=== PATIENT | female | born 1965 | race Caucasian/White ===

== ENCOUNTER 2020-05-21 12:41 | Outpatient (REF) | payer OTHER, SELFPAY ==
[2020-05-21 15:31] LABS: Syphilis Screen Nonreactive (Nonreactive)
[2020-05-22 03:11] LABS: CT PCR NOT DETECTED (Not Detect.); NG PCR NOT DETECTED (Not Detect.)
[2020-05-22 13:40] LABS: BV Int Neg Control Negative (Negative); BV Int Pos Control Positive (Positive)
[2020-05-24 03:58] LABS: ~Hepatitis C Antibody Nonreactive (Nonreactive)
[2020-05-24 04:00] LABS: HBc Num1 0.06 S/CO (0.00-0.79); HIV AB/AG Nonreactive (Nonreactive); HIV Num 1 0.05 S/CO (0.00-0.99); Hepatitis B Core Antibody Nonreactive (Nonreactive)
== END 2020-05-21 12:42 | disposition home or self-care (01) ==
LOC: HO.LAB 12:41
PROVIDERS: PCP Internal Medicine; Referring Provider Internal Medicine; Visit Provider Advanced Practice Midwife
DX: Z01.419 Encounter for gynecological examination (general) (routine) without abnormal findings (principal); Z11.3 Encounter for screening for infections with a predominantly sexual mode of transmission; Z11.4 Encounter for screening for human immunodeficiency virus [HIV]; Z20.2 Contact with and (suspected) exposure to infections with a predominantly sexual mode of transmission; R63.4 Abnormal weight loss; N95.1 Menopausal and female climacteric states
CPT/HCPCS: 86704; 86780; 86803; 87389; 87480; 87491; 87510; 87591; 87660

== ENCOUNTER → 2020-07-13 08:43 | Outpatient (BNVA) | payer OTHER, SELFPAY | PROVIDERS: PCP Internal Medicine; Visit Provider Nurse Practitioner | DX: Z76.89 Persons encountering health services in other specified circumstances (principal) ==

== ENCOUNTER → 2020-08-24 14:50 | Outpatient (BNVA) | payer OTHER, SELFPAY | PROVIDERS: PCP Internal Medicine; Visit Provider Nurse Practitioner ==

== ENCOUNTER 2020-10-05 16:06 | Outpatient (REF) | payer OTHER, SELFPAY ==
--- NOTE | ~2020-10-05 | XR_ITS ---
EXAMINATION: XR KNEE, LEFT XR SHOULDER, RIGHT CLINICAL INFORMATION: Pain left knee and right shoulder. COMPARISON: None TECHNIQUE: 3 views left knee. 4 views right shoulder. FINDINGS: LEFT KNEE: The tricompartment joint space is maintained normal. No visible fracture, dislocation or bony erosive changes seen. There is lateral patellar spurring. Small enthesophyte seen along the anterior superior patella. No abnormal joint effusion. RIGHT SHOULDER: There is mild reduction in the right AC joint space with inferior periarticular spurring. The glenohumeral joint space is normal. No fracture, dislocation or bony erosive changes. The soft tissues are normal. XR/XR knee LT 3V IMPRESSION: 1. Mild degenerative changes in the patellofemoral compartment with anterior superior patellar enthesophyte. 2. Mild degenerative changes right AC joint.
--- NOTE | ~2020-10-05 | XR_ITS ---
EXAMINATION: XR KNEE, LEFT XR SHOULDER, RIGHT CLINICAL INFORMATION: Pain left knee and right shoulder. COMPARISON: None TECHNIQUE: 3 views left knee. 4 views right shoulder. FINDINGS: LEFT KNEE: The tricompartment joint space is maintained normal. No visible fracture, dislocation or bony erosive changes seen. There is lateral patellar spurring. Small enthesophyte seen along the anterior superior patella. No abnormal joint effusion. RIGHT SHOULDER: There is mild reduction in the right AC joint space with inferior periarticular spurring. The glenohumeral joint space is normal. No fracture, dislocation or bony erosive changes. The soft tissues are normal. XR/XR shoulder RT min 2V IMPRESSION: 1. Mild degenerative changes in the patellofemoral compartment with anterior superior patellar enthesophyte. 2. Mild degenerative changes right AC joint.
[2020-10-05 16:57] LABS: Alanine Aminotransferase 10 U/L (0-31); Albumin Level 4.2 g/dL (3.5-5.0); Alkaline Phosphatase 73 U/L (39-117); Anion Gap 10 (12-20); Aspartate Amino Transferase 14 U/L (5-31); Bilirubin Total 0.8 mg/dL (0.0-1.0); Blood Urea Nitrogen 11 mg/dL (9-16); Calcium 9.3 mg/dL (8.4-10.2); Carbon Dioxide 32 mmol/L (22-29); Chloride 105 mmol/L (96-108); Cholesterol 142 mg/dL; Estimated Glomerular Filt Rate > 60; Glucose Fasting 81 mg/dL (60-99); HDL Cholesterol 49 mg/dL; LDL Cholesterol Calculated 65 mg/dl; Potassium 3.5 mmol/L (3.3-5.1); Sodium 143 mmol/L (135-145); Total Protein 6.9 g/dL (6.5-8.0); Triglycerides 144 mg/dL
[2020-10-09 10:36] LABS: Vitamin D 25-OH, D2 <4 ng/mL; Vitamin D 25-OH, D3 14 ng/mL; Vitamin D 25-OH, Total 14 ng/mL (30-100)
== END 2020-10-05 16:07 | disposition home or self-care (01) ==
LOC: HO.LAB 16:06
PROVIDERS: PCP Internal Medicine; Visit Provider Internal Medicine
DX: E78.5 Hyperlipidemia, unspecified (principal); E55.9 Vitamin D deficiency, unspecified; M25.562 Pain in left knee; M25.511 Pain in right shoulder
CPT/HCPCS: 36415; 73030; 73562; 80053; 80061; 82306

== ENCOUNTER → 2020-10-29 10:05 | Outpatient (BNVA) | payer OTHER, SELFPAY | PROVIDERS: Visit Provider Student in an Organized Health Care Education/Training Program | DX: M47.816 Spondylosis without myelopathy or radiculopathy, lumbar region (principal); M79.641 Pain in right hand; M79.642 Pain in left hand; M25.561 Pain in right knee; M25.562 Pain in left knee | CPT/HCPCS: 99212 ==

== ENCOUNTER 2020-11-02 16:00 | Outpatient (RCR) | payer OTHER, SELFPAY ==
--- NOTE | 2020-10-27 14:57 | MHC.PT.EP ---
[facility] [place] Office [place] Office [place] Office [address] Roberto Short [address] [phone] F: [phone] F: [phone] F: [phone] F: [phone] Physical Therapy Plan of Care Date of Evaluation: 10/27/20 Date of Surgery: Diagnosis: R shoulder pain Assessment: 55 y/o RHD female referred to PT with R shoulder pain. She fell 10/04/20 downstairs while carrying a hamper landing on R side. Imaging (-) for fx. She now reports pain and difficulty with reaching overhead, lifting, grooming, dressing, and sleeping. Examination shows decreased R shoulder A/PROM, decreased R scapular/RTC strength, increased pain, and impaired postural awareness. Recommend PT 2x/week for 5 weeks to address impairments, implement HEP, and optimize functional mobility. POC to include shoulder ROM, scapular and RTC strengthening, KT/STM, and postural training. Frequency and Duration: The patient will be seen 2x/week for 5 weeks Short Term Goals: 3 weeks: 1. I with HEP 2. Improve R shoulder flexion to 130 actively 3. Improve apley ER to C4 to assist in grooming Halfway Goals: 5 weeks: 1. I with HEP and self management of sx 2. Improve R shoulder strength by one MMT grade to assist in overhead reaching 3. Pt will be able to dress with B UE and pain < 3/10 Treatment Plan: Modalities to reduce pain, spasms and effusion. Manual therapy to restore motion and function. Therapeutic exercise to improve strength and flexibility. Neuromuscular re-education for posture and balance. Therapeutic activities to return to functional activities of daily living. Electronically signed by: Roxie Gutierrez PT Please sign and return to therapist. Thank you for your referral.
--- NOTE | 2020-11-18 15:39 | MHC.PT.DC ---
[facility] [place] Office [place] Office [place] Office [address] Roberto Short 140 [facility] [phone] F: [phone] F: [phone] F: [phone] F: [phone] Physical Therapy Discharge Report Diagnosis: R shoulder pain Date of Surgery: Date of Evaluation: 10/27/20 Date of Discharge: 11/18/20 Treatments to Date: 2 Cancellations to Date: 1 No Shows to Date: 3 Discharge Status: Visit Non-compliance Discharge Summary: Pt d/c secondary to noncompliance with scheduling policy Electronically signed by: Roxie Gutierrez PT Please sign and return to therapist. Thank you for your referral.
== END 2020-11-18 15:40 | disposition home or self-care (01) ==
LOC: HO.PT 16:00
PROVIDERS: PCP Internal Medicine; Visit Provider Internal Medicine
DX: M25.511 Pain in right shoulder (principal)
CPT/HCPCS: 97110; 97161; 97530

== ENCOUNTER → 2020-11-23 13:48 | Outpatient (BNVA) | payer OTHER, SELFPAY | PROVIDERS: PCP Internal Medicine; Visit Provider Nurse Practitioner ==

== ENCOUNTER → 2020-12-10 14:01 | Outpatient (BNVA) | payer OTHER, SELFPAY | PROVIDERS: PCP Internal Medicine; Visit Provider Urology ==

== ENCOUNTER → 2020-12-30 10:57 | Outpatient (BNVA) | payer OTHER, SELFPAY | PROVIDERS: PCP Internal Medicine; Visit Provider Obstetrics & Gynecology | DX: N95.1 Menopausal and female climacteric states (principal) | CPT/HCPCS: 99212 ==

== ENCOUNTER → 2021-01-11 11:02 | Outpatient (BNVA) | payer OTHER, SELFPAY | PROVIDERS: PCP Internal Medicine; Visit Provider Obstetrics & Gynecology | DX: N95.1 Menopausal and female climacteric states (principal) | CPT/HCPCS: 99212 ==

== ENCOUNTER → 2021-01-14 15:03 | Outpatient (REF) | payer OTHER, SELFPAY ==
--- NOTE | 2021-01-14 15:14 | ECG_ITS ---
Test Reason : CHEST PAIN Blood Pressure : / mmHG Vent. Rate : 059 BPM Atrial Rate : 059 BPM P-R Int : 134 ms QRS Dur : 088 ms QT Int : 398 ms P-R-T Axes : 067 052 049 degrees QTc Int : 394 ms Sinus bradycardia Otherwise normal ECG When compared to the previous EKG of No significant changes seen Referred By: Kareen Burrell Electronically Signed By:DIXON GALICIA MD
[2021-01-14 16:45] LABS: Folate 10.5 ng/mL (> or = 4.0); Vitamin B12 276 pg/mL (200-900)
[2021-01-17 19:57] LABS: Intrinsic Factor Antibodies Negative (Negative)
[2021-01-18 12:01] LABS: Parietal Cell Antibody <=20.0 Unit (<=20.0)
[2021-01-18 13:17] LABS: Vitamin D 25-OH, D2 49 ng/mL; Vitamin D 25-OH, D3 13 ng/mL; Vitamin D 25-OH, Total 62 ng/mL (30-100)
== END ==
LOC: HO.CARD 15:03
PROVIDERS: PCP Internal Medicine; Visit Provider Internal Medicine
DX: R07.9 Chest pain, unspecified (principal); E53.8 Deficiency of other specified B group vitamins; E55.9 Vitamin D deficiency, unspecified
CPT/HCPCS: 36415; 82306; 82607; 82746; 83516; 86340; 93005

== ENCOUNTER → 2021-02-04 13:00 | Outpatient (BNVA) | payer OTHER, SELFPAY | PROVIDERS: PCP Internal Medicine; Referring Provider Internal Medicine; Visit Provider Nurse Practitioner | DX: K21.00 Gastro-esophageal reflux disease with esophagitis, without bleeding (principal); K29.30 Chronic superficial gastritis without bleeding; K58.2 Mixed irritable bowel syndrome; R63.4 Abnormal weight loss; R11.2 Nausea with vomiting, unspecified; E53.8 Deficiency of other specified B group vitamins; E78.5 Hyperlipidemia, unspecified; E83.42 Hypomagnesemia; I10 Essential (primary) hypertension; Z80.0 Family history of malignant neoplasm of digestive organs; J30.1 Allergic rhinitis due to pollen; Z88.5 Allergy status to narcotic agent; Z91.018 Allergy to other foods | CPT/HCPCS: 99212 ==

== ENCOUNTER 2021-02-04 15:00 | Outpatient (RCR) | payer OTHER, SELFPAY ==
--- NOTE | 2021-03-17 08:29 | MHC.OT.DC ---
[address] [phone] F: [phone] Occupational Therapy Discharge Note Provider: Dr Malik Diagnosis: Right Hand Pain Date of Evaluation: 01/14/21 Date of Discharge: 03/17/21 Treatments to Date: 3 Cancellations to Date: 4 No Shows to Date: 3 Discharge Status: Visit Non-compliance Discharge Summary: Yola was seen for OT for right hand pain, possible recurrent CTS. She has been very inconsistent with attendance and has not been seen for therapy in over a month. She may benefit from trial of night orthosis and continues participation in HEP. Electronically Signed By: GELACIO Rivas/Sherry Reviewed/agree with student documentation: N/A Therapist: Please Sign and return to therapist, thank you for your referral.
== END 2021-03-17 08:29 | disposition home or self-care (01) ==
LOC: HO.OT 15:00
PROVIDERS: PCP Internal Medicine; Visit Provider Student in an Organized Health Care Education/Training Program
DX: M79.641 Pain in right hand (principal)
CPT/HCPCS: 29125; 97035; 97110; 97166; 97760

== ENCOUNTER → 2021-02-09 14:09 | Outpatient (BNVA) | payer OTHER, SELFPAY | PROVIDERS: PCP Internal Medicine; Visit Provider Obstetrics & Gynecology | DX: N95.1 Menopausal and female climacteric states (principal); E53.8 Deficiency of other specified B group vitamins; E78.5 Hyperlipidemia, unspecified; I10 Essential (primary) hypertension; E83.42 Hypomagnesemia; Z98.51 Tubal ligation status | CPT/HCPCS: 99212 ==

== ENCOUNTER 2021-02-21 17:00 | Outpatient (RCR) | payer OTHER, SELFPAY ==
--- NOTE | 2021-01-10 16:08 | MHC.PT.EP ---
[facility] [place] Office [place] Office [place] Office [address] Roberto Short [address] [phone] F: [phone] F: [phone] F: [phone] F: [phone] Physical Therapy Plan of Care Date of Evaluation: Date of Surgery: N/A Diagnosis: pain in left knee Assessment: pt presents w/ signs and symptoms consistent w/ patellofemoral pain syndrome. pt presents to physical therapy with pain, decreased range of motion, decreased strength, impaired functional mobility, impaired postural awareness, and gait deviations. pt is a good candidate for skilled PT due to age, potential remediation of impairments, typical disease/condition progression and prognosis, comorbidities, and motivation. pt would benefit from tailored strengthening and stretching exercise program, functional training, gait training, postural re-training, neuromuscular re-education, modalities as needed for pain, equipment safety demonstration. Frequency and Duration: The patient will be seen 2x/wk for 4 wks Short Term Goals: pt will be I w/ HEP to promote self-management of condition. pt will improve L quad strength by 1 MMT grade to promote ease in ascending/descending stairs. Skilled Nursing Goals: pt will report a statistically significant improvement in self-reported outcome measure, LEFI, to promote return to PLOF. pt will report <1/10 L knee pain w/ ambulation >2500' w/ LRAD to promote return to community ambulation. Treatment Plan: Modalities to reduce pain, spasms and effusion. Manual therapy to restore motion and function. Therapeutic exercise to improve strength and flexibility. Neuromuscular re-education for posture and balance. Therapeutic activities to return to functional activities of daily living. Electronically signed by: Rose Malone PT, DPT Please sign and return to therapist. Thank you for your referral.
--- NOTE | 2021-03-07 10:16 | MHC.PT.DC ---
[facility] [place] Office [place] Office [place] Office [address] Roberto Short 140 [facility] [phone] F: [phone] F: [phone] F: [phone] F: [phone] Physical Therapy Discharge Report Diagnosis: pain in left knee Date of Surgery: N/A Date of Evaluation: 01/10/21 Date of Discharge: 03/07/21 Treatments to Date: 7 Cancellations to Date: 2 No Shows to Date: 1 Discharge Status: Visit Non-compliance Discharge Summary: The patient cancelled her last appointment and has not called back to reschedule any future appointments in approximately two weeks. She was reporting overall no change in her pain with physical therapy intervention at this time. Her primary aggravating factor is navigating stairs which she has to do multiple times a day as she lives on the fourth floor of an apartment complex. She is discharged from this physical therapy plan of care at this time. Electronically signed by: Rose Malone PT, DPT Please sign and return to therapist. Thank you for your referral.
== END 2021-03-07 10:17 | disposition home or self-care (01) ==
LOC: HO.PT 17:00
PROVIDERS: PCP Internal Medicine; Visit Provider Student in an Organized Health Care Education/Training Program
DX: M25.561 Pain in right knee (principal)
CPT/HCPCS: 97110; 97161; 97530

== ENCOUNTER 2021-02-24 15:43 | Outpatient (REF) | payer OTHER, SELFPAY ==
--- NOTE | ~2021-02-24 | MM_ITS ---
EXAMINATION: MM SCREENING DIGITAL BREAST TOMOSYNTHESIS, BILATERAL CLINICAL INFORMATION: Screening. Asymptomatic. The lifetime risk of breast cancer based on the Tyrer-Cuzick Model is 6%. COMPARISON: Mammography: 12/13/2018, 02/05/2018, 01/05/2017 TECHNIQUE: Digital breast tomosynthesis is performed in both the craniocaudal and mediolateral oblique views along with computer-aided detection (CAD). Synthesized 2D images are generated from the tomosynthesis. FINDINGS: There are scattered areas of fibroglandular density (ACR BI-RADS breast composition Category b). There are no significant masses, abnormal calcifications, or other abnormalities. There is small stable circumscribed nodule 12:00 left breast. The axilla and skin contours are unremarkable. No significant changes. MM/MM tomosynthesis screening BI IMPRESSION: No mammographic evidence of malignancy. ASSESSMENT: BI-RADS 2: Benign RECOMMENDATION: Routine annual mammography screening. This patient's information was entered into a reminder system with a target due date for their next mammogram.
== END 2021-02-24 15:44 | disposition home or self-care (01) ==
LOC: HO.MAMMO 15:43
PROVIDERS: Visit Provider Internal Medicine
DX: Z12.31 Encounter for screening mammogram for malignant neoplasm of breast (principal)
CPT/HCPCS: 77063; 77067

== ENCOUNTER → 2021-03-18 13:24 | Outpatient (BNVA) | payer OTHER, SELFPAY | PROVIDERS: Visit Provider Nurse Practitioner | DX: K29.30 Chronic superficial gastritis without bleeding (principal); R11.2 Nausea with vomiting, unspecified; K21.00 Gastro-esophageal reflux disease with esophagitis, without bleeding; K58.2 Mixed irritable bowel syndrome; E53.8 Deficiency of other specified B group vitamins; Z80.0 Family history of malignant neoplasm of digestive organs | CPT/HCPCS: 99212 ==

== ENCOUNTER → 2021-05-05 13:38 | Outpatient (BNVA) | payer OTHER, SELFPAY | PROVIDERS: Referring Provider Internal Medicine; Visit Provider Nurse Practitioner | DX: K21.00 Gastro-esophageal reflux disease with esophagitis, without bleeding (principal); K58.2 Mixed irritable bowel syndrome; K30 Functional dyspepsia; R10.11 Right upper quadrant pain; R35.0 Frequency of micturition | CPT/HCPCS: 99212 ==

== ENCOUNTER 2021-06-12 17:31 | Emergency (ER) | payer OTHER, SELFPAY ==
[2021-06-12 17:39] VITALS: BP 134/79; PULSE 98; RESP 17; TEMP 36.4; O2SAT 98; BMI 24.7
[2021-06-12 17:58] LABS: COVID-19 Test Positive (Negative)
--- NOTE | 2021-06-12 18:00 | ED_ITS ---
HPI - URI/Sore Throat General Chief Complaint: Upper Respiratory Symptoms Stated Complaint: Covid symptoms Time Seen by Provider: 06/12/21 17:50 Source: patient and bilingual interpreter Mode of arrival: ambulatory Limitations: no limitations History of Present Illness MD elicited complaint: fever, cough, sore throat and rhinorrhea Pertinent past history: immunosuppression Onset (ago): day(s) (3) Consistency: constant Severity: moderate Description of mucous: clear Able to tolerate fluids by mouth: Yes Exacerbating factors: nothing Context: sick contacts (son has COVID, patient is not vaccinated) Associated symptoms: fever, chills, myalgias, headache, rhinorrhea, cough and nausea Treatments prior to arrival: none Related Data Home Medications Medication Instructions Recorded Confirmed albuterol sulfate 90 mcg/actuation 2 puff INHALATION Q4H PRN 05/03/20 05/18/21 aerosol inhaler citalopram 40 mg tablet 40 mg PO DAILY 05/03/20 05/18/21 diphenhydramine HCl 25 mg capsule 25 mg PO BEDTIME 05/03/20 05/18/21 fluticasone 113 mcg-salmeterol 14 1 inh INHALATION BID 05/03/20 05/18/21 mcg/actuation breath activated powdr mirtazapine 15 mg tablet 15 mg PO BEDTIME 05/03/20 05/18/21 trazodone 50 mg tablet 50 mg PO BEDTIME 05/03/20 05/18/21 metoprolol tartrate 25 mg tablet 25 mg PO BID 05/21/20 05/18/21 promethazine 12.5 mg tablet 12.5 mg PO Q6-8H 05/21/20 05/18/21 glatiramer 40 mg/mL subcutaneous 40 mg SUBCUT 3XW 10/29/20 05/18/21 syringe (Copaxone) triamcinolone acetonide 55 mcg spray INTRANASAL 12/10/20 05/18/21 nasal spray aerosol Previous Rx's Medication Instructions Recorded losartan 50 mg tablet 50 mg PO DAILY 90 Days #90 tab 07/02/20 ropinirole 5 mg tablet 5 mg PO BEDTIME 90 Days #90 tab 07/19/20 alcohol swabs (Alcohol Prep Pads) 1 pad TOPICAL BID 90 Days #200 ea 09/08/20 chlorthalidone 50 mg tablet 50 mg PO QAM #90 tab 11/05/20 dexlansoprazole 60 mg 60 mg PO DAILY 90 Days #90 cap 02/04/21 capsule,biphase delayed release methylcellulose (laxative) 500 mg 1,000 mg PO DAILY 30 Days #60 tab 02/04/21 tablet (Citrucel) clonidine 0.1 mg/24 hr weekly 1 patch TRANSDERMAL QWEEK #4 ea 02/09/21 transdermal patch tramadol 50 mg tablet 50 mg PO TID #90 tab 02/22/21 dicyclomine 10 mg capsule 10 mg PO QID PRN 30 Days #120 cap 03/18/21 metoclopramide HCl 5 mg tablet 5 mg PO QIDACHS 30 Days #120 tab 03/18/21 polyethylene glycol 3350 17 17 g PO DAILY PRN 30 Days #510 g 03/18/21 gram/dose oral powder (Miralax) cetirizine 10 mg tablet 10 mg PO DAILY 90 Days #90 tab 05/06/21 glycopyrrolate 1 mg tablet 1 mg PO ONCE 90 Days #90 tab 05/06/21 magnesium oxide 400 mg (241.3 mg 400 mg PO BID 90 Days #180 tab 05/06/21 magnesium) tablet topiramate 100 mg tablet 100 mg PO BEDTIME 90 Days #90 tab 05/06/21 venlafaxine 37.5 mg 37.5 mg PO DAILY #30 cap 05/13/21 capsule,extended release 24 hr ergocalciferol (vitamin D2) 1,250 1,250 mcg PO QWEEK 30 Days #5 cap 06/06/21 mcg (50,000 unit) capsule Allergies Allergy/AdvReac Type Severity Reaction Status Date / Time almond Allergy Severe ANAPHYLAXIS Verified 06/12/21 17:39 kiwi Allergy Severe Itching Verified 06/12/21 17:39 peach [PEACH] Allergy Severe ANAPHYLAXIS Verified 06/12/21 17:39 walnut Allergy Severe ANAPHYLAXIS Verified 06/12/21 17:39 morphine Allergy Intermediate ITCHING, Verified 06/12/21 17:39 hives, swelling,itchiness ENVIRONMENTAL Allergy Intermediate HAY FEVER Uncoded 05/18/21 10:25 Review of Systems Review of Systems: Constitutional : positive Fever, positive Chills, positive fatigue, positive Malaise ENT/Mouth : no sore throat, positive runny nose Eyes: No Discharge Cardiovascular : No Chest Pain, No SOB Respiratory : pos Cough, No Sputum Gastrointestinal : pos Nausea, No Vomiting, No Diarrhea Genitourinary : No Dysuria, No Urinary Frequency Musculoskeletal : positive Myalgia Skin : No rash Neuro : pos Headache PMFSH Past Medical History Attestation statement: The following information was validated with the patient. Medical History Allergic rhinitis Allergic rhinitis B12 deficiency Dyslipidemia Essential hypertension Foot callus Foot pain Hypomagnesemia Left knee pain Migraine Moderate recurrent major depression Multiple sclerosis Multiple sclerosis Right shoulder pain Salivary disorder Urge urinary incontinence Surgical History History of endometrial ablation History of esophagogastroduodenoscopy (EGD) History of suburethral sling procedure Hx of colonoscopy Hx of foot surgery Hx of submucous nasal surgery Hx of tubal ligation Family History Family History Father History of throat cancer Mother Family history of lupus erythematosus Stroke Multiple sclerosis Maternal Grandmother Multiple sclerosis Pancreatic cancer Paternal Grandfather Pancreatic cancer Lung cancer Social History Social History Household Members: Spouse and Children Housing: Apartment Alcohol intake: never Patient Tobacco Use Status: Never used Tobacco e-Cigarette/Vaping Use: Never Used Second Hand Smoke Exposure: No Substance Use Type: Marijuana Advance Directives: No Advance Directives Information Provided: No Patient : No service: No Current occupational status: student and disabled Physical Exam Vital Signs: Vital Signs: Last Vital Signs Temp 97.6 F 06/12/21 17:39 Pulse 98 06/12/21 17:39 Resp 17 06/12/21 17:39 BP 134/79 06/12/21 17:39 Pulse Ox 98 06/12/21 17:39 Body Mass Index 24.7 Appearance: Alert. Oriented X3. No acute distress. Eyes: Pupils equal, round and reactive to light. ENT: Pharynx normal. Neck: Normal inspection. Neck supple. CVS: Normal heart rate and rhythm. Pulses normal. Respiratory: No respiratory distress. Breath sounds normal. Abdomen: Soft and non-tender. Skin: Skin warm and dry. Normal skin color. Normal skin turgor. Extremities: No lower extremity edema. No calf ttp Neuro: Oriented X 3. No motor deficit. No sensory deficit. MDM - URI/Sore Throat MDM Narrative Medical decision making narrative: 56 yo female multiple medical problems here with URI symptoms x 3 days and body aches, she has no CP, normal O2 sats, she was walking back and from bathroom no distress, clear lungs - + COVID exposure unvaccinated - given information for monoclonal ab and expectant course and management Lab Data Labs: Lab Results 06/12/21 Range/Units 17:47 COVID-19 ([facility]) Positive A (Negative) COVID-19 Clin Com See Note Discharge Plan Discharge Clinical Impression: COVID-19 Patient Disposition: Home, Self-Care Instructions: COVID-19 (Coronavirus Disease 2019) (ED) Additional Instructions: return to ED for any worsening symptoms or concerns if you are so short of breath you cannot walk to your bathroom please come back to the ED PLEASE CALL [facility] TO SEE IF YOU MEET CRITERIA FOR MONOCLONAL ANTIBODY TREATMENT CALL TOMORROW [phone] Prescriptions: No Action losartan 50 mg tablet 50 mg PO DAILY 90 Days Qty: 90 RF: 3 ropinirole 5 mg tablet 5 mg PO BEDTIME 90 Days Qty: 90 RF: 3 alcohol swabs [Alcohol Prep Pads] Pads, Medicated 1 pad topical BID 90 Days Qty: 200 RF: 3 chlorthalidone 50 mg tablet 50 mg PO QAM Qty: 90 RF: 3 tramadol 50 mg tablet 50 mg PO TID Qty: 90 RF: 5 magnesium oxide 400 mg (241.3 mg magnesium) tablet 400 mg PO BID 90 Days Qty: 180 RF: 3 glycopyrrolate 1 mg tablet 1 mg PO ONCE 90 Days Qty: 90 RF: 3 topiramate 100 mg tablet 100 mg PO BEDTIME 90 Days Qty: 90 RF: 3 cetirizine 10 mg tablet 10 mg PO DAILY 90 Days Qty: 90 RF: 3 venlafaxine 37.5 mg capsule,extended release 24hr 37.5 mg PO DAILY Qty: 30 RF: 3 ergocalciferol (vitamin D2) 1,250 mcg (50,000 unit) capsule 1,250 mcg PO QWEEK 30 Days Qty: 5 RF: 3 promethazine 12.5 mg tablet 12.5 mg PO Q6-8H RF: 0 metoprolol tartrate 25 mg tablet 25 mg PO BID RF: 0 triamcinolone acetonide 55 mcg aerosol,spray intranasal RF: 0 glatiramer [Copaxone] 40 mg/mL syringe 40 mg subcut 3XW RF: 0 fluticasone propion-salmeterol 113-14 mcg/actuation aerosol powdr breath activated 1 inh inhalation BID RF: 0 albuterol sulfate 90 mcg/actuation HFA aerosol inhaler 2 puff inhalation Q4H PRN (Reason: Wheezing) RF: 0 mirtazapine 15 mg tablet 15 mg PO BEDTIME RF: 0 diphenhydramine HCl 25 mg capsule 25 mg PO BEDTIME RF: 0 trazodone 50 mg tablet 50 mg PO BEDTIME RF: 0 citalopram 40 mg tablet 40 mg PO DAILY RF: 0 Citrucel 500 mg tablet 1,000 mg PO DAILY 30 Days Qty: 60 RF: 6 dexlansoprazole 60 mg capsule,biphase delayed releas 60 mg PO DAILY 90 Days Qty: 90 RF: 3 clonidine 0.1 mg/24 hr patch weekly 1 patch transdermal QWEEK Qty: 4 RF: 11 metoclopramide HCl 5 mg tablet 5 mg PO QIDACHS 30 Days Qty: 120 RF: 6 polyethylene glycol 3350 [Miralax] 17 gram/dose powder 17 g PO DAILY PRN (Reason: constipation) 30 Days Qty: 510 RF: 3 dicyclomine 10 mg capsule 10 mg PO QID PRN (Reason: cramping) 30 Days Qty: 120 RF: 3 Print Language: Belarusian
== END 2021-06-12 18:24 | disposition home or self-care (01) ==
PROVIDERS: Emergency Provider Emergency Medicine; PCP Internal Medicine
DX: U07.1 COVID-19 (principal); I10 Essential (primary) hypertension; G35 Multiple sclerosis; E78.5 Hyperlipidemia, unspecified
CPT/HCPCS: 36415; 87635; 99283

== ENCOUNTER 2021-08-01 14:32 | Outpatient (REF) | payer OTHER, SELFPAY | END 2021-08-01 14:33 | disposition home or self-care (01) | LOC: HO.LAB 14:32 | PROVIDERS: PCP Internal Medicine; Visit Provider Internal Medicine | DX: Z13.89 Encounter for screening for other disorder (principal) ==

== ENCOUNTER 2021-08-01 14:37 | Outpatient (REF) | payer OTHER, SELFPAY ==
--- NOTE | ~2021-08-01 | XR_ITS ---
EXAMINATION: XR BILATERAL FOOT SERIES CLINICAL INFORMATION: Pain in the left foot, pain in the right foot. COMPARISON: X-ray the right foot August 2019 TECHNIQUE: 3 views of the right foot and 3 views of the left foot FINDINGS: RIGHT FOOT: There postsurgical changes with resection of the distal end of the 5th metatarsal. Slight irregularity of the distal end of the proximal phalanx at the PIP joint which is unchanged and may also reflect postsurgical change. The bones joints and soft tissues are otherwise normal. LEFT FOOT: First metatarsophalangeal joint small marginal osteophytes without joint space narrowing indicative of mild osteoarthritis without significant change. Postsurgical changes in the ankle with partially visualized plate and screws noted similar to prior. Hardware remains intact XR/XR foot RT 2V IMPRESSION: Right foot: Postsurgical changes of the 5th digit. No acute abnormality. 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 Postsurgical changes partially visualized in the ankle unchanged.
--- NOTE | ~2021-08-01 | XR_ITS ---
EXAMINATION: XR BILATERAL FOOT SERIES CLINICAL INFORMATION: Pain in the left foot, pain in the right foot. COMPARISON: X-ray the right foot August 2019 TECHNIQUE: 3 views of the right foot and 3 views of the left foot FINDINGS: RIGHT FOOT: There postsurgical changes with resection of the distal end of the 5th metatarsal. Slight irregularity of the distal end of the proximal phalanx at the PIP joint which is unchanged and may also reflect postsurgical change. The bones joints and soft tissues are otherwise normal. LEFT FOOT: First metatarsophalangeal joint small marginal osteophytes without joint space narrowing indicative of mild osteoarthritis without significant change. Postsurgical changes in the ankle with partially visualized plate and screws noted similar to prior. Hardware remains intact XR/XR foot LT 2V IMPRESSION: Right foot: Postsurgical changes of the 5th digit. No acute abnormality. 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 Postsurgical changes partially visualized in the ankle unchanged.
[2021-08-01 15:01] LABS: MANUAL DIFF FLAG NO
[2021-08-01 15:24] LABS: Basophils Percent Auto 0.8 % (0-2); Eosinophils Absolute Auto 0.1 X10*3/uL (0.0-0.4); Eosinophils Percent Auto 1.6 % (0-4); Hematocrit 40.7 % (37.0-47.0); Hemoglobin 13.9 g/dl (12.0-16.0); Imm Gran Abs Auto 0.01 X10*3/uL (0.00-0.03); Imm Gran Pct Auto 0.2 % (0.0-0.4); Lymphocytes Absolute Auto 1.9 X10*3/uL (1.2-4.9); Lymphocytes Percent Auto 38.2 % (20-40); Mean Corpuscular HGB Conc 34.2 g/dl (31.0-35.0); Mean Corpuscular Hemoglobin 33.8 pg (27.0-33.0); Mean Platelet Volume 10.6 fL (9.4-12.3); Monocytes Absolute Auto 0.5 X10*3/uL (0.1-1.2); Monocytes Percent Auto 9.4 % (2-11); Neutrophils Absolute Auto 2.4 x10*3/uL (2.0-8.3); Neutrophils Percent Auto 49.8 % (45-73); Platelet Count 169 X10*3/uL (160-400); Red Blood Count 4.11 X10*6/uL (4.20-5.50); Red Cell Distribution Width 12.3 % (11.0-16.0); White Blood Count 4.9 X10*3/uL (4.8-10.8)
[2021-08-01 15:47] LABS: Alanine Aminotransferase 17 U/L (0-31); Albumin Level 4.2 g/dL (3.5-5.0); Alkaline Phosphatase 62 U/L (39-117); Anion Gap 10 (12-20); Aspartate Amino Transferase 16 U/L (5-31); Bilirubin Total 0.6 mg/dL (0.0-1.0); Blood Urea Nitrogen 10 mg/dL (9-16); Calcium 9.6 mg/dL (8.4-10.2); Carbon Dioxide 31 mmol/L (22-29); Chloride 106 mmol/L (96-108); Cholesterol 141 mg/dL; Estimated Glomerular Filt Rate > 60; Glucose Fasting 90 mg/dL (60-99); HDL Cholesterol 52 mg/dL; LDL Cholesterol Calculated 66 mg/dl; Potassium 3.9 mmol/L (3.3-5.1); Sodium 143 mmol/L (135-145); Total Protein 6.7 g/dL (6.5-8.0); Triglycerides 116 mg/dL
[2021-08-05 13:01] LABS: Vitamin D 25-OH, D2 34 ng/mL; Vitamin D 25-OH, D3 17 ng/mL; Vitamin D 25-OH, Total 51 ng/mL (30-100)
== END 2021-08-01 14:38 | disposition home or self-care (01) ==
LOC: HO.XRAY 14:37
PROVIDERS: PCP Internal Medicine; Visit Provider Internal Medicine
DX: M79.672 Pain in left foot (principal); M79.671 Pain in right foot; D64.9 Anemia, unspecified; E55.9 Vitamin D deficiency, unspecified; E78.5 Hyperlipidemia, unspecified; I10 Essential (primary) hypertension
CPT/HCPCS: 36415; 73620; 80053; 80061; 82306; 85025

== ENCOUNTER 2021-08-10 09:02 | Outpatient (REF) | payer OTHER, SELFPAY ==
--- NOTE | ~2021-08-10 | US_ITS ---
EXAMINATION: US ABDOMEN COMPLETE CLINICAL INFORMATION: Right upper quadrant pain. COMPARISON: CT abdomen and pelvis 12/11/2019. X-ray KUB 08/11/2019. X-ray abdomen 04/02/2019. Ultrasound abdomen complete 03/20/2018. Ultrasound abdomen limited 02/27/2014. TECHNIQUE: Real-time imaging of the abdominal viscera. FINDINGS: PANCREAS: Visualized portions of the pancreas are unremarkable, the tail is obscured by overlying bowel gas. ABDOMINAL AORTA: The proximal, mid, and distal segments are normal in caliber. INFERIOR VENA CAVA: Visualized portions are normal. LIVER: The liver is normal in size. The liver contour is normal. Parenchymal echogenicity is normal. No focal hepatic lesion. There is no intrahepatic biliary duct dilatation seen. GALLBLADDER: The gallbladder is physiologically distended without evidence of stones, sludge, polyps, wall thickening or pericholecystic fluid. COMMON BILE DUCT: Normal in caliber measuring 0.5 cm in diameter. RIGHT KIDNEY: No hydronephrosis. No renal calculi or focal parenchymal lesions. The kidney measures 10.0 cm in maximum dimension. LEFT KIDNEY: No hydronephrosis. No renal calculi or focal parenchymal lesions. The kidney measures 10.0 cm in maximum dimension. SPLEEN: The spleen measures 9.5 cm in maximum dimension. FREE FLUID: None. US/US abdomen complete IMPRESSION: Unremarkable abdominal ultrasound.
== END 2021-08-10 09:03 | disposition home or self-care (01) ==
LOC: HO.US 09:02
PROVIDERS: Visit Provider Nurse Practitioner
DX: R10.11 Right upper quadrant pain (principal)
CPT/HCPCS: 76700

== ENCOUNTER → 2021-08-23 09:41 | Outpatient (BNVA) | payer OTHER, SELFPAY | PROVIDERS: PCP Internal Medicine; Referring Provider Internal Medicine; Visit Provider Nurse Practitioner | DX: K30 Functional dyspepsia (principal); K21.00 Gastro-esophageal reflux disease with esophagitis, without bleeding; K58.2 Mixed irritable bowel syndrome; R10.11 Right upper quadrant pain; R11.2 Nausea with vomiting, unspecified | CPT/HCPCS: 99212 ==

== ENCOUNTER 2021-09-19 13:54 | Outpatient (REF) | payer OTHER, SELFPAY ==
[2021-09-20 09:18] LABS: CT PCR NOT DETECTED (Not Detect.); NG PCR NOT DETECTED (Not Detect.)
[2021-09-20 11:05] LABS: BV Int Neg Control Negative (Negative); BV Int Pos Control Positive (Positive)
== END 2021-09-19 13:55 | disposition home or self-care (01) ==
LOC: HO.LAB 13:54
PROVIDERS: PCP Internal Medicine; Visit Provider Advanced Practice Midwife
DX: Z01.411 Encounter for gynecological examination (general) (routine) with abnormal findings (principal); R35.0 Frequency of micturition; R23.2 Flushing; R30.0 Dysuria; R10.2 Pelvic and perineal pain; Z20.2 Contact with and (suspected) exposure to infections with a predominantly sexual mode of transmission
CPT/HCPCS: 81003; 87480; 87491; 87510; 87591; 87660

== ENCOUNTER → 2021-09-22 09:55 | Outpatient (BNVA) | payer OTHER, SELFPAY | PROVIDERS: PCP Internal Medicine; Referring Provider Internal Medicine; Visit Provider Nurse Practitioner | DX: K58.2 Mixed irritable bowel syndrome (principal); K21.00 Gastro-esophageal reflux disease with esophagitis, without bleeding; K30 Functional dyspepsia; K59.00 Constipation, unspecified; R11.2 Nausea with vomiting, unspecified | CPT/HCPCS: 99212 ==

== ENCOUNTER 2021-10-11 15:29 | Outpatient (REF) | payer OTHER, SELFPAY ==
--- NOTE | ~2021-10-11 | US_ITS ---
EXAMINATION: US PELVIS CLINICAL INFORMATION: Dysuria. COMPARISON: Previous CT of the abdomen and pelvis December 2019. TECHNIQUE: Ultrasound of the pelvis is performed using both transabdominal and transvaginal transducers along with Doppler. Transvaginal imaging is performed due to inadequate visualization transabdominally. FINDINGS: The uterus is anteverted and measures 7 x 2.6 x 4.5 cm in dimension. No focal uterine lesion is seen. The endometrium does not appear thickened measuring 0.3 cm. There is a small amount of fluid in the endometrial cavity. The ovaries are normal. The right ovary measures 2.5 x 1.8 x 1.3 cm. The left ovary is normal and measures 2.2 x 1 x 1.4 cm. There is no fluid in the pelvis. US/US pelvic and transvaginal IMPRESSION: Unremarkable exam.
== END 2021-10-11 15:30 | disposition home or self-care (01) ==
LOC: HO.HMGCX 15:29
PROVIDERS: PCP Internal Medicine; Visit Provider Advanced Practice Midwife
DX: R30.0 Dysuria (principal)
CPT/HCPCS: 76830; 76856

== ENCOUNTER → 2021-10-19 15:41 | Outpatient (BNVA) | payer OTHER, SELFPAY | PROVIDERS: Visit Provider Advanced Practice Midwife | DX: R10.2 Pelvic and perineal pain (principal); Z71.2 Person consulting for explanation of examination or test findings | CPT/HCPCS: Q3014 ==

== ENCOUNTER → 2021-10-27 12:31 | Outpatient (BNVA) | payer OTHER, SELFPAY | PROVIDERS: PCP Internal Medicine; Visit Provider Nurse Practitioner Family | DX: M47.816 Spondylosis without myelopathy or radiculopathy, lumbar region (principal); M79.641 Pain in right hand; M79.642 Pain in left hand; M25.522 Pain in left elbow; R20.0 Anesthesia of skin; R20.2 Paresthesia of skin | CPT/HCPCS: 99212 ==

== ENCOUNTER → 2021-10-28 10:30 | Outpatient (BNVA) | payer OTHER, SELFPAY | PROVIDERS: PCP Internal Medicine; Referring Provider Internal Medicine; Visit Provider Nurse Practitioner | DX: K21.00 Gastro-esophageal reflux disease with esophagitis, without bleeding (principal); K58.2 Mixed irritable bowel syndrome | CPT/HCPCS: 99212 ==

== ENCOUNTER → 2021-11-22 14:41 | Outpatient (BNVA) | payer OTHER, MEDICAID, SELFPAY | PROVIDERS: PCP Internal Medicine; Visit Provider Orthopaedic Surgery | DX: M79.641 Pain in right hand (principal); R20.0 Anesthesia of skin; R20.2 Paresthesia of skin | CPT/HCPCS: 99202 ==

== ENCOUNTER → 2021-12-09 10:26 | Outpatient (BNVA) | payer OTHER, MEDICAID, SELFPAY | PROVIDERS: PCP Internal Medicine; Referring Provider Internal Medicine; Visit Provider Nurse Practitioner | DX: K58.2 Mixed irritable bowel syndrome (principal); K21.00 Gastro-esophageal reflux disease with esophagitis, without bleeding; K30 Functional dyspepsia | CPT/HCPCS: 99212 ==

== ENCOUNTER → 2022-01-05 15:41 | Outpatient (BNVA) | payer OTHER, SELFPAY | PROVIDERS: PCP Internal Medicine; Referring Provider Internal Medicine; Visit Provider Nurse Practitioner | DX: K58.2 Mixed irritable bowel syndrome (principal); K21.00 Gastro-esophageal reflux disease with esophagitis, without bleeding; K30 Functional dyspepsia; D75.89 Other specified diseases of blood and blood-forming organs | CPT/HCPCS: 99212 ==

== ENCOUNTER 2022-02-17 16:44 | Emergency (ER) | payer OTHER, SELFPAY ==
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
[2022-02-17 16:53] VITALS: BP 175/106; PULSE 99; RESP 16; TEMP 36.7; O2SAT 98; BMI 23.6
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
== END 2022-02-17 18:20 | disposition home or self-care (01) ==
PROVIDERS: Emergency Provider Emergency Medicine; PCP Internal Medicine
DX: T59.811A Toxic effect of smoke, accidental (unintentional), initial encounter (principal); Y92.030 Kitchen in apartment as the place of occurrence of the external cause; E78.5 Hyperlipidemia, unspecified; G35 Multiple sclerosis; F12.90 Cannabis use, unspecified, uncomplicated; Z87.891 Personal history of nicotine dependence; Z79.899 Other long term (current) drug therapy
CPT/HCPCS: 71046; 99282; 99283

== ENCOUNTER 2022-03-14 16:53 | Outpatient (REF) | payer OTHER, SELFPAY ==
--- NOTE | ~2022-03-14 | XR_ITS ---
EXAMINATION: XR FOOT, RIGHT CLINICAL INFORMATION: Right foot pain COMPARISON: 08/01/2021 TECHNIQUE: AP, lateral, and oblique views of the right foot. FINDINGS: Again seen are postsurgical changes with resection of the distal end of the fifth metatarsal. No other abnormality is seen. No fractures or dislocations. No significant arthritic changes. XR/XR foot RT min 3V IMPRESSION: Postsurgical changes fifth metatarsal in appearance. No acute finding.
== END 2022-03-14 16:54 | disposition home or self-care (01) ==
LOC: HO.XRAY 16:53
PROVIDERS: PCP Internal Medicine; Visit Provider Internal Medicine
DX: M79.671 Pain in right foot (principal)
CPT/HCPCS: 73610; 73630; 99283; 99284

== ENCOUNTER 2022-03-14 17:15 | Emergency (ER) | payer OTHER, SELFPAY ==
--- NOTE | ~2022-03-14 | XR_ITS ---
EXAMINATION: RIGHT ANKLE, RIGHT FOOT CLINICAL INFORMATION: Fall COMPARISON: Right foot films earlier today and right ankle and foot films 08/01/2021 TECHNIQUE: 3 views ankle, 3 views right foot FINDINGS: The ankle mortise appears stable. No soft tissue swelling fractures or dislocations are seen. Again noted are postsurgical changes with resection of the distal aspect of the fifth metatarsal. No acute fracture is seen. XR/XR ankle RT min 3V IMPRESSION: No evidence of a traumatic injury. Redemonstration of postsurgical changes in the fifth metatarsal
--- NOTE | ~2022-03-14 | XR_ITS ---
EXAMINATION: RIGHT ANKLE, RIGHT FOOT CLINICAL INFORMATION: Fall COMPARISON: Right foot films earlier today and right ankle and foot films 08/01/2021 TECHNIQUE: 3 views ankle, 3 views right foot FINDINGS: The ankle mortise appears stable. No soft tissue swelling fractures or dislocations are seen. Again noted are postsurgical changes with resection of the distal aspect of the fifth metatarsal. No acute fracture is seen. XR/XR foot RT min 3V IMPRESSION: No evidence of a traumatic injury. Redemonstration of postsurgical changes in the fifth metatarsal
[2022-03-14 18:27] VITALS: BP 143/81; PULSE 86; RESP 16; TEMP 36.8; O2SAT 98; BMI 24.5
[2022-03-14 19:04] VITALS: BP 159/98; PULSE 84; RESP 16; TEMP 36.7; O2SAT 98
--- NOTE | 2022-03-14 19:35 | PC.NURSE ---
patient sleeping. skin pwd. resp even and non labored. appears comfortable at this time.
--- NOTE | 2022-03-14 20:09 | ED_ITS ---
HPI - Extremity Injury (Lower) General Chief Complaint: Extremity Injury, Lower Stated Complaint: R Ankle Injury 03/13/22 Time Seen by Provider: 03/14/22 19:08 Source: patient Mode of arrival: wheelchair Limitations: language barrier (Polish-speaking outside medical sales representative utilized) Related Data Home Medications Medication Instructions Recorded Confirmed diphenhydramine HCl 25 mg capsule 25 mg PO BEDTIME 05/03/20 02/15/22 fluticasone 113 mcg-salmeterol 14 1 inh inhalation BID 05/03/20 02/15/22 mcg/actuation breath activated powdr mirtazapine 15 mg tablet 15 mg PO BEDTIME 05/03/20 02/15/22 trazodone 50 mg tablet 50 mg PO BEDTIME 05/03/20 02/15/22 glatiramer 40 mg/mL subcutaneous 40 mg subcut 3XW 10/29/20 02/15/22 syringe (Copaxone) triamcinolone acetonide 55 mcg 1 spray intranasal DAILY PRN 12/10/20 02/15/22 nasal spray aerosol Congestion omalizumab 150 mg subcutaneous 0 mg subcut 01/05/22 02/15/22 solution (Xolair) Previous Rx's Medication Instructions Recorded alcohol swabs (Alcohol Prep Pads) 1 pad topical BID 90 days #200 ea 09/08/20 polyethylene glycol 3350 17 17 g PO DAILY PRN constipation 30 03/18/21 gram/dose oral powder (Miralax) days #510 grams cetirizine 10 mg tablet 10 mg PO DAILY 90 days #90 tabs 05/06/21 magnesium oxide 400 mg (241.3 mg 400 mg PO BID 90 days #180 tabs 05/06/21 magnesium) tablet topiramate 100 mg tablet 100 mg PO BEDTIME 90 days #90 tabs 05/06/21 ropinirole 5 mg tablet 5 mg PO BEDTIME 90 days #90 tabs 07/06/21 Shower Chair #1 ea 09/12/21 bisacodyl 5 mg tablet,delayed 10 mg PO BEDTIME 30 days #60 tabs 12/09/21 release (Dulcolax (bisacodyl)) cyanocobalamin (vitamin B-12) 3,000 mcg PO DAILY #30 caps 01/05/22 3,000 mcg capsule dexlansoprazole 60 mg 60 mg PO DAILY #30 caps 01/05/22 capsule,biphase delayed release (Dexilant) metoclopramide HCl 10 mg tablet 10 mg PO QIDACHS #120 tabs 01/05/22 (Reglan) sennosides 8.6 mg tablet (Sherly-carolina) 17.2 mg PO BEDTIME constipation 01/05/22 #60 tabs clonidine 0.1 mg/24 hr weekly 1 patch transdermal QWEEK #4 ea 02/06/22 transdermal patch albuterol sulfate 90 mcg/actuation 2 puff inhalation Q4H PRN Wheezing 02/15/22 aerosol inhaler 30 days #6.7 grams cholecalciferol (vitamin D3) 25 25 mcg PO DAILY 90 days #90 caps 02/15/22 mcg (1,000 unit) capsule sertraline 25 mg tablet 25 mg PO DAILY 90 days #90 tabs 02/15/22 dicyclomine 10 mg capsule 10 mg PO QID PRN for cramps #120 03/09/22 caps tramadol 50 mg tablet 50 mg PO TID #90 tabs 03/09/22 Allergies Allergy/AdvReac Type Severity Reaction Status Date / Time almond Allergy Severe ANAPHYLAXIS Verified 03/14/22 18:27 kiwi Allergy Severe Itching Verified 02/15/22 14:30 peach [PEACH] Allergy Severe ANAPHYLAXIS Verified 02/15/22 14:30 walnut Allergy Severe ANAPHYLAXIS Verified 02/15/22 14:30 morphine Allergy Intermediate ITCHING, Verified 02/15/22 14:30 hives, swelling,itchiness ENVIRONMENTAL Allergy Intermediate HAY FEVER Uncoded 02/15/22 14:30 PMFSH Past Medical History Medical History Allergic rhinitis Allergic rhinitis B12 deficiency Chest pain Constipation Dyslipidemia Essential hypertension Foot callus Foot pain Hypomagnesemia Left foot pain Left knee pain Migraine Moderate recurrent major depression Multiple sclerosis Multiple sclerosis Physical exam Right foot pain Right shoulder pain Salivary disorder Urge urinary incontinence Surgical History History of carpal tunnel surgery of left wrist History of endometrial ablation History of esophagogastroduodenoscopy (EGD) History of suburethral sling procedure Hx of colonoscopy Hx of foot surgery Hx of submucous nasal surgery Hx of tubal ligation Family History Family History Father History of throat cancer Mother Family history of lupus erythematosus Stroke Multiple sclerosis Maternal Grandmother Multiple sclerosis Pancreatic cancer Paternal Grandfather Pancreatic cancer Lung cancer Social History Social History Household Members: Spouse and Children Housing: Apartment Are you a primary home health care respiratory therapist to a significant other at home: No Do you presently have visiting nurse or other home services: Yes Alcohol intake: never Patient Tobacco Use Status: Former Tobacco user Years Smoked: Quit 30 years ago e-Cigarette/Vaping Use: Never Used Second Hand Smoke Exposure: No Substance Use Type: Marijuana Advance Directives: No Advance Directives Information Provided: No service: No Current occupational status: student and disabled Cognitive needs: No Hearing needs: No Vision needs: No Physical Exam Vital Signs: Vital Signs: Last Vital Signs Temp 98.0 F 03/14/22 19:04 Pulse 84 03/14/22 19:04 Resp 16 03/14/22 19:04 BP 159/98 H 03/14/22 19:04 Pulse Ox 98 03/14/22 19:04 O2 Del Method 03/14/22 19:04 BMI result Body Mass Index 24.5 Course Course Course Narrative: X-ray of the right foot and ankle reveals no acute fracture or dislocation. There are postsurgical changes in the 5th metatarsal unremarkable from prior exams. MDM - Extremity Injury (Lower) Medical Records Attestation: I reviewed the patient's medical records. Imaging Data ankle/foot XR: Radiologist's impression: FINDINGS: The ankle mortise appears stable. No soft tissue swelling fractures or dislocations are seen. Again noted are postsurgical changes with resection of the distal aspect of the fifth metatarsal. No acute fracture is seen.? XR/XR ankle RT min 3V IMPRESSION: No evidence of a traumatic injury. Redemonstration of postsurgical changes in the fifth metatarsal? Discharge Plan Discharge Clinical Impression: Ankle sprain Patient Disposition: Home, Self-Care Instructions: Ankle Sprain (ED), Crutch Instructions (ED) Additional Instructions: Be sure to rest, apply ice for 10-15 minutes multiple times a day, elevate the leg when possible. He had been given an Aircast to provide support to the ankle, as well as crutches. You may walk input is much weight on the ankle as tolerated. You can take ibuprofen 200 mg, 3 tablets (600mg) every 6-8 hours as needed for pain, in addition to Tylenol 500 mg, 2 tablets (1,000mg) every 4-6 hours as needed for pain, but not to exceed 3 doses daily (3,000mg).? Contact your primary care provider to schedule a follow-up visit as needed. Return to the emergency department with any new or significantly worsening symptoms or concerns Aseg?rese de descansar, aplique hielo suzette 10 a 15 minutos varias veces al d?a, eleve la pierna cuando sea posible. Le hab?an dado un Aircast para apoyar el tobillo, as? telma muletas. Puede caminar de entrada es mucho peso sobre el tobillo seg?n lo tolere. Puede juancho ibuprofeno de 200 mg, 3 tabletas (600 mg) cada 6 a 8 horas seg?n sea necesario para el dolor, adem?s de Tylenol 500 mg, 2 tabletas (1000 mg) cada 4 a 6 horas seg?n sea necesario para el dolor, sylvia sin exceder las 3 dosis diarias (3.000 mg). Comun?quese con hernandez proveedor de atenci?n primaria para programar jose visita de seguimiento seg?n sea necesario. Regrese al departamento de emergencias con cualquier s?ntoma o inquietud nueva o que empeore significativamente Prescriptions: No Action alcohol swabs [Alcohol Prep Pads] Pads, Medicated 1 pad topical BID 90 Days Qty: 200 3RF magnesium oxide 400 mg (241.3 mg magnesium) tablet 400 mg PO BID 90 Days Qty: 180 3RF topiramate 100 mg tablet 100 mg PO BEDTIME 90 Days Qty: 90 3RF cetirizine 10 mg tablet 10 mg PO DAILY 90 Days Qty: 90 3RF ropinirole 5 mg tablet 5 mg PO BEDTIME 90 Days Qty: 90 3RF (DME) Shower Chair Misc See Rx Instructions .Route Qty: 1 0RF Rx Instructions: As directed clonidine 0.1 mg/24 hr patch weekly 1 patch transdermal QWEEK Qty: 4 11RF tramadol 50 mg tablet 50 mg PO TID Qty: 90 2RF dicyclomine 10 mg capsule 10 mg PO QID PRN (Reason: for cramps) Qty: 120 3RF cholecalciferol (vitamin D3) 25 mcg (1,000 unit) capsule 25 mcg PO DAILY 90 Days Qty: 90 1RF albuterol sulfate 90 mcg/actuation HFA aerosol inhaler 2 puff inhalation Q4H PRN (Reason: Wheezing) 30 Days Qty: 6.7 0RF sertraline 25 mg tablet 25 mg PO DAILY 90 Days Qty: 90 0RF triamcinolone acetonide 55 mcg aerosol,spray 1 spray intranasal DAILY PRN (Reason: Congestion) glatiramer [Copaxone] 40 mg/mL syringe 40 mg subcut 3XW Rx Instructions: administer doses at least 48 hours apart fluticasone propion-salmeterol 113-14 mcg/actuation aerosol powdr breath activated 1 inh inhalation BID mirtazapine 15 mg tablet 15 mg PO BEDTIME diphenhydramine HCl 25 mg capsule 25 mg PO BEDTIME trazodone 50 mg tablet 50 mg PO BEDTIME polyethylene glycol 3350 [Miralax] 17 gram/dose powder 17 g PO DAILY PRN (Reason: constipation) 30 Days Qty: 510 3RF bisacodyl [Dulcolax (bisacodyl)] 5 mg tablet,delayed release (DR/EC) 10 mg PO BEDTIME 30 Days Qty: 60 6RF Xolair 150 mg recon soln 0 mg subcut dexlansoprazole [Dexilant] 60 mg capsule,biphase delayed releas 60 mg PO DAILY Qty: 30 6RF metoclopramide HCl [Reglan] 10 mg tablet 10 mg PO QIDACHS Qty: 120 6RF Rx Instructions: PLEASE DO NOT PUT IN PILL PACK PATIENT MEAL TIMES VARY - DISPENSE IN BOTTLE. Provider aware of possible interactions and is monitoring pt sennosides [Sherly-carolina] 8.6 mg tablet 17.2 mg PO BEDTIME Qty: 60 6RF cyanocobalamin (vitamin B-12) 3,000 mcg capsule 3,000 mcg PO DAILY Qty: 30 6RF Referrals: Kareen Mark MD [Primary Care Provider] - Print Language: Polish
== END 2022-03-14 20:57 | disposition home or self-care (01) ==
PROVIDERS: Emergency Provider Emergency Medicine; PCP Internal Medicine
DX: S93.401A Sprain of unspecified ligament of right ankle, initial encounter (principal); X50.1XXA Overexertion from prolonged static or awkward postures, initial encounter; Y93.89 Activity, other specified; Y92.9 Unspecified place or not applicable; Y99.9 Unspecified external cause status
CPT/HCPCS: 73610; 73630; 99283; 99284

== ENCOUNTER → 2022-03-28 13:39 | Outpatient (BNVA) | payer OTHER, SELFPAY | PROVIDERS: PCP Internal Medicine; Visit Provider Nurse Practitioner | DX: K58.2 Mixed irritable bowel syndrome (principal); K30 Functional dyspepsia; K21.00 Gastro-esophageal reflux disease with esophagitis, without bleeding; K64.9 Unspecified hemorrhoids; Z80.0 Family history of malignant neoplasm of digestive organs | CPT/HCPCS: 99212 ==

== ENCOUNTER 2022-03-30 10:20 | Outpatient (REF) | payer OTHER, SELFPAY ==
--- NOTE | 2022-03-30 10:23 | EMG_ITS ---
Bilateral median and ulnar motor and sensory studies were performed. Bilateral radial and sensory studies were performed and paraspinal muscles were tested with a needle. IMPRESSION: Mild bilateral median neuropathy across carpal tunnel. MD SHERICE Rushing/YAA / [id number]
== END 2022-03-30 10:21 | disposition home or self-care (01) ==
LOC: HO.NEURO 10:20
PROVIDERS: PCP Internal Medicine; Visit Provider Orthopaedic Surgery
DX: R20.0 Anesthesia of skin (principal); R20.2 Paresthesia of skin
CPT/HCPCS: 95886; 95911

== ENCOUNTER → 2022-04-13 15:44 | Outpatient (BNVA) | payer OTHER, SELFPAY | PROVIDERS: PCP Internal Medicine; Visit Provider Nurse Practitioner | DX: K58.2 Mixed irritable bowel syndrome (principal); K21.00 Gastro-esophageal reflux disease with esophagitis, without bleeding; K30 Functional dyspepsia; R11.2 Nausea with vomiting, unspecified | CPT/HCPCS: 99212 ==

== ENCOUNTER → 2022-04-24 10:43 | Outpatient (BNVA) | payer OTHER, SELFPAY | PROVIDERS: PCP Internal Medicine; Visit Provider Physician Assistant | DX: S93.401A Sprain of unspecified ligament of right ankle, initial encounter (principal) | CPT/HCPCS: 99202 ==

== ENCOUNTER → 2022-05-04 10:59 | Outpatient (BNVA) | payer OTHER, SELFPAY | PROVIDERS: PCP Internal Medicine; Visit Provider Orthopaedic Surgery | DX: M17.11 Unilateral primary osteoarthritis, right knee (principal) | CPT/HCPCS: 99212 ==

== ENCOUNTER 2022-05-26 11:55 | Outpatient (REF) | payer OTHER, SELFPAY ==
--- NOTE | ~2022-05-26 | MM_ITS ---
EXAMINATION: MM SCREENING DIGITAL BREAST TOMOSYNTHESIS, BILATERAL CLINICAL INFORMATION: Screening. Asymptomatic. The lifetime risk of breast cancer based on the Tyrer-Cuzick Model is 7.2%. COMPARISON: Mammography: February 24, 2021 and studies dating back to November 02, 2015 TECHNIQUE: Digital breast tomosynthesis is performed in both the craniocaudal and mediolateral oblique views along with computer-aided detection (CAD). Synthesized 2D images are generated from the tomosynthesis. FINDINGS: There are scattered areas of fibroglandular density (ACR BI-RADS breast composition Category b). There are no significant masses, abnormal calcifications, or other abnormalities. MM/MM tomosynthesis screening BI IMPRESSION: No significant changes from prior exam. ASSESSMENT: BI-RADS 1: Negative RECOMMENDATION: Routine annual mammography screening. This patient's information was entered into a reminder system with a target due date for their next mammogram.
== END 2022-05-26 11:56 | disposition home or self-care (01) ==
LOC: HO.MAMMO 11:55
PROVIDERS: PCP Internal Medicine; Visit Provider Internal Medicine
DX: Z12.31 Encounter for screening mammogram for malignant neoplasm of breast (principal)
CPT/HCPCS: 77063; 77067

== ENCOUNTER → 2022-07-07 15:26 | Outpatient (BNVA) | payer OTHER, SELFPAY | PROVIDERS: PCP Internal Medicine; Referring Provider Internal Medicine; Visit Provider Nurse Practitioner | DX: K58.2 Mixed irritable bowel syndrome (principal); K21.00 Gastro-esophageal reflux disease with esophagitis, without bleeding; K30 Functional dyspepsia; R63.4 Abnormal weight loss; Z68.25 Body mass index [BMI] 25.0-25.9, adult; Z79.899 Other long term (current) drug therapy | CPT/HCPCS: 99212 ==

== ENCOUNTER 2022-07-10 10:02 | Emergency (ER) | payer OTHER, SELFPAY ==
[2022-07-10 10:09] VITALS: BP 148/93; PULSE 84; RESP 16; TEMP 36.1; O2SAT 98; BMI 24.0
--- NOTE | 2022-07-10 14:45 | ED_ITS ---
HPI - General Adult General Chief complaint: Ear Problems Stated complaint: ear pain Time Seen by Provider: 07/10/22 13:54 Source: patient Mode of arrival: ambulatory Limitations: no limitations History of Present Illness HPI narrative: Patient presents to ED for ear pain, sore throat. Patient states no cough. Patient eloped from her room with partner. Related Data Home Medications Medication Instructions Recorded Confirmed fluticasone 113 mcg-salmeterol 14 1 inh inhalation BID 05/03/20 05/12/22 mcg/actuation breath activated powdr trazodone 50 mg tablet 50 mg PO BEDTIME 05/03/20 05/12/22 glatiramer 40 mg/mL subcutaneous 40 mg subcut 3XW 10/29/20 05/12/22 syringe (Copaxone) triamcinolone acetonide 55 mcg 1 spray intranasal DAILY PRN 12/10/20 05/12/22 nasal spray aerosol Congestion cyanocobalamin (vitamin B-12) 1,000 mcg PO DAILY 04/13/22 05/12/22 1,000 mcg tablet (Vitamin B-12) omalizumab 150 mg subcutaneous 150 mg subcut .monthly 07/07/22 solution (Xolair) Previous Rx's Medication Instructions Recorded alcohol swabs (Alcohol Prep Pads) 1 pad topical BID 90 days #200 ea 09/08/20 polyethylene glycol 3350 17 17 g PO DAILY PRN constipation 30 03/18/21 gram/dose oral powder (Miralax) days #510 grams magnesium oxide 400 mg (241.3 mg 400 mg PO BID 90 days #180 tabs 05/06/21 magnesium) tablet Shower Chair #1 ea 09/12/21 dexlansoprazole 60 mg 60 mg PO DAILY #30 caps 01/05/22 capsule,biphase delayed release (Dexilant) metoclopramide HCl 10 mg tablet 10 mg PO QIDACHS #120 tabs 01/05/22 (Reglan) clonidine 0.1 mg/24 hr weekly 1 patch transdermal QWEEK #4 ea 02/06/22 transdermal patch albuterol sulfate 90 mcg/actuation 2 puff inhalation Q4H PRN Wheezing 02/15/22 aerosol inhaler 30 days #6.7 grams cholecalciferol (vitamin D3) 25 25 mcg PO DAILY 90 days #90 caps 02/15/22 mcg (1,000 unit) capsule ibuprofen 600 mg tablet 600 mg PO Q8H PRN pain #20 tabs 03/14/22 Proctosol HC 2.5 % topical cream 1 appl TX BID PRN hemorrhoids 30 03/29/22 perineal applicator days #28.35 grams (hydrocortisone) cetirizine 10 mg tablet 10 mg PO DAILY 90 days #90 tabs 04/13/22 topiramate 100 mg tablet 100 mg PO BEDTIME 90 days #90 tabs 04/13/22 tramadol 50 mg tablet 50 mg PO TID #90 tabs 05/17/22 ropinirole 5 mg tablet 5 mg PO BEDTIME 90 days #90 tabs 06/15/22 sertraline 25 mg tablet 25 mg PO DAILY 90 days #90 tabs 06/15/22 bisacodyl 5 mg tablet,delayed 10 mg PO BEDTIME #60 tabs 06/16/22 release dicyclomine 10 mg capsule 10 mg PO QID PRN for cramps #120 06/16/22 caps Allergies Allergy/AdvReac Type Severity Reaction Status Date / Time almond Allergy Severe ANAPHYLAXIS Verified 07/10/22 10:13 kiwi Allergy Severe Itching Verified 07/10/22 10:13 peach [PEACH] Allergy Severe ANAPHYLAXIS Verified 07/10/22 10:13 walnut Allergy Severe ANAPHYLAXIS Verified 07/10/22 10:13 morphine Allergy Intermediate ITCHING, Verified 07/10/22 10:13 hives, swelling,itchiness ENVIRONMENTAL Allergy Intermediate HAY FEVER Uncoded 07/10/22 10:13 Review of Systems Review of Systems: Ear pain sore throat. elopment PMFSH Past Medical History Medical History Allergic rhinitis Allergic rhinitis B12 deficiency Chest pain Chronic constipation Constipation Dyslipidemia Essential hypertension Foot callus Foot pain Hypomagnesemia Irritable bowel syndrome with both constipation and diarrhea Left foot pain Left knee pain Migraine Moderate recurrent major depression Multiple sclerosis Multiple sclerosis Physical exam Right foot pain Right shoulder pain Salivary disorder Urge urinary incontinence Surgical History History of carpal tunnel surgery of left wrist History of endometrial ablation History of esophagogastroduodenoscopy (EGD) History of suburethral sling procedure Hx of colonoscopy Hx of foot surgery Hx of submucous nasal surgery Hx of tubal ligation Family History Family History Father History of throat cancer Mother Family history of lupus erythematosus Stroke Multiple sclerosis Maternal Grandmother Multiple sclerosis Pancreatic cancer Paternal Grandfather Pancreatic cancer Lung cancer Social History Social History Household Members: Spouse and Children Housing: Apartment Are you a primary animal care supervisor to a significant other at home: No Do you presently have visiting nurse or other home services: Yes Alcohol intake: never Patient Tobacco Use Status: Former Tobacco user Years Smoked: Quit 30 years ago e-Cigarette/Vaping Use: Never Used Second Hand Smoke Exposure: No Substance Use Type: Marijuana Advance Directives: No Advance Directives Information Provided: Yes service: No Current occupational status: student and disabled Cognitive needs: No Hearing needs: No Vision needs: No Physical Exam ED Vital Signs: Vital Signs - 24 hr 07/10/22 10:09 Temperature 96.9 F Pulse Rate 84 Respiratory Rate 16 Blood Pressure 148/93 H Pulse Oximetry 98 Oxygen Delivery Method Room Air BMI result Body Mass Index 24.0 Course Course Course Narrative: Patient left before physical exam could be done. Elopement Discharge Plan Discharge Clinical Impression: Ear pain Patient Disposition: Elopement Prescriptions: No Action alcohol swabs [Alcohol Prep Pads] Pads, Medicated 1 pad topical BID 90 Days Qty: 200 3RF magnesium oxide 400 mg (241.3 mg magnesium) tablet 400 mg PO BID 90 Days Qty: 180 3RF (DME) Shower Chair Misc See Rx Instructions .Route Qty: 1 0RF Rx Instructions: As directed clonidine 0.1 mg/24 hr patch weekly 1 patch transdermal QWEEK Qty: 4 11RF hydrocortisone [Proctosol HC] 2.5 % cream with perineal applicator 1 appl TX BID PRN (Reason: hemorrhoids) 30 Days Qty: 28.35 3RF cetirizine 10 mg tablet 10 mg PO DAILY 90 Days Qty: 90 3RF topiramate 100 mg tablet 100 mg PO BEDTIME 90 Days Qty: 90 3RF tramadol 50 mg tablet 50 mg PO TID Qty: 90 2RF ropinirole 5 mg tablet 5 mg PO BEDTIME 90 Days Qty: 90 3RF sertraline 25 mg tablet 25 mg PO DAILY 90 Days Qty: 90 0RF bisacodyl 5 mg tablet,delayed release (DR/EC) 10 mg PO BEDTIME Qty: 60 6RF dicyclomine 10 mg capsule 10 mg PO QID PRN (Reason: for cramps) Qty: 120 3RF ibuprofen 600 mg tablet 600 mg PO Q8H PRN (Reason: pain) Qty: 20 0RF cholecalciferol (vitamin D3) 25 mcg (1,000 unit) capsule 25 mcg PO DAILY 90 Days Qty: 90 1RF albuterol sulfate 90 mcg/actuation HFA aerosol inhaler 2 puff inhalation Q4H PRN (Reason: Wheezing) 30 Days Qty: 6.7 0RF triamcinolone acetonide 55 mcg aerosol,spray 1 spray intranasal DAILY PRN (Reason: Congestion) glatiramer [Copaxone] 40 mg/mL syringe 40 mg subcut 3XW Rx Instructions: administer doses at least 48 hours apart fluticasone propion-salmeterol 113-14 mcg/actuation aerosol powdr breath activated 1 inh inhalation BID trazodone 50 mg tablet 50 mg PO BEDTIME polyethylene glycol 3350 [Miralax] 17 gram/dose powder 17 g PO DAILY PRN (Reason: constipation) 30 Days Qty: 510 3RF dexlansoprazole [Dexilant] 60 mg capsule,biphase delayed releas 60 mg PO DAILY Qty: 30 6RF metoclopramide HCl [Reglan] 10 mg tablet 10 mg PO QIDACHS Qty: 120 6RF Rx Instructions: PLEASE DO NOT PUT IN PILL PACK PATIENT MEAL TIMES VARY - DISPENSE IN BOTTLE. Provider aware of possible interactions and is monitoring pt Xolair 150 mg recon soln 150 mg subcut .monthly cyanocobalamin (vitamin B-12) [Vitamin B-12] 1,000 mcg tablet 1,000 mcg PO DAILY Discharge Date/Time: 07/10/22 15:58 Print Language: [place] Irish
--- NOTE | 2022-07-10 15:10 | PC.NURSE ---
Pt has left the room for more than 40 mins. We searched in the bathrooms, and waiting room.
== END 2022-07-10 15:58 | disposition left against medical advice (07) ==
PROVIDERS: Emergency Provider Emergency Medicine; PCP Internal Medicine
DX: H92.09 Otalgia, unspecified ear (principal); J02.9 Acute pharyngitis, unspecified
CPT/HCPCS: 99282

== ENCOUNTER 2022-08-09 09:31 | Outpatient (REF) | payer OTHER, SELFPAY ==
[2022-08-09 10:40] LABS: Influenza A PCR POSITIVE (Negative); Influenza B PCR NEGATIVE (Negative); Resp Syncy Virus RNA Qual PCR NEGATIVE (Negative); SARS COV2 PCR INHOUSE NEGATIVE (Negative)
== END 2022-08-09 09:32 | disposition home or self-care (01) ==
LOC: HO.LAB 09:31
PROVIDERS: PCP Internal Medicine; Visit Provider Internal Medicine
DX: Z20.822 Contact with and (suspected) exposure to COVID-19 (principal); R09.89 Other specified symptoms and signs involving the circulatory and respiratory systems
CPT/HCPCS: 0241U

== ENCOUNTER 2022-09-28 13:43 | Outpatient (REF) | payer OTHER, SELFPAY ==
[2022-09-28 15:31] LABS: Folate 5.8 ng/mL (> or = 4.0); TSH reflex Free T4 0.46 uIU/mL (0.32-4.0); Vitamin B12 374 pg/mL (200-900)
== END 2022-09-28 13:44 | disposition home or self-care (01) ==
LOC: HO.LAB 13:43
PROVIDERS: PCP Internal Medicine; Visit Provider Nurse Practitioner
DX: D75.89 Other specified diseases of blood and blood-forming organs (principal); R63.4 Abnormal weight loss
CPT/HCPCS: 36415; 82607; 82746; 84443

== ENCOUNTER → 2022-09-29 13:26 | Outpatient (BNVA) | payer OTHER, SELFPAY | PROVIDERS: PCP Internal Medicine; Visit Provider Nurse Practitioner | DX: Z01.818 Encounter for other preprocedural examination (principal); K58.0 Irritable bowel syndrome with diarrhea; K21.00 Gastro-esophageal reflux disease with esophagitis, without bleeding; G43.909 Migraine, unspecified, not intractable, without status migrainosus; Z80.0 Family history of malignant neoplasm of digestive organs | CPT/HCPCS: 99212 ==

== ENCOUNTER → 2022-10-31 12:38 | Outpatient (BNVA) | payer OTHER, SELFPAY | PROVIDERS: PCP Internal Medicine; Visit Provider Nurse Practitioner Family | DX: M47.816 Spondylosis without myelopathy or radiculopathy, lumbar region (principal); M25.552 Pain in left hip; M54.50 Low back pain, unspecified; G35 Multiple sclerosis; G56.03 Carpal tunnel syndrome, bilateral upper limbs; Z51.81 Encounter for therapeutic drug level monitoring; Z79.899 Other long term (current) drug therapy | CPT/HCPCS: 99212 ==

== ENCOUNTER 2022-11-13 16:09 | Outpatient (REF) | payer OTHER, SELFPAY ==
--- NOTE | ~2022-11-13 | XR_ITS ---
EXAMINATION: Lumbar spine x-ray and pelvis and left hip x-ray CLINICAL INFORMATION: Left hip and low back pain COMPARISON: Previous hip x-ray from 2011. Lumbar spine x-ray most recent May 2019 TECHNIQUE: One view of the pelvis and 2 views of the left hip. 3 views of the lumbar sacral spine. FINDINGS: LS spine: There is mild curvature of the lower upper sacral spine to the left. Bone alignment is otherwise normal. Disc spaces are normal. There is lower lumbar spine facet arthritis. Pelvis and left hip: Bone alignment is normal. No actual or dislocation. Mild osteoarthritis at both hip joints with joint space narrowing and small osteophytes. Normal sacroiliac joints. Calcified phleboliths in the pelvis. XR/XR lumbar spine 2-3V IMPRESSION: Lumbar spine: Lower lumbar spine facet arthritis. Pelvis and left hip: Mild bilateral hip osteoarthritis.
--- NOTE | ~2022-11-13 | XR_ITS ---
EXAMINATION: Lumbar spine x-ray and pelvis and left hip x-ray CLINICAL INFORMATION: Left hip and low back pain COMPARISON: Previous hip x-ray from 2011. Lumbar spine x-ray most recent May 2019 TECHNIQUE: One view of the pelvis and 2 views of the left hip. 3 views of the lumbar sacral spine. FINDINGS: LS spine: There is mild curvature of the lower upper sacral spine to the left. Bone alignment is otherwise normal. Disc spaces are normal. There is lower lumbar spine facet arthritis. Pelvis and left hip: Bone alignment is normal. No actual or dislocation. Mild osteoarthritis at both hip joints with joint space narrowing and small osteophytes. Normal sacroiliac joints. Calcified phleboliths in the pelvis. XR/XR hip LT min 2V IMPRESSION: Lumbar spine: Lower lumbar spine facet arthritis. Pelvis and left hip: Mild bilateral hip osteoarthritis.
== END 2022-11-13 16:10 | disposition home or self-care (01) ==
LOC: HO.XRAY 16:09
PROVIDERS: PCP Internal Medicine; Visit Provider Nurse Practitioner Family
DX: M25.552 Pain in left hip (principal); M54.50 Low back pain, unspecified
CPT/HCPCS: 72100; 73502

== ENCOUNTER 2022-12-21 13:59 | Outpatient (REF) | payer OTHER, SELFPAY ==
[2022-12-22 03:08] LABS: Syphilis Screen Nonreactive (Nonreactive)
[2022-12-22 04:23] LABS: HBc Num1 0.07 S/CO (0.00-0.79); HIV AB/AG Nonreactive (Nonreactive); HIV Num 1 0.06 S/CO (0.00-0.99); Hepatitis B Core Antibody Nonreactive (Nonreactive); ~HepC Num1 0.16 S/CO (0.00-0.79); ~Hepatitis C Antibody Nonreactive (Nonreactive)
[2022-12-22 14:12] LABS: CT PCR NOT DETECTED (Not Detect.); NG PCR NOT DETECTED (Not Detect.)
[2022-12-23 12:04] LABS: BV Int Neg Control Negative (Negative); BV Int Pos Control Positive (Positive)
== END 2022-12-21 14:00 | disposition home or self-care (01) ==
LOC: HO.LAB 13:59
PROVIDERS: PCP Internal Medicine; Visit Provider Advanced Practice Midwife
DX: Z11.4 Encounter for screening for human immunodeficiency virus [HIV] (principal); Z20.2 Contact with and (suspected) exposure to infections with a predominantly sexual mode of transmission; N89.8 Other specified noninflammatory disorders of vagina
CPT/HCPCS: 0353U; 36415; 81003; 86704; 86780; 86803; 87389; 87480; 87510; 87660

== ENCOUNTER 2022-12-21 15:16 | Outpatient (REF) | payer OTHER, SELFPAY ==
[2022-12-28 09:23] LABS: HPV mRNA E6/E7 rflx Not Detected (Not Detected)
== END 2022-12-21 15:17 | disposition home or self-care (01) ==
LOC: HO.LNP 15:16
PROVIDERS: Visit Provider Advanced Practice Midwife
DX: Z01.419 Encounter for gynecological examination (general) (routine) without abnormal findings (principal); Z11.51 Encounter for screening for human papillomavirus (HPV)
CPT/HCPCS: 87624; 88142

== ENCOUNTER 2023-02-05 08:55 | Outpatient (REF) | payer OTHER, SELFPAY | END 2023-02-05 08:56 | disposition home or self-care (01) | LOC: HO.XRAY 08:55 | PROVIDERS: PCP Internal Medicine; Visit Provider Internal Medicine | DX: R13.10 Dysphagia, unspecified (principal) | CPT/HCPCS: 74220 ==

== ENCOUNTER 2023-02-16 08:12 | Outpatient (AMB) | payer OTHER, SELFPAY ==
--- NOTE | 2023-02-16 08:18 | MHC.OFFVIS ---
Intake Vital Signs 02/16/23 08:37 Height 5 ft 2 in Weight 132 lb BMI 24.1 BP 155/83 H Blood Pressure Location Lt brachial Position Sitting Pulse 86 Intake Visit Reasons: 6 month follow up Intake Note: Patient follow up for GERD. Patient cc: Nauseas, center abdominal pain, GERD, between diarrhea and constipation, bruises on her body, and swallowing problem and she feeling like shocking every night. Hand Assembler For Puller Over Required: No Accompanied by: Self / Same As Patient Allergies almond Allergy (Severe, Verified 02/16/23 08:20) ANAPHYLAXIS kiwi Allergy (Severe, Verified 02/16/23 08:20) Itching peach [PEACH] Allergy (Severe, Verified 02/16/23 08:20) ANAPHYLAXIS walnut Allergy (Severe, Verified 02/16/23 08:20) ANAPHYLAXIS morphine Allergy (Intermediate, Verified 02/16/23 08:20) ITCHING, hives, swelling,itchiness ENVIRONMENTAL Allergy (Intermediate, Uncoded 12/21/22 14:36) HAY FEVER HPI 6 month follow up HPI Details Assessment & Plan (1) Irritable bowel syndrome with diarrhea: ?Code(s): K58.0 - Irritable bowel syndrome with diarrhea ?Plan: Vietnamese #Yerles, Live She continues to do well on the Viberzi 100mg bid. We review the TSH which was obtained because of her sudden switch from CIC to diarrhea, but it appears to be WNL. She continues on her Dexilant, dicyclomine and reglan with good control of her associated GI sx and w/o and adverse effects. She suffers MS which may contribute her her bowel irritability. Last Scope [address] Smith and only a hyperplastic polyp was obtained. She has a FHX of CRC so is due this year There are no prior problems with anesthesia or sedation. She denies any cardiac or respiratory problems. No ID problems. She is very sad because her father of pnuemonia, and she has not been eating well. He was 90! She is taking the topamax every day and it is helping with her migraines. She is bothered by light. ROV 6 mos. and after colonoscopy (2) Family history of colon cancer: ?Comment: Scope 2012 and 2018 hyperplastic polyps only repeat 2022 ?Code(s): Z80.0 - Family history of malignant neoplasm of digestive organs (3) GERD with esophagitis: ?Comment: HISTORY of esophageal erosions healed on 02/2020 EGD ?Code(s): K21.00 - Gastro-esophageal reflux disease with esophagitis, without bleeding ?Qualifiers: ?Esophagitis bleeding:?without hemorrhage? Qualified Code(s):?K21.00 - Gastro-esophageal reflux disease with esophagitis, without bleeding (4) Migraine: ?Code(s): G43.909 - Migraine, unspecified, not intractable, without status migrainosus ?Qualifiers: ?Migraine type:?unspecified??Status migrainosus presence:?without status migrainosus??Intractability:?not intractable? Qualified Code(s):?G43.909 - Migraine, unspecified, not intractable, without status migrainosus (5) Pre-op examination: ?Code(s): Z01.818 - Encounter for other preprocedural examination ? ? ? Medications: New peg 3350-electroly duong 236-22.74-6.74 -5.86 gram (Golyt gloria) ?? until feca l effluent is annabella r; do not exceed a total volume of 2 ,000 mL 240 mL PO Q10M 4,0 00 mL 0RF 1 day Z12.11 - Encounter for screening for malignant neoplas m of colon ? eluxadoline (Viber zi) ?? must admini ster with a meal/f ood 100 mg PO BID 60 t abs 3RF K58.0 - Irritable bowel syndrome wit h diarrhea ? Refilled metoclopramide HCl 10 mg PO QID 120 t abs 3RF K30 - Functional d yspepsia ? magnesium oxide 400 mg PO BID 180 tabs 3RF 90 days E83.42 - Hypomagne semia ? dicyclomine 10 mg PO QID PRN 1 20 caps 3RF for cr amps K58.2 - Mixed irri table bowel syndro me ? dexlansoprazole 60 mg PO DAILY 30 caps 3RF K21.00 - Gastro-es ophageal reflux di sease with esophag itis, without blee ding ? bisacodyl 10 mg (2 x 5 mg) P O BEDTIME 60 tabs 6RF K59.00 - Constipat ion, unspecified COLONOSCOPY BIOPSY BARIUM SWALLOW 02/05/23? FINDINGS: The swallowing mechanism is normal. No aspiration or penetration is seen. There is mucosal irregularity and tertiary contractions seen in the proximal and mid thoracic esophagus suggestive of esophagitis. Esophageal motility is otherwise normal. Barium tablet passed freely into the stomach. No mass or stricture. No hernia. No gastroesophageal reflux. FL/FL barium swallow IMPRESSION: Mucosal irregularity in the proximal and mid thoracic esophagus suggestive of esophagitis. ? 2019 EGD LARYNX: Small diverticulum in the posterior pharynx. Edema of arytenoid cartilages suggestive of LPRD. ESOPHAGUS: Erosions noted on past EGD have healed completely. Irregular Z line and no Ramon's was detected on past biopsies. Tortuous esophagus without stricture or ring. STOMACH : Diffuse gastric erythema, no ulcers, erosions or bile reflux noted. Biopsies were obtained from the antrum and body of the stomach. Grade 2 flap valve on retroflexed examination of the cardia. Plan: Await pathology results Patient has an appointment on 03/02/20 in the GI Clinic with Swapna Fofana NP Above findings were reviewed with the patient with the help of a Supersonic Engineer and GERD and Gastritis handouts were provided in the discharge area. BIOPSIES SHOWED: A. Small bowel, biopsies: Small bowel mucosa with no significant histopathology; no villous abnormality identified; no increase in intraepithelial lymphocytes. B. Stomach, antrum, biopsies: Gastric mucosa with mild chronic, inactive gastritis; negative for Helicobacter pylori; negative for intestinal metaplasia/ dysplasia. C. Stomach, body, biopsies: Gastric mucosa with mild chronic, inactive gastritis; negative for Helicobacter pylori; negative for intestinal metaplasia/ dysplasia. Condition TODAY'S VISIT Vietnamese #Ro Live She has not been feeling well. She is having a globus sensation in the upper throat. She is told it might be her thyroid. She also is having dysphagia of solid foods like rice and chicken. She had a barium swallow ordered by her PCP as above. 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 she will wake up coughing at night. She has pain that starts in the epigastric and radiates to her bilateral back but sometimes feels like it is in the bones like arthritis. It it helped with an OTC cream that she rubs on the stomach. She can not clearly relates it to eating or moving her bowels. BUt at times the pain is twisting. Marigua-Dol - a hemp product. I will try to add an EGD to her colonoscopy. She has fears because her father of throat cancer. She has MS which always complicates her She has a follow up with me 03/27 after her EGD 03/14. We will keep this no med changes for now. [facility] Medical History Allergic rhinitis Allergic rhinitis B12 deficiency Chest pain Chronic constipation Constipation Dyslipidemia Essential hypertension Fibromyalgia Foot callus Foot pain Hypomagnesemia Irritable bowel syndrome with both constipation and diarrhea Left foot pain Left knee pain Migraine Moderate recurrent major depression Multiple sclerosis Multiple sclerosis Physical exam Right foot pain Right shoulder pain RUQ abdominal pain Salivary disorder Urge urinary incontinence Vaginal itching Surgical History History of carpal tunnel surgery of left wrist History of endometrial ablation History of esophagogastroduodenoscopy (EGD) History of suburethral sling procedure Hx of colonoscopy Hx of foot surgery Hx of submucous nasal surgery Hx of tubal ligation Family History Father History of throat cancer Mother Family history of lupus erythematosus Stroke Multiple sclerosis Maternal Grandmother Multiple sclerosis Pancreatic cancer Paternal Grandfather Pancreatic cancer Lung cancer Social History Household Members: Spouse and Children Housing: Apartment Are you a primary home care companion to a significant other at home: No Do you presently have visiting nurse or other home services: Yes Alcohol intake: never Patient Tobacco Use Status: Former Tobacco user Years Smoked: Quit 30 years ago e-Cigarette/Vaping Use: Never Used Second Hand Smoke Exposure: No Substance Use Type: Marijuana service: No Current occupational status: student and disabled Cognitive needs: No Hearing needs: No Vision needs: Yes Female Reproductive History Menstrual Age of Menarche: 11 Review of Systems Const Denies fatigue, Denies fever(s), Denies night sweats, Denies poor appetite and Denies weight loss ENT Reports Normal hearing present, Denies dental pain, Reports dysphagia, Denies hearing loss, Denies mouth pain, Denies odynophagia, Denies throat swelling, Denies tongue swelling and Reports other (Dentition adequate) Card Reports no additional complaints Resp Reports no additional complaints GI Denies abdominal pain, Denies melena, Denies bloating, Denies hematochezia, Reports constipation, Denies GI cramping, Reports dysphagia, Denies excessive flatus, Reports early satiety, Reports heartburn, Denies diarrhea, Reports nausea, Denies odynophagia, Denies vomiting and Denies hematemesis Musc Reports myalgias Skin/Breast Denies pruritus, Denies lesions, Denies rash and Denies jaundice Neuro Reports Normal hearing present and Denies Abnormal speech present Endo Denies fatigue Aller/Immun Denies throat swelling and Denies tongue swelling Physical Exam Vital Signs: Last Vital Signs Pulse 86 02/16/23 08:37 BP 155/83 H 02/16/23 08:37 BMI result Body Mass Index 24.1 Const General: cooperative, no acute distress, well developed and well groomed Nutritional Appearance: average body habitus and well nourished Orientation/consciousness: oriented to person, oriented to place and oriented to time Limitations: language barrier HEENT Head: Yes normocephalic and Yes atraumatic Eyes General: appearance normal, both eyes and all related structures Pupils: Equal, round and reactive pupils present Neck Neck: Yes normal visual inspection and Yes no lymphadenopathy Thyroid: Thyroid normal Resp Effort & Inspection: normal respiratory effort and able to speak in complete sentences Auscultation: clear to auscultation bilaterally Cardio Rate: regular rate Rhythm: regular rhythm Heart sounds: Normal, physiologic split S2 sound present Peripheral pulses: radial pulses present and posterior tibial pulses present GI Inspection: No distended and No Abdominal panniculus present Palpation (GI): Soft to palpation, nontender, no guarding, not rigid and No hepatosplenomegaly present Percussion: Yes normal to percussion Auscultation: normal bowel sounds Rectal Exam - Female: deferred Skin General skin exam: no rashes or lesions noted, turgor normal, skin not dry, no jaundice, No spider nevi and no striae Rashes: no rashes Nails: normal Neuro General: oriented to person, oriented to place and oriented to time Cranial nerves: Yes Equal, round and reactive pupils present and Yes Normal hearing present Speech: No Abnormal speech present Extrem General: Yes normal to inspection, No clubbing, No cyanosis and No edema Psych Appearance: grossly normal and well kempt Mental Status: mental status grossly normal Speech and movement: Normal speech and movement present Affect: normal affect Attitude: cooperative Thought process: Normal thought process present and not confabulating Thought content: Normal thought content present Insight: Limited insight present (Psych) Judgement: Limited judgement present (Psych) Assessment & Plan Assessment & Plan (1) GERD with esophagitis: Comment: HISTORY of esophageal erosions healed on 02/2020 EGD Code(s): K21.00 - Gastro-esophageal reflux disease with esophagitis, without bleeding Qualifiers: Esophagitis bleeding: without hemorrhage Qualified Code(s): K21.00 - Gastro-esophageal reflux disease with esophagitis, without bleeding Plan: Vietnamese #Ro Live She has not been feeling well. She is having a globus sensation in the upper throat. She is told it might be her thyroid. She also is having dysphagia of solid foods like rice and chicken. She had a barium swallow ordered by her PCP as above. 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 she will wake up coughing at night. Her current medication regimen consists of Dexilant, dicyclomine and reglan She has pain that starts in the epigastric and radiates to her bilateral back but sometimes feels like it is in the bones like arthritis. It it helped with an OTC cream that she rubs on the stomach. She can not clearly relates it to eating or moving her bowels. BUt at times the pain is twisting. Marigua-Dol - a hemp product. I will try to add an EGD to her colonoscopy. She has fears because her father of throat cancer. She has MS which always complicates her She has a follow up with me 03/27 after her EGD 03/14. We will keep this no med changes for now. (2) Irritable bowel syndrome with diarrhea: Code(s): K58.0 - Irritable bowel syndrome with diarrhea (3) Family history of colon cancer: Comment: Scope 2012 and 2018 hyperplastic polyps only repeat 2022 Code(s): Z80.0 - Family history of malignant neoplasm of digestive organs (4) Delayed gastric emptying: Code(s): K30 - Functional dyspepsia (5) Dysphagia: Code(s): R13.10 - Dysphagia, unspecified Coding Level of Care Code Est Pt Level 4 (42543) Diagnoses GERD with esophagitis K21.00 Esophagitis bleeding: without hemorrhage Irritable bowel syndrome with diarrhea K58.0 Family history of colon cancer Z80.0 Delayed gastric emptying K30 Dysphagia R13.10
[2023-02-16 08:37] VITALS: BP 155/83; PULSE 86; BMI 24.1
== END 2023-02-16 09:04 | disposition home or self-care (01) ==
PROVIDERS: PCP Internal Medicine; Visit Provider Nurse Practitioner
DX: K21.00 Gastro-esophageal reflux disease with esophagitis, without bleeding (principal); K58.0 Irritable bowel syndrome with diarrhea; Z80.0 Family history of malignant neoplasm of digestive organs; K30 Functional dyspepsia; R13.10 Dysphagia, unspecified
CPT/HCPCS: 99214

== ENCOUNTER → 2023-02-16 08:12 | Outpatient (BNVA) | payer OTHER, SELFPAY | PROVIDERS: PCP Internal Medicine; Visit Provider Nurse Practitioner | DX: K21.00 Gastro-esophageal reflux disease with esophagitis, without bleeding (principal); K58.0 Irritable bowel syndrome with diarrhea; K30 Functional dyspepsia; R13.10 Dysphagia, unspecified; Z80.0 Family history of malignant neoplasm of digestive organs | CPT/HCPCS: 99212 ==

== ENCOUNTER 2023-04-10 13:49 | Outpatient (AMB) | payer OTHER, SELFPAY ==
--- NOTE | 2023-04-10 13:52 | A.OFFPC_ITS ---
Vital Signs 04/10/23 13:53 Height 5 ft 2 in Weight 132 lb 8 oz BMI 24.2 BP 112/72 Blood Pressure Location Lt brachial Position Sitting Pulse 82 Pulse Source Pulse Oximeter Pulse Oximetry (%) 98 Oxygen Delivery Method Room Air Intake Visit Reasons: bp Intake Note: Patient is here to follow up on BP. Warehouse Engineer Required: No Accompanied by: Self / Same As Patient Allergies almond Allergy (Severe, Verified 04/10/23 15:06) ANAPHYLAXIS kiwi Allergy (Severe, Verified 04/10/23 15:06) Itching peach [PEACH] Allergy (Severe, Verified 04/10/23 15:06) ANAPHYLAXIS walnut Allergy (Severe, Verified 04/10/23 15:06) ANAPHYLAXIS morphine Allergy (Intermediate, Verified 04/10/23 15:06) ITCHING, hives, swelling,itchiness ENVIRONMENTAL Allergy (Intermediate, Uncoded 04/10/23 15:06) HAY FEVER Medication List - Last Reconciled 04/10/23 by Kareen Burrell MD albuterol sulfate 90 mcg/actuation 2 puffs inhalation Q4H PRN 30 days alcohol swabs (Alcohol Prep Pads) 1 pad topical BID 90 days bisacodyl 10 mg (2 x 5 mg) PO BEDTIME cetirizine 10 mg PO DAILY 90 days cholecalciferol (vitamin D3) 25 mcg PO DAILY 90 days clonidine 1 patch transdermal QWEEK cyanocobalamin (vitamin B-12) (Vitamin B-12) 1,000 mcg PO DAILY dexlansoprazole (Dexilant) 60 mg PO DAILY dicyclomine 10 mg PO QID PRN eluxadoline (Viberzi) 100 mg PO BID fluticasone propion-salmeterol 113-14 mcg/actuation 1 inh inhalation BID glatiramer (Copaxone) 40 mg subcut 3XW ibuprofen 600 mg PO Q8H PRN magnesium oxide 400 mg PO BID 90 days metoclopramide HCl 10 mg PO QID omalizumab (Xolair) 150 mg subcut .monthly peg 3350-electrolytes 236-22.74-6.74 -5.86 gram (Golytely) 240 mL PO Q10M 1 day peg 3350-electrolytes 236-22.74-6.74 -5.86 gram 240 mL PO Q10M polyethylene glycol 3350 (Miralax) 17 grams PO DAILY PRN 30 days Proctosol HC 2.5% (hydrocortisone) 1 appl [place] BID PRN 30 days NS ropinirole 5 mg PO BEDTIME 90 days sertraline 25 mg PO DAILY 90 days Shower Chair As directed topiramate 100 mg PO BEDTIME 90 days tramadol 50 mg PO TID trazodone 50 mg PO BEDTIME triamcinolone acetonide 1 spray intranasal DAILY PRN Tobacco use date assessed: 08/08/22 Dental Screening Dental Screen Date: 04/10/23 Did you have a dental visit in the last 12 months?: No Did you have a dental problem in the last 6 months where you did not have access to dental care?: No Was dental information given to patient?: Yes HPI HPI Comments History of Present Illness Details This is a 57-year-old female with hypertension, GERD with esophagitis, multiple sclerosis and mild major depression that comes today for follow-up on her conditions. Blood pressure stable. Barium swallow showed esophagitis and I will refer her again to Gastroenterology. She has some mild difficulty swallowing. Has multiple sclerosis on Copaxone follow by Neurology. This has been in remission. Depression stable with sertraline. [facility] Medical History (Updated 04/10/23 @ 14:10 by Kareen Burrell MD) Allergic rhinitis B12 deficiency Chest pain Chronic constipation Dyslipidemia Essential hypertension Fibromyalgia Foot callus Foot pain Hypomagnesemia Irritable bowel syndrome with both constipation and diarrhea Left foot pain Left knee pain Migraine Moderate recurrent major depression Multiple sclerosis Physical exam Right foot pain Right shoulder pain RUQ abdominal pain Salivary disorder Urge urinary incontinence Vaginal itching Surgical History History of carpal tunnel surgery of left wrist History of endometrial ablation History of esophagogastroduodenoscopy (EGD) History of suburethral sling procedure Hx of colonoscopy Hx of foot surgery Hx of submucous nasal surgery Hx of tubal ligation Family History Father History of throat cancer Mother Family history of lupus erythematosus Stroke Multiple sclerosis Maternal Grandmother Multiple sclerosis Pancreatic cancer Paternal Grandfather Pancreatic cancer Lung cancer Social History Household Members: Spouse and Children Housing: Apartment Are you a primary child care center assistant director to a significant other at home: No Do you presently have visiting nurse or other home services: Yes Alcohol intake: never Patient Tobacco Use Status: Former Tobacco user Years Smoked: Quit 30 years ago e-Cigarette/Vaping Use: Never Used Second Hand Smoke Exposure: No Substance Use Type: Marijuana service: No Current occupational status: student and disabled Cognitive needs: No Hearing needs: No Vision needs: Yes Female Reproductive History Menstrual Age of Menarche: 11 Questionnaire Thrive Questionnaire Date Thrive assessed: 08/08/22 ROLY-7 AMB Questionnaire ROLY-7 Date ROLY - 7 assessed: 08/08/22 Source: Developed by Drs. Martin Rivera, Brigida Milligan, Matty Nielsen and colleagues, with an educational kathrine from [employer]. Review of Systems Const All systems reviewed & are unremarkable except as noted in HPI and below Eyes Reports no additional complaints, Denies change in vision and Denies other visual disturbances Card Denies chest pain at rest, Denies chest pain with activity, Denies edema, Denies irregular heart rhythm, Denies claudication, Denies dyspnea, Denies dyspnea on exertion, Denies orthopnea, Denies paroxysmal nocturnal dyspnea and Denies slow heart rate Resp Denies cough, Denies dyspnea and Denies dyspnea on exertion GI Denies abdominal pain, Denies change in bowel habits, Denies excessive flatus, Denies nausea and Denies vomiting Denies urinary incontinence, Denies urinary hesitancy and Denies urinary urgency Musc Denies abnormal gait, Denies atrophy, Denies deformity and Denies limited range of motion Skin/Breast Denies bleeding lesions, Denies changing lesions and Denies rash Neuro Denies abnormal gait and Denies lack of coordination Physical exam (Primary Care) Vital Signs: Last Vital Signs Pulse 82 04/10/23 13:53 BP 112/72 04/10/23 13:53 Pulse Ox 98 04/10/23 13:53 Oxygen Delivery Method Room Air 04/10/23 13:53 BMI result Body Mass Index 24.2 Tobacco/Smoking Status: Tobacco use Status Tobacco use date assessed 08/08/22 04/10/23 13:57 Patient Tobacco Use Status Former Tobacco user 04/10/23 13:57 e-Cigarette/Vaping Use Never Used 04/10/23 13:57 Thrive Assessment: Date of Thrive Assessment Date Thrive assessed 08/08/22 04/10/23 13:57 Eyes General: appearance normal, both eyes and all related structures Eyelids: Yes eyelids normal Conjunctivae: conjunctivae normal Neck Neck: Yes normal visual inspection and Yes supple Resp Effort & Inspection: normal respiratory effort Auscultation: clear to auscultation bilaterally Cardio Jugular venous distension: no JVD Rate: regular rate Rhythm: regular rhythm Heart sounds: S1 normal heart sound present and S2 normal heart sound present Extrem General: Yes full ROM Assessment and Plan Assessment & Plan (1) GERD with esophagitis: Comment: HISTORY of esophageal erosions healed on 02/2020 EGD Code(s): K21.00 - Gastro-esophageal reflux disease with esophagitis, without bleeding Qualifiers: Esophagitis bleeding: without hemorrhage Qualified Code(s): K21.00 - Gastro-esophageal reflux disease with esophagitis, without bleeding Plan: Continue Dexilant. Follow up with Gastroenterology. (2) Multiple sclerosis: Code(s): G35 - Multiple sclerosis Plan: Continue Copaxone. Follow-up with Neurology. (3) Moderate recurrent major depression: Code(s): F33.1 - Major depressive disorder, recurrent, moderate Plan: Continue sertraline. (4) Essential hypertension: Code(s): I10 - Essential (primary) hypertension Plan: Continue clonidine. Blood pressure goal is equal or less than 130/80. Orders: Referrals Gastroenterology Referral K20.90 - Esophagitis, unspecified without bleeding Coding Level of Care Code Est Pt Level 4 (91171) Diagnoses GERD with esophagitis K21.00 Esophagitis bleeding: without hemorrhage Multiple sclerosis G35 Moderate recurrent major depression F33.1 Essential hypertension I10 Time Spent (min) 23
[2023-04-10 13:53] VITALS: BP 112/72; PULSE 82; O2SAT 98; BMI 24.2
== END 2023-04-10 14:14 | disposition home or self-care (01) ==
PROVIDERS: PCP Internal Medicine; Visit Provider Internal Medicine
DX: K21.00 Gastro-esophageal reflux disease with esophagitis, without bleeding (principal); G35 Multiple sclerosis; F33.1 Major depressive disorder, recurrent, moderate; I10 Essential (primary) hypertension
CPT/HCPCS: 99214

== ENCOUNTER 2023-04-25 14:09 | Outpatient (AMB) | payer OTHER, SELFPAY ==
--- NOTE | 2023-04-25 14:10 | A.OFFVIS_ITS ---
Intake Vital Signs 04/25/23 14:11 Height 5 ft 2 in Weight 132 lb 11.492 oz BMI 24.3 BP 116/68 Blood Pressure Location Rt brachial Position Sitting Pulse 84 Pulse Source Pulse Oximeter Temp 97.2 F Temp Source Skin Pulse Oximetry (%) 96 Intake Visit Reasons: Osteoarthritis Intake Note: Pt seen today for OA follow up, last seen by Maria Antonia. Reports she has scheduled colonoscopy 05/01 Production Operations Engineer Required: Yes Production Operations Engineer Name: Ayden [id number] Accompanied by: Self / Same As Patient Allergies almond Allergy (Severe, Verified 04/25/23 14:12) ANAPHYLAXIS kiwi Allergy (Severe, Verified 04/25/23 14:12) Itching peach [PEACH] Allergy (Severe, Verified 04/25/23 14:12) ANAPHYLAXIS walnut Allergy (Severe, Verified 04/25/23 14:12) ANAPHYLAXIS morphine Allergy (Intermediate, Verified 04/25/23 14:12) ITCHING, hives, swelling,itchiness ENVIRONMENTAL Allergy (Intermediate, Uncoded 04/25/23 14:12) HAY FEVER Medication List - Last Reconciled 04/25/23 by Amadeo Bennett MD albuterol sulfate 90 mcg/actuation 2 puffs inhalation Q4H PRN 30 days alcohol swabs (Alcohol Prep Pads) 1 pad topical BID 90 days bisacodyl 10 mg (2 x 5 mg) PO BEDTIME cetirizine 10 mg PO DAILY 90 days cholecalciferol (vitamin D3) 25 mcg PO DAILY 90 days clonidine 1 patch transdermal QWEEK cyanocobalamin (vitamin B-12) (Vitamin B-12) 1,000 mcg PO DAILY dexlansoprazole (Dexilant) 60 mg PO DAILY dicyclomine 10 mg PO QID PRN eluxadoline (Viberzi) 100 mg PO BID fluticasone propion-salmeterol 113-14 mcg/actuation 1 inh inhalation BID glatiramer (Copaxone) 40 mg subcut 3XW ibuprofen 600 mg PO Q8H PRN magnesium oxide 400 mg PO BID 90 days metoclopramide HCl 10 mg PO QID omalizumab (Xolair) 150 mg subcut .monthly peg 3350-electrolytes 236-22.74-6.74 -5.86 gram 240 mL PO Q10M polyethylene glycol 3350 (Miralax) 17 grams PO DAILY PRN 30 days Proctosol HC 2.5% (hydrocortisone) 1 appl [place] BID PRN 30 days NS ropinirole 5 mg PO BEDTIME 90 days sertraline 25 mg PO DAILY 90 days Shower Chair As directed topiramate 100 mg PO BEDTIME 90 days tramadol 50 mg PO TID trazodone 50 mg PO BEDTIME triamcinolone acetonide 1 spray intranasal DAILY PRN HPI HPI Comments History of Present Illness Details This is a 58-year-old female with fibromyalgia who presents for follow- up. States that over the last few weeks she has been having left shoulder pain, left elbow pain and right knee pain. Denies any injury or trauma to it. She takes Tylenol about twice a day but not every day. Takes tramadol nightly. [facility] Medical History (Updated 04/25/23 @ 15:53 by Amadeo Bennett MD) Vaginal itching Fibromyalgia Chronic constipation Physical exam Chest pain Right foot pain Left foot pain Moderate recurrent major depression Foot callus RUQ abdominal pain Foot pain B12 deficiency Allergic rhinitis Urge urinary incontinence Left knee pain Right shoulder pain Dyslipidemia Essential hypertension Irritable bowel syndrome with both constipation and diarrhea Multiple sclerosis Hypomagnesemia Salivary disorder Migraine Surgical History History of carpal tunnel surgery of left wrist History of esophagogastroduodenoscopy (EGD) Hx of colonoscopy Hx of foot surgery History of suburethral sling procedure Hx of tubal ligation History of endometrial ablation Hx of submucous nasal surgery Family History Father History of throat cancer Mother Family history of lupus erythematosus Stroke Multiple sclerosis Maternal Grandmother Multiple sclerosis Pancreatic cancer Paternal Grandfather Pancreatic cancer Lung cancer Social History Household Members: Spouse and Children Housing: Apartment Are you a primary child care director to a significant other at home: No Do you presently have visiting nurse or other home services: Yes Alcohol intake: never Patient Tobacco Use Status: Former Tobacco user Years Smoked: Quit 30 years ago e-Cigarette/Vaping Use: Never Used Second Hand Smoke Exposure: No Substance Use Type: Marijuana service: No Current occupational status: student and disabled Cognitive needs: No Hearing needs: No Vision needs: Yes Female Reproductive History Menstrual Age of Menarche: 11 Review of Systems Const Reports body aches Musc Reports arthralgias Physical Exam Vital Signs: Last Vital Signs Temp 97.2 F 04/25/23 14:11 Pulse 84 04/25/23 14:11 BP 116/68 04/25/23 14:11 Pulse Ox 96 04/25/23 14:11 BMI result Body Mass Index 24.3 Const General: cooperative, healthy appearing and comfortable Nutritional Appearance: average body habitus Orientation/consciousness: patient oriented x3 Limitations: no limitations HEENT Head: Yes normocephalic and Yes atraumatic Resp Effort & Inspection: normal respiratory effort and able to speak in complete sentences Auscultation: clear to auscultation bilaterally Cardio Rate: regular rate Rhythm: regular rhythm Skin General skin exam: no rashes or lesions noted Neuro General: patient oriented x3 Extrem Other: Mild osteoarthritic changes of both hands with no active synovitis Negative resisted wrist extension test Negative empty can test bilaterally No knee pain with full flexion bilaterally Results Reviewed Results Reviewed: [facility] labs 04/21/2014 Rheumatoid factor < 15, CCP <16, sed rate 13, CRP 0.47. Laboratory Tests 12/25/19 08/01/21 05/12/22 13:57 14:59 10:52 EMG nerve conduction study 03/30/2022 Impression: Mild bilateral median neuropathy across carpal tunnel Assessment & Plan Assessment & Plan (1) Fibromyalgia: Code(s): M79.7 - Fibromyalgia Plan: This is a 58-year-old female with chronic pain who presents for follow-up. Patient's symptoms are fairly stable. Advised patient to start taking half a tablet of tramadol nightly. Patient stated that she will try. Follow-up in 6 months Plan I spent 15 minutes reviewing patient's chart, evaluating patient, ordering d iagnostic workup, counseling patient and documenting in the chart Coding Level of Care Code Est Pt Level 3 (67666) Diagnoses Fibromyalgia M79.7
[2023-04-25 14:11] VITALS: BP 116/68; PULSE 84; TEMP 36.2; O2SAT 96; BMI 24.3
== END 2023-04-25 14:34 | disposition home or self-care (01) ==
LOC: HO.RHE 14:09
PROVIDERS: PCP Internal Medicine; Visit Provider Student in an Organized Health Care Education/Training Program
DX: M79.7 Fibromyalgia (principal)
CPT/HCPCS: 99213

== ENCOUNTER → 2023-04-25 14:09 | Outpatient (BNVA) | payer OTHER, SELFPAY | PROVIDERS: PCP Internal Medicine; Visit Provider Student in an Organized Health Care Education/Training Program | DX: M79.7 Fibromyalgia (principal) | CPT/HCPCS: 99212 ==

== ENCOUNTER 2023-05-24 07:52 | Day surgery (SDC) | payer OTHER, SELFPAY ==
--- NOTE | 2023-03-13 10:46 | HO.ANESPROP2 ---
HPI - Anesthesia Eval Consult details Narrative: 57yo F for Upper Endoscopy and Colonoscopy MS on Copaxone Stable at 09/2022 cardiac office visit (htn, noncardiac CP, nml ECHO) [facility] Active Problems Active Problems: All Active Problems (Updated 12/21/22 @ 14:58 by Claudette Kelley) Vaginal itching (Acute) Dysphagia (Acute) Hypernatremia (Acute) Bilateral carpal tunnel syndrome (Acute) Encounter for medication monitoring (Acute) Pre-op examination (Acute) Irritable bowel syndrome with diarrhea (Acute) URI (upper respiratory infection) (Acute) Physical exam (Acute) Weight loss, abnormal (Acute) Patellofemoral arthritis of right knee (Acute) Right ankle sprain (Acute) Hemorrhoids (Acute) Macrocytosis (Acute) Right hand pain (Acute) Numbness and tingling in both hands (Acute) Physical exam (Acute) Chest pain (Acute) Right foot pain (Acute) Left foot pain (Acute) COVID-19 (Acute) Moderate recurrent major depression (Acute) Multiple sclerosis (Acute) Foot callus (Acute) Delayed gastric emptying (Acute) Urinary frequency (Acute) Foot pain (Acute) B12 deficiency (Acute) Allergic rhinitis (Acute) Bilateral knee pain (Acute) Bilateral hand pain (Acute) Lumbar spondylosis (Acute) Urge urinary incontinence (Acute) Left knee pain (Acute) Right shoulder pain (Acute) Dyslipidemia (Acute) Essential hypertension (Acute) Family history of colon cancer (Acute) Chronic superficial gastritis (Acute) GERD with esophagitis (Acute) Menopause syndrome (Acute) Nausea and vomiting (Acute) BV (bacterial vaginosis) (Acute) Weight loss (Acute) Hypomagnesemia (Acute) Salivary disorder (Acute) Migraine (Acute) Allergic rhinitis (Acute) Past Medical History Medical History Allergic rhinitis Allergic rhinitis B12 deficiency Chest pain Chronic constipation Constipation Dyslipidemia Essential hypertension Fibromyalgia Foot callus Foot pain Hypomagnesemia Irritable bowel syndrome with both constipation and diarrhea Left foot pain Left knee pain Migraine Moderate recurrent major depression Multiple sclerosis Multiple sclerosis Physical exam Right foot pain Right shoulder pain RUQ abdominal pain Salivary disorder Urge urinary incontinence Vaginal itching Family History Family History Father History of throat cancer Mother Family history of lupus erythematosus Stroke Multiple sclerosis Maternal Grandmother Multiple sclerosis Pancreatic cancer Paternal Grandfather Pancreatic cancer Lung cancer Surgical History Surgical History History of carpal tunnel surgery of left wrist History of endometrial ablation History of esophagogastroduodenoscopy (EGD) History of suburethral sling procedure Hx of colonoscopy Hx of foot surgery Hx of submucous nasal surgery Hx of tubal ligation Social History Social History Household Members: Spouse and Children Housing: Apartment Are you a primary in home caregiver to a significant other at home: No Do you presently have visiting nurse or other home services: Yes Alcohol intake: never Patient Tobacco Use Status: Former Tobacco user Years Smoked: Quit 30 years ago e-Cigarette/Vaping Use: Never Used Second Hand Smoke Exposure: No Substance Use Type: Marijuana service: No Current occupational status: student and disabled Cognitive needs: No Hearing needs: No Vision needs: Yes Meds Allergies Allergy/AdvReac Type Severity Reaction Status Date / Time almond Allergy Severe ANAPHYLAXIS Verified 02/16/23 08:20 kiwi Allergy Severe Itching Verified 02/16/23 08:20 peach [PEACH] Allergy Severe ANAPHYLAXIS Verified 02/16/23 08:20 walnut Allergy Severe ANAPHYLAXIS Verified 02/16/23 08:20 morphine Allergy Intermediate ITCHING, Verified 02/16/23 08:20 hives, swelling,itchiness ENVIRONMENTAL Allergy Intermediate HAY FEVER Uncoded 12/21/22 14:36 Home Medications Medication Instructions Recorded Confirmed Last Taken Type fluticasone 113 mcg-salmeterol 14 1 inh inhalation BID 05/03/20 12/04/22 Unknown History mcg/actuation breath activated powdr trazodone 50 mg tablet 50 mg PO BEDTIME 05/03/20 12/04/22 Unknown History glatiramer 40 mg/mL subcutaneous 40 mg subcut 3XW 10/29/20 12/04/22 Unknown History syringe (Copaxone) triamcinolone acetonide 55 mcg 1 spray intranasal DAILY PRN 12/10/20 12/04/22 Unknown History nasal spray aerosol Congestion cyanocobalamin (vitamin B-12) 1,000 mcg PO DAILY 04/13/22 12/04/22 Unknown History 1,000 mcg tablet (Vitamin B-12) omalizumab 150 mg subcutaneous 150 mg subcut .monthly 07/07/22 12/04/22 Unknown History solution (Xolair) Exam Exam Date and Time: March 13, 2023 1046 Pertinent Lab Results Pertinent Lab Results: Laboratory Tests 11/13/22 11/13/22 15:42 15:42 WBC 5.5 Hgb 14.1 Hct 40.7 Plt Count 181 Sodium 146 H Potassium 3.9 Chloride 106 Carbon Dioxide 30 H BUN 11 Creatinine 0.74 Assessment and Plan Assessment Anesthesia Assessment: Chart Reviewed
[2023-05-22 09:44] VITALS: BMI 24.1
--- NOTE | 2023-05-23 11:39 | HO.ANESPROP2 ---
Documented by User: Neena Dean NP 05/23/23 11:51 HPI - Anesthesia Eval Consult details Narrative: 58yo F for Upper Endoscopy and Colonoscopy MS tx with glatiramer injections PMFSH Active Problems Active Problems: All Active Problems (Updated 05/23/23 @ 10:58 by Tonya Boss) Esophagitis (Acute) Dysphagia (Acute) Hypernatremia (Acute) Bilateral carpal tunnel syndrome (Acute) Encounter for medication monitoring (Acute) Pre-op examination (Acute) Irritable bowel syndrome with diarrhea (Acute) URI (upper respiratory infection) (Acute) Physical exam (Acute) Weight loss, abnormal (Acute) Patellofemoral arthritis of right knee (Acute) Right ankle sprain (Acute) Hemorrhoids (Acute) Macrocytosis (Acute) Right hand pain (Acute) Numbness and tingling in both hands (Acute) COVID-19 (Acute) Multiple sclerosis (Acute) Delayed gastric emptying (Acute) Urinary frequency (Acute) Bilateral knee pain (Acute) Bilateral hand pain (Acute) Lumbar spondylosis (Acute) Family history of colon cancer (Acute) Chronic superficial gastritis (Acute) GERD with esophagitis (Acute) Menopause syndrome (Acute) Nausea and vomiting (Acute) Weight loss (Acute) BV (bacterial vaginosis) (Acute) Allergic rhinitis (Acute) Fibromyalgia (Acute) Vaginal itching (Acute) Physical exam (Acute) Chest pain (Acute) Right foot pain (Acute) Left foot pain (Acute) Moderate recurrent major depression (Acute) Foot callus (Acute) Foot pain (Acute) B12 deficiency (Acute) Allergic rhinitis (Acute) Urge urinary incontinence (Acute) Left knee pain (Acute) Right shoulder pain (Acute) Dyslipidemia (Acute) Essential hypertension (Acute) Hypomagnesemia (Acute) Salivary disorder (Acute) Migraine (Acute) Past Medical History Medical History Environmental allergies Vaginal itching Fibromyalgia Chronic constipation Physical exam Chest pain Right foot pain Left foot pain Moderate recurrent major depression Foot callus RUQ abdominal pain Foot pain B12 deficiency Allergic rhinitis Urge urinary incontinence Left knee pain Right shoulder pain Dyslipidemia Essential hypertension Irritable bowel syndrome with both constipation and diarrhea Multiple sclerosis Hypomagnesemia Salivary disorder Migraine Family History Family History Father History of throat cancer Mother Family history of lupus erythematosus Stroke Multiple sclerosis Maternal Grandmother Multiple sclerosis Pancreatic cancer Paternal Grandfather Pancreatic cancer Lung cancer Surgical History Surgical History History of carpal tunnel surgery of left wrist History of esophagogastroduodenoscopy (EGD) Hx of colonoscopy Hx of foot surgery History of suburethral sling procedure Hx of tubal ligation History of endometrial ablation Hx of submucous nasal surgery Social History Social History Household Members: Spouse and Children Housing: Apartment Are you a primary home health aide caregiver to a significant other at home: No Do you presently have visiting nurse or other home services: Yes Alcohol intake: never Patient Tobacco Use Status: Former Tobacco user Years Smoked: Quit 30 years ago e-Cigarette/Vaping Use: Never Used Second Hand Smoke Exposure: No Substance Use Type: Marijuana Advance Directives: No Advance Directives Information Provided: Yes service: No Current occupational status: student and disabled Cognitive needs: No Hearing needs: No Vision needs: Yes Meds Allergies Allergy/AdvReac Type Severity Reaction Status Date / Time almond Allergy Severe ANAPHYLAXIS Verified 04/25/23 14:12 kiwi Allergy Severe Itching Verified 04/25/23 14:12 peach [PEACH] Allergy Severe ANAPHYLAXIS Verified 04/25/23 14:12 walnut Allergy Severe ANAPHYLAXIS Verified 04/25/23 14:12 morphine Allergy Intermediate ITCHING, Verified 04/25/23 14:12 hives, swelling,itchiness Home Medications Medication Instructions Recorded Confirmed Last Taken Type fluticasone 113 mcg-salmeterol 14 1 inh inhalation BID 05/03/20 05/22/23 Unknown History mcg/actuation breath activated powdr trazodone 50 mg tablet 50 mg PO BEDTIME 05/03/20 05/22/23 Unknown History glatiramer 40 mg/mL subcutaneous 40 mg subcut 3XW 10/29/20 05/22/23 Unknown History syringe (Copaxone) triamcinolone acetonide 55 mcg 1 spray intranasal DAILY PRN 12/10/20 05/22/23 Unknown History nasal spray aerosol Congestion cyanocobalamin (vitamin B-12) 1,000 mcg PO DAILY 04/13/22 05/22/23 Unknown History 1,000 mcg tablet (Vitamin B-12) omalizumab 150 mg subcutaneous 150 mg subcut .monthly 07/07/22 05/22/23 Unknown History solution (Xolair) Exam Exam Date and Time: May 23, 2023 1139 Height,Weight and Vital Signs: Height 5 ft 2 in Weight 59.874 kg Pertinent Lab Results Pertinent Lab Results: Laboratory Tests 11/13/22 15:42 WBC 5.5 Hgb 14.1 Hct 40.7 Plt Count 181 Sodium 146 H Potassium 3.9 Chloride 106 Carbon Dioxide 30 H BUN 11 Creatinine 0.74 Assessment and Plan Assessment Anesthesia Assessment: Chart Reviewed Documented by User: Betina Banegas MD 05/24/23 09:03 [facility] Past Medical History Medical History Environmental allergies Vaginal itching Fibromyalgia Chronic constipation Physical exam Chest pain Right foot pain Left foot pain Moderate recurrent major depression Foot callus RUQ abdominal pain Foot pain B12 deficiency Allergic rhinitis Urge urinary incontinence Left knee pain Right shoulder pain Dyslipidemia Essential hypertension Irritable bowel syndrome with both constipation and diarrhea Multiple sclerosis Hypomagnesemia Salivary disorder Migraine Family History Family History Father History of throat cancer Mother Family history of lupus erythematosus Stroke Multiple sclerosis Maternal Grandmother Multiple sclerosis Pancreatic cancer Paternal Grandfather Pancreatic cancer Lung cancer Family history of problems with anesthesia: No Surgical History Surgical History History of carpal tunnel surgery of left wrist History of esophagogastroduodenoscopy (EGD) Hx of colonoscopy Hx of foot surgery History of suburethral sling procedure Hx of tubal ligation History of endometrial ablation Hx of submucous nasal surgery History of Problems with Anesthesia: No Social History Social History Household Members: Spouse and Children Housing: Apartment Are you a primary home health aide caregiver to a significant other at home: No Do you presently have visiting nurse or other home services: Yes Alcohol intake: never Patient Tobacco Use Status: Former Tobacco user Years Smoked: Quit 30 years ago e-Cigarette/Vaping Use: Never Used Second Hand Smoke Exposure: No Substance Use Type: Marijuana Advance Directives: No Advance Directives Information Provided: Yes service: No Current occupational status: student and disabled Cognitive needs: No Hearing needs: No Vision needs: Yes Meds Allergies Allergy/AdvReac Type Severity Reaction Status Date / Time almond Allergy Severe ANAPHYLAXIS Verified 04/25/23 14:12 kiwi Allergy Severe Itching Verified 04/25/23 14:12 peach [PEACH] Allergy Severe ANAPHYLAXIS Verified 04/25/23 14:12 walnut Allergy Severe ANAPHYLAXIS Verified 04/25/23 14:12 morphine Allergy Intermediate ITCHING, Verified 04/25/23 14:12 hives, swelling,itchiness Home Medications Medication Instructions Recorded Confirmed Last Taken Type fluticasone 113 mcg-salmeterol 14 1 inh inhalation BID 05/03/20 05/22/23 Unknown History mcg/actuation breath activated powdr trazodone 50 mg tablet 50 mg PO BEDTIME 05/03/20 05/22/23 Unknown History glatiramer 40 mg/mL subcutaneous 40 mg subcut 3XW 10/29/20 05/22/23 Unknown History syringe (Copaxone) triamcinolone acetonide 55 mcg 1 spray intranasal DAILY PRN 12/10/20 05/22/23 Unknown History nasal spray aerosol Congestion cyanocobalamin (vitamin B-12) 1,000 mcg PO DAILY 04/13/22 05/22/23 Unknown History 1,000 mcg tablet (Vitamin B-12) omalizumab 150 mg subcutaneous 150 mg subcut .monthly 07/07/22 05/22/23 Unknown History solution (Xolair) Exam Airway Mallampati Class: II TM Dist: >3cm Neck ROM: Full Heart: rrr Lungs: cta Assessment and Plan Assessment Anesthesia Assessment: Anesthesia Plan Discussed and Smoking Cess. Discussed Final Anesthetic Review Family History of Problems with Anesthesia: No History of Problems with Anesthesia: No NPO: Yes ASA Class: III Final Preanesthetic Review: No Changes in Pt Med Stat, Meds/Allgs Chart Reviewed, Consent Obtained/Reviewed and Anes Risks/Benef Reviewed Patient Risk: Intermediate Procedure Risk: Low Anesthetic Plan Anesthetic Plan: MAC: Disposition: Standard PACU
[2023-05-24 08:20] VITALS: BP 146/91; PULSE 82; RESP 18; TEMP 36.7; O2SAT 100; BMI 24.6
[2023-05-24] MEDS: Lactated Ringers 1,000 ML 100 ML IVCONT (08:47)
--- NOTE | 2023-05-24 08:59 | MHC.SHP ---
Pre-Procedural Eval Section A Date of Service: 05/24/23 Section B Chief Complaint: Esophagitis, dysphagia, fam hx of CRC Details of Present Illness: Allergic rhinitis Allergic rhinitis B12 deficiency Chest pain Chronic constipation Constipation Dyslipidemia Essential hypertension Fibromyalgia Foot callus Foot pain Hypomagnesemia Irritable bowel syndrome with both constipation and diarrhea Left foot pain Left knee pain Migraine Moderate recurrent major depression Multiple sclerosis Multiple sclerosis Physical exam Right foot pain Right shoulder pain RUQ abdominal pain Salivary disorder Urge urinary incontinence Vaginal itching Surgical History History of carpal tunnel surgery of left wrist History of endometrial ablation History of esophagogastroduodenoscopy (EGD) History of suburethral sling procedure Hx of colonoscopy Hx of foot surgery Hx of submucous nasal surgery Hx of tubal ligation Allergies: Allergies Allergy/AdvReac Type Severity Reaction Status Date / Time almond Allergy Severe ANAPHYLAXIS Verified 04/25/23 14:12 kiwi Allergy Severe Itching Verified 04/25/23 14:12 peach [PEACH] Allergy Severe ANAPHYLAXIS Verified 04/25/23 14:12 walnut Allergy Severe ANAPHYLAXIS Verified 04/25/23 14:12 morphine Allergy Intermediate ITCHING, Verified 04/25/23 14:12 hives, swelling,itchiness Review of Systems Review of Systems Comment: Ten point ROS as above Exam Exam Comment: Gen appear: No acute distress HEENT: no icterus Chest: No overt resp distress Abd: soft, nontender, nondistended Psych: Stable affect, answering questions appropriately Neuro: A/Ox3 noted to move all extremities spontaneously Ext: no peripheral edema Plan Diagnosis/Plan: Unchanged I have reviewed the history and physical and performed a pertinent physical examination on my patient. No changes have occurred unless specified. Time Spent With Patient Time: Total time managing care of this patient today ____ minutes.
--- NOTE | 2023-05-24 09:10 | P.OP_ITS ---
Operative Note Operative Note Date of Service: 05/24/23 Narrative: Procedure:?Esophagogastroduodenoscopy and colonoscopy Endoscopist:?Rakel Camp MD Indication:?Dysphagia, esophagitis, personal hx of polyps Anesthesia Provider:?Dr Betina Banegas Anesthesia Type:?MAC Instrument:?Olympus GIF-H190, PCF-H190L EGD Procedure:?? The procedure, indications, preparation and potential complications were reviewed with the patient who indicated understanding and gave written informed consent to proceed. A physical exam was performed. A campus coordinator was utilised to help with the encounter. The endoscope was introduced through the mouth, and advanced to the second part of duodenum. The mucosa was carefully examined on slow withdrawal of the endoscope. There were no immediate complications. Patient tolerated the procedure well. EGD Findings:? * Oropharynx: No pharyngeal diverticulum was appreciated on exam however pt has very erythematous and edematous aretonoids. * Esophagus:? Normal mucosa noted in the entire esophagus. The Z-line is at 38 cm. There was a small patch of heterotopic gastric mucosa noted in upper esophagus. * Stomach:? Normal gastric mucosa. Retroflexion performed in the fundus. No biopsies were taken as pt has already had gastric biopsies in the past. * Duodenum:? Normal duodenal mucosa noted to the extent examined. No biopsies were taken as pt has already had duodenal biopsies in the past. Additional intervention: A soft tipped Savary wire was advanced through the biopsy channel and advanced to the antrum. The gastroscope was then backed out. Savary Cecile bougie was advanced over the guidewire and the esophagus was incrementally dilated from 19-20 mm. on relook, there was a small tear at 22 cm confirming successful dilation. Colonoscopy Procedure:? The patient was then turned for the colonoscopy. A digital rectal exam was performed which was abnormal for external hemorrhoids.? A distal attachment cap was affixed to the tip of the scope and the colonoscope was then inserted through the anus and advanced through the colon to the cecum at 70 cm and terminal ileum. Appendiceal orifice and ileocecal valve were identified. Mucosa was carefully examined under high definition white light as the instrument was slowly withdrawn in a retrograde panoramic fashion. Retroflexion was performed in rectum. The procedure was not difficult. There were no immediate obvious complications. The quality of the prep was BBPS: 2+2+2 = adequate Withdrawal time: 14 minutes Limitations: No limitation. Findings: Mucosa: Normal mucosa to cecum and terminal ileum. Protruding lesions: * One sessile polyp of size 6 mm was noted in the sigmoid colon. Cold snare polypectomy was performed. The was completely removed and retrieved. * Medium internal hemorrhoids without stigmata of recent bleeding. Impression: 1. Cricopharyngeal stricture (dilation) 2. Inlet patch 3. Arytenoid edema 4. Normal stomach 5. Normal duodenum 6. Normal colon and terminal ileum mucosa 7. 1 polyp removed 8. Medium internal hemorrhoids Recommendations:?? * Await pathology results. * If pt continues to have a lump like sensation in throat despite dilation, consider ENT referral * Next colonoscopy recommended in 5 years due to prep
[2023-05-24 10:10] VITALS: BP 122/76; PULSE 95; RESP 12; TEMP 36.7; O2SAT 98
[2023-05-24 10:27] VITALS: BP 148/79; PULSE 94; RESP 18; TEMP 36.1; O2SAT 100
[2023-05-24] MEDS: Mag&Al/Sim/Diphenhyd/Lidocaine 10 ML ORAL.SUSP PO (10:30)
== END 2023-05-24 11:00 | disposition home or self-care (01) ==
PROVIDERS: PCP Internal Medicine; Visit Provider Internal Medicine
PROC: (CPT 43248; principal; 2023-05-24 09:10)
DX: K21.00 Gastro-esophageal reflux disease with esophagitis, without bleeding (principal); R13.10 Dysphagia, unspecified; K22.2 Esophageal obstruction; J38.4 Edema of larynx; D12.5 Benign neoplasm of sigmoid colon; K55.20 Angiodysplasia of colon without hemorrhage; K64.8 Other hemorrhoids; K64.4 Residual hemorrhoidal skin tags; Z86.010 Personal history of colon polyps; Z80.0 Family history of malignant neoplasm of digestive organs; K58.2 Mixed irritable bowel syndrome; R63.4 Abnormal weight loss; Z68.24 Body mass index [BMI] 24.0-24.9, adult; G35 Multiple sclerosis; I10 Essential (primary) hypertension; E78.5 Hyperlipidemia, unspecified; Z87.891 Personal history of nicotine dependence; Z79.899 Other long term (current) drug therapy
CPT/HCPCS: 43248; 45385; 88305; C1769; J1100; J2250

== ENCOUNTER → 2023-05-24 07:52 | Outpatient (BNV) | payer OTHER, SELFPAY | PROVIDERS: PCP Internal Medicine; Visit Provider Internal Medicine | DX: Z12.11 Encounter for screening for malignant neoplasm of colon (principal); Z86.010 Personal history of colon polyps; D12.5 Benign neoplasm of sigmoid colon; K64.8 Other hemorrhoids; R10.13 Epigastric pain; K20.90 Esophagitis, unspecified without bleeding | CPT/HCPCS: 43248; 45385 ==

== ENCOUNTER 2023-06-01 11:54 | Outpatient (REF) | payer OTHER, SELFPAY ==
--- NOTE | ~2023-06-01 | MM_ITS ---
EXAMINATION: MM SCREENING DIGITAL BREAST TOMOSYNTHESIS, BILATERAL CLINICAL INFORMATION: Screening. Asymptomatic. COMPARISON: Mammography: This study is compared with prior exams dating back to 2017. TECHNIQUE: Digital breast tomosynthesis is performed in both the craniocaudal and mediolateral oblique views along with computer-aided detection (CAD). Synthesized 2D images are generated from the tomosynthesis. FINDINGS: The breasts are almost entirely fatty (ACR BI-RADS breast composition Category a). There are no significant masses, abnormal calcifications, or other abnormalities. MM/MM tomosynthesis screening BI IMPRESSION: No mammographic evidence of malignancy. ASSESSMENT: BI-RADS BI-RADS 1 - Negative RECOMMENDATION: Routine annual mammography screening. 1 year F/U This examination should not preclude the clinical evaluation of a suspicious palpable abnormality. This patient's information was entered into a reminder system with a target due date for their next mammogram.
== END 2023-06-01 11:55 | disposition home or self-care (01) ==
LOC: HO.MAMMO 11:54
PROVIDERS: PCP Internal Medicine; Visit Provider Internal Medicine
DX: Z12.31 Encounter for screening mammogram for malignant neoplasm of breast (principal)
CPT/HCPCS: 77063; 77067

== ENCOUNTER → 2023-06-01 12:15 | Outpatient (BNV) | payer OTHER, SELFPAY | PROVIDERS: PCP Internal Medicine; Visit Provider Radiology Diagnostic Radiology | DX: Z12.31 Encounter for screening mammogram for malignant neoplasm of breast (principal) | CPT/HCPCS: 77063; 77067 ==

== ENCOUNTER 2023-07-14 16:21 | Emergency (ER) | payer OTHER, SELFPAY ==
[2023-07-14 16:50] VITALS: BP 135/87; PULSE 89; RESP 16; TEMP 36.8; O2SAT 99; BMI 26.9
--- NOTE | 2023-07-14 16:51 | ED.GENADULT ---
HPI - General Adult General Chief complaint: General Medical Stated complaint: facial allergic reaction ,swelling,burning Time Seen by Provider: 07/14/23 16:53 Source: patient, family and locum tenens psychiatrist Mode of arrival: ambulatory Limitations: language barrier History of Present Illness HPI narrative: 58 yo female with history of HTN, MS here with complaints of facial burning/itching/burning after applying an antiaging cream (first time using this). Took benadryl x 1 with continued symptoms. No difficulty breathing or swallowing. Related Data Home Medications Medication Instructions Recorded Confirmed fluticasone 113 mcg-salmeterol 14 1 inh inhalation BID 05/03/20 05/22/23 mcg/actuation breath activated powdr trazodone 50 mg tablet 50 mg PO BEDTIME 05/03/20 05/22/23 glatiramer 40 mg/mL subcutaneous 40 mg subcut 3XW 10/29/20 05/22/23 syringe (Copaxone) triamcinolone acetonide 55 mcg 1 spray intranasal DAILY PRN 12/10/20 05/22/23 nasal spray aerosol Congestion cyanocobalamin (vitamin B-12) 1,000 mcg PO DAILY 04/13/22 05/22/23 1,000 mcg tablet (Vitamin B-12) omalizumab 150 mg subcutaneous 150 mg subcut .monthly 07/07/22 05/22/23 solution (Xolair) Previous Rx's Medication Instructions Recorded alcohol swabs (Alcohol Prep Pads) 1 pad topical BID 90 days #200 ea 09/08/20 polyethylene glycol 3350 17 17 g PO DAILY PRN constipation 30 03/18/21 gram/dose oral powder (Miralax) days #510 grams Shower Chair #1 ea 09/12/21 clonidine 0.1 mg/24 hr weekly 1 patch transdermal QWEEK #4 ea 02/06/22 transdermal patch albuterol sulfate 90 mcg/actuation 2 puff inhalation Q4H PRN Wheezing 02/15/22 aerosol inhaler 30 days #6.7 grams ibuprofen 600 mg tablet 600 mg PO Q8H PRN pain #20 tabs 03/14/22 Proctosol HC 2.5 % topical cream 1 appl [place] BID PRN hemorrhoids 30 03/29/22 perineal applicator days #28.35 grams (hydrocortisone) tramadol 50 mg tablet 50 mg PO TID #90 tabs 08/23/22 eluxadoline 100 mg tablet (Viberzi) 100 mg PO BID #60 tabs 09/29/22 magnesium oxide 400 mg (241.3 mg 400 mg PO BID 90 days #180 tabs 09/29/22 magnesium) tablet cholecalciferol (vitamin D3) 25 25 mcg PO DAILY 90 days #90 caps 12/28/22 mcg (1,000 unit) capsule dicyclomine 10 mg capsule 10 mg PO QID PRN for cramps #120 02/26/23 caps peg 3350-electrolytes 236 240 ml PO Q10M #4,000 mL 03/13/23 gram-22.74 gram-6.74 gram-5.86 gram solution sertraline 25 mg tablet 25 mg PO DAILY 90 days #90 tabs 03/25/23 cetirizine 10 mg tablet 10 mg PO DAILY 90 days #90 tabs 03/26/23 topiramate 100 mg tablet 100 mg PO BEDTIME 90 days #90 tabs 04/23/23 dexlansoprazole 60 mg 60 mg PO DAILY #30 caps 05/24/23 capsule,biphase delayed release (Dexilant) ropinirole 5 mg tablet 5 mg PO BEDTIME 90 days #90 tabs 06/23/23 bisacodyl 5 mg tablet,delayed 10 mg (2 x 5 mg) PO BEDTIME #60 07/04/23 release tabs metoclopramide HCl 10 mg tablet 10 mg PO QID #120 tabs 07/04/23 diphenhydramine HCl 25 mg capsule 25 mg PO TID PRN allergy symptoms 07/14/23 (Benadryl) #15 caps prednisone 20 mg tablet 20 mg PO DAILY #5 tabs 07/14/23 Allergies Allergy/AdvReac Type Severity Reaction Status Date / Time almond Allergy Severe ANAPHYLAXIS Verified 04/25/23 14:12 kiwi Allergy Severe Itching Verified 04/25/23 14:12 peach [PEACH] Allergy Severe ANAPHYLAXIS Verified 04/25/23 14:12 walnut Allergy Severe ANAPHYLAXIS Verified 04/25/23 14:12 morphine Allergy Intermediate ITCHING, Verified 04/25/23 14:12 hives, swelling,itchiness Review of Systems Review of Systems: Yes all other systems are reviewed and are negative Constitutional: Constitutional: Reports no additional constitutional complaints, Denies body ache(s), Denies chills, Denies fever(s), Denies headache(s) and Denies weakness Eyes: Eyes: Reports no additional eye complaints and Denies change in vision ENT: Reports system reviewed and no additional complaints, except as documented, Denies dizziness, Denies headache(s), Denies nasal congestion, Denies nasal discharge and Denies neck pain Cardiovascular: Cardiovascular: Reports no additional cardiovascular complaints, Denies chest pain, Denies leg edema and Denies dyspnea Respiratory: Respiratory: Reports no additional respiratory complaints, Denies cough and Denies dyspnea Gastrointestinal: Gastrointestinal: Reports no additional gastrointestinal complaints, Denies abdominal pain, Denies diarrhea, Denies nausea and Denies vomiting Genitourinary: Genitourinary: Reports no additional female genitourinary complaints and Denies urinary incontinence Musculoskeletal: Musculoskeletal: Reports no additional musculoskeletal complaints, Denies back pain, Denies arthralgias, Denies joint swelling, Denies neck pain, Denies numbness and Denies tingling Integumentary/Breasts: Skin/Breast: Reports system reviewed and no additional complaints, except as docu and Reports rash Neurologic: Reports system reviewed and no additional complaints, except as documented, Denies Abnormal speech present, Denies dizziness, Denies headache(s), Denies numbness, Denies tingling and Denies weakness PMFSH Past Medical History Attestation statement: The following information was validated with the patient. Source: old records reviewed and nursing notes reviewed Medical History Environmental allergies Vaginal itching Fibromyalgia Chronic constipation Physical exam Chest pain Right foot pain Left foot pain Moderate recurrent major depression Foot callus RUQ abdominal pain Foot pain B12 deficiency Allergic rhinitis Urge urinary incontinence Left knee pain Right shoulder pain Dyslipidemia Essential hypertension Irritable bowel syndrome with both constipation and diarrhea Multiple sclerosis Hypomagnesemia Salivary disorder Migraine Surgical History History of carpal tunnel surgery of left wrist History of esophagogastroduodenoscopy (EGD) Hx of colonoscopy Hx of foot surgery History of suburethral sling procedure Hx of tubal ligation History of endometrial ablation Hx of submucous nasal surgery Family History Family History Father History of throat cancer Mother Family history of lupus erythematosus Stroke Multiple sclerosis Maternal Grandmother Multiple sclerosis Pancreatic cancer Paternal Grandfather Pancreatic cancer Lung cancer Social History Social History Household Members: Spouse and Children Housing: Apartment Are you a primary acute care physical therapist to a significant other at home: No Do you presently have visiting nurse or other home services: Yes Alcohol intake: never Patient Tobacco Use Status: Former Tobacco user Years Smoked: Quit 30 years ago e-Cigarette/Vaping Use: Never Used Second Hand Smoke Exposure: No Substance Use Type: Marijuana Advance Directives: No Advance Directives Information Provided: No service: No Current occupational status: student and disabled Cognitive needs: No Hearing needs: No Vision needs: Yes Physical Exam ED Vital Signs: Vital Signs - 24 hr 07/14/23 16:50 Temperature 98.2 F Pulse Rate 89 Respiratory Rate 16 Blood Pressure 135/87 Pulse Oximetry 99 Oxygen Delivery Method Room Air BMI result Body Mass Index 26.9 Const General: cooperative, healthy appearing, comfortable and no acute distress Orientation/consciousness: patient oriented x3 Limitations: no limitations HENMT Head: Yes normal to inspection Head images: 1. +mild erythema and swallowing with urticaria 2. +mild erythema and swallowing with urticaria Ears: hearing grossly normal bilaterally General nose exam: Normal external nose present Face and sinus: Yes normal facial exam Mouth: Normal oral and palatal mucosa present Throat: Yes posterior oropharynx normal Eyes General: appearance normal, both eyes and all related structures Pupils: Equal, round and reactive pupils present Neck Neck: Yes normal visual inspection Chest Chest palpation & inspection: normal inspection of the chest Resp Effort & Inspection: normal respiratory effort Auscultation: clear to auscultation bilaterally Cardio Rate: regular rate Rhythm: regular rhythm Peripheral pulses: Peripheral pulses 2+ throughout GI Inspection: Yes normal to inspection Palpation (GI): Soft to palpation and nontender Auscultation: normal bowel sounds Back/Spine/Pelvis Thoracic/Lumbar Spine: thoracic and lumbar spine normal to inspection Skin General skin exam: no rashes or lesions noted Neuro General: patient oriented x3, no focal motor deficits and normal sensation to monofilament Cranial nerves: Yes Equal, round and reactive pupils present Cognition (Neuro): normal cognition Speech: No Abnormal speech present Gait exam (Neuro): Normal gait present Motor exam (neuro): 5/5 motor strength present throughout Extrem General: Yes normal to inspection Medical Decision Making Medical Decision Making MDM Narrative: 58 yo female with history of HTN, MS here with complaints of facial burning/itching/burning after applying an antiaging cream (first time using this). Took benadryl x 1 with continued symptoms. No difficulty breathing or swallowing. +mild erythema and swallowing with urticaria c/w with mild allergic reaction. No airway involvement or angioedema. Will give prednisone course, recommend benadryl prn Differential Diagnosis Differential Diagnoses: The differential diagnosis associated with the presentation includes allergic reaction Admission/Observation Consideration of admission/observation: Escalation of care including admission/observation considered No airway involvement or angioedema requiring admission for observation of airway Independent Historian Clinical information obtained from an independent historian. History obtained from or confirmed by: Spouse Discharge Plan Discharge Clinical Impression: Allergic reaction Patient Disposition: Home, Self-Care Instructions: General Allergic Reaction (ED) Prescriptions: New prednisone 20 mg tablet 20 mg PO DAILY Qty: 5 0RF diphenhydramine HCl [Benadryl] 25 mg capsule 25 mg PO TID PRN (Reason: allergy symptoms) Qty: 15 0RF No Action alcohol swabs [Alcohol Prep Pads] Pads, Medicated 1 pad topical BID 90 Days Qty: 200 3RF (DME) Shower Chair Misc See Rx Instructions .Route Qty: 1 0RF Rx Instructions: As directed clonidine 0.1 mg/24 hr patch weekly 1 patch transdermal QWEEK Qty: 4 11RF hydrocortisone [Proctosol HC] 2.5 % cream with perineal applicator 1 appl TX BID PRN (Reason: hemorrhoids) 30 Days Qty: 28.35 3RF tramadol 50 mg tablet 50 mg PO TID Qty: 90 1RF cholecalciferol (vitamin D3) 25 mcg (1,000 unit) capsule 25 mcg PO DAILY 90 Days Qty: 90 1RF dicyclomine 10 mg capsule 10 mg PO QID PRN (Reason: for cramps) Qty: 120 3RF peg 3350-electrolytes 236-22.74-6.74 -5.86 gram recon soln 240 ml PO Q10M Qty: 4000 0RF Rx Instructions: until fecal effluent is clear sertraline 25 mg tablet 25 mg PO DAILY 90 Days Qty: 90 0RF cetirizine 10 mg tablet 10 mg PO DAILY 90 Days Qty: 90 3RF topiramate 100 mg tablet 100 mg PO BEDTIME 90 Days Qty: 90 3RF dexlansoprazole [Dexilant] 60 mg capsule,biphase delayed releas 60 mg PO DAILY Qty: 30 3RF ropinirole 5 mg tablet 5 mg PO BEDTIME 90 Days Qty: 90 3RF bisacodyl 5 mg tablet,delayed release (DR/EC) 10 mg PO BEDTIME Qty: 60 6RF metoclopramide HCl 10 mg tablet 10 mg PO QID Qty: 120 6RF ibuprofen 600 mg tablet 600 mg PO Q8H PRN (Reason: pain) Qty: 20 0RF albuterol sulfate 90 mcg/actuation HFA aerosol inhaler 2 puff inhalation Q4H PRN (Reason: Wheezing) 30 Days Qty: 6.7 0RF triamcinolone acetonide 55 mcg aerosol,spray 1 spray intranasal DAILY PRN (Reason: Congestion) glatiramer [Copaxone] 40 mg/mL syringe 40 mg subcut 3XW Rx Instructions: administer doses at least 48 hours apart fluticasone propion-salmeterol 113-14 mcg/actuation aerosol powdr breath activated 1 inh inhalation BID trazodone 50 mg tablet 50 mg PO BEDTIME polyethylene glycol 3350 [Miralax] 17 gram/dose powder 17 g PO DAILY PRN (Reason: constipation) 30 Days Qty: 510 3RF Xolair 150 mg recon soln 150 mg subcut .monthly cyanocobalamin (vitamin B-12) [Vitamin B-12] 1,000 mcg tablet 1,000 mcg PO DAILY magnesium oxide 400 mg (241.3 mg magnesium) tablet 400 mg PO BID 90 Days Qty: 180 3RF Viberzi 100 mg tablet 100 mg PO BID Qty: 60 3RF Rx Instructions: must administer with a meal/food Referrals: Kareen Mark MD [Primary Care Provider] - 1 week Print Language: Latvian
== END 2023-07-14 17:12 | disposition home or self-care (01) ==
PROVIDERS: Emergency Provider Internal Medicine; PCP Internal Medicine
DX: L23.2 Allergic contact dermatitis due to cosmetics (principal); G35 Multiple sclerosis; L29.8 Other pruritus; I10 Essential (primary) hypertension
CPT/HCPCS: 99282

== ENCOUNTER 2023-08-16 17:30 | Outpatient (AMB) | payer OTHER, SELFPAY ==
--- NOTE | 2023-08-16 17:32 | A.OFFPC_ITS ---
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: No Accompanied by: Self / Same As Patient Allergies almond Allergy (Severe, Verified 08/16/23 17:47) ANAPHYLAXIS kiwi Allergy (Severe, Verified 08/16/23 17:47) Itching peach [PEACH] Allergy (Severe, Verified 08/16/23 17:47) ANAPHYLAXIS walnut Allergy (Severe, Verified 08/16/23 17:47) ANAPHYLAXIS morphine Allergy (Intermediate, Verified 08/16/23 17:47) ITCHING, hives, swelling,itchiness Medication List - Last Reconciled 08/16/23 by Kareen Burrell MD albuterol sulfate 90 mcg/actuation 2 puffs inhalation Q4H PRN 30 days alcohol swabs (Alcohol Prep Pads) 1 pad topical BID 90 days bisacodyl 10 mg (2 x 5 mg) PO BEDTIME cetirizine 10 mg PO DAILY 90 days cholecalciferol (vitamin D3) 25 mcg PO DAILY 90 days clonidine 1 patch transdermal QWEEK cyanocobalamin (vitamin B-12) (Vitamin B-12) 1,000 mcg PO DAILY dexlansoprazole (Dexilant) 60 mg PO DAILY dicyclomine 10 mg PO QID PRN diphenhydramine HCl (Benadryl) 25 mg PO TID PRN eluxadoline (Viberzi) 100 mg PO BID fluticasone propion-salmeterol 113-14 mcg/actuation 1 inh inhalation BID glatiramer (Copaxone) 40 mg subcut 3XW ibuprofen 600 mg PO Q8H PRN magnesium oxide 400 mg PO BID metoclopramide HCl 10 mg PO QID omalizumab (Xolair) 150 mg subcut .monthly peg 3350-electrolytes 236-22.74-6.74 -5.86 gram 240 mL PO Q10M polyethylene glycol 3350 (Miralax) 17 grams PO DAILY PRN 30 days prednisone 20 mg PO DAILY Proctosol HC 2.5% (hydrocortisone) 1 appl MO BID PRN 30 days NS ropinirole 5 mg PO BEDTIME 90 days sertraline 25 mg PO DAILY 90 days Shower Chair As directed topiramate 100 mg PO BEDTIME 90 days tramadol 50 mg PO TID trazodone 50 mg PO BEDTIME triamcinolone acetonide 1 spray intranasal DAILY PRN Tobacco use date assessed: 08/16/23 Dental Screening Dental Screen Date: 08/16/23 Did you have a dental visit in the last 12 months?: No Did you have a dental problem in the last 6 months where you did not have access to dental care?: No Was dental information given to patient?: Patient has dentist HPI HPI Comments History of Present Illness Details This is a 58-year-old female with multiple sclerosis and moderate recurrent major depression that comes for her physical exam. Multiple sclerosis has been stable and will have MRI of the brain this month. This is follow by Neurology. Depression has been stable with medications and is follow by Psychiatry. Last mammogram was 2022 and was normal. Last Pap smear was 2022 and was normal. Last colonoscopy was 2022 showing tubular adenoma. No chest pain or shortness of breath. REPLACED BY [facility] Medical History Environmental allergies Vaginal itching Fibromyalgia Chronic constipation Physical exam Chest pain Right foot pain Left foot pain Moderate recurrent major depression Foot callus RUQ abdominal pain Foot pain B12 deficiency Allergic rhinitis Urge urinary incontinence Left knee pain Right shoulder pain Dyslipidemia Essential hypertension Irritable bowel syndrome with both constipation and diarrhea Multiple sclerosis Hypomagnesemia Salivary disorder Migraine Surgical History History of carpal tunnel surgery of left wrist History of esophagogastroduodenoscopy (EGD) Hx of colonoscopy Hx of foot surgery History of suburethral sling procedure Hx of tubal ligation History of endometrial ablation Hx of submucous nasal surgery Family History (Updated 08/16/23 @ 17:53 by Kareen Burrell MD) Father History of throat cancer Mother Stroke Multiple sclerosis Maternal Grandmother Multiple sclerosis Pancreatic cancer Paternal Grandfather Pancreatic cancer Lung cancer Social History Household Members: Spouse and Children Housing: Apartment Are you a primary critical care rn to a significant other at home: No Do you presently have visiting nurse or other home services: Yes Alcohol intake: never Patient Tobacco Use Status: Former Tobacco user Years Smoked: Quit 30 years ago e-Cigarette/Vaping Use: Never Used Second Hand Smoke Exposure: No Substance Use Type: Marijuana service: No Current occupational status: student and disabled Cognitive needs: No Hearing needs: No Vision needs: Yes Female Reproductive History Menstrual Age of Menarche: 11 Questionnaire PHQ-9 Over the last 2 weeks, how often have you been bothered by any of the following problems? 1. Little interest or pleasure in doing things: more than half the days 2. Feeling down, depressed, or hopeless: nearly every day 3. Trouble falling or staying asleep, or sleeping too much: nearly every day 4. Feeling tired or having little energy: nearly every day 5. Poor appetite or overeating: nearly every day 6. Feeling bad about yourself - or that you are a failure or have let yourself or your family down: not at all 7. Trouble concentrating on things, such as reading the newspaper or watching television: nearly every day 8. Moving or speaking so slowly that other people could have noticed. Or the opposite - being so fidgety or restless that you have been moving around a lot more than usual: nearly every day 9. Thoughts that you would be better off or of hurting yourself in some way: not at all Total score: 20 Depression Screening Interpretation: Positive Depression Screening Follow-up: Existing condition, In treatment and Community Mental Health Worker F/U Depression Screening Done: Yes 31527 - PHQ-9 Billing: Yes Source: Developed by Drs. Martin Rivera, Brigida Milligan, Matty Nielsen and colleagues, with an educational kathrine from [employer]. Thrive Questionnaire Date Thrive assessed: 08/16/23 I am a: Patient What is your living situation today?: I have a steady place to live Within the past 12 months, did the food you bought not last and you didn't have the money to get more?: Never true Within the past 12 months, did you worry whether your food would run out before you got money to buy more?: Never true Do you have trouble paying for medicines?: No Do you have trouble getting transportation to medical appointments?: No Do you have trouble paying your heating and electricity bill?: No Do you have trouble taking care of your child, family member or friend?: No Do you have trouble with day-to-day activities such as bathing, preparing meals, shopping, managing finances, etc.?: No Are you currently unemployed and looking for a job?: No Are you interested in more education?: No Please select the resources that you would like help with: None Currently or been in a relationship where the following occur: no concerns reported AUDIT C Alcohol Use Questionnaire (AUDIT-C) 1. How often do you have a drink containing alcohol?: Never Total Score: 0 ROLY-7 AMB Questionnaire ROLY-7 Date ROLY - 7 assessed: 08/16/23 Feeling nervous, anxious, or on edge: 3 = Nearly every day Not being able to stop or control worryin = Several days Worrying too much about different things: 2 = More than half the days Trouble relaxin = More than half the days Being so restless that it is hard to sit still: 2 = More than half the days Becoming easily annoyed or irritable: 2 = More than half the days Feeling afraid as if something awful might happen: 2 = More than half the days Total ROLY-7 score (0-4 normal; 5-9 mild; 10-14 moderate; 15-21 severe): 14 Source: Developed by Drs. Martin Rivera, Brigida Milligan, Matty Nielsen and colleagues, with an educational kathrine from [employer]. ROLY-7 Assessment Billing ROLY-7 Assessment Tool: ROLY-7 Assessment 32296 Review of Systems Const All systems reviewed & are unremarkable except as noted in HPI and below Eyes Reports no additional complaints, Denies change in vision and Denies other visual disturbances Card Denies chest pain at rest, Denies chest pain with activity, Denies edema, Denies irregular heart rhythm, Denies claudication, Denies dyspnea, Denies dyspnea on exertion, Denies orthopnea, Denies paroxysmal nocturnal dyspnea and Denies slow heart rate Resp Denies cough, Denies dyspnea and Denies dyspnea on exertion GI Denies abdominal pain, Denies change in bowel habits, Denies excessive flatus, Denies nausea and Denies vomiting Denies urinary incontinence, Denies urinary hesitancy and Denies urinary urgency Musc Denies abnormal gait, Denies atrophy, Denies deformity and Denies limited range of motion Skin/Breast Denies bleeding lesions, Denies changing lesions and Denies rash Neuro Denies abnormal gait, Denies behavioral changes, Denies confusion and Denies lack of coordination Psych Denies behavioral changes and Denies confusion Physical exam (Primary Care) Vital Signs: Last Vital Signs BP 132/80 08/16/23 17:33 BMI result Body Mass Index 28.0 Tobacco/Smoking Status: Tobacco use Status Tobacco use date assessed 08/16/23 08/16/23 17:40 Patient Tobacco Use Status Former Tobacco user 08/16/23 17:40 e-Cigarette/Vaping Use Never Used 08/16/23 17:40 PHQ-9: PHQ-9 Score PHQ-9: Total score 20 08/16/23 17:54 Depression Screening Interpretation: Positive Depression Screening Follow-up: Existing condition, In treatment and Community Mental Health Worker F/U Thrive Assessment: Date of Thrive Assessment Date Thrive assessed 08/16/23 08/16/23 17:40 Currently or been in a relationship where the following occur: no concerns reported Const General: No confusion Orientation/consciousness: patient oriented x3 and No confusion HENMT Head: Yes normal to inspection, Yes normocephalic and Yes atraumatic Ears: external ears normal Eyes General: appearance normal, both eyes and all related structures Eyelids: Yes eyelids normal Conjunctivae: conjunctivae normal Neck Neck: Yes normal visual inspection and Yes supple Resp Effort & Inspection: normal respiratory effort Auscultation: clear to auscultation bilaterally Cardio Jugular venous distension: no JVD Rate: regular rate Rhythm: regular rhythm Heart sounds: S1 normal heart sound present and S2 normal heart sound present GI Inspection: Yes normal to inspection Palpation (GI): Soft to palpation and nontender Auscultation: normal bowel sounds Skin General skin exam: no rashes or lesions noted Neuro General: patient oriented x3, no focal motor deficits and No confusion Extrem General: Yes full ROM Psych Appearance: grossly normal Assessment and Plan Assessment & Plan (1) Physical exam: Code(s): Z00.00 - Encounter for general adult medical examination without abnormal findings Plan: Repeat in a year. (2) Multiple sclerosis: Code(s): G35 - Multiple sclerosis Plan: Continue Copaxone. Follow-up with Neurology. (3) Moderate recurrent major depression: Code(s): F33.1 - Major depressive disorder, recurrent, moderate Plan: Continue Viberzi. Follow-up with psychiatry. Orders: Orders Vitamin B12 and Folate Today E53.8 - Deficiency of other specified B group vitamins Lipid Panel Today Z00.00 - Encounter for general adult medical examination without abnormal findings Comprehensive [place]. Panel Fast Today Z00.00 - Encounter for general adult medical examination without abnormal findings Vitamin D 25-OH Total Today E55.9 - Vitamin D deficiency, unspecified Coding Level of Care Code Est Pt Prev Care 40-64y(81071) Diagnoses Physical exam Z00.00 Multiple sclerosis G35 Moderate recurrent major depression F33.1 Additional Codes ROLY-7 Assessment Billing - ROLY-7 Assessment Tool: ROLY-7 Assessment 05204 ([id number]) Time Spent (min) 34
[2023-08-16 17:33] VITALS: BP 132/80; BMI 28.0
== END 2023-08-16 17:58 | disposition home or self-care (01) ==
LOC: HO.HMGH 17:30
PROVIDERS: PCP Internal Medicine; Visit Provider Internal Medicine
DX: Z00.00 Encounter for general adult medical examination without abnormal findings (principal); G35 Multiple sclerosis; F33.1 Major depressive disorder, recurrent, moderate; I10 Essential (primary) hypertension
CPT/HCPCS: 99396

== ENCOUNTER 2023-10-24 12:54 | Outpatient (REF) | payer OTHER, SELFPAY ==
--- NOTE | ~2023-10-24 | XR_ITS ---
EXAMINATION: XR KNEE, LEFT CLINICAL INFORMATION: Left knee pain COMPARISON: None available. TECHNIQUE: Four views of the left knee. FINDINGS: No fracture or joint effusion. Alignment is anatomic. Minimal medial compartment and patellofemoral compartment osteoarthritis. No abnormal soft tissue calcification. XR/XR knee LT 4V IMPRESSION: Minimal medial and patellofemoral compartment osteoarthritis. No acute fractures or dislocations.
--- NOTE | ~2023-10-24 | XR_ITS ---
EXAMINATION: XR SHOULDER, LEFT CLINICAL INFORMATION: Left shoulder pain; limited range of motion COMPARISON: None available. TECHNIQUE: Three views of the left shoulder. FINDINGS: The bones and soft tissues are normal. No fracture. Glenohumeral and acromioclavicular alignment is anatomic with normal joint space. No abnormal soft tissue calcifications. XR/XR shoulder LT min 2V IMPRESSION: Normal left shoulder.
--- NOTE | ~2023-10-24 | XR_ITS ---
EXAMINATION: XR KNEE, RIGHT CLINICAL INFORMATION: Right knee pain COMPARISON: None available. TECHNIQUE: Four views of the right knee. FINDINGS: No fracture or joint effusion. Alignment is anatomic. Minimal patellofemoral joint osteoarthritis. No abnormal soft tissue calcification. XR/XR knee RT 4V IMPRESSION: Minimal patellofemoral joint osteoarthritis. No acute fracture or dislocation.
== END 2023-10-24 12:55 | disposition home or self-care (01) ==
LOC: HO.XRAY 12:54
PROVIDERS: Absent Provider Student in an Organized Health Care Education/Training Program; PCP Internal Medicine; Visit Provider Student in an Organized Health Care Education/Training Program
DX: M25.512 Pain in left shoulder (principal); M79.7 Fibromyalgia; M77.11 Lateral epicondylitis, right elbow; M77.12 Lateral epicondylitis, left elbow; M25.561 Pain in right knee; M25.562 Pain in left knee; G89.29 Other chronic pain
CPT/HCPCS: 73030; 73564; 99212

== ENCOUNTER 2023-10-24 12:54 | Outpatient (AMB) | payer OTHER, SELFPAY ==
--- NOTE | 2023-10-24 12:56 | MHC.OFFVIS ---
Intake Vital Signs 10/24/23 12:58 Height 5 ft 1 in Weight 163 lb 2.273 oz BMI 30.8 BP 110/76 Blood Pressure Location Rt brachial Position Sitting Pulse 83 Pulse Source Pulse Oximeter Temp 98.2 F Temp Source Skin Pulse Oximetry (%) 98 Oxygen Delivery Method Room Air Intake Visit Reasons: FMS Intake Note: Patient presents today for fibromyalgia. c/o wong knee pain and wong forearm pain Academic Interventionist Required: Yes Academic Interventionist Language: Trailer Technician Name: Jerardo [id number] Information Interpreted: clinical only Accompanied by: Self / Same As Patient Allergies almond Allergy (Severe, Verified 10/24/23 13:01) ANAPHYLAXIS kiwi Allergy (Severe, Verified 10/24/23 13:01) Itching peach [PEACH] Allergy (Severe, Verified 10/24/23 13:01) ANAPHYLAXIS walnut Allergy (Severe, Verified 10/24/23 13:01) ANAPHYLAXIS morphine Allergy (Intermediate, Verified 10/24/23 13:01) ITCHING, hives, swelling,itchiness Medication List - Last Reconciled 10/24/23 by Amadeo Bennett MD albuterol sulfate 90 mcg/actuation 2 puffs inhalation Q4H PRN 30 days alcohol swabs (Alcohol Prep Pads) 1 pad topical BID 90 days bisacodyl 10 mg (2 x 5 mg) PO BEDTIME cetirizine 10 mg PO DAILY 90 days cholecalciferol (vitamin D3) 25 mcg PO DAILY 90 days clonidine 1 patch transdermal QWEEK cyanocobalamin (vitamin B-12) (Vitamin B-12) 1,000 mcg PO DAILY dexlansoprazole (Dexilant) 60 mg PO DAILY dicyclomine 10 mg PO QID PRN diphenhydramine HCl (Benadryl) 25 mg PO TID PRN eluxadoline (Viberzi) 100 mg PO BID fluticasone propion-salmeterol 113-14 mcg/actuation 1 inh inhalation BID glatiramer (Copaxone) 40 mg subcut 3XW ibuprofen 600 mg PO Q8H PRN magnesium oxide 400 mg PO BID metoclopramide HCl 10 mg PO QID omalizumab (Xolair) 150 mg subcut .monthly peg 3350-electrolytes 236-22.74-6.74 -5.86 gram 240 mL PO Q10M polyethylene glycol 3350 (Miralax) 17 grams PO DAILY PRN 30 days Proctosol HC 2.5% (hydrocortisone) 1 appl ME BID PRN 30 days NS ropinirole 5 mg PO BEDTIME 90 days sertraline 25 mg PO DAILY 90 days Shower Chair As directed topiramate 100 mg PO BEDTIME 90 days tramadol 50 mg PO TID trazodone 50 mg PO BEDTIME triamcinolone acetonide 1 spray intranasal DAILY PRN HPI HPI Comments History of Present Illness Details This is a 58-year-old female with fibromyalgia who presents for follow-up. She states that over the last year she has been having bilateral elbow pain and bilateral knee pain. She uses warm water for her knees. She continues to take tramadol nightly [facility] Medical History Environmental allergies Vaginal itching Fibromyalgia Chronic constipation Physical exam Chest pain Right foot pain Left foot pain Moderate recurrent major depression Foot callus RUQ abdominal pain Foot pain B12 deficiency Allergic rhinitis Urge urinary incontinence Left knee pain Right shoulder pain Dyslipidemia Essential hypertension Irritable bowel syndrome with both constipation and diarrhea Multiple sclerosis Hypomagnesemia Salivary disorder Migraine Surgical History History of carpal tunnel surgery of left wrist History of esophagogastroduodenoscopy (EGD) Hx of colonoscopy Hx of foot surgery History of suburethral sling procedure Hx of tubal ligation History of endometrial ablation Hx of submucous nasal surgery Family History Father History of throat cancer Mother Stroke Multiple sclerosis Maternal Grandmother Multiple sclerosis Pancreatic cancer Paternal Grandfather Pancreatic cancer Lung cancer Social History Household Members: Spouse and Children Housing: Apartment Are you a primary wild animal caretaker to a significant other at home: No Do you presently have visiting nurse or other home services: Yes Alcohol intake: never Patient Tobacco Use Status: Former Tobacco user Years Smoked: Quit 30 years ago e-Cigarette/Vaping Use: Never Used Second Hand Smoke Exposure: No Substance Use Type: Marijuana service: No Current occupational status: student and disabled Cognitive needs: No Hearing needs: No Vision needs: Yes Female Reproductive History Menstrual Age of Menarche: 11 Review of Systems Const Reports body aches Musc Reports arthralgias Physical Exam Vital Signs: Last Vital Signs Temp 98.2 F 10/24/23 12:58 Pulse 83 10/24/23 12:58 BP 110/76 10/24/23 12:58 Pulse Ox 98 10/24/23 12:58 Oxygen Delivery Method Room Air 10/24/23 12:58 BMI result Body Mass Index 30.8 Const General: cooperative, healthy appearing and comfortable Nutritional Appearance: average body habitus Orientation/consciousness: patient oriented x3 Limitations: no limitations HEENT Head: Yes normocephalic and Yes atraumatic Resp Effort & Inspection: normal respiratory effort and able to speak in complete sentences Cardio Rate: regular rate Rhythm: regular rhythm Skin General skin exam: no rashes or lesions noted Neuro General: patient oriented x3 Extrem Other: Mild osteoarthritic changes of both hands with no active synovitis Mild tenderness to palpation at the common extensor origin at the lateral epicondyle bilaterally Positive resisted wrist extension test bilaterally Left knee pain with range of motion Results Reviewed Results Reviewed: [facility] labs 04/21/2014 Rheumatoid factor < 15, CCP <16, sed rate 13, CRP 0.47. Laboratory Tests 12/25/19 08/01/21 05/12/22 13:57 14:59 10:52 EMG nerve conduction study 03/30/2022 Impression: Mild bilateral median neuropathy across carpal tunnel Assessment & Plan Assessment & Plan (1) Fibromyalgia: Code(s): M79.7 - Fibromyalgia Plan: This is a 58-year-old female with chronic pain who presents for follow-up. She has been having bilateral knee pain. Worse on the left. Will check bilateral knee x-rays. Advised patient to try using Voltaren gel. Bilateral elbow pain, likely due to tennis elbow. Referred patient to occupational therapy. She continues to take tramadol 50 mg nightly. Follow-up in 6 months (2) Bilateral tennis elbow: Code(s): M77.11 - Lateral epicondylitis, right elbow; M77.12 - Lateral epicondylitis, left elbow Plan: Sent to occupational therapy (3) Bilateral knee pain: Code(s): M25.561 - Pain in right knee; M25.562 - Pain in left knee Qualifiers: Chronicity: chronic Qualified Code(s): M25.561 - Pain in right knee; M25.562 - Pain in left knee; G89.29 - Other chronic pain Plan: Check bilateral knee x-rays. Voltaren gel trial Plan I spent 25 minutes reviewing patient's chart, evaluating patient, ordering diagnostic workup, counseling patient and documenting in the chart Orders: Orders XR knee LT 3V Today M25.561 - Pain in right knee, M25.562 - Pain in left knee XR knee RT 3V Today M25.561 - Pain in right knee, M25.562 - Pain in left knee OT Evaluation and Treatment Today M77.11 - Lateral epicondylitis, right elbow, M77.12 - Lateral epicondylitis, left elbow XR knee standing BI Today M25.561 - Pain in right knee, M25.562 - Pain in left knee Coding Level of Care Code Est Pt Level 4 (07868) Diagnoses Fibromyalgia M79.7 Bilateral tennis elbow M77.11; M77.12 Chronic pain of both knees M25.561; M25.562; G89.29 Chronicity: chronic
[2023-10-24 12:58] VITALS: BP 110/76; PULSE 83; TEMP 36.8; O2SAT 98; BMI 30.8
== END 2023-10-24 13:16 | disposition home or self-care (01) ==
PROVIDERS: PCP Internal Medicine; Visit Provider Student in an Organized Health Care Education/Training Program
DX: M79.7 Fibromyalgia (principal); M77.11 Lateral epicondylitis, right elbow; M77.12 Lateral epicondylitis, left elbow; M25.561 Pain in right knee; M25.562 Pain in left knee; G89.29 Other chronic pain
CPT/HCPCS: 99214

== ENCOUNTER 2023-11-08 13:00 | Outpatient (RCR) | payer OTHER, SELFPAY ==
--- NOTE | 2023-10-29 15:21 | MHC.OT.OEV ---
[address] [phone] F: [phone] Occupational Therapy Evaluation Patient Name: Yola Mayes Diagnosis: (B)Lateral Epicondylitis Date of Onset: 06/06/23 Date of Surgery: Attending Provider: Amadeo Bennett Prescribed Treatment: Follow Up Appointment: History of Current Condition: Patient is a 58 year old right handed female with PMHx of Fibromyalgia who was referred by Amadeo Bennett MD for (B)Lateral Epicondylitis. Patient reported symptoms started approximately 6 months ago. She has pain of her epicondyles and reports tingling in her hands. Significant Medical History: Fibromyalgia Chronic constipation Physical exam Chest pain Right foot pain Left foot pain Moderate recurrent major depression Foot callus RUQ abdominal pain Foot pain B12 deficiency Allergic rhinitis Urge urinary incontinence Left knee pain Right shoulder pain Dyslipidemia Essential hypertension Irritable bowel syndrome with both constipation and diarrhea Multiple sclerosis Hypomagnesemia Salivary disorder Migraine Precautions/Contraindications: Patient Goals: Hand Dominance: Right Observations: QuickDASH Score: Prior Level of Function and Occupation Self Care, Employment, Leisure: (I)ADLs/IADLs Living Situation, Family and/or Social Support: Live with Unemployed Current Level of Function and Occupation Self Care, Employment, 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: 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 ex: laundry, dishes and sweeps Sleep: Wakes up due to pain when in it's cold or raining Driving: max (A), drives Vision: Balance: Pain Assessment Pain Score: 8 Pain Scale Used: Numeric (0 - 10) Pain Location and Description: (L) condyle 8/10 pain at rest 8/10 during activity (R) 6/10 pain at rest and during activity Aggravating Factors: lifting a laundry basket, lifting heavy items Alleviating Factors: Tylenal, hot packs or hot water Skin and Soft Tissue Assessment Skin and Soft Tissue: Comments: intact Nerve assessment Ulnar Nerve: Median Nerve: Radial Nerve: Comments: Sensory Assessment Temperature: Light Touch: Proprioception: Vibration: Comments: Monofilament Test= WFL Edema Assessment Upper Extremity: WNL Lower Extremity: Comments: No edema present Dexterity Assessment Dexterity: Comments: Functional Dexterity Test= (R)38.24seconds, (L)35.31 seconds; indicating impairment Finger opposition= WFL Special Tests Comments: Mill's Test (-) (B'ly) Tinel's Test (+) (B'ly) Wired Music Operator strength Test (-) (B'ly) Viktoriya Test (+) (L) AROM(PROM) Strength Cervical Cervical Flexion: Cervical Extension: Cervical Lateral Flexion: Cervical Rotation: Comments: Shoulder Flexion: Extension: Abduction: Internal Rotation: External Rotation: Comments: WFL Flexion: Extension: Abduction: Internal Rotation: External Rotation: Comments: 4-/5 grossly Elbow Flexion: Extension: Pronation: Supination: Comments: WFL Flexion: Extension: Pronation: Supination: Comments: 3+/5 grossly Wrist Flexion: Extension: Ulnar Deviation: Radial Deviation: Comments: WFL Flexion: Extension: Ulnar Deviation: Radial Deviation: Comments: 4-/5 grossly Thumb Thumb CMC Flexion: Thumb MCP Flexion: Thumb IP Flexion: Radial Abduction: Palmar Abduction: Hughson (Kapandji 0-10): Comments: WFL Digits Index MCP: PIP: DIP: Long MCP: PIP: DIP: Ring MCP: PIP: DIP: Small MCP: PIP: DIP: Comments: Gross Grasp: (R)23lbs., (L)10.6lbs. Lateral Pinch: (R)7 (L)4 Two-Point Pinch: (R)3 (L)1 Three-Jaw Joel: (R)3 (L)2 Comments: Patient performed ship ceiler strength and pinch strength with submaximal effort Patient Education Primary Language: Office Mover Required: Yes Current Knowledge: Understands information with skills for self-management Teaching Method: Education Needs Identified on Evaluation: How did patient/family demonstrate learning? Barriers to Learning: Readiness for Learning: Who was educated? Comments: Plan of Care Assessment: Patient is a 58 year old female who was referred to skilled OT for (B) lateral epicondylitis. Patient reported she lives with her and in an apartment and is unemployed and she stated her PLOF was (I)ADLs/IADLs. In the (R)UE she reported 6/10 pain at rest and during activity, (L)UE she reported 8/10 pain at rest and during activity, she indicated her pain was at both condyles of the UEs. She also reported tingling in her hands (B'ly). Mill's Test (-) (B'ly), Tinel's Test (+) (B'ly), ship ceiler strength test (-) (B'ly) indicating possible tennis elbow (B'ly) and possible De Quervain's in (L)thumb. Her skin appeared intact and no edema was present (B'ly). Patient's ROM was WFLs and ship ceiler strength was under for patient's age and gender as she achieved 23lbs. (R) and 10.6lbs (L). Functional Dexterity Test indicated coordination impairment as patient achieved 38.24seconds (R) and 35.31seconds in (L). Based on initial evaluation patient's CLOF is min (A) for ADLs as patient presents with pain, impaired coordination, impaired strength and impaired ADL performance. Due to the documented impairments it is recommended that patient receive skilled OT intervention or for her to achieve her PLOF of (I) during self care tasks. Thank you for your referral. STG Duration: 2 weeks Short Term Goals: Patient will report 4/10 pain in (R)UE Patient will report 6/10 pain in (L)UE Patient will increase (B) ship ceiler strength by at least 5lbs. for improved performance during self care tasks Patient will be (I) in wear schedule of Counter Force brace LTG Duration: 4 weeks Assisted Goals: Patient will report 0/10 pain (B'ly) Patient will increase ship ceiler strength by 10lbs. (B'ly) Patient will be (I) with HEP Frequency and Duration: The patient will be seen 2x a week for 4 weeks Treatment Plan: Therapeutic Exercise Therapeutic Activity Home Exercise Program Splinting Patient Education Edema Control ADL Training Ultrasound Iontophoresis Paraffin Fluidotherapy MHP Cold Packs Kinesiotaping Skilled OT eval and treat Electronically Signed By: Neena Lucia, OTR/L, CLT Reviewed/agree with student documentation: Therapist: Please sign and return to therapist, Thank you for your referral.
== END 2024-01-02 13:20 | disposition home or self-care (01) ==
LOC: HO.OT 13:00
PROVIDERS: PCP Internal Medicine; Visit Provider Student in an Organized Health Care Education/Training Program
DX: M77.11 Lateral epicondylitis, right elbow (principal); M77.12 Lateral epicondylitis, left elbow
CPT/HCPCS: 97035; 97110; 97166; 97535

== ENCOUNTER 2023-12-24 21:07 | Emergency (ER) | payer OTHER, SELFPAY ==
[2023-12-24 21:21] VITALS: BP 176/109; PULSE 70; RESP 18; TEMP 36.7; O2SAT 99; BMI 31.4
[2023-12-24 22:05] LABS: MANUAL DIFF FLAG NO
[2023-12-24 22:06] LABS: Basophils Percent Auto 0.6 % (0-2); Eosinophils Absolute Auto 0.1 X10*3/uL (0.0-0.4); Eosinophils Percent Auto 1.2 % (0-4); Hematocrit 38.9 % (37.0-47.0); Hemoglobin 13.6 g/dl (12.0-16.0); Imm Gran Abs Auto 0.01 X10*3/uL (0.00-0.03); Imm Gran Pct Auto 0.2 % (0.0-0.4); Lymphocytes Absolute Auto 1.7 X10*3/uL (1.2-4.9); Lymphocytes Percent Auto 32.1 % (20-40); Mean Corpuscular Hemoglobin 32.9 pg (27.0-33.0); Mean Corpuscular Volume 94.2 fL (80.0-98.0); Mean Platelet Volume 9.9 fL (9.4-12.3); Monocytes Absolute Auto 0.5 X10*3/uL (0.1-1.2); Monocytes Percent Auto 10.3 % (2-11); Neutrophils Absolute Auto 2.9 x10*3/uL (2.0-8.3); Neutrophils Percent Auto 55.6 % (45-73); Platelet Count 233 X10*3/uL (160-400); Red Blood Count 4.13 X10*6/uL (4.20-5.50); Red Cell Distribution Width 12.2 % (11.0-16.0); White Blood Count 5.2 X10*3/uL (4.8-10.8)
[2023-12-24 22:23] LABS: Alanine Aminotransferase 23 U/L (0-31); Albumin Level 3.9 g/dL (3.5-5.0); Alkaline Phosphatase 87 U/L (39-117); Anion Gap 12 (12-20); Aspartate Amino Transferase 19 U/L (5-31); Bilirubin Total 0.5 mg/dL (0.0-1.0); Blood Urea Nitrogen 15 mg/dL (9-16); Calcium 9.6 mg/dL (8.4-10.2); Carbon Dioxide 27 mmol/L (22-29); Chloride 107 mmol/L (96-108); Creatinine Clr Calc Pharmacy 89.2; Estimated Glomerular Filt Rate > 60; Glucose Random 100 mg/dL (60-115); Potassium 4.1 mmol/L (3.3-5.1); Sodium 142 mmol/L (135-145); Total Protein 6.9 g/dL (6.5-8.0)
[2023-12-25 02:16] VITALS: BP 157/98; PULSE 73; RESP 16; TEMP 36.6; O2SAT 97
--- NOTE | 2023-12-25 03:53 | PC.NURSE ---
at bedside very upset, yelling and confrontational about seeing doctor, T/W attempted to explain. Told T/W that they were leaving d/t wait time.
== END 2023-12-25 03:56 | disposition left against medical advice (07) ==
PROVIDERS: Student in an Organized Health Care Education/Training Program; Emergency Provider Emergency Medicine; PCP Internal Medicine
DX: H92.02 Otalgia, left ear (principal)
CPT/HCPCS: 36415; 80053; 85025; 99283

== ENCOUNTER 2023-12-26 10:12 | Outpatient (AMB) | payer OTHER, SELFPAY ==
--- NOTE | 2023-12-26 10:22 | MHC.OFFVIS ---
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 Marketing Production Coordinator Required: Yes Marketing Production Coordinator Language: Preliminary School Psychologist Name: ashley [phone] Information Interpreted: non-clinical & clinical Piece Cutter: Piece Cutter Present (Aidyn) Allergies almond Allergy (Severe, Verified 12/26/23 10:26) ANAPHYLAXIS kiwi Allergy (Severe, Verified 12/26/23 10:26) Itching peach [PEACH] Allergy (Severe, Verified 12/26/23 10:26) ANAPHYLAXIS walnut Allergy (Severe, Verified 12/26/23 10:26) ANAPHYLAXIS morphine Allergy (Intermediate, Verified 12/26/23 10:26) ITCHING, hives, swelling,itchiness Is last menstrual period known: No Post menopausal: Yes Patient : No HPI Comments Details: She is a postmenopausal woman 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 She is doing well with no concerns: She reports feeling hot in the vaginal area when urinating. Attempting to eat a healthy diet with calcium and vitamin D and stays active with exercise. Currently not sexually active over 5 yrs. due to [facility] health. Last pap smear; 2022. Last mammogram; 2022. Colonoscopy is UTD. Denies any family history of breast, ovarian or colon cancer. [facility] Medical History Environmental allergies Vaginal itching Fibromyalgia Chronic constipation Physical exam Chest pain Right foot pain Left foot pain Moderate recurrent major depression Foot callus RUQ abdominal pain Foot pain B12 deficiency Allergic rhinitis Urge urinary incontinence Left knee pain Right shoulder pain Dyslipidemia Essential hypertension Irritable bowel syndrome with both constipation and diarrhea Multiple sclerosis Hypomagnesemia Salivary disorder Migraine Surgical History History of carpal tunnel surgery of left wrist History of esophagogastroduodenoscopy (EGD) Hx of colonoscopy Hx of foot surgery History of suburethral sling procedure Hx of tubal ligation History of endometrial ablation Hx of submucous nasal surgery Family History Father History of throat cancer Mother Stroke Multiple sclerosis Maternal Grandmother Multiple sclerosis Pancreatic cancer Paternal Grandfather Pancreatic cancer Lung cancer Social History Household Members: Spouse and Children Housing: Apartment Are you a primary rn complex care to a significant other at home: No Do you presently have visiting nurse or other home services: Yes Alcohol intake: never Patient Tobacco Use Status: Former Tobacco user Years Smoked: Quit 30 years ago e-Cigarette/Vaping Use: Never Used Second Hand Smoke Exposure: No Substance Use Type: Marijuana service: No Current occupational status: student and disabled Cognitive needs: No Hearing needs: No Vision needs: Yes Female Reproductive History Menstrual Age of Menarche: 11 control method: permanent sterilization Total pregnancies: 6 Full term: 6 Multiple births: 1 Date of last pap smear: 12/26/22 (negative) History of abnormal pap smear: No Date of Mammogram: 06/01/23 Review of Systems Const All systems reviewed & are unremarkable except as noted in HPI and below Reports as per HPI Eyes Reports no additional complaints ENT Reports no additional complaints Card Reports no additional complaints Resp Reports no additional complaints GI Reports as per HPI and Reports no additional complaints Reports as per HPI Musc Reports no additional complaints Skin/Breast Reports as per HPI Neuro Reports no additional complaints Psych Reports no additional complaints Endo Reports no additional complaints Ton/Lymph Reports no additional complaints Aller/Immun Reports no additional complaints Physical Exam Const General: cooperative, healthy appearing, no acute distress, well developed and alert Orientation/consciousness: patient oriented x3 HEENT Head: Yes normal to inspection Eyes General: appearance normal, both eyes and all related structures Neck Neck: Yes normal visual inspection Thyroid: Thyroid normal Chest Chest palpation & inspection: normal inspection of the chest and other (no puckering, dimpling, peau de orange, retraction, discharge, masses) Breast/axilla inspection: normal inspection of the breasts Breast/axilla palpation: normal palpation of the breasts Resp Effort & Inspection: normal respiratory effort GI Inspection: Yes normal to inspection Palpation (GI): Soft to palpation Rectal Exam - Female: deferred General: Yes bladder normal to palpation External Female Exam: normal external appearance and normal appearance of the urethra Speculum Exam - Vagina: normal appearance of the vagina, normal palpation, normal vaginal discharge and vagina atrophic Speculum Exam - Cervix: normal appearance of the cervix and normal palpation Bimanual exam- vagina & uterus: normal bimanual exam, normal palpation, uterine size normal, bladder normal to palpation, normal palpation and non-tender Bimanual Exam- Adnexa, other: no masses Skin General skin exam: no rashes or lesions noted Rashes: no rashes Neuro General: patient oriented x3 Cognition (Neuro): normal cognition Extrem General: Yes normal to inspection Psych Attitude: cooperative Thought process: Normal thought process present Assessment & Plan Assessment & Plan (1) Encounter for well woman exam with routine gynecological exam: Code(s): Z01.419 - Encounter for gynecological examination (general) (routine) without abnormal findings Category: Medical Plan: Discussed: Current recommendations for pap smears per ASCCP guidelines. Breast awareness, periodic self breast exams and yearly mammogram. Maintain a healthy lifestyle, well balanced diet including Calcium 1,200 mg and Vitamin D 600 IU daily, and routine exercise. Hydrate well. Skin care: Avoid soap to area, cleaned with water only, use of cotton underwear, and loose clothing. If symptoms are not improving to return to the office for further evaluation. Await BV panel for results. Contact the office with any postmenopausal bleeding. Patient verbalizes understanding and agrees to the plan of care. She was given opportunity to ask questions and all questions were answered to the best of my ability. RTO in 1 year for annual structural technician exam. This note is constructed using voice recognition software. While every effort has been made to ensure accuracy, buncher hand errors may have been included. Coding Level of Care Code Est Pt Prev Care 40-64y(83139) Diagnoses Encounter for well woman exam with routine gynecological exam Z01.419
[2023-12-26 10:23] VITALS: BP 104/64; BMI 30.5
== END 2023-12-26 11:04 | disposition home or self-care (01) ==
PROVIDERS: Visit Provider Advanced Practice Midwife
DX: Z01.419 Encounter for gynecological examination (general) (routine) without abnormal findings (principal)
CPT/HCPCS: 99396

== ENCOUNTER 2023-12-26 10:12 | Outpatient (REF) | payer OTHER, SELFPAY ==
[2023-12-26 14:56] LABS: Bacterial Vaginosis PCR NEGATIVE (Negative); Candida Group PCR NOT DETECTED (Not Detect); Candida glab krusei PCR NOT DETECTED (Not Detect); Trichomonas vaginalis PCR NOT DETECTED (Not Detect)
== END 2023-12-26 10:13 | disposition home or self-care (01) ==
LOC: HO.LNP 10:12
PROVIDERS: Visit Provider Advanced Practice Midwife
DX: Z01.419 Encounter for gynecological examination (general) (routine) without abnormal findings (principal); N94.9 Unspecified condition associated with female genital organs and menstrual cycle
CPT/HCPCS: 0352U; 99396

== ENCOUNTER 2024-01-22 12:57 | Outpatient (AMB) | payer OTHER, SELFPAY ==
--- NOTE | 2024-01-22 13:10 | A.OFFVIS_ITS ---
Vital Signs 01/22/24 13:12 Height 5 ft 2 in Weight 170 lb BMI 31.1 BP 167/93 H Blood Pressure Location Lt brachial Position Sitting Pulse 88 Intake Visit Reasons: Follow up medications Intake Note: Patient here for medication refill Patient cc: Nauseas, headaches, abdominal pain, patient can not eat well due GERD with burning sensation, and also soft stool. Patient BP is elevated and I gave her some water. Special Service Officer Required: Yes Special Service Officer Name: [facility] interpeter Accompanied by: Self / Same As Patient Allergies almond Allergy (Severe, Verified 01/22/24 13:09) ANAPHYLAXIS kiwi Allergy (Severe, Verified 01/22/24 13:09) Itching peach [PEACH] Allergy (Severe, Verified 01/22/24 13:09) ANAPHYLAXIS walnut Allergy (Severe, Verified 01/22/24 13:09) ANAPHYLAXIS morphine Allergy (Intermediate, Verified 01/22/24 13:09) ITCHING, hives, swelling,itchiness HPI HPI Follow up medications: Details: Assessment & Plan (1) GERD with esophagitis: Comment: HISTORY of esophageal erosions healed on 02/2020 EGD Code(s): K21.00 - Gastro-esophageal reflux disease with esophagitis, without bleeding Qualifiers: Esophagitis bleeding: without hemorrhage Qualified Code(s): K21.00 - Gastro-esophageal reflux disease with esophagitis, without bleeding Plan: [place] #Ro Live She has not been feeling well. She is having a globus sensation in the upper throat. She is told it might be her thyroid. She also is having dysphagia of solid foods like rice and chicken. She had a barium swallow ordered by her PCP as above. 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 she will wake up coughing at night. Her current medication regimen consists of Dexilant, dicyclomine and reglan She has pain that starts in the epigastric and radiates to her bilateral back but sometimes feels like it is in the bones like arthritis. It it helped with an OTC cream that she rubs on the stomach. She can not clearly relates it to eating or moving her bowels. BUt at times the pain is twisting. Marigua-Dol - a hemp product. I will try to add an EGD to her colonoscopy. She has fears because her father of throat cancer. She has MS which always complicates her She has a follow up with me 03/27 after her EGD 03/14. We will keep this no med changes for now. (2) Irritable bowel syndrome with diarrhea: Code(s): K58.0 - Irritable bowel syndrome with diarrhea (3) Family history of colon cancer: Comment: Scope 2012 and 2018 hyperplastic polyps only repeat 2022 Code(s): Z80.0 - Family history of malignant neoplasm of digestive organs (4) Delayed gastric emptying: Code(s): K30 - Functional dyspepsia (5) Dysphagia: Code(s): R13.10 - Dysphagia, unspecified EGD/COLONOSCOPY EGD Findings:? * Oropharynx: No pharyngeal diverticulum was appreciated on exam however pt has very erythematous and edematous aretonoids. * Esophagus:? Normal mucosa noted in the entire esophagus. The Z-line is at 38 cm. There was a small patch of heterotopic gastric mucosa noted in upper esophagus. * Stomach:? Normal gastric mucosa. Retroflexion performed in the fundus. No biopsies were taken as pt has already had gastric biopsies in the past. * Duodenum:? Normal duodenal mucosa noted to the extent examined. No biopsies were taken as pt has already had duodenal biopsies in the pas Findings: Mucosa: Normal mucosa to cecum and terminal ileum. Protruding lesions: * One sessile polyp of size 6 mm was noted in the sigmoid colon. Cold snare polypectomy was performed. The was completely removed and retrieved. * Medium internal hemorrhoids without stigmata of recent bleeding. Impression: 1. Cricopharyngeal stricture (dilation) 2. Inlet patch 3. Arytenoid edema 4. Normal stomach 5. Normal duodenum 6. Normal colon and terminal ileum mucosa 7. 1 polyp removed 8. Medium internal hemorrhoids Recommendations:?? * Await pathology results. * If pt continues to have a lump like sensation in throat despite dilation, consider ENT referral * Next colonoscopy recommended in 5 years due to prep BIOPSY Received: 05/24/23 Diagnosis Colon, sigmoid, polypectomy: Tubular adenoma; negative for high-grade dysplasia or carcinoma. TODAY'S VISIT [place] #Nathan Ceron The procedure needs to be repeated in 5 years. The procedure was well tolerated. The results were explained and the patient is agreeable to the follow-up interval as stated. The bowel pattern has returned to normal. Education was provided to tell any 1st degree relatives about their findings to be sure that they are screened by age 45. Educated that they will be put on a recall list when it is time for their repeat scope but should they move out of state or away from the hospital they will need to remember along with their primary to repeat the procedure in a timely fashion to avoid any adverse complications. Refill Viberzi. She has sudden onset nausea just today. Wait and watch. Swallowing and globus improved. She also continues on her bisacodyl, Dexilant, dicyclomine, Viberzi, metoclopramide 10 mg 4 times a day, MiraLax p.r.n., Proctosol cream. ROV 6 mos [facility] Medical History (Updated 01/22/24 @ 16:21 by ALCON Liu) Encounter for well woman exam with routine gynecological exam Environmental allergies Vaginal itching Fibromyalgia Chronic constipation Physical exam Chest pain Right foot pain Left foot pain Moderate recurrent major depression Foot callus RUQ abdominal pain Foot pain B12 deficiency Allergic rhinitis Urge urinary incontinence Left knee pain Right shoulder pain Dyslipidemia Essential hypertension Irritable bowel syndrome with both constipation and diarrhea Multiple sclerosis Hypomagnesemia Salivary disorder Migraine Surgical History History of carpal tunnel surgery of left wrist History of esophagogastroduodenoscopy (EGD) Hx of colonoscopy Hx of foot surgery History of suburethral sling procedure Hx of tubal ligation History of endometrial ablation Hx of submucous nasal surgery Family History Father History of throat cancer Mother Stroke Multiple sclerosis Maternal Grandmother Multiple sclerosis Pancreatic cancer Paternal Grandfather Pancreatic cancer Lung cancer Social History Household Members: Spouse and Children Housing: Apartment Are you a primary gericare aide teacher to a significant other at home: No Do you presently have visiting nurse or other home services: Yes Alcohol intake: never Patient Tobacco Use Status: Former Tobacco user Years Smoked: Quit 30 years ago e-Cigarette/Vaping Use: Never Used Second Hand Smoke Exposure: No Substance Use Type: Marijuana service: No Current occupational status: student and disabled Cognitive needs: No Hearing needs: No Vision needs: Yes Female Reproductive History Menstrual Age of Menarche: 11 Review of Systems Const Denies fatigue, Denies fever(s), Denies night sweats, Denies poor appetite and Denies weight loss ENT Reports Normal hearing present, Denies dental pain, Denies dysphagia, Denies hearing loss, Denies mouth pain, Denies odynophagia, Denies throat swelling, Denies tongue swelling and Reports other (Dentition adequate) Card Reports no additional complaints Resp Reports no additional complaints GI Details: Denies abdominal pain, Denies melena, Denies bloating, Denies hematochezia, Reports constipation, Denies GI cramping, Denies dysphagia, Denies excessive flatus, Reports early satiety, Reports heartburn, Denies diarrhea, Reports nausea, Denies odynophagia, Denies vomiting and Denies hematemesis Skin/Breast Denies pruritus, Denies lesions, Denies rash and Denies jaundice Neuro Reports Normal hearing present and Denies Abnormal speech present Endo Denies fatigue Aller/Immun Denies throat swelling and Denies tongue swelling Physical Exam Vital Signs: Last Vital Signs Pulse 88 01/22/24 13:12 BP 167/93 H 01/22/24 13:12 BMI result Body Mass Index 31.1 Const General: cooperative, no acute distress, well developed and well groomed Nutritional Appearance: well nourished and obese Orientation/consciousness: oriented to person, oriented to place and oriented to time Limitations: language barrier HEENT Head: Yes normocephalic and Yes atraumatic Eyes General: appearance normal, both eyes and all related structures Pupils: Equal, round and reactive pupils present Neck Neck: Yes normal visual inspection and Yes no lymphadenopathy Thyroid: Thyroid normal Resp Effort & Inspection: normal respiratory effort and able to speak in complete sentences Auscultation: clear to auscultation bilaterally Cardio Rate: regular rate Rhythm: regular rhythm Heart sounds: Normal, physiologic split S2 sound present Peripheral pulses: radial pulses present and posterior tibial pulses present GI Inspection: No distended, No Abdominal panniculus present and Yes obesity Palpation (GI): Soft to palpation, nontender, no guarding, not rigid and No hepatosplenomegaly present Percussion: Yes normal to percussion Auscultation: normal bowel sounds Rectal Exam - Female: deferred Skin General skin exam: no rashes or lesions noted, turgor normal, skin not dry, no jaundice, No spider nevi and no striae Rashes: no rashes Nails: normal Neuro General: oriented to person, oriented to place and oriented to time Cranial nerves: Yes Equal, round and reactive pupils present and Yes Normal hearing present Speech: No Abnormal speech present Extrem General: Yes normal to inspection, No clubbing, No cyanosis and No edema Psych Appearance: grossly normal and well kempt Mental Status: mental status grossly normal Speech and movement: Normal speech and movement present Affect: normal affect Attitude: cooperative Thought process: Normal thought process present and not confabulating Thought content: Normal thought content present Insight: Limited insight present (Psych) Judgement: Limited judgement present (Psych) Results Reviewed Results Reviewed: EGD/COLONOSCOPY EGD Findings:? * Oropharynx: No pharyngeal diverticulum was appreciated on exam however pt has very erythematous and edematous aretonoids. * Esophagus:? Normal mucosa noted in the entire esophagus. The Z-line is at 38 cm. There was a small patch of heterotopic gastric mucosa noted in upper esophagus. * Stomach:? Normal gastric mucosa. Retroflexion performed in the fundus. No biopsies were taken as pt has already had gastric biopsies in the past. * Duodenum:? Normal duodenal mucosa noted to the extent examined. No biopsies were taken as pt has already had duodenal biopsies in the pas Findings: Mucosa: Normal mucosa to cecum and terminal ileum. Protruding lesions: * One sessile polyp of size 6 mm was noted in the sigmoid colon. Cold snare polypectomy was performed. The was completely removed and retrieved. * Medium internal hemorrhoids without stigmata of recent bleeding. Impression: 1. Cricopharyngeal stricture (dilation) 2. Inlet patch 3. Arytenoid edema 4. Normal stomach 5. Normal duodenum 6. Normal colon and terminal ileum mucosa 7. 1 polyp removed 8. Medium internal hemorrhoids Recommendations:?? * Await pathology results. * If pt continues to have a lump like sensation in throat despite dilation, consider ENT referral * Next colonoscopy recommended in 5 years due to prep BIOPSY Received: 05/24/23 Diagnosis Colon, sigmoid, polypectomy: Tubular adenoma; negative for high-grade dysplasia or carcinoma Assessment & Plan Assessment & Plan (1) Tubular adenoma of colon: Comment: 01/2024 scope= TA repeat in 5 years Code(s): D12.6 - Benign neoplasm of colon, unspecified Category: Medical (2) Dysphagia: Code(s): R13.10 - Dysphagia, unspecified Category: Medical (3) GERD with esophagitis: Comment: HISTORY of esophageal erosions healed on 02/2020 EGD Code(s): K21.00 - Gastro-esophageal reflux disease with esophagitis, without bleeding Category: Medical Qualifiers: Esophagitis bleeding: without hemorrhage Qualified Code(s): K21.00 - Gastro-esophageal reflux disease with esophagitis, without bleeding Plan [place] #Nathan Ceron The procedure needs to be repeated in 5 years. The procedure was well tolerated. The results were explained and the patient is agreeable to the follow-up interval as stated. The bowel pattern has returned to normal. Education was provided to tell any 1st degree relatives about their findings to be sure that they are screened by age 45. Educated that they will be put on a recall list when it is time for their repeat scope but should they move out of state or away from the hospital they will need to remember along with their primary to repeat the procedure in a timely fashion to avoid any adverse complications. Refill Viberzi. She has sudden onset nausea just today. Wait and watch. Swallowing and globus improved. She also continues on her bisacodyl, Dexilant, dicyclomine, Viberzi, metoclopramide 10 mg 4 times a day, MiraLax p.r.n., Proctosol cream. ROV 6 mos Medications: Refilled bisacodyl 10 mg (2 x 5 mg) PO BEDTIME 60 tabs 6RF K59.00 - Constipation, unspecified dexlansoprazole (Dexilant) 60 mg PO DAILY 30 caps 3RF K21.00 - Gastro- esophageal reflux disease with esophagitis, without bleeding metoclopramide HCl 10 mg PO QID 120 tabs 6RF K30 - Functional dyspepsia eluxadoline (Viberzi) must administer with a meal/food 100 mg PO BID 60 tabs 5RF K58.0 - Irritable bowel syndrome with diarrhea dicyclomine 10 mg PO QID PRN 120 caps 3RF for cramps K58.2 - Mixed irritable bowel syndrome Discontinued peg 3350-electrolytes 236-22.74-6.74 -5.86 gram until fecal effluent is clear Discontinued Reason: Patient Completed Course 240 mL PO Q10M 4,000 mL 0RF Coding Level of Care Code Est Pt Level 3 (83195) Diagnoses Tubular adenoma of colon D12.6 Dysphagia R13.10 Gastroesophageal reflux disease with esophagitis without hemorrhage K21.00 Esophagitis bleeding: without hemorrhage
[2024-01-22 13:12] VITALS: BP 167/93; PULSE 88; BMI 31.1
== END 2024-01-22 14:16 | disposition home or self-care (01) ==
PROVIDERS: PCP Internal Medicine; Visit Provider Nurse Practitioner
DX: D12.6 Benign neoplasm of colon, unspecified (principal); R13.10 Dysphagia, unspecified; K21.00 Gastro-esophageal reflux disease with esophagitis, without bleeding
CPT/HCPCS: 99213

== ENCOUNTER → 2024-01-22 12:57 | Outpatient (BNVA) | payer OTHER, SELFPAY | PROVIDERS: PCP Internal Medicine; Visit Provider Nurse Practitioner | DX: R13.10 Dysphagia, unspecified (principal); K21.00 Gastro-esophageal reflux disease with esophagitis, without bleeding; Z86.010 Personal history of colon polyps; Z98.890 Other specified postprocedural states | CPT/HCPCS: 99212 ==

== ENCOUNTER 2024-06-04 11:01 | Outpatient (AMB) | payer OTHER, SELFPAY ==
--- NOTE | 2024-06-04 11:21 | A.OFFVIS_ITS ---
Vital Signs 06/04/24 11:25 Height 5 ft 2 in Weight 157 lb 10.088 oz BMI 28.8 BP 112/68 Blood Pressure Location Rt brachial Position Sitting Pulse 82 Pulse Source Pulse Oximeter Pulse Oximetry (%) 98 Oxygen Delivery Method Room Air Intake Visit Reasons: FMS/lm Intake Note: Patient presents for FMS. Ophthalmologist Retina Specialist Required: Yes Ophthalmologist Retina Specialist Language: [employer] Salesperson Services: Ophthalmologist Retina Specialist Present Ophthalmologist Retina Specialist Name: Radha [id number] Information Interpreted: non-clinical & clinical Allergies almond Allergy (Severe, Verified 06/04/24 11:23) ANAPHYLAXIS kiwi Allergy (Severe, Verified 06/04/24 11:23) Itching peach [PEACH] Allergy (Severe, Verified 06/04/24 11:23) ANAPHYLAXIS walnut Allergy (Severe, Verified 06/04/24 11:23) ANAPHYLAXIS morphine Allergy (Intermediate, Verified 06/04/24 11:23) ITCHING, hives, swelling,itchiness Medication List - Last Reconciled 06/04/24 by Amadeo Bennett MD acetaminophen ER (Arthritis Pain Relief (acetaminophen) ER) mg PO albuterol sulfate 90 mcg/actuation 2 puffs inhalation Q4H PRN 30 days alcohol swabs (Alcohol Prep Pads) 1 pad topical BID 90 days bisacodyl 10 mg (2 x 5 mg) PO BEDTIME budesonide-formoterol 160-4.5 mcg/actuation (Symbicort) inhalation buspirone 5 mg PO BID cetirizine 10 mg PO DAILY 90 days cholecalciferol (vitamin D3) 25 mcg PO DAILY 90 days citalopram 20 mg PO DAILY clonidine 1 patch transdermal QWEEK cyanocobalamin (vitamin B-12) (Vitamin B-12) 1,000 mcg PO DAILY dexlansoprazole (Dexilant) 60 mg PO DAILY dicyclomine 10 mg PO QID PRN diphenhydramine HCl (Benadryl) 25 mg PO TID PRN eluxadoline (Viberzi) 100 mg PO BID fluticasone propion-salmeterol 113-14 mcg/actuation 1 inh inhalation BID hydroxyzine pamoate 25 mg PO BID ibuprofen 600 mg PO Q8H PRN magnesium oxide 400 mg PO BID metoclopramide HCl 10 mg PO QID omalizumab (Xolair) 150 mg subcut .monthly polyethylene glycol 3350 (Miralax) 17 grams PO DAILY PRN 30 days Proctosol HC 2.5% (hydrocortisone) 1 appl [place] BID PRN 30 days NS ropinirole 5 mg PO BEDTIME 90 days sertraline 25 mg PO DAILY 90 days Shower Chair As directed topiramate 100 mg PO BEDTIME 90 days tramadol 50 mg PO TID trazodone 50 mg PO BEDTIME triamcinolone acetonide 1 spray intranasal DAILY PRN HPI Comments Details: This is a 59-year-old female with fibromyalgia who presents for follow-up. She states that she is doing about the same overall. She has been doing physical therapy for her knees. She states that she takes tramadol about once a week at night as needed for joint pains. [facility] Medical History Encounter for well woman exam with routine gynecological exam Environmental allergies Vaginal itching Fibromyalgia Chronic constipation Physical exam Chest pain Right foot pain Left foot pain Moderate recurrent major depression Foot callus RUQ abdominal pain Foot pain B12 deficiency Allergic rhinitis Urge urinary incontinence Left knee pain Right shoulder pain Dyslipidemia Essential hypertension Irritable bowel syndrome with both constipation and diarrhea Multiple sclerosis Hypomagnesemia Salivary disorder Migraine Surgical History History of carpal tunnel surgery of left wrist History of esophagogastroduodenoscopy (EGD) Hx of colonoscopy Hx of foot surgery History of suburethral sling procedure Hx of tubal ligation History of endometrial ablation Hx of submucous nasal surgery Family History Father History of throat cancer Mother Stroke Multiple sclerosis Maternal Grandmother Multiple sclerosis Pancreatic cancer Paternal Grandfather Pancreatic cancer Lung cancer Social History Household Members: Spouse and Children Housing: Apartment Are you a primary associate director career services to a significant other at home: No Do you presently have visiting nurse or other home services: Yes Alcohol intake: never Patient Tobacco Use Status: Former Tobacco user Years Smoked: Quit 30 years ago e-Cigarette/Vaping Use: Never Used Second Hand Smoke Exposure: No Substance Use Type: Marijuana service: No Current occupational status: student and disabled Cognitive needs: No Hearing needs: No Vision needs: Yes Female Reproductive History Menstrual Age of Menarche: 11 Review of Systems [facility] [place] arthralgias Physical Exam Vital Signs: Last Vital Signs Pulse 82 06/04/24 11:25 BP 112/68 06/04/24 11:25 Pulse Ox 98 06/04/24 11:25 Oxygen Delivery Method Room Air 06/04/24 11:25 BMI result Body Mass Index 28.8 Const General: cooperative, healthy appearing and comfortable Nutritional Appearance: average body habitus Orientation/consciousness: patient oriented x3 Limitations: no limitations HEENT Head: Yes normocephalic and Yes atraumatic Resp Effort & Inspection: normal respiratory effort and able to speak in complete sentences Cardio Rate: regular rate Rhythm: regular rhythm Skin General skin exam: no rashes or lesions noted Neuro General: patient oriented x3 Extrem Other: Bilateral knee pain with full flexion and extension, no swelling , erythema or warmth Assessment & Plan Assessment & Plan (1) Fibromyalgia: Code(s): M79.7 - Fibromyalgia Category: Medical Plan: This is a 59-year-old female with chronic pain who presents for follow-up. Her symptoms are fairly well controlled. She uses tramadol 50 mg as needed for generalized pains. She states that she takes it only once a week. Follow-up in 1 year (2) Bilateral knee pain: Code(s): M25.561 - Pain in right knee; M25.562 - Pain in left knee Category: Medical Qualifiers: Chronicity: chronic Qualified Code(s): M25.561 - Pain in right knee; M25.562 - Pain in left knee; G89.29 - Other chronic pain Plan: Minimal bilateral knee osteoarthritis on x-rays. Continue with physical therapy Plan I spent 215 minutes reviewing patient's chart, evaluating patient, counseling patient and documenting in the chart Coding Level of Care Code Est Pt Level 3 (47031) Diagnoses Fibromyalgia M79.7 Chronic pain of both knees M25.561; M25.562; G89.29 Chronicity: chronic
[2024-06-04 11:25] VITALS: BP 112/68; PULSE 82; O2SAT 98; BMI 28.8
== END 2024-06-04 11:50 | disposition home or self-care (01) ==
LOC: HO.RHE 11:02
PROVIDERS: PCP Internal Medicine; Visit Provider Student in an Organized Health Care Education/Training Program
DX: M79.7 Fibromyalgia (principal); M25.561 Pain in right knee; M25.562 Pain in left knee; G89.29 Other chronic pain
CPT/HCPCS: 99213

== ENCOUNTER → 2024-06-04 11:01 | Outpatient (BNVA) | payer OTHER, SELFPAY | PROVIDERS: PCP Internal Medicine; Visit Provider Student in an Organized Health Care Education/Training Program | DX: M79.7 Fibromyalgia (principal); M25.561 Pain in right knee; M25.562 Pain in left knee; G89.29 Other chronic pain; Z79.891 Long term (current) use of opiate analgesic | CPT/HCPCS: 99212 ==

== ENCOUNTER 2024-06-06 11:49 | Outpatient (REF) | payer OTHER, SELFPAY ==
--- NOTE | ~2024-06-06 | MM_ITS ---
EXAMINATION: MM DIAGNOSTIC DIGITAL BREAST TOMOSYNTHESIS, BILATERAL CLINICAL INFORMATION: Bilateral breast pain for 3 months. COMPARISON: Mammography: Comparison is made with relevant prior exams. TECHNIQUE: Digital breast mammography with tomosynthesis is performed in both the craniocaudal and mediolateral oblique views along with computer-aided detection (CAD). FINDINGS: There are scattered areas of fibroglandular density (ACR BI-RADS breast composition Category b). There are no significant masses, abnormal calcifications, or other abnormalities. Bilateral Limited breast ultrasound. Targeted color Doppler ultrasound scanning in the right breast from 10-1 o'clock demonstrate normal fibroglandular breast tissue. Targeted color Doppler ultrasound scanning in the left breast from 10-2 o'clock demonstrates normal fibroglandular breast tissue. No sonographic abnormality is seen bilateral breasts. Results are provided to the patient at time of visit by the technologist. MM/MM tomosynthesis diagnostic BI IMPRESSION: No mammographic or sonographic abnormality to account for the symptoms of bilateral breast pain. Recommend clinical evaluation and follow-up. ASSESSMENT: BI-RADS BI-RADS 1 - Negative RECOMMENDATION: 1 year F/U This patient's information was entered into a reminder system with a target due date for their next mammogram. Electronically signed by: Lola Mcdaniel DO 06/06/2024 03:05 PM EDT
== END 2024-06-06 11:50 | disposition home or self-care (01) ==
LOC: HO.MAMMO 11:49
PROVIDERS: PCP Internal Medicine; Visit Provider Internal Medicine
DX: N64.4 Mastodynia (principal)
CPT/HCPCS: 76642; 77062; 77066

== ENCOUNTER → 2024-06-06 12:15 | Outpatient (BNV) | payer OTHER, SELFPAY | PROVIDERS: PCP Internal Medicine; Visit Provider Internal Medicine | DX: N64.4 Mastodynia (principal) | CPT/HCPCS: 76642; 77062; 77066 ==

== ENCOUNTER 2024-06-18 14:47 | Outpatient (AMB) | payer OTHER, SELFPAY ==
[2024-06-18 15:00] VITALS: BP 124/80; BMI 28.3
--- NOTE | 2024-06-18 15:00 | MHC.PC.OV ---
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 Required: No Accompanied by: Self / Same As Patient Allergies almond Allergy (Severe, Verified 06/18/24 15:15) ANAPHYLAXIS kiwi Allergy (Severe, Verified 06/18/24 15:15) Itching peach [PEACH] Allergy (Severe, Verified 06/18/24 15:15) ANAPHYLAXIS walnut Allergy (Severe, Verified 06/18/24 15:15) ANAPHYLAXIS morphine Allergy (Intermediate, Verified 06/18/24 15:15) ITCHING, hives, swelling,itchiness Medication List - Last Reconciled 06/18/24 by Kareen Burrell MD acetaminophen ER (Arthritis Pain Relief (acetaminophen) ER) mg PO albuterol sulfate 90 mcg/actuation 2 puffs inhalation Q4H PRN 30 days alcohol swabs (Alcohol Prep Pads) 1 pad topical BID 90 days bisacodyl 10 mg (2 x 5 mg) PO BEDTIME budesonide-formoterol 160-4.5 mcg/actuation (Symbicort) inhalation buspirone 5 mg PO BID cetirizine 10 mg PO DAILY 90 days cholecalciferol (vitamin D3) 25 mcg PO DAILY 90 days citalopram 20 mg PO DAILY clonidine 1 patch transdermal QWEEK cyanocobalamin (vitamin B-12) (Vitamin B-12) 1,000 mcg PO DAILY dexlansoprazole (Dexilant) 60 mg PO DAILY dicyclomine 10 mg PO QID PRN diphenhydramine HCl (Benadryl) 25 mg PO TID PRN eluxadoline (Viberzi) 100 mg PO BID fluticasone propion-salmeterol 113-14 mcg/actuation 1 inh inhalation BID hydroxyzine pamoate 25 mg PO BID ibuprofen 600 mg PO Q8H PRN magnesium oxide 400 mg PO BID metoclopramide HCl 10 mg PO QID omalizumab (Xolair) 150 mg subcut .monthly polyethylene glycol 3350 (Miralax) 17 grams PO DAILY PRN 30 days Proctosol HC 2.5% (hydrocortisone) 1 appl [place] BID PRN 30 days NS ropinirole 5 mg PO BEDTIME 90 days sertraline 25 mg PO DAILY 90 days Shower Chair As directed topiramate 100 mg PO BEDTIME 90 days tramadol 50 mg PO TID trazodone 50 mg PO BEDTIME triamcinolone acetonide 1 spray intranasal DAILY PRN Tobacco use date assessed: 08/16/23 Dental Screening Dental Screen Date: 08/16/23 HPI HPI Comments History of Present Illness Details This is a 59-year-old female with hypertension, moderate recurrent major depression and multiple sclerosis that comes today complaining of venous insufficiency and also she has a neck mass in anterior mid neck which is nontender and mobile that bothers her. Ultrasound will be order. Blood pressure stable. Depression well controlled with citalopram. Has a new medication for multiple sclerosis but does not remember the name and follows with [facility]. [facility] Medical History (Updated 06/18/24 @ 15:24 by Kareen Burrell MD) Encounter for well woman exam with routine gynecological exam Environmental allergies Vaginal itching Fibromyalgia Chronic constipation Physical exam Chest pain Right foot pain Left foot pain Moderate recurrent major depression Foot callus RUQ abdominal pain Foot pain B12 deficiency Allergic rhinitis Urge urinary incontinence Left knee pain Right shoulder pain Dyslipidemia Essential hypertension Irritable bowel syndrome with both constipation and diarrhea Multiple sclerosis Hypomagnesemia Salivary disorder Migraine Surgical History History of carpal tunnel surgery of left wrist History of esophagogastroduodenoscopy (EGD) Hx of colonoscopy Hx of foot surgery History of suburethral sling procedure Hx of tubal ligation History of endometrial ablation Hx of submucous nasal surgery Family History Father History of throat cancer Mother Stroke Multiple sclerosis Maternal Grandmother Multiple sclerosis Pancreatic cancer Paternal Grandfather Pancreatic cancer Lung cancer Social History Household Members: Spouse and Children Housing: Apartment Are you a primary home health care coordinator to a significant other at home: No Do you presently have visiting nurse or other home services: Yes Alcohol intake: never Patient Tobacco Use Status: Former Tobacco user Years Smoked: Quit 30 years ago e-Cigarette/Vaping Use: Never Used Second Hand Smoke Exposure: No Substance Use Type: Marijuana service: No Current occupational status: student and disabled Cognitive needs: No Hearing needs: No Vision needs: Yes Female Reproductive History Menstrual Age of Menarche: 11 Questionnaire Thrive Questionnaire Date Thrive assessed: 08/16/23 ROLY-7 AMB Questionnaire ROLY-7 Date ROLY - 7 assessed: 08/16/23 Source: Developed by Drs. Martin Rivera, Brigida Milligan, Matty Nielsen and colleagues, with an educational kathrine from [employer]. Review of Systems Const All systems reviewed & are unremarkable except as noted in HPI and below Card Denies chest pain at rest, Denies chest pain with activity, Denies edema, Denies irregular heart rhythm, Denies claudication, Denies dyspnea, Denies dyspnea on exertion, Denies orthopnea, Denies paroxysmal nocturnal dyspnea and Denies slow heart rate Resp Denies cough, Denies dyspnea and Denies dyspnea on exertion Physical exam (Primary Care) Vital Signs: Last Vital Signs BP 124/80 06/18/24 15:00 BMI result Body Mass Index 28.3 BMI Assessment/Plan discussion: High BMI High, discussed plan: lifestyle, weight reduction, dietary and physical activity Tobacco/Smoking Status: Tobacco use Status Tobacco use date assessed 08/16/23 06/18/24 15:05 Patient Tobacco Use Status Former Tobacco user 06/18/24 15:05 e-Cigarette/Vaping Use Never Used 06/18/24 15:05 Thrive Assessment: Date of Thrive Assessment Date Thrive assessed 08/16/23 06/18/24 15:05 Resp Effort & Inspection: normal respiratory effort Auscultation: clear to auscultation bilaterally Cardio Jugular venous distension: no JVD Rate: regular rate Rhythm: regular rhythm Heart sounds: S1 normal heart sound present and S2 normal heart sound present Extrem General: Yes full ROM Office Procedures Flu Questionnaire Does the patient have a severe egg allergy?: No Immunizations Fluarix Triv [id number] (PF) 45 mcg (15 mcg x 3)/0.5 mL IM syringe Performing Provider: Kareen Burrell MD [facility] Documented (not given) by: SALLIE Ferreira on 06/18/24 15:06 Reason Not Given: Patient Refused Coding Level of Care Code Est Pt Level 4 (55752) Complex EM visit Add On G2211 Diagnoses Neck mass R22.1 Venous (peripheral) insufficiency I87.2 Multiple sclerosis G35 Moderate recurrent major depression F33.1 Essential hypertension I10 Time Spent (min) 23 Assessment & Plan Assessment & Plan (1) Neck mass: Code(s): R22.1 - Localized swelling, mass and lump, neck Category: Medical Plan: Ultrasound ordered. (2) Venous (peripheral) insufficiency: Code(s): I87.2 - Venous insufficiency (chronic) (peripheral) Category: Medical Plan: Referred to vascular surgery. (3) Multiple sclerosis: Code(s): G35 - Multiple sclerosis Category: Medical Plan: Follow-up with neurology. (4) Moderate recurrent major depression: Code(s): F33.1 - Major depressive disorder, recurrent, moderate Category: Medical Plan: Continue citalopram. (5) Essential hypertension: Code(s): I10 - Essential (primary) hypertension Category: Medical Plan: Continue clonidine. Blood pressure goal is equal or less than 130/80. Orders: Orders Influenza [id number] Immunization Today Z23 - Encounter for immunization Vitamin D 25-OH Total Today E55.9 - Vitamin D deficiency, unspecified US soft tiss head and/or neck Today R22.1 - Localized swelling, mass and lump, neck Lipid Panel Today E78.5 - Hyperlipidemia, unspecified Vitamin B12 and Folate Today E53.8 - Deficiency of other specified B group vitamins Comprehensive [place]. Panel Fast Today G35 - Multiple sclerosis Referrals Vascular Surgery Referral I87.2 - Venous insufficiency (chronic) (peripheral)
== END 2024-06-18 15:25 | disposition home or self-care (01) ==
LOC: HO.HMCH 14:47
PROVIDERS: PCP Internal Medicine; Visit Provider Internal Medicine
DX: R22.1 Localized swelling, mass and lump, neck (principal); I87.2 Venous insufficiency (chronic) (peripheral); G35 Multiple sclerosis; F33.1 Major depressive disorder, recurrent, moderate; I10 Essential (primary) hypertension; Z23 Encounter for immunization

== ENCOUNTER → 2024-06-18 14:47 | Outpatient (BNVA) | payer OTHER, SELFPAY | PROVIDERS: PCP Internal Medicine; Visit Provider Internal Medicine | DX: R22.1 Localized swelling, mass and lump, neck (principal); I87.2 Venous insufficiency (chronic) (peripheral); G35 Multiple sclerosis; F33.1 Major depressive disorder, recurrent, moderate; I10 Essential (primary) hypertension | CPT/HCPCS: 90471; 99212 ==

== ENCOUNTER 2024-06-25 14:35 | Outpatient (REF) | payer OTHER, SELFPAY | END 2024-06-25 14:36 | disposition home or self-care (01) | LOC: HO.US 14:35 | PROVIDERS: PCP Internal Medicine; Visit Provider Internal Medicine | DX: R22.1 Localized swelling, mass and lump, neck (principal) | CPT/HCPCS: 76536 ==

== ENCOUNTER 2024-06-30 15:03 | Outpatient (AMB) | payer OTHER, SELFPAY ==
--- NOTE | 2024-06-30 15:10 | MHC.OFFVIS ---
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 Patient states she has bilateral varicose veins. Right leg worse than left. Veins feel as if they are pulsating. 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 Deborah is interpreting. She states approximately 3-4 years ago she did have some vein procedures, she is not sure what they were called at [facility], for the same complaints. She states they did not help with the pain or swelling of the extremities and is just getting worse since. Complaints include pain over varicosities, swelling of lower extremities, cramping, fatigue, and heaviness of the lower extremities. It has been affecting their daily activities including walking, standing, and physical activity. It is noted more so in right leg. Patient has a history of vein procedures at [facility] appx 3-4 years ago, she does not recall what they were Patient denies any history of DVT/ PE. Patient denies any history of phlebitis. Trial of compression includes - elevation with little relief They now present for vascular evaluation regarding their varicose veins. [facility] Medical History Encounter for well woman exam with routine gynecological exam Environmental allergies Vaginal itching Fibromyalgia Chronic constipation Physical exam Chest pain Right foot pain Left foot pain Moderate recurrent major depression Foot callus RUQ abdominal pain Foot pain B12 deficiency Allergic rhinitis Urge urinary incontinence Left knee pain Right shoulder pain Dyslipidemia Essential hypertension Irritable bowel syndrome with both constipation and diarrhea Multiple sclerosis Hypomagnesemia Salivary disorder Migraine Surgical History History of carpal tunnel surgery of left wrist History of esophagogastroduodenoscopy (EGD) Hx of colonoscopy Hx of foot surgery History of suburethral sling procedure Hx of tubal ligation History of endometrial ablation Hx of submucous nasal surgery Family History Father History of throat cancer Mother Stroke Multiple sclerosis Maternal Grandmother Multiple sclerosis Pancreatic cancer Paternal Grandfather Pancreatic cancer Lung cancer Social History Household Members: Spouse and Children Housing: Apartment Are you a primary floor care specialist to a significant other at home: No Do you presently have visiting nurse or other home services: Yes Alcohol intake: never Patient Tobacco Use Status: Former Tobacco user Years Smoked: Quit 30 years ago e-Cigarette/Vaping Use: Never Used Second Hand Smoke Exposure: No Substance Use Type: Marijuana service: No Current occupational status: student and disabled Cognitive needs: No Hearing needs: No Vision needs: Yes Female Reproductive History Menstrual Age of Menarche: 11 Review of Systems Const Reports as per HPI and Denies weakness ENT Reports Normal hearing present and Denies dizziness Card Reports as per HPI, Denies chest pain, Denies chest pain at rest, Denies chest pain with activity, Denies dyspnea and Denies dyspnea on exertion Resp Reports as per HPI, Denies cough, Denies dyspnea and Denies dyspnea on exertion GI Reports as per HPI, Denies abdominal pain, Denies nausea and Denies vomiting Musc Denies numbness Skin/Breast Reports as per HPI, Denies erythema and Denies wounds Neuro Reports Normal hearing present, Denies dizziness, Denies numbness, Denies Sensory deficit (Neuro) and Denies weakness Psych Reports no additional complaints Endo Reports no additional complaints Physical Exam Const General: healthy appearing and no acute distress Orientation/consciousness: patient oriented x3 HEENT Head: Yes normal to inspection Ears: hearing grossly normal bilaterally Mouth: Normal oral and palatal mucosa present Resp Effort & Inspection: normal respiratory effort and able to speak in complete sentences Auscultation: clear to auscultation bilaterally Cardio Jugular venous distension: no JVD Rate: regular rate Rhythm: regular rhythm Heart sounds: S1 normal heart sound present and S2 normal heart sound present Bruits: no abdominal aortic bruits, no carotid bruits, no femoral bruits and no renal bruits Peripheral pulses: Peripheral pulses 2+ throughout GI Inspection: Yes normal to inspection Palpation (GI): No Abdominal aortic bruit present Skin General skin exam: no rashes or lesions noted Wounds: no wounds Hair: normal Neuro General: patient oriented x3 Cranial nerves: Yes Normal hearing present Cognition (Neuro): normal cognition Gait exam (Neuro): Normal gait present Motor exam (neuro): 5/5 motor strength present throughout Sensory Exam: No Sensory deficit (Neuro) Extrem Other: Right lower extremity: Behind the knee to the lateral aspect of the leg - varicose veins noted, painful upon palpation. Spider veins noted around her ankles. Palpable DP pulses. No swelling noted, slight discoloration of the lower extremities. Left lower extremity: Small tortuosity is noted on the medial aspect [id number]. Palpable DP pulses. No swelling noted, slight discoloration of lower extremity. CEAP: C - 4 E - primary A - superficial P - reflux General: Yes normal to inspection, Yes full ROM, Yes capillary refill normal and Yes normal gait Assessment & Plan Assessment & Plan (1) Varicose veins of both lower extremities with inflammation: Code(s): I83.11 - Varicose veins of right lower extremity with inflammation; I83.12 - Varicose veins of left lower extremity with inflammation Category: Medical Plan: Yola presenting today with concerns for venous insufficiency/varicose veins. In short, the patient has evidence of venous insufficiency. I have discussed the pathophysiology with the patient. In addition I have provided informational material regarding venous disease to the patient. We have discussed conservative measures including compression, elevation, and exercise. I have also provided a handout regarding appropriate use of compression stockings and where to purchase good compression stockings as well. I have taken the liberty of ordering venous insufficiency testing with the patient. They will follow up with me after testing. Deborah explained this all in [place]. The patient had an opportunity to ask questions regarding the treatment plan. All questions were answered. No major barriers to understanding were identified. The patient expressed understanding and agreement with the above treatment plan. The patient is aware they should contact our office by phone for worsening of the current condition or the appearance of new symptoms. Thank you for allowing me to participate in the vascular care of this patient. If you have any questions or concerns regarding the treatment for the above condition please do not hesitate to contact me. The office telephone contact is [phone]. This note is constructed using voice recognition software. While every effort has been made to ensure accuracy, occupational health technician errors may have been included. Thank you for allowing me to participate in the care of your patient. Yours sincerely, LEAH Bailey Orders: Orders US venous duplex LE BI 1 Week I83.11 - Varicose veins of right lower extremity with inflammation, I83.12 - Varicose veins of left lower extremity with inflammation Coding Level of Care Code New Pt Level 4 (30704) Diagnoses Varicose veins of both lower extremities with inflammation I83.11; I83.12
== END 2024-06-30 15:25 | disposition home or self-care (01) ==
PROVIDERS: PCP Internal Medicine; Visit Provider Physician Assistant Surgical
DX: I83.11 Varicose veins of right lower extremity with inflammation (principal); I83.12 Varicose veins of left lower extremity with inflammation
CPT/HCPCS: 99204

== ENCOUNTER → 2024-06-30 15:03 | Outpatient (BNVA) | payer OTHER, SELFPAY | PROVIDERS: PCP Internal Medicine; Visit Provider Physician Assistant Surgical | DX: I83.11 Varicose veins of right lower extremity with inflammation (principal); I83.12 Varicose veins of left lower extremity with inflammation | CPT/HCPCS: 99202 ==

== ENCOUNTER 2024-07-23 12:47 | Outpatient (REF) | payer OTHER, SELFPAY ==
--- NOTE | ~2024-07-23 | US_ITS ---
EXAMINATION: US LOWER EXTREMITY VENOUS (REFLUX EXAM), BILATERAL CLINICAL INDICATION: Chronic venous insufficiency with lower extremity varicose veins with inflammation. History of prior bilateral saphenous vein ablations COMPARISON: None. TECHNIQUE: Color flow triplex imaging and compression Doppler was performed to evaluate both the deep and the superficial systems bilaterally. To evaluate the superficial system, the examination was performed in the upright position. Color-flow Doppler ultrasound and compression ultrasound were utilized. In addition, maneuvers were utilized to demonstrate reflux. FINDINGS: 1. DEEP VENOUS ULTRASOUND OF THE RIGHT LOWER EXTREMITY: Common Femoral Vein: Compressible, normal respiratory variation and augmented flow. Femoral Vein: Compressible, normal color flow and augmentation. Popliteal Vein: Compressible, normal augmentation. Deep Reflux: There is no evidence of reflux in the deep system in either the common femoral vein, superficial femoral or the popliteal vein. There is no evidence of a Schwartz's cyst. 2. SUPERFICIAL ULTRASOUND WITH DOPPLER OF RIGHT LOWER EXTREMITY: GREAT SAPHENOUS VEIN: Saphenofemoral Junction: 0.7 cm; Reflux: 0 ms Proximal Thigh: 0.2 cm; Reflux: 0 ms Mid Thigh: Not visualized Above Knee: Not visualized At Knee: Not visualized Below Knee: Not visualized Mid Calf: Not visualized Ankle: Not visualized DUPLICATED MEDIAL GREAT SAPHENOUS VEIN: Diameter: None imaged Reflux: NA DUPLICATED LATERAL GREAT SAPHENOUS VEIN: Diameter: 0.2 cm Reflux: None SMALL SAPHENOUS VEIN: Saphenopopliteal Junction: 0.4 cm; Reflux: 0 ms Proximal: 0.2 cm; Reflux: 0 ms Distal: 0.1 cm; Reflux: 0 ms VEIN OF GIACOMINI: Size: NA Reflux: NA PERFORATORS: Location: None significant Size: NA Reflux: NA VARICOSITIES: Location: None significant Size: NA Reflux: NA 3. DEEP VENOUS ULTRASOUND OF THE LEFT LOWER EXTREMITY: Common Femoral Vein: Compressible, normal respiratory variation and augmented flow. Femoral Vein: Compressible, normal color flow and augmentation. Popliteal Vein: Compressible, normal augmentation. Deep Reflux: There is no evidence of reflux in the deep system in either the common femoral vein, superficial femoral or the popliteal vein. There is no evidence of a Schwartz's cyst. 4. SUPERFICIAL ULTRASOUND WITH DOPPLER OF LEFT LOWER EXTREMITY: GREAT SAPHENOUS VEIN: Saphenofemoral Junction: 0.7 cm; Reflux: 0 ms Proximal Thigh: 0.3 cm; Reflux: 0 ms Mid Thigh: 0.3 cm; Reflux: 0 ms Above Knee: Not visualized At Knee: Not visualized Below Knee: Not visualized Mid Calf: 0.2 cm; Reflux: 0 ms Ankle: 0.2 cm; Reflux: 0 ms DUPLICATED MEDIAL GREAT SAPHENOUS VEIN: Diameter: None imaged Reflux: NA DUPLICATED LATERAL GREAT SAPHENOUS VEIN: Diameter: 0.2 cm Reflux: None SMALL SAPHENOUS VEIN: Saphenopopliteal Junction: 0.2 cm; Reflux: 0 ms Proximal: 0.1 cm; Reflux: 0 ms Distal: 0.2 cm; Reflux: 0 ms VEIN OF GIACOMINI: Size: NA Reflux: NA PERFORATORS: Location: None significant Size: NA Reflux: NA VARICOSITIES: Location: Mid thigh into the distal thigh off the residual great saphenous vein Size: 0.3 cm Reflux: None US/US venous duplex LE BI IMPRESSION: 1. Right: No significant venous insufficiency or reflux. The right great saphenous vein is not visualized consistent with prior ablation. 2. Left: No significant venous insufficiency or reflux. The left great saphenous vein is not visualized consistent with prior ablation. There is a small varicose vein in the mid to distal thigh off the residual great saphenous vein. Electronically signed by: Alexandr Banuelos MD 09/02/2024 03:38 PM DEEPIKA OWEN
== END 2024-07-23 12:48 | disposition home or self-care (01) ==
LOC: HO.US 12:47
PROVIDERS: PCP Internal Medicine; Visit Provider Physician Assistant Surgical
DX: I83.11 Varicose veins of right lower extremity with inflammation (principal); I83.12 Varicose veins of left lower extremity with inflammation
CPT/HCPCS: 93970; 99212

== ENCOUNTER 2024-07-23 14:52 | Outpatient (AMB) | payer OTHER, SELFPAY ==
[2024-07-23 14:54] VITALS: BP 130/73; PULSE 78; BMI 28.1
--- NOTE | 2024-07-23 14:54 | A.OFFVIS_ITS ---
Vital Signs 07/23/24 14:54 Height 5 ft 2 in Weight 153 lb 7.068 oz BMI 28.1 BP 130/73 Blood Pressure Location Rt brachial Position Sitting Pulse 78 Intake Visit Reasons: 6 months follow up Intake Note: Yola presents in office today in follow up of 6 months for GERD. CC: Patient c/o epigastric pain and states that when she wakes up she can't drink anything in the morning because she like chills all over her body. She also reports having hemorrhoids. Senior Brand Manager Required: Yes Allergies almond Allergy (Severe, Verified 07/23/24 15:06) ANAPHYLAXIS kiwi Allergy (Severe, Verified 07/23/24 15:06) Itching peach [PEACH] Allergy (Severe, Verified 07/23/24 15:06) ANAPHYLAXIS walnut Allergy (Severe, Verified 07/23/24 15:06) ANAPHYLAXIS morphine Allergy (Intermediate, Verified 07/23/24 15:06) ITCHING, hives, swelling,itchiness HPI HPI 6 months follow up: Details: Assessment & Plan (1) Tubular adenoma of colon: Comment: 01/2024 scope= TA repeat in 5 years Code(s): D12.6 - Benign neoplasm of colon, unspecified Category: Medical (2) Dysphagia: Code(s): R13.10 - Dysphagia, unspecified Category: Medical (3) GERD with esophagitis: Comment: HISTORY of esophageal erosions healed on 02/2020 EGD Code(s): K21.00 - Gastro-esophageal reflux disease with esophagitis, without bleeding Category: Medical Qualifiers: Esophagitis bleeding: without hemorrhage Qualified Code(s): K21.00 - Gastro-esophageal reflux disease with esophagitis, without bleeding Plan Serbian #Nathan Ceron The procedure needs to be repeated in 5 years. The procedure was well tolerated. The results were explained and the patient is agreeable to the follow-up interval as stated. The bowel pattern has returned to normal. Education was provided to tell any 1st degree relatives about their findings to be sure that they are screened by age 45. Educated that they will be put on a recall list when it is time for their repeat scope but should they move out of state or away from the hospital they will need to remember along with their primary to repeat the procedure in a timely fashion to avoid any adverse complications. Refill Viberzi. She has sudden onset nausea just today. Wait and watch. Swallowing and globus improved. She also continues on her bisacodyl, Dexilant, dicyclomine, Viberzi, metoclopramide 10 mg 4 times a day, MiraLax p.r.n., Proct osol cream. ROV 6 mos Medications: Refilled bisacodyl 10 mg (2 x 5 mg) PO BEDTIME 60 tabs 6RF K59.00 - Constipation, uns pecified dexlansoprazole (Dexilant) 60 mg PO DAILY 30 caps 3RF K21.00 - Gastro- esophageal reflux disease with esophagitis, without bleeding metoclopramide HCl 10 mg PO QID 120 tabs 6RF K30 - Functional dyspepsia eluxadoline (Viberzi) must administer with a meal/food 100 mg PO BID 60 tabs 5RF K58.0 - Irritable bowel syndrome with diarrhea dicyclomine 10 mg PO QID PRN 120 caps 3RF for cramps K58.2 - Mixed irritable bowel syndrome Discontinued peg 3350-electrolytes 236-22.74-6.74 -5.86 gram until fecal effluent is clear Discontinued Reason: Patient Completed Course 240 mL PO Q10M 4,000 mL 0RF TODAY'S VISIT Serbian #Kareen Live As of the last visit she had been continuing on her bisacodyl, Dexilant, dicyclomine, Viberzi, metoclopramide 10 mg 4 times a day, MiraLax p.r.n., Proctosol cream. She has been having a new problem of pain in the epigastrum, then her hair will stand on edge and she will sneeze twice. Then the pain resolves. She also has a pimple on the entrance of her vagina, but it has resolved after treating it with warm water. She is now having itchy roids but did not get the cream I had sent. Will resend it. She continues to c/o a mass that she feels at the level of the voicebox. We were aware of this and did not see any reason for this endoscopically, and at that time Dr. Camp recommended that she be referred by her PCP to an ENT for this. She also has trouble with sneezing overnight that could be r/t allergies. She si also c/o a constant hungry feeling, this could be r/t the reglan, so will decrease the dose from 10mg to 5mg. She is no longer having diarrhea so will stop viberzi, having more CIC. She is losing wt r/t intentional dieting. She is quite happy about this. ROV 3 mos. [facility] Medical History (Updated 07/23/24 @ 16:56 by ALCON Liu) Irritable bowel syndrome with both constipation and diarrhea Irritable bowel syndrome with diarrhea Bilateral tennis elbow Weight loss Numbness and tingling in both hands Hypomagnesemia Right shoulder pain Left knee pain Foot callus Foot pain Chest pain Right foot pain Left foot pain Physical exam Vaginal itching Nausea and vomiting Chronic superficial gastritis Bilateral knee pain Bilateral hand pain Hypernatremia Encounter for medication monitoring Pre-op examination URI (upper respiratory infection) Physical exam Right ankle sprain Right hand pain COVID-19 Urinary frequency BV (bacterial vaginosis) Encounter for well woman exam with routine gynecological exam Environmental allergies Fibromyalgia Chronic constipation Moderate recurrent major depression RUQ abdominal pain B12 deficiency Allergic rhinitis Urge urinary incontinence Dyslipidemia Essential hypertension Multiple sclerosis Salivary disorder Migraine Surgical History History of carpal tunnel surgery of left wrist History of esophagogastroduodenoscopy (EGD) Hx of colonoscopy Hx of foot surgery History of suburethral sling procedure Hx of tubal ligation History of endometrial ablation Hx of submucous nasal surgery Family History Father History of throat cancer Mother Stroke Multiple sclerosis Maternal Grandmother Multiple sclerosis Pancreatic cancer Paternal Grandfather Pancreatic cancer Lung cancer Social History Household Members: Spouse and Children Housing: Apartment Are you a primary wound care physician to a significant other at home: No Do you presently have visiting nurse or other home services: Yes Alcohol intake: never Patient Tobacco Use Status: Former Tobacco user Years Smoked: Quit 30 years ago e-Cigarette/Vaping Use: Never Used Second Hand Smoke Exposure: No Substance Use Type: Marijuana service: No Current occupational status: student and disabled Cognitive needs: No Hearing needs: No Vision needs: Yes Female Reproductive History Menstrual Age of Menarche: 11 Review of Systems Const Denies fatigue, Denies fever(s), Denies night sweats, Denies poor appetite and Reports weight loss ENT Reports Normal hearing present, Denies dental pain, Denies dysphagia, Denies hearing loss, Denies mouth pain, Denies odynophagia, Denies throat swelling, Denies tongue swelling and Reports other (Dentition adequate) Card Reports no additional complaints Resp Reports no additional complaints GI Details: Reports abdominal pain, Denies melena, Denies bloating, Denies hematochezia, Reports constipation, Denies GI cramping, Denies dysphagia, Denies excessive flatus, Denies early satiety, Reports heartburn, Denies diarrhea, Denies nausea, Denies odynophagia, Denies vomiting and Denies hematemesis Musc Reports abnormal gait and Reports myalgias Skin/Breast Denies pruritus, Denies lesions, Denies rash and Denies jaundice Neuro Reports Normal hearing present, Denies Abnormal speech present and Reports abnormal gait Endo Denies fatigue Aller/Immun Details: Sneezing Denies throat swelling and Denies tongue swelling Physical Exam Vital Signs: Last Vital Signs Pulse 78 07/23/24 14:54 BP 130/73 07/23/24 14:54 BMI result Body Mass Index 28.1 Const General: cooperative, no acute distress, well developed and well groomed Nutritional Appearance: average body habitus and well nourished Orientation/consciousness: oriented to person, oriented to place and oriented to time Limitations: language barrier HEENT Head: Yes normocephalic and Yes atraumatic Eyes General: appearance normal, both eyes and all related structures Pupils: Equal, round and reactive pupils present Neck Neck: Yes normal visual inspection and Yes no lymphadenopathy Thyroid: Thyroid normal Resp Effort & Inspection: normal respiratory effort and able to speak in complete sentences Auscultation: clear to auscultation bilaterally Cardio Rate: regular rate Rhythm: regular rhythm Heart sounds: Normal, physiologic split S2 sound present Peripheral pulses: radial pulses present and posterior tibial pulses present GI Inspection: No distended and No Abdominal panniculus present Palpation (GI): Soft to palpation, nontender, no guarding, not rigid and No hepatosplenomegaly present Percussion: Yes normal to percussion Auscultation: normal bowel sounds Rectal Exam - Female: deferred Skin General skin exam: no rashes or lesions noted, turgor normal, skin not dry, no jaundice, No spider nevi and no striae Rashes: no rashes Nails: normal Neuro General: oriented to person, oriented to place and oriented to time Cranial nerves: Yes Equal, round and reactive pupils present and Yes Normal hearing present Speech: No Abnormal speech present Extrem General: Yes normal to inspection, No clubbing, No cyanosis and No edema Psych Appearance: grossly normal and well kempt Mental Status: mental status grossly normal Speech and movement: Normal speech and movement present Affect: normal affect Attitude: cooperative Thought process: not confabulating and Loose association thought process present Thought content: Normal thought content present Insight: Limited insight present (Psych) Judgement: Limited judgement present (Psych) Assessment & Plan Assessment & Plan (1) Dysphagia: Code(s): R13.10 - Dysphagia, unspecified Category: Medical (2) GERD with esophagitis: Comment: HISTORY of esophageal erosions healed on 02/2020 EGD Code(s): K21.00 - Gastro-esophageal reflux disease with esophagitis, without bleeding Category: Medical Qualifiers: Esophagitis bleeding: without hemorrhage Qualified Code(s): K21.00 - Gastro-esophageal reflux disease with esophagitis, without bleeding (3) Multiple sclerosis: Code(s): G35 - Multiple sclerosis Category: Medical (4) Irritable bowel syndrome with both constipation and diarrhea: Code(s): K58.2 - Mixed irritable bowel syndrome Category: Medical Plan Serbian #Kareen Live As of the last visit she had been continuing on her bisacodyl, Dexilant, dicyclomine, Viberzi, metoclopramide 10 mg 4 times a day, MiraLax p.r.n., Procto ge cream. She has been having a new problem of pain in the epigastrum, then her hair will stand on edge and she will sneeze twice. Then the pain resolves. She also has a pimple on the entrance of her vagina, but it has resolved after treating it with warm water. She is now having itchy roids but did not get the cream I had sent. Will resend it. She continues to c/o a mass that she feels at the level of the voicebox. We were aware of this and did not see any reason for this endoscopically, and at that time Dr. Camp recommended that she be referred by her PCP to an ENT for this. She also has trouble with sneezing overnight that could be r/t allergies. She si also c/o a constant hungry feeling, this could be r/t the reglan, so will decrease the dose from 10mg to 5mg. She is no longer having diarrhea so will stop viberzi, having more CIC. She is losing wt r/t intentional dieting. She is quite happy about this. ROV 3 mos. Medications: New metoclopramide HCl (Reglan) 5 mg PO QIDACHS 120 tabs 6RF hydrocortisone 2.5% (Proctosol HC) BE SURE TO INCLUDE RECTAL APPICATOR!! 1 appl UT BID 30 grams 6RF hemorrhoids K64.9 - Unspecified hemorrhoids Refilled polyethylene glycol 3350 (Miralax) 17 grams PO DAILY PRN 510 grams 6RF constipation 30 days K58.2 - Mixed irritable bowel syndrome dexlansoprazole (Dexilant) 60 mg PO DAILY 30 caps 6RF K21.00 - Gastro-es ophageal reflux disease with esophagitis, without bleeding bisacodyl 10 mg (2 x 5 mg) PO BEDTIME 60 tabs 6RF K59.00 - Constipation, unspecified magnesium oxide 400 mg PO BID 60 tabs 6RF E83.42 - Hypomagnesemia Coding Level of Care Code Est Pt Level 3 (53262) Diagnoses Dysphagia R13.10 Gastroesophageal reflux disease with esophagitis without hemorrhage K21.00 Esophagitis bleeding: without hemorrhage Multiple sclerosis G35 Irritable bowel syndrome with both constipation and diarrhea K58.2
== END 2024-07-23 16:08 | disposition home or self-care (01) ==
PROVIDERS: PCP Internal Medicine; Visit Provider Nurse Practitioner
DX: R13.10 Dysphagia, unspecified (principal); K21.00 Gastro-esophageal reflux disease with esophagitis, without bleeding; G35 Multiple sclerosis; K58.2 Mixed irritable bowel syndrome
CPT/HCPCS: 99213

== ENCOUNTER 2024-11-03 14:13 | Outpatient (REF) | payer OTHER, SELFPAY ==
--- OUTSIDE RECORDS SUMMARY | 2024-11-03 16:04 | XMS_ITS | Clinical Summary ---
Author Organization 175 [facility] Address [address] [place] [address] Phone Care Team Providers Care Manager Speech Name Role Phone Kareen Burrell MD Primary Care Provider [phone] Allergies Active Allergy Reactions Criticality Noted Date Comments Animal Dander 09/03/2020 Apple 09/03/2020 Bee Pollen Itching 09/03/2020 Almanzar 09/03/2020 House Dust 09/03/2020 Kiwi 09/03/2020 Morphine 10/11/2011 Nut - Unspecified 09/03/2020 Other 09/14/2022 Plant Derived Enzymes Medications ALBUTEROL INHL Inhale into the lungs. Active glatiramer acetate (COPAXONE SUBQ) Inject 1 mL (40 mg total) under the skin 3 (three) times a week Active diphenhydramine HCl (BENADRYL ORAL) Take by mouth. Active ergocalciferol (VITAMIN D-2) 1,250 mcg (50,000 unit) capsule Take 1 capsule (50,000 Units total) by mouth every 7 (seven) days. Active escitalopram (LEXAPRO) 10 mg tablet Take 1 tablet (10 mg total) by mouth 1 (one) time each day. 09/06/2021 Active LORazepam (ATIVAN) 0.5 mg tablet 1-2 po 1 hour prior to MRI. May repeat 1 at time of MRI if needed 08/01/2022 Active MAGNESIUM HYDROXIDE ORAL Take by mouth. Active rOPINIRole (REQUIP) 5 mg tablet Take 1 tablet (5 mg total) by mouth at bedtime. 07/15/2022 Active topiramate (TOPAMAX) 25 mg tablet 1 po q hs x 1 week, then increase to 2 po hs 05/29/2020 Active traZODone (DESYREL) 100 mg tablet by Does not apply route. Active diphenhydrAMINE (BENADRYL) 12.5 mg/5 mL elixir Take by mouth. Active busPIRone (BUSPAR) 5 mg tablet Take 1 tablet (5 mg total) by mouth 2 (two) times a day. Active cetirizine (ZyrTEC) 10 mg chewable tablet Chew 1 (one) time each day. Active citalopram (CeleXA) 20 mg tablet Take 1 tablet (20 mg total) by mouth 1 (one) time each day. Active cholecalciferol (VITAMIN D-3) 25 mcg (1,000 unit) tablet Take 1 tablet (1,000 Units total) by mouth 1 (one) time each day. Active hydrOXYzine pamoate (VISTARIL) 25 mg capsule Take 1 capsule (25 mg total) by mouth 3 (three) times a day if needed for itching. Active Active Problems Problem Noted Date Diagnosed Date Asthma 10/11/2011 Multiple sclerosis 10/11/2011 Osteoarthritis 10/11/2011 Overview (04/17/2024): IMO update Obesity, unspecified 10/11/2011 Hypertension 10/11/2011 Esophageal reflux 10/11/2011 Encounters Date Type Department Care Team Description 10/24/2024 4:00 PM EDT Office Visit [facility] 175 [facility] [address] [place] [id number] Alyssa Kauffman MD Urinary symptom or sign (Primary Dx); Multiple sclerosis (CMS/HCC); Gait abnormality; Falls frequently 08/20/2024 1:05 PM EST - 08/20/2024 11:59 PM EST Hospital Encounter [facility] MRI [address] [place] [phone] Multiple sclerosis (CMS/HCC) Discharge Disposition: Home or Self Care 08/20/2024 12:39 PM EST - 08/20/2024 11:59 PM EST Hospital Encounter [facility] MRI [address] [place] [phone] Multiple sclerosis (CMS/HCC) Discharge Disposition: Home or Self Care from Last 3 Months Surgical History Surgery Date Site/Laterality Comments LEG SURGERY Left PROCEDURE:LEG SURGERY BLADDER SURGERY PROCEDURE:BLADDER SURGERY Medical History Medical History Date Comments MS (multiple sclerosis) (CMS/HCC) DX:MS (multiple sclerosis) (HCC) Hypertension DX:Hypertension Arthritis DX:Arthritis Gastritis DX:Gastritis Family History Medical History Relation Name Comments Cancer Maternal Grandmother Multiple sclerosis Maternal Grandmother Tuberculosis Maternal Grandmother Multiple sclerosis Mother Relation Name Status Comments Maternal Grandmother Mother Social History Tobacco Use Types Packs/Day Years Used Date Smoking Tobacco: Never Smokeless Tobacco: Never Tobacco Cessation:Counseling Given: Not Answered Comments Unknown Sex and Gender Information Value Date Recorded Sex Assigned at Not on file Legal Sex Female 12:43 PM EST Gender Identity Not on file Sexual Orientation Not on file Obstetrics History Last Filed Vital Signs Vital Sign Reading Time Taken Comments Blood Pressure 131/87 10/24/2024 4:04 PM EDT Pulse 89 10/24/2024 4:04 PM EDT Temperature 36 ??C (96.8 ??F) 07/07/2024 3:24 PM EST Respiratory Rate 18 06/10/2024 1:00 PM EST Oxygen Saturation 98% 10/24/2024 4:04 PM EDT Inhaled Oxygen Concentration - - Weight 69.9 kg (154 lb) 08/20/2024 1:21 PM EST Height 154.9 cm (5' 1 ) 07/07/2024 3:24 PM EST Body Mass Index 29.1 07/07/2024 3:24 PM EST Plan of Treatment Upcoming Encounters Date Type Department Care Team (Late st Contact Info) Description 12/09/2024 8:00 AM EDT Appointment [facility] [place] [address] [phone] 02/23/2025 4:00 PM EDT Office Visit [facility] [place] 175 [facility] [address] [place] [phone] Aubree Renee PA 175 [facility] [address] [place] [address] Health Maintenance Due Date Last Done Comments Breast Cancer Screening 1967 Cervical Cancer Screening: Pap Smear 1988 Pneumococcal Vaccine: 50+ Years (2 of 2 - PCV) 07/05/2019 07/05/2018, 01/19/2014, 11/11/2010 Pneumococcal Vaccine: Pediatrics (0 to 5 Years) and At-Risk Patients (6 to 64 Years) (2 of 2 - PCV) 07/05/2019 07/05/2018, 01/19/2014, 11/11/2010 Cholesterol Screening (Lipid Panel) 07/15/2022 Colorectal Cancer Screening: Colonoscopy 07/15/2022 Depression Screening 07/15/2022 HIV Screening 07/15/2022 Hepatitis C Screening 07/15/2022 Social Influencers of Health Screening 07/15/2022 COVID-19 Vaccine ( season) 2024 Influenza Vaccine (#1) 2024 05/06/2014, 2011 Hypertension/CHF/CAD Annual BMP Blood Test 06/10/2025 06/10/2024 DTaP,Tdap,and Td Vaccines (5 - Td or Tdap) 11/17/2026 11/17/2016, 11/06/2010, 07/22/2003, Additional history exists Hepatitis B Vaccines Completed 01/30/2023, 12/27/19 Zoster Vaccines Completed 02/27/2023, 12/26/2022 HIB Vaccines Aged Out No longer eligi ble based on patient's age to complete this topic HPV Vaccines Aged Out No longer eligi ble based on patient's age to complete this topic Hepatitis A Vaccines Aged Out No long er eligible based on patient's age to complete this topic IPV Vaccines Aged Out No longer eligi ble based on patient's age to complete this topic MMR Vaccines Aged Out No longer eligi ble based on patient's age to complete this topic Meningococcal ACWY Vaccine Aged Out N o longer eligible based on patient's age to complete this topic Meningococcal B Vacine Aged Out No lo nger eligible based on patient's age to complete this topic RSV Immunization Patients Under 20 months Aged Out No longer eligible based on patient's age to complete this topic Varicella Vaccines Aged Out No longer eligible based on patient's age to complete this topic Goals Goal Patient Goal Type Associated Problems Recent Progress Patient-Stated? 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 Pt will ambulate with single-point cane and right knee and hip extension to 0 degrees in mid-stance for improved limb stability with ambulation - Met 3. Pt will be independent with HEP - Met <enter goal here> General Yes Martin Hurtado, PT Procedures Procedure Name Priority Date/Time Associated Diagnosis Comments MR CERVICAL SPINE WO AND W CONTRAST Routine 08/20/2024 1:56 PM EST Multiple sclerosis (CMS/HCC) MR BRAIN WO AND W CONTRAST Routine 08/20/2024 1:55 PM EST Multiple sclerosis (CMS/HCC) CREATININE, SERUM Routine 06/10/2024 8:3 5 AM EST from Last 3 Months or Most Recently Relevant to Health Maintenance Results * MR Cervical Spine wo and w Contrast (08/20/2024 1:56 PM EST) Anatomical Region Laterality Modality C-spine, Spine Magnetic Resonan ce 08/25/2024 9:39 AM EST Impressions 08/25/2024 9:44 AM EST No evidence of demyelination in the cervical spine. ??Stable exam compared to 2023. -------- FINAL REPORT -------- Dictated By: DANIEL HUANG Dictated Date: 08/25/2024 09:39 ET Assigned Physician: DANIEL HUANG Reviewed and Electronically Signed By: DANIEL HUANG Signed Date: 08/25/2024 09:44 ET Workstation ID: [id number] Transcribed By: Self Edit Transcribed Date: 08/25/2024 09:39 ET Narrative 08/25/2024 9:44 AM EST PROCEDURE: Cervical spine MRI INDICATION: Multiple sclerosis TECHNIQUE: Multiplanar, multisequence MRI of the Cervical spine without and with contrast. ??15 mL Dotarem injected intravenously from a 15 mL vial with the remainder discarded. COMPARISON: ??08/15/2022 and 08/20/2023 FINDINGS: Cervical alignment is normal. No fracture or suspicious marrow replacing lesion. Mild multilevel degenerative loss of normal disc height and signal with associated degenerative discogenic endplate change, most pronounced at C5-6 and C6-7. Cervical facet joints are within normal limits. Cervical cord is normal in signal and morphology. ??No epidural collection or mass is seen within the spinal canal. ??No abnormal enhancement within the spinal canal. Paraspinal muscles are normal. ??Foramen magnum is normal. Findings by level: C2-C3: No foraminal or canal stenosis. C3-C4: No foraminal or canal stenosis C4-C5: No foraminal or canal stenosis C5-C6: No foraminal or canal stenosis C6-C7: Small posterior disc osteophyte complex and bilateral uncovertebral spurring results in mild foraminal stenosis bilaterally. ??No spinal canal stenosis. C7-T1: No foraminal or canal stenosis Procedure Note Daniel Huang MD - 08/25/2024 PROCEDURE: Cervical spine MRI INDICATION: Multiple sclerosis TECHNIQUE: Multiplanar, multisequence MRI of the Cervical spine withoutand with contrast. 15 mL Dotarem injected intravenously from a 15 mL vialwith the remainder discarded. COMPARISON: 08/15/2022 and 08/20/2023 FINDINGS: Cervical alignment is normal. No fracture or suspicious marrow replacing lesion. Mild multilevel degenerative loss of normal disc height and signal withassociated degenerative discogenic endplate change, most pronounced atC5-6 and C6-7. Cervical facet joints are within normal limits. Cervical cord is normal in signal and morphology. No epidural collectionor mass is seen within the spinal canal. No abnormal enhancement withinthe spinal canal. Paraspinal muscles are normal. Foramen magnum is normal. Findings by level: C2-C3: No foraminal or canal stenosis. C3-C4: No foraminal or canal stenosis C4-C5: No foraminal or canal stenosis C5-C6: No foraminal or canal stenosis C6-C7: Small posterior disc osteophyte complex and bilateral uncovertebralspurring results in mild foraminal stenosis bilaterally. No spinal canalstenosis. C7-T1: No foraminal or canal stenosis IMPRESSION: No evidence of demyelination in the cervical spine. Stable exam comparedto 2023. -------- FINAL REPORT -------- Dictated By: DANIEL HUANG Dictated Date: 08/25/2024 09:39 ET Assigned Physician: DANIEL HUANG Reviewed and Electronically Signed By: DANIEL HUANG Signed Date: 08/25/2024 09:44 ET Workstation ID: [id number] Transcribed By: Self Edit Transcribed Date: 08/25/2024 09:39 ET Aubree LYNN IM MRI PROCEDURES Final Res ult * MR Brain wo and w Contrast (08/20/2024 1:55 PM EST) Anatomical Region Laterality Modality Head and Neck Magnetic Resonan ce 08/25/2024 9:27 AM EST Impressions 08/25/2024 9:39 AM EST Stable supratentorial demyelinating lesions. ??No new lesions or evidence of active demyelination. -------- FINAL REPORT -------- Dictated By: DANIEL HUANG Dictated Date: 08/25/2024 09:27 ET Assigned Physician: DANIEL HUANG Reviewed and Electronically Signed By: DANIEL HUANG Signed Date: 08/25/2024 09:39 ET Workstation ID: [id number] Transcribed By: Self Edit Transcribed Date: 08/25/2024 09:27 ET Narrative 08/25/2024 9:39 AM EST PROCEDURE: Brain MRI INDICATION: Multiple sclerosis TECHNIQUE: Multiplanar, multisequence MRI of the brain without and with contrast. ??15 mL Dotarem injected intravenously from a 15 mL vial with the remainder discarded. COMPARISON: ??08/21/2022 and 08/20/2023 FINDINGS: No acute infarct, mass effect, or intracranial hemorrhage. Scattered T2 hyperintense foci throughout the supratentorial white matter are similar compared to prior. ??No infratentorial lesions. ??No new lesions. ??For example punctate T2 hyperintense lesion within the right anterior temporal white matter is stable compared to prior. Ventricles, sulci, and cisterns are normal in size and configuration. ??No hydrocephalus or volume loss. Sella and foramen magnum are normal. No abnormal intracranial susceptibility artifact or abnormal intracranial enhancement. Major intracranial arterial flow voids are normal. ??Major dural venous sinuses enhance normally with contrast. Sinuses and mastoids are clear. ??Orbits and extracranial soft tissues are normal. ?? Calvarium is normal. Procedure Note Daniel Huang MD - 08/25/2024 PROCEDURE: Brain MRI INDICATION: Multiple sclerosis TECHNIQUE: Multiplanar, multisequence MRI of the brain without and withcontrast. 15 mL Dotarem injected intravenously from a 15 mL vial with theremainder discarded. COMPARISON: 08/21/2022 and 08/20/2023 FINDINGS: No acute infarct, mass effect, or intracranial hemorrhage. Scattered T2 hyperintense foci throughout the supratentorial white matterare similar compared to prior. No infratentorial lesions. No newlesions. For example punctate T2 hyperintense lesion within the rightanterior temporal white matter is stable compared to prior. Ventricles, sulci, and cisterns are normal in size and configuration. Nohydrocephalus or volume loss. Sella and foramen magnum are normal. No abnormal intracranial susceptibility artifact or abnormal intracranialenhancement. Major intracranial arterial flow voids are normal. Major dural venoussinuses enhance normally with contrast. Sinuses and mastoids are clear. Orbits and extracranial soft tissues arenormal. Calvarium is normal. IMPRESSION: Stable supratentorial demyelinating lesions. No new lesions or evidenceof active demyelination. -------- FINAL REPORT -------- Dictated By: DANIEL HUANG Dictated Date: 08/25/2024 09:27 ET Assigned Physician: DANIEL HUANG Reviewed and Electronically Signed By: DANIEL HUANG Signed Date: 08/25/2024 09:39 ET Workstation ID: [id number] Transcribed By: Self Edit Transcribed Date: 08/25/2024 09:27 ET us Aubree LYNN [facility] MRI PROCEDURES Final Res ult * Creatinine (06/10/2024 8:35 AM EST) Creatinine 0.68 0.50 - 1.10 mg/dL LAB CHEMISTRY METHOD 06/10/2024 5:25 PM EST [facility] eGFR 102 >=60 mL/min/1. 73m2 LAB CHEMISTRY METHOD 06/10/2024 5:25 PM EST [facility] Comment:Calculation based on the??Chronic Kidney Disease Epidemiology Collaboration (CKD-EPI) equation refit??without adjustment for race. Blood Venous blood specimen / Unknown Venipuncture / Unknown 06/10/2024 8:35 AM EST 06/10/2024 8:36 AM EST us Aubree LYNN LAB BLOOD ORDERABLES Final R esult [facility] [address] [place] [address], from Last 3 Months or Most Recently Relevant to Health Maintenance Insurance [place] [address] [employer] Care Teams Manager Speech Relationship Specialty Start Date End Date Kareen Burrell MD [address] [place] [address] , [address] [facility] D/B/A: [facility] [place], [place] PCP - General 12/13/19
--- OUTSIDE RECORDS SUMMARY | 2024-11-03 16:05 | XMS_ITS | Clinical Summary ---
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 Phone Unavailable Primary Care Provider Unavailabl e Allergies Active Allergy Reactions Criticality Noted Date Comments Becket Oil 08/02/2010 Other Reaction(s): almond, burundian walnut, cashe Apple Juice 09/03/2020 Bee Pollen Itching 09/03/2020 Cat Dander 09/03/2020 Almanzar 09/03/2020 Other Reaction(s): throat itches Dust Mite Extract 09/03/2020 Kiwi Extract 09/03/2020 Morphine Itching 12/27/2010 Other Reaction(s): itching inside and rash, rash: itching, Unknown Other 09/14/2022 Other Reaction(s): almonds,cherries,peaches-throa t itching Plant Derived Enzymes Plant Derived Enzymes 09/03/2020 Pollen Extract Itching 09/03/2020 Prunus Persica 12/17/2013 Other Reaction(s): throats itching Medications Ventolin HFA 108 (90 Base) MCG/ACT inhaler Inhale 1 to 2 puffs by mouth into the lungs every 4 to 6 hours as needed 3 Active Bisacodyl EC 5 MG EC tablet 3 Active busPIRone (Buspar) 5 MG tablet 3 Active citalopram (CeleXA) 20 MG tablet 3 Active Dexilant [address] capsule 3 Active dicyclomine (Bentyl) 10 MG capsule 3 Active ergocalciferol (Vitamin D2) 1.25 MG (96213 UT) capsule Take 50,000 Units by mouth 1 (one) time per week. Active escitalopram (Lexapro) 10 MG tablet Take 1 tablet by mouth in the morning. 2 Active famotidine (Pepcid) 20 MG tablet TAKE 1 TABLET BY MOUTH two (2) times a day 3 Active fluticasone (Flonase) 50 MCG/ACT nasal spray 3 Active Copaxone 40 MG/ML solution prefilled syringe 3 Active lisinopril 20 MG tablet Take 20 mg by mouth. 8 Active LORazepam (Ativan) 0.5 MG tablet 1-2 po 1 hour prior to MRI. December repeat 1 at time of MRI if needed 2 Active metoclopramide (Reglan) 10 MG tablet 3 Active Xolair 150 MG injection 3 Active rOPINIRole (Requip) 5 MG tablet 3 Active topiramate (Topamax) 100 MG tablet 3 Active traZODone (Desyrel) 50 MG tablet 3 Active traMADol (Ultram) 50 MG tablet Take 50 mg by mouth 3 times daily. 3 Active acetaminophen (Tylenol) 500 MG tablet Take 1 tablet (500 mg) by mouth every 6 (six) hours if needed for mild pain for up to 20 doses. 20 tablet 4 Active ibuprofen 600 MG tablet Take 1 tablet (600 mg) by mouth every 6 (six) hours if needed for mild pain for up to 20 doses. 20 tablet 4 Active chlorhexidine (Peridex) 0.12 % solution Swish 15 mL morning and night for 1 minute. Spit, do not swallow. Do not eat or drink for 30 minutes following use. 473 mL 4 Active Active Problems Problem Noted Date Diagnosed Date Bone spicules of jaw 07/07/2024 Dental root caries 05/20/2024 Non-restorable tooth 10/05/2023 Severe dental caries 10/01/2023 Missing teeth, acquired 10/01/2023 Localized gingival recession 10/01/2023 Dental calculus 10/01/2023 Constipation 05/06/2014 Restless legs 05/06/2014 Allergic rhinitis 04/17/2012 Asthma 10/11/2011 Esophageal reflux 10/11/2011 Hypertension 10/11/2011 Multiple sclerosis 10/11/2011 Obesity, unspecified 10/11/2011 Osteoarthritis 10/11/2011 Overview (07/07/2024): IMO update Immunizations Name Administration Dates Next Due HepB-CpG 01/30/2023,12/26/2022 Influenza, IIV3, injectable 05/06/2014 Influenza, Split (incl. violet fied surface antigen) 04/17/2012 Pneumococcal Polysaccharide PPSV23 07/05/2018,,11/11/2010 TD (adult), 2 Lf tetanus tox oid, preservative free, adsorbed 07/22/2003,07/21/1993 Tdap 11/17/2016,11/06/2010 Zoster, Recombinant 02/27/2023,12/26/2022 Social History Tobacco Use Types Packs/Day Years Used Date Smoking Tobacco: Former Cigarettes Passive Smoke Exposure: Past Smokeless Tobacco: Never Tobacco Cessation:Counseling Given: Not Answered Alcohol Use Standard Drinks/Week Comments Defer 0 (1 standard drink = 0.6 oz pur e alcohol) Comments Unknown Sex and Gender Information Value Date Recorded Sex Assigned at Female 06/05/2022 10:14 AM EDT Legal Sex Female 10:14 AM EDT Gender Identity Female 06/05/2022 10:14 AM EDT Sexual Orientation Straight 06/05/2022 10 :14 AM EDT Last Filed Vital Signs Vital Sign Reading Time Taken Comments Blood Pressure 122/80 07/07/2024 10:16 AM EST Pulse 74 10/01/2023 10:02 AM EST Temperature - - Respiratory Rate - - Oxygen Saturation - - Inhaled Oxygen Concentration - - Weight - - Height - - Body Mass Index - - Plan of Treatment Health Maintenance Due Date Last Done Comments CT Colonography 1967 Colonoscopy 1967 Colorectal Cancer Screening 1967 Depression Screening 1967 FIT DNA/Cologuard 1967 FIT 1967 FOBT 1967 HIV Screening 1967 Lipid Panel 1967 SDOH Screening 1967 Sigmoidoscopy 1967 Alcohol/Substance Use Screening 1979 Hepatitis C Screening 1985 Pap Smear 1988 Cervical Cancer Screening 1997 HPV/Cotest 1997 Mammogram 2007 Pneumococcal Vaccine: 50+ Years (2 of 2 - PCV) 07/05/2019 07/05/2018, 01/19/2014, 11/11/2010 Pneumococcal Vaccine: Pediatrics (0 to 5 Years) and At-Risk Patients (6 to 49) Years) (2 of 2 - PCV) 07/05/2019 07/05/2018, 01/19/2014, 11/11/2010 Dental Oral Exam 03/04/2024 09/03/2023, 12/2018, 08/15/2017, Additional history exists Dental Prophylaxis 04/01/2024 10/01/2023, 0 03/20/2018, 03/03/2016, Additional history exists COVID-19 Vaccine ( season) 2024 Influenza Vaccine (#1) 2024 05/06/2014, 2011 Dental X-Ray: Bitewings 09/15/2024 09/14/19 24, 11/12/2020, 02/07/2019, Additional history exists Tobacco Screening 07/07/2025 07/07/2024 DTaP/Tdap/Td Vaccines (3 - Td or Tdap) 11/17/2026 11/17/2016, 11/06/2010, 07/22/2003, Additional history exists Dental X-Ray: Full Mouth 05/21/2027 05/20/2024, 07/06 RSV Patients and Patients Aged 60 years or older (1 - 1-dose 75+ series) 2042 Hepatitis B Vaccines Completed 01/30/2023, 12/27/19 Zoster [...] patient's age to complete this topic Meningococcal Vaccine Aged Out No leena kwasi eligible based on patient's age to complete this topic RSV under 20 months Aged Out No longe r eligible based on patient's age to complete this topic Rotavirus Vaccines Aged Out No longer eligible based on patient's age to complete this topic Procedures Procedure Name Priority Date/Time Associated Diagnosis Comments PANORAMIC RADIOGRAPHIC IMAGE Routine 05/20/2024 1:00 PM EDT PROPHYLAXIS - ADULT Routine 10/01/2023 1 0:00 AM EST Dental calculus BITEWING - SINGLE RADIOGRAPHIC IMAGE Routine 09/14/2023 2:30 PM EST PERIODIC ORAL EVALUATION - ESTABLISHED PATIENT Routine 09/03/2023 3:30 PM EST from Last 3 Months or Most Recently Relevant to Health Maintenance Insurance [facility] MEDICAID STAND ADULT
--- OUTSIDE RECORDS SUMMARY | 2024-11-03 16:05 | XMS_ITS | Clinical Summary ---
Author Organization [email or web address] Address [address] [place] [address] Care Team Providers Care Wood Veneer Taper Name Role Phone Kareen Mark MD Primary Care Provid er Allergies Active Allergy Reactions Criticality Noted Date Comments Animal Dander 09/03/2020 Apple Juice 09/03/2020 Almanzar 09/03/2020 Dust 09/03/2020 Kiwi 09/03/2020 Morphine 09/03/2020 Nuts 09/03/2020 Plant Derived Enzymes 09/03/2020 Pollen Extract Itching 09/03/2020 Medications Medication Sig Dispensed Refills Start Date End Date Status ALBUTEROL SULFATE HFA IN Inhale into the lungs. 0 Active diphenhydrAMINE (BENADRYL) 12.5 MG/5ML elixir Take by mouth. 0 Active traZODone (DESYREL) 100 MG tablet by Does not apply route. 0 Active topiramate (TOPAMAX) 25 MG tablet 1 po q hs x 1 week, then increase to 2 po hs 60 tablet 5 05/29/2020 Active Magnesium Hydroxide (MAGNESIA PO) Take by mouth. 0 Active ergocalciferol (VITAMIN D2) capsule 32518 units Take 1 capsule (50,000 Units total) by mouth once a week. 0 Active escitalopram (LEXAPRO) tablet 10 mg TAKE ONE TABLET BY MOUTH DAILY 30 tablet 5 09/06/2021 Active rOPINIRole (REQUIP) 5 MG tablet Take 1 tablet (5 mg total) by mouth every night at bedtime. 0 07/15/2022 Active LORazepam (ATIVAN) 0.5 MG tablet 1-2 po 1 hour prior to MRI. May repeat 1 at time of MRI if needed 4 tablet 0 08/01/2022 Active busPIRone (BUSPAR) 5 MG tablet TAKE 1 TABLET BY MOUTH two (2) times a day 0 02/19/2024 Active cetirizine (ZyrTEC) 10 MG tablet Take 1 tablet (10 mg total) by mouth daily. 0 02/19/2024 Active D3-1000 25 MCG (1000 UT) capsule Take by mouth daily. 0 02/19/2024 Active citalopram (CeleXA) 20 MG tablet Take 1 tablet (20 mg total) by mouth daily. 0 02/19/2024 Active Dexilant 60 MG capsule Take 1 capsule (60 mg total) by mouth daily. 0 02/19/2024 Active dicyclomine (BENTYL) 10 MG capsule TAKE 1 CAPSULE BY MOUTH 4 (FOUR) TIMES DAILY NEEDED FOR CRAMPS 0 02/19/2024 Active hydrOXYzine (VISTARIL) 25 MG capsule TAKE 1 TABLET BY MOUTH two (2) times a day NEEDED 0 02/19/2024 Active metoclopramide (REGLAN) tablet 10 mg TAKE 1 TABLET BY MOUTH 4 (FOUR) TIMES DAILY 0 02/19/2024 Active topiramate (TOPAMAX) 100 MG tablet Take 1 tablet (100 mg total) by mouth every night at bedtime. 0 02/19/2024 Active Active Problems Problem Noted Date Diagnosed Date Multiple sclerosis 11/26/2023 Asthma 2021 Family History Medical History Relation Name Comments Cancer Maternal Grandmother Multiple sclerosis Maternal Grandmother Tuberculosis Maternal Grandmother Multiple sclerosis Mother Relation Name Status Comments Maternal Grandmother Mother Social History Tobacco Use Types Packs/Day Years Used Date Smoking Tobacco: Never Smokeless Tobacco: Never Tobacco Cessation:Counseling Given: Not Answered Sex and Gender Information Value Date Recorded Sex Assigned at Female 06/21/2023 2:19 PM EST Gender Identity Not on file Sexual Orientation Not on file Job Start Date Occupation Industry Not on file Not on file Not on file Last Filed Vital Signs Vital Sign Reading Time Taken Comments Blood Pressure 109/73 02/19/2024 2:17 PM EDT Pulse 77 02/19/2024 2:17 PM EDT Temperature 36.1 ??C (96.9 ??F) 02/19/2024 2:17 PM ED T Respiratory Rate 18 12/20/2023 9:40 AM EDT Oxygen Saturation 97% 02/19/2024 2:17 PM EDT Inhaled Oxygen Concentration - - Weight 80 kg (176 lb 6.4 oz) 02/19/2024 2:17 PM EDT Height 157.5 cm (5' 2 ) 02/19/2024 2:17 PM EDT Body Mass Index 32.26 02/19/2024 2:17 PM EDT Plan of Treatment Health Maintenance Due Date Last Done Comments Hepatitis C Screening 1967 COVID-19 Vaccine (#1) 1967 Depression Screening 1979 BMI Counseling 1985 Preventative Health Evaluation 1985 Cervical Cancer Screening (Pap Smear) 1988 Colon Cancer Screening (Colonoscopy) 2012 Breast Cancer Screening (Mammogram) 2017 Influenza Vaccine (#1) 2024 05/06/2014 DTap / Tdap / Td (3 - Td or Tdap) 11/17/2026 11/17/2016, 11/06/2010 Pneumococcal Vaccine Aged Out 07/05/2018, 01/19/2014, 11/11/2010 No longer eligible based on patient's age to complete this topic Hepatitis B Vaccines Completed 01/30/2023, 12/26/2022 Shingrix-Zoster Vaccine Completed 02/28/20, 12/26/2022 RSV Ped < 20 months Aged Out No longe r eligible based on patient's age to complete this topic Care Teams Wood Veneer Taper Relationship Specialty Start Date End Date Kareen Mark MD [address] [place] [address] , [address] [facility] Physician Associ D/B/A: [facility] [place] [id number] PCP - General Internal Medicine 12/13/19
--- OUTSIDE RECORDS SUMMARY | 2024-11-03 16:05 | XMS_ITS | Encounter Summary ---
Author Organization [facility] Address [address] [place] [address] Care Team Providers Care Desktop Administrator Name Role Phone Kareen Burrell MD Primary Care Provider [phone] Encounter Details Date Type Department Care Team (Late st Contact Info) Description 05/08/2024 4:26 PM EDT Hospital Encounter TH HISTORIC ENCOUNTERS EASTERN CONVERSION ONLY Aubree Renee PA [address] [place] [phone] Social History Tobacco Use Types Packs/Day Years [...] Info) Description 12/09/2024 8:00 AM EDT Appointment [facility] [place] [facility] - [place] [address] [place] [phone] 02/23/2025 4:00 PM EDT Office Visit [facility] [address] [place] [address] Aubree Renee PA [address] [place] [address] documented as of this encounter Goals Goal Patient Goal Type Associated Problems Recent Progress Patient-Stated? Author LTGs General No Dagoberto Buck PTA Note: Pt will report no falls x2 weeks - Not Met 2. Pt will ambulate with single-point cane and right knee and hip extension to 0 degrees in mid-stance for improved limb stability with ambulation - Met 3. Pt will be independent with HEP - Met <enter goal here> General Yes Martin Hurtado, PT documented as of this encounter Visit Diagnoses Not on filedocumented in this encounter Care Teams Desktop Administrator Relationship Specialty Start Date End Date Kareen Burrell MD [address] [facility] , [address] [facility] Physician Associ D/B/A: [facility] [place], [place] PCP - General 12/13/19 documented as of this encounter
--- OUTSIDE RECORDS SUMMARY | 2024-11-03 16:05 | XMS_ITS ---
Author Name [facility] Organization Unknown History of Medication Use Medication Directions Dispensed Refills Start Date End Date Status Copaxone 40 MG/ML SOSY injection Inject 1 mL (40 mg total) under the skin 3 (three) times a week. 3 02/19/20 24 active ALBUTEROL SULFATE HFA IN Inhale into the lungs. active traZODone (DESYREL) 100 MG tablet by Does not apply route. active diphenhydrAMINE (BENADRYL) injection 50 mg 50 mg, Intravenous, Once, On Judi 12/20/23 at 0845, For 1 doseGive 30 minutes prior to ocrelizumab. IV push over 2-3 minutes.??See PO diphenhydramine order. Please give PO or IV.??Common Side Effects: Drowsiness, stomach upset, confusion, dry mouth.??Administer undiluted. Maximum rate 25 mg/min. 4 12/20/19 24 completed Problems Problem Status Onset Date Problem Type Date of Resoluti on Source Multiple sclerosis active 2023-11-26 ProblemAct [facility]THNEMG Asthma active 2021 ProblemAct [facility]
[2024-11-03 17:30] LABS: Alanine Aminotransferase 21 U/L (0-31); Albumin Level 4.2 g/dL (3.5-5.0); Alkaline Phosphatase 70 U/L (39-117); Anion Gap 11 (12-20); Aspartate Amino Transferase 19 U/L (5-31); Bilirubin Total 0.3 mg/dL (0.0-1.0); Blood Urea Nitrogen 19 mg/dL (9-16); Calcium 9.7 mg/dL (8.4-10.2); Carbon Dioxide 30 mmol/L (22-29); Chloride 106 mmol/L (96-108); Cholesterol 163 mg/dL (<200); Estimated Glomerular Filt Rate > 60; Glucose Fasting 75 mg/dL (60-99); HDL Cholesterol 46 mg/dL (>40); LDL Cholesterol Calculated 96 mg/dL (<100); Sodium 143 mmol/L (135-145); Triglycerides 108 mg/dL (<150)
[2024-11-03 17:31] LABS: Vitamin D 25-OH Total 34.8 ng/mL (>30)
[2024-11-03 18:16] LABS: Folate 13.9 ng/mL (> or = 4.0); Vitamin B12 636 pg/mL (200-900)
[2024-11-06 03:23] LABS: TS Negative Control Passed; TS Panel A 0; TS Panel B 0; TS Positive Control Passed; TSpotTB Negative (Negative)
== END 2024-11-03 14:14 | disposition home or self-care (01) ==
LOC: HO.HHCL 14:13
PROVIDERS: Visit Provider Internal Medicine
DX: G35 Multiple sclerosis (principal); E78.5 Hyperlipidemia, unspecified; E55.9 Vitamin D deficiency, unspecified; E53.8 Deficiency of other specified B group vitamins; Z11.1 Encounter for screening for respiratory tuberculosis
CPT/HCPCS: 36415; 80053; 80061; 82306; 82607; 82746; 86481

== ENCOUNTER 2024-11-05 13:20 | Outpatient (REF) | payer OTHER, SELFPAY ==
--- OUTSIDE RECORDS SUMMARY | 2024-11-05 16:07 | XMS_ITS | Encounter Summary ---
Author Organization [facility] Address [address] [place] [address] Care Team Providers Care Outdoor Illuminating Engineer Name Role Phone Kareen Burrell MD Primary Care Provider [phone] Encounter Details Date Type Department Care Team (Late st Contact Info) Description 05/08/2024 4:26 PM EDT Hospital Encounter TH HISTORIC ENCOUNTERS EASTERN CONVERSION ONLY Aubree Renee PA [address] [place] [phone] Social History Tobacco Use Types Packs/Day Years [...] Info) Description 12/09/2024 8:00 AM EDT Appointment [facility] [place] [facility] - [place] [address] [place] [phone] 02/23/2025 4:00 PM EDT Office Visit [facility] [address] [place] [address] Aubree Renee PA [address] [place] [address] documented as of this encounter Goals Goal [...] on filedocumented in this encounter Care Teams Outdoor Illuminating Engineer Relationship Specialty Start Date End Date Kareen Burrell MD 2 [facility] , [address] [facility] Physician Associ D/B/A: [facility] [place], [place] PCP - General 12/13/19 documented as of this encounter
--- OUTSIDE RECORDS SUMMARY | 2024-11-05 16:07 | XMS_ITS | Clinical Summary ---
Author Organization [employer] Address [address] [place] [address] [address] [place] [address] Care Team Providers Care Beehive Kiln Supervisor Name Role Phone Unavailable Primary Care Provider Unavailabl e Allergies Active Allergy Reactions Criticality Noted Date Comments [place]ville Oil 08/02/2010 Other Reaction(s): almond, bulgarian walnut, cashe Apple Juice 09/03/2020 Bee Pollen [...] 3 Active ergocalciferol (Vitamin D2) 1.25 MG (27531 UT) capsule Take 50,000 Units by mouth [...] Most Recently Relevant to Health Maintenance Insurance [facility] STANDARD DENTAL-[facility] MEDICAID STAND ADULT
--- OUTSIDE RECORDS SUMMARY | 2024-11-05 16:07 | XMS_ITS | Clinical Summary ---
Author Organization [facility] Address [address] [place] [address] Care Team Providers Care College Associate Name Role Phone Kareen Mark MD Primary [...] mouth. 0 Active ergocalciferol (VITAMIN D2) capsule 39405 units Take 1 capsule (50,000 Units total) [...] age to complete this topic Care Teams College Associate Relationship Specialty Start Date End Date Kareen Mark MD [address] [place] [address] , [address] [facility] Physician Associ D/B/A: [facility] [place] [id number] PCP - General Internal Medicine 12/13/19
--- OUTSIDE RECORDS SUMMARY | 2024-11-05 16:07 | XMS_ITS | Clinical Summary ---
Author Organization 175 [facility] Address [address] [place] [address] Phone Care Team Providers Care Senior Solutions Engineer Name Role Phone Kareen Burrell MD Primary Care Provider [phone] Allergies Active Allergy Reactions Criticality Noted Date [...] Description 10/24/2024 4:00 PM EDT Office Visit [facility] 175 [facility] [address] [place] [phone] Alyssa Kauffman MD Urinary symptom or sign (Primary Dx); Multiple sclerosis (CMS/HCC); Gait abnormality; Falls frequently 08/20/2024 1:05 PM EST - 08/20/2024 11:59 PM EST Hospital Encounter [facility] MRI [address] [place] [id number] Multiple sclerosis (CMS/HCC) Discharge Disposition: Home or Self Care 08/20/2024 12:39 PM EST - 08/20/2024 11:59 PM EST Hospital Encounter [facility] MRI [address] [place] [phone] Multiple sclerosis (CMS/HCC) Discharge Disposition: Home or [...] Info) Description 12/09/2024 8:00 AM EDT Appointment [facility] [place] Out[facility] - [place] [address] [phone] 02/23/2025 4:00 PM EDT Office Visit [facility] [place] [facility] [place] 175 [facility] [address] [place] [phone] Aubree Renee PA 175 [facility] [address] [place] [address] Health Maintenance Due Date Last Done Comments [...] COVID-19 Vaccine ( season) 2024 Influenza Vaccine (Season Ended) 2025 05/06/2014, 04/17/2012 Hypertension/CHF/CAD Annual BMP Blood Test 06/10/2025 06/10/2024 [...] Patient-Stated? Author LTGs General No Dagoberto Buck, SCRUB WOMAN Note: Pt will report no falls x2 [...] Signed Date: 08/25/2024 09:44 ET Workstation ID: [id number] Transcribed By: Self Edit Transcribed Date: 08/25/2024 [...] Signed Date: 08/25/2024 09:44 ET Workstation ID: [id number] Transcribed By: Self Edit Transcribed Date: 08/25/2024 [...] Signed Date: 08/25/2024 09:39 ET Workstation ID: [id number] Transcribed By: Self Edit Transcribed Date: 08/25/2024 [...] Signed Date: 08/25/2024 09:39 ET Workstation ID: [id number] Transcribed By: Self Edit Transcribed Date: 08/25/2024 09:27 ET us Aubree LYNN [facility] MRI PROCEDURES Final Res ult * Creatinine (06/10/2024 8:35 AM EST) Creatinine 0.68 0.50 - 1.10 mg/dL LAB CHEMISTRY METHOD 06/10/2024 5:25 PM EST [facility] LAB eGFR 102 >=60 mL/min/1. 73m2 LAB CHEMISTRY METHOD 06/10/2024 5:25 PM EST [facility] Comment:Calculation based on the??Chronic Kidney Disease Epidemiology Collaboration (CKD-EPI) equation refit??without adjustment for race. Blood Venous blood specimen / Unknown Venipuncture / Unknown 06/10/2024 8:35 AM EST 06/10/2024 8:36 AM EST us Aubree LYNN LAB BLOOD ORDERABLES Final R esult [facility] ([facility] [address] [place] [address], from Last 3 Months or Most Recently Relevant to Health Maintenance [place] [place] [address] [employer] Care Teams Senior Solutions Engineer Relationship Specialty Start Date End Date Kareen Burrell MD [address] [place] [address] , [address] [facility] Physician Associ D/B/A: [facility] [place], [place] PCP - General 12/13/19
[2024-11-05 16:10] LABS: Appearance Urine Clear; Color Urine Yellow; Glucose Urine UA Negative (Negative); Leukocyte Esterase Urine Small (1+) (Negative); Nitrite Urine Negative (Negative); Specific Gravity - Urine <= 1.005 (1.005-1.025); UMIC TRIGGER UACC YES; Urine Blood Negative (Negative); Urine Ketones Negative (Negative); Urine Protein Negative (Neg-Trace)
[2024-11-05 16:15] LABS: Bacteria Urine None Seen (None Seen); Hyaline Casts Urine 0-2 /LPF (0-2); RBC Urine 0-2 /HPF (0-2); UACC Culture Trigger YES; WBC Urine 0-5 /HPF (0-5)
== END 2024-11-05 13:21 | disposition home or self-care (01) ==
LOC: HO.HHCL 13:20
PROVIDERS: Visit Provider Internal Medicine
DX: R39.9 Unspecified symptoms and signs involving the genitourinary system (principal)
CPT/HCPCS: 81001; 81003; 87086

== ENCOUNTER 2024-12-30 10:33 | Outpatient (AMB) | payer OTHER, SELFPAY ==
--- NOTE | 2024-12-30 10:36 | A.OFFVIS_ITS ---
Vital Signs 12/30/24 10:37 Height 5 ft 2 in Weight 144 lb BMI 26.3 BP 112/70 Intake Visit Reasons: KILN LOADER annual exam Waiter/Waitress Take Out Required: Yes Waiter/Waitress Take Out Language: [employer] Experience Strategy Name: Mary Lou Farr Information Interpreted: non-clinical & clinical Screen Handler: Screen Handler Present (Noni) Allergies almond Allergy (Severe, Verified 12/30/24 10:37) ANAPHYLAXIS kiwi Allergy (Severe, Verified 12/30/24 10:37) Itching peach [PEACH] Allergy (Severe, Verified 12/30/24 10:37) ANAPHYLAXIS walnut Allergy (Severe, Verified 12/30/24 10:37) ANAPHYLAXIS morphine Allergy (Intermediate, Verified 12/30/24 10:37) ITCHING, hives, swelling,itchiness HPI Comments Details: She is a postmenopausal woman 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 She is doing well with professor of psychiatry concerns: itching at times inside the vagina, no odor or discharge. Not sexually active >5yrs. with partners health concerns. Has occasional left sided pelvic pain. No dysuria. She is concerned she has a throat mass. No difficulty swallowing. Attempting to eat a healthy diet with calcium and vitamin D and stays active with exercise. Last pap smear; 2022. Last mammogram; 2023. Colonoscopy is UTD. Denies any family history of breast, ovarian or colon cancer. [facility] Medical History Encounter for well woman exam with routine gynecological exam Pelvic pain Irritable bowel syndrome with both constipation and diarrhea Irritable bowel syndrome with diarrhea Bilateral tennis elbow Weight loss Numbness and tingling in both hands Hypomagnesemia Right shoulder pain Left knee pain Foot callus Foot pain Chest pain Right foot pain Left foot pain Physical exam Vaginal itching Nausea and vomiting Chronic superficial gastritis Bilateral knee pain Bilateral hand pain Hypernatremia Encounter for medication monitoring Pre-op examination URI (upper respiratory infection) Physical exam Right ankle sprain Right hand pain COVID-19 Urinary frequency BV (bacterial vaginosis) Environmental allergies Fibromyalgia Chronic constipation Moderate recurrent major depression RUQ abdominal pain B12 deficiency Allergic rhinitis Urge urinary incontinence Dyslipidemia Essential hypertension Multiple sclerosis Salivary disorder Migraine Surgical History History of carpal tunnel surgery of left wrist History of esophagogastroduodenoscopy (EGD) Hx of colonoscopy Hx of foot surgery History of suburethral sling procedure Hx of tubal ligation History of endometrial ablation Hx of submucous nasal surgery Family History Father History of throat cancer Mother Stroke Multiple sclerosis Maternal Grandmother Multiple sclerosis Pancreatic cancer Paternal Grandfather Pancreatic cancer Lung cancer Social History Household Members: Spouse and Children Housing: Apartment Are you a primary long term care phlebotomist to a significant other at home: No Do you presently have visiting nurse or other home services: Yes Alcohol intake: never Patient Tobacco Use Status: Former Tobacco user Years Smoked: Quit 30 years ago e-Cigarette/Vaping Use: Never Used Second Hand Smoke Exposure: No Substance Use Type: Marijuana service: No Current occupational status: student and disabled Cognitive needs: No Hearing needs: No Vision needs: Yes Female Reproductive History Menstrual Age of Menarche: 11 Total pregnancies: 7 Full term: 7 Number of Living Children: 7 Date of last pap smear: 12/21/22 (neg pap and hpv) Date of Mammogram: 06/06/24 (Birad 1) Review of Systems Const All systems reviewed & are unremarkable except as noted in HPI and below Reports as per HPI Eyes Reports no additional complaints ENT Reports no additional complaints Card Reports no additional complaints Resp Reports no additional complaints GI Reports as per HPI and Reports no additional complaints Reports as per HPI Musc Reports no additional complaints Skin/Breast Reports as per HPI Neuro Reports no additional complaints Psych Reports no additional complaints Endo Reports no additional complaints Ton/Lymph Reports no additional complaints Aller/Immun Reports no additional complaints Physical Exam Vital Signs: Last Vital Signs BP 112/70 12/30/24 10:37 BMI result Body Mass Index 26.3 Const General: cooperative, healthy appearing, no acute distress, well developed and alert Orientation/consciousness: patient oriented x3 HEENT Head: Yes normal to inspection Eyes General: appearance normal, both eyes and all related structures Neck Neck: Yes normal visual inspection Thyroid: Thyroid normal Chest Chest palpation & inspection: normal inspection of the chest and other (no puckering, dimpling, peau de orange, retraction, discharge, masses) Breast/axilla inspection: normal inspection of the breasts Breast/axilla palpation: normal palpation of the breasts Resp Effort & Inspection: normal respiratory effort GI Inspection: Yes normal to inspection and Yes scar Palpation (GI): Soft to palpation Rectal Exam - Female: deferred General: Yes bladder normal to palpation External Female Exam: normal external appearance and normal appearance of the urethra Speculum Exam - Vagina: normal appearance of the vagina, normal palpation and normal vaginal discharge Speculum Exam - Cervix: normal appearance of the cervix and normal palpation Bimanual exam- vagina & uterus: normal bimanual exam, normal palpation, uterine size normal, bladder normal to palpation, normal palpation and non-tender Bimanual Exam- Adnexa, other: no masses Skin General skin exam: no rashes or lesions noted Rashes: no rashes Neuro General: patient oriented x3 Cognition (Neuro): normal cognition Extrem General: Yes normal to inspection Psych Attitude: cooperative Thought process: Normal thought process present Assessment & Plan Assessment & Plan (1) Pelvic pain: Code(s): R10.2 - Pelvic and perineal pain Category: Medical Plan: Workup for pelvic pain to include ultrasound, BV panel follow up pending results. If any immediate concerns to call the office for follow up. If pain is significant go to the emergency room for immediate care. The patient expressed understanding and agreement with the plan of care. All of her questions and concerns were addressed to the best of my ability. Total time I personally spent on visit and management today: ?15 minutes. Time spent included review of pertinent office notes in the electronic health record; review of laboratory and imaging results; review of personal family medical history; performing physical exam; discussing diagnosis and plan of care with the patient; documenting the encounter in the EMR. (2) Encounter for well woman exam with routine gynecological exam: Code(s): Z01.419 - Encounter for gynecological examination (general) (routine) without abnormal findings Category: Medical Plan Discussed: Current recommendations for pap smears per ASCCP guidelines. Breast awareness, periodic self breast exams and yearly mammogram. Maintain a healthy lifestyle, well balanced diet including Calcium 1,200 mg and Vitamin D 600 IU daily, and routine exercise. Contact the office with any postmenopausal bleeding. Discussed exam of the area appears normal with prominent cartilage. Advised her to call her primary care for further evaluation of her neck concerns. Patient verbalizes understanding and agrees to the plan of care. She was given opportunity to ask questions and all questions were answered to the best of my ability. RTO in 1 year for annual professor of psychiatry exam. This note is constructed using voice recognition software. While every effort has been made to ensure accuracy, boat person errors may have been included. Orders: Orders Bacterial Vaginosis Panel Today N89.8 - Other specified noninflammatory disorders of vagina, R10.2 - Pelvic and perineal pain US pelvic and transvaginal Today R10.2 - Pelvic and perineal pain Coding Level of Care Code Est Pt Level 2 (59370) Est Pt Prev Care 40-64y(05452) Diagnoses Pelvic pain R10.2 Encounter for well woman exam with routine gynecological exam Z01.419
[2024-12-30 10:37] VITALS: BP 112/70; BMI 26.3
--- OUTSIDE RECORDS SUMMARY | 2024-12-30 11:18 | XMS_ITS | Clinical Summary ---
Author Organization 175 [facility] Address [address] [place] [address] Phone Care Team Providers Care Driveway Sealer Name Role Phone Kareen Burrell MD Primary Care Provider [phone] Allergies Active Allergy Reactions Criticality Noted Date [...] Date Diagnosed Date Asthma 10/11/2011 Multiple sclerosis ([facility] V24, [facility] V28) Osteoarthritis 10/11/2011 Overview (04/17/2024): IMO update Obesity, unspecified 10/11/2011 Hypertension 10/11/2011 Esophageal reflux 10/11/2011 Encounters Date Type Department Care Team Description 12/09/2024 8:00 AM EDT - 12/09/2024 11:59 PM EDT Hospital Encounter [facility] [place] 175 [facility] [address] [place] [id number] Multiple sclerosis (CMS/[facility] V24, CMS/[facility] V28) (Primary Dx); Vitamin D deficiency Discharge Disposition: Home or Self Care 10/24/2024 4:00 PM EDT Office Visit [facility] [place] 175 [facility] [address] [place] [phone] Alyssa Kauffman MD Urinary symptom or sign (Primary Dx); Multiple sclerosis (CMS/HCC V24, CMS/HCC V28); Gait abnormality; Falls frequently from Last 3 Months Surgical History Surgery Date Site/Laterality Comments LEG SURGERY Left PROCEDURE:LEG SURGERY BLADDER SURGERY PROCEDURE:BLADDER SURGERY Medical History Medical History Date Comments MS (multiple sclerosis) (CMS /HCC V24, CMS/HCC V28) DX:MS (multiple sclerosis) ( HCC) Hypertension DX:Hypertension Arthritis DX:Arthritis Gastritis DX:Gastritis Family [...] Sign Reading Time Taken Comments Blood Pressure 119/75 12/09/2024 1:11 PM EDT Pulse 56 12/09/2024 1:11 PM EDT Temperature 36 ??C (96.8 ??F) 12/09/2024 1:11 PM EDT Respiratory Rate 19 12/09/2024 1:11 PM EDT Oxygen Saturation 96% 12/09/2024 1:11 PM EDT Inhaled Oxygen Concentration - - Weight 69.9 kg (154 lb) 08/20/2024 1:21 PM EST Height 154.9 cm (5' 1 ) 07/07/2024 3:24 PM EST Body Mass Index 29.1 07/07/2024 3:24 PM EST Plan of Treatment Upcoming Encounters Date Type Department Care Team (Late st Contact Info) Description 02/23/2025 4:00 PM EDT Office Visit [facility] [place] 175 [facility] [address] [place] [phone] Aubree Renee PA 175 [facility] [address] [place] [address] 06/09/2025 8:00 AM EST Appointment [facility] [place] [address] [phone] Health Maintenance Due Date Last Done Comments [...] age to complete this topic Meningococcal B Vaccine Aged Out No l onger eligible based on patient's age to complete this topic RSV Immunization Patients Under 20 months Aged Out No longer eligible based on patient's age to complete this topic Varicella Vaccines Aged Out No longer eligible based on patient's age to complete this topic Goals Goal Patient Goal Type Associated Problems Recent Progress Patient-Stated? Author LTGs General No Dagoberto Buck, [employer]ER Note: Pt will report no falls x2 weeks - Not Met 2. Pt will ambulate with single-point cane and right knee and hip extension to 0 degrees in mid-stance for improved limb stability with ambulation - Met 3. Pt will be independent with HEP - Met <enter goal here> General Yes Martin Hurtado, PT Procedures Procedure Name Priority Date/Time Associated Diagnosis Comments CBC WITH AUTO DIFFERENTIAL Routine 12/09/2024 8:25 AM EDT Multiple sclerosis ([facility]/HCC V24, [facility] V28) CBC AND DIFFERENTIAL Routine 12/09/2024 8:25 AM EDT Multiple sclerosis ([facility]/HCC V24, [facility] V28) CREATININE, SERUM Routine 06/10/2024 8:3 5 AM EST from Last 3 Months or Most Recently Relevant to Health Maintenance Results * (ABNORMAL) CBC auto differential (12/09/2024 8:25 AM EDT) WBC 4.5(L) 4.8 - 10.8 K/[facility] LAB HEMETOLOGY METHOD 12/09/2024 10:35 AM [facility] RBC 4.30 3.80 - 4.80 M/[facility] LAB HEMETOLOGY METHOD 12/09/2024 10:35 AM [facility] Hemoglobin 14.0 11.5 - 16.0 g/dL LAB HEMETOLOGY METHOD 12/09/2024 10:35 AM [facility] Hematocrit 41.5 35.0 - 47.0 % LAB HEMETOLOGY METHOD 12/09/2024 10:35 AM [facility] MCV 97.2 79.0 - 98.0 FL LAB HEMETOLOGY METHOD 12/09/2024 10:35 AM [facility] MCH 32.8(H) 27.0 - 32.0 pcg LAB HEMETOLOGY METHOD 12/09/2024 10:35 AM [facility] MCHC 33.7 32.0 - 37.0 g/dL LAB HEMETOLOGY METHOD 12/09/2024 10:35 AM [facility] RDW 11.9 11.0 - 15.0 % LAB HEMETOLOGY METHOD 12/09/2024 10:35 AM [facility] Platelets 237 130 - 400 K/mcL LAB HEMETOLOGY METHOD 12/09/2024 10:35 AM [facility] MPV 11.3(H) 7.0 - 11.0 FL LAB HEMETOLOGY METHOD 12/09/2024 10:35 AM [facility] NRBC 0.0 <1.0 % LAB HEMETOLOGY METHOD 12/09/2024 10:35 AM [facility] NRBC Absolute 0.00 <0.10 K/mcL LAB HEMETOLOGY METHOD 12/09/2024 10:35 AM [facility] Neutrophils Relative 56.4 % LAB HEMETOLOGY METHOD 12/09/2024 10:35 AM [facility] Lymphocytes Relative 32.1 % LAB HEMETOLOGY METHOD 12/09/2024 10:35 AM [facility] Monocytes Relative 9.2 % LAB HEMETOLOGY METHOD 12/09/2024 10:35 AM [facility] Eosinophils Relative 1.6 % LAB HEMETOLOGY METHOD 12/09/2024 10:35 AM [facility] Basophils Relative 0.7 % LAB HEMETOLOGY METHOD 12/09/2024 10:35 AM [facility] Immature Granulocytes Relative 0.0 % LAB HEMETOLOGY METHOD 12/09/2024 10:35 AM [facility] Neutrophils Absolute 2.53 1.50 - 7.00 K/mcL LAB HEMETOLOGY METHOD 12/09/2024 10:35 AM EDT [facility] Lymphocytes Absolute 1.44 1.00 - 5.00 K/mcL LAB HEMETOLOGY METHOD 12/09/2024 10:35 AM EDT [facility] Monocytes Absolute 0.41 0.20 - 1.00 K/mcL LAB HEMETOLOGY METHOD 12/09/2024 10:35 AM EDT [facility] Eosinophils Absolute 0.07 0.00 - 0.50 K/[facility] LAB HEMETOLOGY METHOD 12/09/2024 10:35 AM EDT [facility] Basophils Absolute 0.03 0.00 - 0.20 K/mcL LAB HEMETOLOGY METHOD 12/09/2024 10:35 AM EDT [facility] Immature Granulocytes Absolute 0.00 0.00 - 0.03 K/[facility] LAB HEMETOLOGY METHOD 12/09/2024 10:35 AM EDT [facility] Blood Venous blood specimen / Unknown Venipuncture / Unknown 12/09/2024 8:25 AM EDT 12/09/2024 8:25 AM EDT Aubree LYNN LAB BLOOD ORDERABLES Final R esult [facility] [address] [place] [address], * Creatinine (06/10/2024 8:35 AM EST) Creatinine 0.68 0.50 - 1.10 mg/dL LAB CHEMISTRY METHOD 06/10/2024 5:25 PM EST [facility] eGFR 102 >=60 mL/min/1. 73m2 LAB CHEMISTRY METHOD 06/10/2024 5:25 PM EST [facility] Comment:Calculation based on the??Chronic Kidney Disease Epidemiology Collaboration (CKD-EPI) equation refit??without adjustment for race. Blood Venous blood specimen / Unknown Venipuncture / Unknown 06/10/2024 8:35 AM EST 06/10/2024 8:36 AM EST us Aubree LYNN LAB BLOOD ORDERABLES Final R esult [facility] [address] [place] [address], from Last 3 Months or Most Recently Relevant to Health Maintenance [place] [address] [address] [address] [employer]AN Care Teams Driveway Sealer Relationship Specialty Start Date End Date Kareen Burrell MD [address] [facility] , [address] [facility] D/B/A: [facility] [place], [place] PCP - General 12/13/19
== END 2024-12-30 11:06 | disposition home or self-care (01) ==
LOC: HO.HWS 10:34
PROVIDERS: PCP Internal Medicine; Visit Provider Advanced Practice Midwife
DX: Z01.419 Encounter for gynecological examination (general) (routine) without abnormal findings (principal); R10.2 Pelvic and perineal pain
CPT/HCPCS: 99212; 99396; 99459

== ENCOUNTER 2024-12-30 10:33 | Outpatient (REF) | payer OTHER, SELFPAY ==
[2024-12-30 15:50] LABS: Bacterial Vaginosis PCR NEGATIVE (Negative); Candida Group PCR DETECTED (Not Detect); Candida glab krusei PCR NOT DETECTED (Not Detect); Trichomonas vaginalis PCR NOT DETECTED (Not Detect)
== END 2024-12-30 10:34 | disposition home or self-care (01) ==
LOC: HO.LAB 10:33
PROVIDERS: PCP Internal Medicine; Visit Provider Advanced Practice Midwife
DX: Z01.419 Encounter for gynecological examination (general) (routine) without abnormal findings (principal); N89.8 Other specified noninflammatory disorders of vagina; R10.2 Pelvic and perineal pain
CPT/HCPCS: 81515; 99212; 99396; 99459

== ENCOUNTER 2025-01-09 10:44 | Outpatient (AMB) | payer OTHER, SELFPAY ==
--- NOTE | 2025-01-09 10:53 | MHC.OFFVIS ---
Vital Signs 01/09/25 11:50 Height 5 ft 2 in Weight 144 lb BMI 26.3 BP 142/78 H Blood Pressure Location Rt brachial Position Sitting Pulse 76 Pulse Source Pulse Oximeter Pulse Oximetry (%) 98 Oxygen Delivery Method Room Air Intake Visit Reasons: dysphagia, gerd, ibs, ms Intake Note: Established patient for mgmt of GERD, IBS, + dysphagia. CC: C.O. RUQ pain and GERD exacerbation despite current tx. No additional sx or concerns reported at this time. Steel Box Toe Inserter Required: Yes Steel Box Toe Inserter Services: Steel Box Toe Inserter Present Steel Box Toe Inserter Name: Shahzad Ruvalcaba Information Interpreted: clinical only Accompanied by: Self / Same As Patient Allergies almond Allergy (Severe, Verified 01/13/25 07:35) ANAPHYLAXIS kiwi Allergy (Severe, Verified 01/13/25 07:35) Itching peach [PEACH] Allergy (Severe, Verified 01/13/25 07:35) ANAPHYLAXIS walnut Allergy (Severe, Verified 01/13/25 07:35) ANAPHYLAXIS morphine Allergy (Intermediate, Verified 01/13/25 07:35) ITCHING, hives, swelling,itchiness HPI HPI dysphagia, gerd, ibs, ms: Details: Assessment & Plan (1) Dysphagia: Code(s): R13.10 - Dysphagia, unspecified Category: Medical (2) GERD with esophagitis: Comment: HISTORY of esophageal erosions healed on 02/2020 EGD Code(s): K21.00 - Gastro-esophageal reflux disease with esophagitis, without bleeding Category: Medical Qualifiers: Esophagitis bleeding: without hemorrhage Qualified Code(s): K21.00 - Gastro-esophageal reflux disease with esophagitis, without bleeding (3) Multiple sclerosis: Code(s): G35 - Multiple sclerosis Category: Medical (4) Irritable bowel syndrome with both constipation and diarrhea: Code(s): K58.2 - Mixed irritable bowel syndrome Category: Medical Plan Portuguese #Kareen Live As of the last visit she had been continuing on her bisacodyl, Dexilant, dicyclomine, Viberzi, metoclopramide 10 mg 4 times a day, MiraLax p.r.n., Proctosol cream. She has been having a new problem of pain in the epigastrum, then her hair will stand on edge and she will sneeze twice. Then the pain resolves. She also has a pimple on the entrance of her vagina, but it has resolved after treating it with warm water. She is now having itchy roids but did not get the cream I had sent. Will resend it. She continues to c/o a mass that she feels at the level of the voicebox. We were aware of this and did not see any reason for this endoscopically, and at that time Dr. Camp recommended that she be referred by her PCP to an ENT for this. She also has trouble with sneezing overnight that could be r/t allergies. She si also c/o a constant hungry feeling, this could be r/t the reglan, so will decrease the dose from 10mg to 5mg. She is no longer having diarrhea so will stop viberzi, having more CIC. She is losing wt r/t intentional dieting. She is quite happy about this. ROV 3 mos. Medications: New metoclopramide HCl (Reglan) 5 mg PO QIDACHS 120 tabs 6RF hydrocortisone 2.5% (Proctosol HC) BE SURE TO INCLUDE RECTAL APPICATOR!! 1 appl TX BID 30 grams 6RF hemorrhoids K64.9 - Unspecified hemorrhoids Refilled polyethylene glycol 3350 (Miralax) 17 grams PO DAILY PRN 510 grams 6RF constipation 30 days K58.2 - Mixed irritable bowel syndrome dexlansoprazole (Dexilant) 60 mg PO DAILY 30 caps 6RF K21.00 - Gastro-esophageal reflux disease with esophagitis, without bleeding bisacodyl 10 mg (2 x 5 mg) PO BEDTIME 60 tabs 6RF K59.00 - Constipation, unspecified magnesium oxide 400 mg PO BID 60 tabs 6RF E83.42 - Hypomagnesemia TODAY'S VISIT Portuguese #[id number] She did receive the metoclopramide and she is using it 4 times a day as instructed. She also continues her MiraLax, Dexilant, bisacodyl and magnesium. She was doing well for a while, but recently she is having worse GERD and pain in the upper abdomen. The pain starts immediately upon eating, is worse with the usual GERD triggers, and will stop after about 15 minutes. She denies any new or medication changes, no illness, no diet changes. It is better with Dexilant, and is always worse at night with a lot of acid and burning. Will start famotidine qac supper, get HP stool and barium swallow to investigate. ROV 6 weeks. [facility] Medical History (Updated 01/16/25 @ 16:33 by ALCON Liu) Allergic rhinitis Neck mass Hemorrhoids Macrocytosis Family history of colon cancer Salivary disorder Encounter for well woman exam with routine gynecological exam Pelvic pain Irritable bowel syndrome with both constipation and diarrhea Irritable bowel syndrome with diarrhea Bilateral tennis elbow Weight loss Numbness and tingling in both hands Hypomagnesemia Right shoulder pain Left knee pain Foot callus Foot pain Chest pain Right foot pain Left foot pain Physical exam Vaginal itching Nausea and vomiting Chronic superficial gastritis Bilateral knee pain Bilateral hand pain Hypernatremia Encounter for medication monitoring Pre-op examination URI (upper respiratory infection) Physical exam Right ankle sprain Right hand pain COVID-19 Urinary frequency BV (bacterial vaginosis) Environmental allergies Fibromyalgia Chronic constipation Moderate recurrent major depression RUQ abdominal pain B12 deficiency Urge urinary incontinence Dyslipidemia Essential hypertension Multiple sclerosis Migraine Surgical History History of carpal tunnel surgery of left wrist History of esophagogastroduodenoscopy (EGD) Hx of colonoscopy Hx of foot surgery History of suburethral sling procedure Hx of tubal ligation History of endometrial ablation Hx of submucous nasal surgery Family History Father History of throat cancer Mother Stroke Multiple sclerosis Maternal Grandmother Multiple sclerosis Pancreatic cancer Paternal Grandfather Pancreatic cancer Lung cancer Social History Household Members: Spouse and Children Housing: Apartment Are you a primary care asst to a significant other at home: No Do you presently have visiting nurse or other home services: Yes Alcohol intake: never Patient Tobacco Use Status: Former Tobacco user Years Smoked: Quit 30 years ago e-Cigarette/Vaping Use: Never Used Second Hand Smoke Exposure: No Substance Use Type: Marijuana service: No Current occupational status: student and disabled Cognitive needs: No Hearing needs: No Vision needs: Yes Female Reproductive History Menstrual Age of Menarche: 11 Review of Systems Const Denies fatigue, Denies fever(s), Denies night sweats, Denies poor appetite and Denies weight loss ENT Reports Normal hearing present, Denies dental pain, Denies dysphagia, Denies hearing loss, Denies mouth pain, Denies odynophagia, Denies throat swelling, Denies tongue swelling and Reports other (Dentition adequate) Card Reports no additional complaints Resp Reports no additional complaints GI Details: Reports abdominal pain, Reports belching, Denies melena, Denies bloating, Denies hematochezia, Denies constipation, Denies GI cramping, Denies dysphagia, Denies excessive flatus, Reports early satiety, Reports heartburn, Denies diarrhea, Denies nausea, Denies odynophagia, Denies vomiting and Denies hematemesis Skin/Breast Denies pruritus, Denies lesions, Denies rash and Denies jaundice Neuro Reports Normal hearing present and Denies Abnormal speech present Endo Denies fatigue Aller/Immun Denies throat swelling and Denies tongue swelling Physical Exam Vital Signs: Last Vital Signs Pulse 76 01/09/25 11:50 BP 142/78 H 01/09/25 11:50 Pulse Ox 98 01/09/25 11:50 Oxygen Delivery Method Room Air 01/09/25 11:50 BMI result Body Mass Index 26.3 Const General: cooperative, no acute distress, well developed and well groomed Nutritional Appearance: average body habitus and well nourished Orientation/consciousness: oriented to person, oriented to place and oriented to time Limitations: language barrier HEENT Head: Yes normocephalic and Yes atraumatic Eyes General: appearance normal, both eyes and all related structures Pupils: Equal, round and reactive pupils present Neck Neck: Yes normal visual inspection and Yes no lymphadenopathy Thyroid: Thyroid normal Resp Effort & Inspection: normal respiratory effort and able to speak in complete sentences Auscultation: clear to auscultation bilaterally Cardio Rate: regular rate Rhythm: regular rhythm Heart sounds: Normal, physiologic split S2 sound present Peripheral pulses: radial pulses present and posterior tibial pulses present GI Inspection: No distended and No Abdominal panniculus present Palpation (GI): Soft to palpation, nontender, no guarding, not rigid and No hepatosplenomegaly present Percussion: Yes normal to percussion Auscultation: normal bowel sounds Rectal Exam - Female: deferred Skin General skin exam: no rashes or lesions noted, turgor normal, skin not dry, no jaundice, No spider nevi and no striae Rashes: no rashes Nails: normal Neuro General: oriented to person, oriented to place and oriented to time Cranial nerves: Yes Equal, round and reactive pupils present and Yes Normal hearing present Speech: No Abnormal speech present Extrem General: Yes normal to inspection, No clubbing, No cyanosis and No edema Psych Appearance: grossly normal and well kempt Mental Status: mental status grossly normal Speech and movement: Normal speech and movement present Affect: normal affect Attitude: cooperative Thought process: Normal thought process present and not confabulating Thought content: Normal thought content present Insight: Limited insight present (Psych) Judgement: Limited judgement present (Psych) Assessment & Plan Assessment & Plan (1) Upper abdominal pain: Code(s): R10.10 - Upper abdominal pain, unspecified Category: Medical (2) GERD with esophagitis: Comment: HISTORY of esophageal erosions healed on 02/2020 EGD Code(s): K21.00 - Gastro-esophageal reflux disease with esophagitis, without bleeding Category: Medical Qualifiers: Esophagitis bleeding: without hemorrhage Qualified Code(s): K21.00 - Gastro-esophageal reflux disease with esophagitis, without bleeding (3) Irritable bowel syndrome with both constipation and diarrhea: Code(s): K58.2 - Mixed irritable bowel syndrome Category: Medical (4) Delayed gastric emptying: Code(s): K30 - Functional dyspepsia Category: Medical (5) Multiple sclerosis: Code(s): G35 - Multiple sclerosis Category: Medical Plan Portuguese #[id number] She did receive the metoclopramide and she is using it 4 times a day as instructed. She also continues her MiraLax, Dexilant, bisacodyl and magnesium. She was doing well for a while, but recently she is having worse GERD and pain in the upper abdomen. The pain starts immediately upon eating, is worse with the usual GERD triggers, and will stop after about 15 minutes. She denies any new or medication changes, no illness, no diet changes. It is better with Dexilant, and is always worse at night with a lot of acid and burning. Will start famotidine qac supper, get HP stool and barium swallow to investigate. ROV 6 weeks. Orders: Orders US abdomen complete 01/09/25 R10.10 - Upper abdominal pain, unspecified H pylori Ag Stool 01/09/25 K21.00 - Gastro-esophageal reflux disease with esophagitis, without bleeding FL barium swallow with air 01/09/25 K21.00 - Gastro-esophageal reflux disease with esophagitis, without bleeding Medications: New famotidine (Pepcid) 40 mg PO .qac supper 30 tabs 12RF Refilled dicyclomine 10 mg PO QID PRN 120 caps 3RF for cramps K58.2 - Mixed irritable bowel syndrome bisacodyl 10 mg (2 x 5 mg) PO BEDTIME 60 tabs 6RF K59.00 - Constipation, unspecified dexlansoprazole (Dexilant) 60 mg PO DAILY 30 caps 6RF K21.00 - Gastro-esophageal reflux disease with esophagitis, without bleeding metoclopramide HCl (Reglan) 5 mg PO QIDACHS 120 tabs 6RF Coding Level of Care Code Est Pt Level 3 (82327) Diagnoses Upper abdominal pain R10.10 Gastroesophageal reflux disease with esophagitis without hemorrhage K21.00 Esophagitis bleeding: without hemorrhage Irritable bowel syndrome with both constipation and diarrhea K58.2 Delayed gastric emptying K30 Multiple sclerosis G35
--- OUTSIDE RECORDS SUMMARY | 2025-01-09 11:35 | XMS_ITS | Clinical Summary ---
Author Organization 175 [facility] Address [address] [place] [address] Phone Care Team Providers Care Switchboard Installer Name Role Phone Kareen Burrell MD Primary Care Provider [phone] Allergies Active Allergy Reactions Criticality Noted Date [...] Date Diagnosed Date Asthma 10/11/2011 Multiple sclerosis ([facility] V24, [facility] V28) Osteoarthritis 10/11/2011 Overview (04/17/2024): IMO update Obesity, unspecified 10/11/2011 Hypertension 10/11/2011 Esophageal reflux 10/11/2011 Encounters Date Type Department Care Team Description 12/09/2024 8:00 AM EDT - 12/09/2024 11:59 PM EDT Hospital Encounter [facility] [place] 175 [facility] [address] [place] [phone] Multiple sclerosis ([facility] V24, [facility] V28) (Primary Dx); Vitamin D deficiency Discharge Disposition: Home or Self Care 10/24/2024 4:00 PM EDT Office Visit [facility] [place] 175 [facility] [address] [place] [phone] Alyssa Kauffman MD Urinary symptom or sign [...] Care Team (Late st Contact Info) Description 02/24/2025 4:00 PM EDT Office Visit [facility] [place] 175 [facility] [address] [place] [address] Aubree Renee PA 175 [facility] [address] [place] [address] 06/09/2025 8:00 AM EST Appointment [facility] [place] [facility] [place] [address] [phone] Health Maintenance Due Date Last [...] Patient-Stated? Author LTGs General No Dagoberto Buck, SUPPLY TECH Note: Pt will report no falls x2 [...] Routine 12/09/2024 8:25 AM EDT Multiple sclerosis ([facility]CC V24, [facility] V28) CBC AND DIFFERENTIAL Routine 12/09/2024 8:25 AM EDT Multiple sclerosis ([facility]/HCC V24, [facility] V28) CREATININE, SERUM Routine 06/10/2024 8:3 5 AM EST from Last 3 Months or Most Recently Relevant to Health Maintenance Results * (ABNORMAL) CBC auto differential (12/09/2024 8:25 AM EDT) WBC 4.5(L) 4.8 - 10.8 K/[facility] LAB HEMETOLOGY METHOD 12/09/2024 10:35 AM [facility] LAB RBC 4.30 3.80 - 4.80 M/[facility] LAB HEMETOLOGY METHOD 12/09/2024 10:35 AM [facility] LAB Hemoglobin 14.0 11.5 - 16.0 g/dL LAB HEMETOLOGY METHOD 12/09/2024 10:35 AM [facility] LAB Hematocrit 41.5 35.0 - 47.0 % LAB HEMETOLOGY METHOD 12/09/2024 10:35 AM [facility] LAB MCV 97.2 79.0 - 98.0 FL LAB HEMETOLOGY METHOD 12/09/2024 10:35 AM [facility] LAB MCH 32.8(H) 27.0 - 32.0 pcg LAB HEMETOLOGY METHOD 12/09/2024 10:35 AM [facility] LAB MCHC 33.7 32.0 - 37.0 g/dL LAB HEMETOLOGY METHOD 12/09/2024 10:35 AM [facility] LAB RDW 11.9 11.0 - 15.0 % LAB HEMETOLOGY METHOD 12/09/2024 10:35 AM [facility] LAB Platelets 237 130 - 400 K/mcL LAB HEMETOLOGY METHOD 12/09/2024 10:35 AM [facility] LAB MPV 11.3(H) 7.0 - 11.0 FL LAB HEMETOLOGY METHOD 12/09/2024 10:35 AM [facility] LAB NRBC 0.0 <1.0 % LAB HEMETOLOGY METHOD 12/09/2024 10:35 AM [facility] LAB NRBC Absolute 0.00 <0.10 K/mcL LAB HEMETOLOGY METHOD 12/09/2024 10:35 AM [facility] LAB Neutrophils Relative 56.4 % LAB HEMETOLOGY METHOD 12/09/2024 10:35 AM [facility] LAB Lymphocytes Relative 32.1 % LAB HEMETOLOGY METHOD 12/09/2024 10:35 AM [facility] LAB Monocytes Relative 9.2 % LAB HEMETOLOGY METHOD 12/09/2024 10:35 AM [facility] LAB Eosinophils Relative 1.6 % LAB HEMETOLOGY METHOD 12/09/2024 10:35 AM [facility] Basophils Relative 0.7 % LAB HEMETOLOGY METHOD 12/09/2024 10:35 AM [facility] LAB Immature Granulocytes Relative 0.0 % LAB HEMETOLOGY METHOD 12/09/2024 10:35 AM [facility] LAB Neutrophils Absolute 2.53 1.50 - 7.00 K/mcL LAB HEMETOLOGY METHOD 12/09/2024 10:35 AM EDT [facility] LAB Lymphocytes Absolute 1.44 1.00 - 5.00 K/mcL LAB HEMETOLOGY METHOD 12/09/2024 10:35 AM EDT [facility] LAB Monocytes Absolute 0.41 0.20 - 1.00 K/mcL LAB HEMETOLOGY METHOD 12/09/2024 10:35 AM EDT [facility] LAB Eosinophils Absolute 0.07 0.00 - 0.50 K/[facility] LAB HEMETOLOGY METHOD 12/09/2024 10:35 AM EDT [facility] LAB Basophils Absolute 0.03 0.00 - 0.20 K/mcL LAB HEMETOLOGY METHOD 12/09/2024 10:35 AM EDT [facility] LAB Immature Granulocytes Absolute 0.00 0.00 - 0.03 K/[facility] LAB HEMETOLOGY METHOD 12/09/2024 10:35 AM EDT [facility] Blood Venous blood specimen / Unknown Venipuncture / Unknown 12/09/2024 8:25 AM EDT 12/09/2024 8:25 AM EDT Aubree LYNN LAB BLOOD ORDERABLES Final R esult [facility] [address] [place] [address], * Creatinine (06/10/2024 8:35 AM EST) Creatinine 0.68 0.50 - 1.10 mg/dL LAB CHEMISTRY METHOD 06/10/2024 5:25 PM EST [facility] LAB eGFR 102 >=60 mL/min/1. 73m2 LAB CHEMISTRY METHOD 06/10/2024 5:25 PM EST [facility] LAB Comment:Calculation based on the??Chronic Kidney Disease Epidemiology Collaboration (CKD-EPI) equation refit??without adjustment for race. Blood Venous blood specimen / Unknown Venipuncture / Unknown 06/10/2024 8:35 AM EST 06/10/2024 8:36 AM EST us Aubree LYNN LAB BLOOD ORDERABLES Final R esult [facility] [address] [place] [address], from Last 3 Months or Most Recently Relevant to Health Maintenance Insurance [place] [address] [employer]ALTH PLAN Care Teams Switchboard Installer Relationship Specialty Start Date End Date Kareen Burrell MD 2 [facility] , [address] [facility] Physician Associ D/B/A: [facility] [place], [place] PCP - General 12/13/19
[2025-01-09 11:50] VITALS: BP 142/78; PULSE 76; O2SAT 98; BMI 26.3
== END 2025-01-09 12:18 | disposition home or self-care (01) ==
LOC: HO.HGI 10:45
PROVIDERS: PCP Internal Medicine; Visit Provider Nurse Practitioner
DX: R10.10 Upper abdominal pain, unspecified (principal); K21.00 Gastro-esophageal reflux disease with esophagitis, without bleeding; K58.2 Mixed irritable bowel syndrome; K30 Functional dyspepsia; G35 Multiple sclerosis
CPT/HCPCS: 99213

== ENCOUNTER → 2025-01-09 10:44 | Outpatient (BNVA) | payer OTHER, SELFPAY | PROVIDERS: PCP Internal Medicine; Visit Provider Nurse Practitioner | DX: R10.10 Upper abdominal pain, unspecified (principal); K21.00 Gastro-esophageal reflux disease with esophagitis, without bleeding; K58.2 Mixed irritable bowel syndrome; K30 Functional dyspepsia; G35 Multiple sclerosis | CPT/HCPCS: 99212 ==

== ENCOUNTER 2025-01-13 07:33 | Outpatient (AMB) | payer OTHER, SELFPAY ==
[2025-01-13 07:34] VITALS: BMI 26.3
--- NOTE | 2025-01-13 07:34 | A.OFFVIS_ITS ---
Vital Signs 01/13/25 07:34 Height 5 ft 2 in Weight 144 lb BMI 26.3 Intake Visit Reasons: vaginal discomfort Statistical Methods Teacher Required: Yes Statistical Methods Teacher Language: Jail Officer Services: Statistical Methods Teacher Present (in person) Statistical Methods Teacher Name: Farhana RIZO Information Interpreted: non-clinical & clinical Lieutenant/Deputy: Lieutenant/Deputy Present (Farhana RIZO) Accompanied by: Self / Same As Patient Allergies almond Allergy (Severe, Verified 01/13/25 07:35) ANAPHYLAXIS kiwi Allergy (Severe, Verified 01/13/25 07:35) Itching peach [PEACH] Allergy (Severe, Verified 01/13/25 07:35) ANAPHYLAXIS walnut Allergy (Severe, Verified 01/13/25 07:35) ANAPHYLAXIS morphine Allergy (Intermediate, Verified 01/13/25 07:35) ITCHING, hives, swelling,itchiness Post menopausal: Yes HPI Comments Details: Patient is here today with complaints of lower left quadrant intermittent throbbing pain for the last week, burning on urination x 2d, and external itching. History of constipation no bowel movement in 2 days. She denies any vaginal discharge or odors. Admits discomfort with the intimacy. [facility] Medical History Encounter for well woman exam with routine gynecological exam Pelvic pain Irritable bowel syndrome with both constipation and diarrhea Irritable bowel syndrome with diarrhea Bilateral tennis elbow Weight loss Numbness and tingling in both hands Hypomagnesemia Right shoulder pain Left knee pain Foot callus Foot pain Chest pain Right foot pain Left foot pain Physical exam Vaginal itching Nausea and vomiting Chronic superficial gastritis Bilateral knee pain Bilateral hand pain Hypernatremia Encounter for medication monitoring Pre-op examination URI (upper respiratory infection) Physical exam Right ankle sprain Right hand pain COVID-19 Urinary frequency BV (bacterial vaginosis) Environmental allergies Fibromyalgia Chronic constipation Moderate recurrent major depression RUQ abdominal pain B12 deficiency Allergic rhinitis Urge urinary incontinence Dyslipidemia Essential hypertension Multiple sclerosis Salivary disorder Migraine Surgical History History of carpal tunnel surgery of left wrist History of esophagogastroduodenoscopy (EGD) Hx of colonoscopy Hx of foot surgery History of suburethral sling procedure Hx of tubal ligation History of endometrial ablation Hx of submucous nasal surgery Family History Father History of throat cancer Mother Stroke Multiple sclerosis Maternal Grandmother Multiple sclerosis Pancreatic cancer Paternal Grandfather Pancreatic cancer Lung cancer Social History Household Members: Spouse and Children Housing: Apartment Are you a primary administrator health care facility to a significant other at home: No Do you presently have visiting nurse or other home services: Yes Alcohol intake: never Patient Tobacco Use Status: Former Tobacco user Years Smoked: Quit 30 years ago e-Cigarette/Vaping Use: Never Used Second Hand Smoke Exposure: No Substance Use Type: Marijuana service: No Current occupational status: student and disabled Cognitive needs: No Hearing needs: No Vision needs: Yes Female Reproductive History Menstrual Age of Menarche: 11 Review of Systems Const All systems reviewed & are unremarkable except as noted in HPI and below Physical Exam Vital Signs: BMI result Body Mass Index 26.3 Const General: cooperative, healthy appearing and no acute distress Orientation/consciousness: patient oriented x3 GI Inspection: Yes normal to inspection Palpation (GI): Soft to palpation and Other GI palpation findings present (Nontender) Rectal Exam - Female: visual inspection normal Other: Atrophic changes externally, no lesions, edema or erythema General: Yes bladder normal to palpation External Female Exam: normal appearance of the urethra Speculum Exam - Vagina: normal appearance of the vagina, normal palpation, normal vaginal discharge (Clear no visible discharge on vaginal echavarria were posterior vault) and vagina atrophic Speculum Exam - Cervix: normal appearance of the cervix and normal palpation Bimanual exam- vagina & uterus: normal bimanual exam, normal palpation, uterine size normal, bladder normal to palpation, normal palpation, uterine shape normal and non-tender Bimanual Exam- Adnexa, other: normal adnexae Neuro General: patient oriented x3 Results AMB Urinalysis Dipstick UR Leukocytes Trace Last Edit by Farhana Ladd CMA on 01/13/25 07:50 UR Nitrite Negative Last Edit by Farhana Ladd CMA on 01/13/25 07:50 UR Urobilinogen Normal Last Edit by Farhana Ladd CMA on 01/13/25 07:50 UR Protein Trace Last Edit by Farhana Ladd CMA on 01/13/25 07:50 UR Ph 6.0 Last Edit by Farhana Ladd CMA on 01/13/25 07:50 UR Blood Negative Last Edit by Farhana Ladd CMA on 01/13/25 07:50 UR Specific [place] 1.015 Last Edit by Farhana Ladd CMA on 01/13/25 07:50 UR Ketone Negative Last Edit by Farhana Ladd CMA on 01/13/25 07:50 UR Bilirubin Negative Last Edit by Farhana Ladd CMA on 01/13/25 07:50 UR Glucose Negative Last Edit by Farhana Ladd CMA on 01/13/25 07:50 Results Reviewed Results Reviewed: Laboratory Last Values Urine pH (Clinic) 6.0 01/13/25 07:49 Specific [place] (Clinic) 1.015 01/13/25 07:49 Ur Protein (Clinic) Trace 01/13/25 07:49 Ur Ketones (Clinic) Negative 01/13/25 07:49 Urine Blood (Clinic) Negative 01/13/25 07:49 Urine Nitrite Negative 01/13/25 07:49 Urine Bilirubin (Clinic) Negative 01/13/25 07:49 Urobilinogen (Clinic) Normal 01/13/25 07:49 Leukocyte Esterase (Clinic) Trace 01/13/25 07:49 Urine Glucose (Clinic) Negative 01/13/25 07:49 Assessment & Plan Assessment & Plan (1) Pelvic pain: Code(s): R10.2 - Pelvic and perineal pain Category: Medical Plan: Plan pelvic ultrasound and follow up in person for test results. Advised to call if there is any increase in pelvic pain for sooner evaluation if severe pain to go to the emergency room immediately for care. Advised to continue with self care with diet and exercise exar-hyf-[id number] medications to prevent constipation. Increase fiber and fluids. Has follow up with GI. Lower abdominal pain can be caused by multiple factors urinary system, GI, pelvic, musculoskeletal, unknown etiology. The patient expressed understanding and agreement with the plan of care. All of her questions and concerns were addressed to the best of my ability. (2) Dysuria: Code(s): R30.0 - Dysuria Plan: Advised to hydrate well throughout the day. Urine dip trace leukocytes, protein. Urine culture ordered await results for plan of care. (3) Vaginal itching: Code(s): N89.8 - Other specified noninflammatory disorders of vagina Plan GC chlamydia and BV panel obtained await results for plan of care. The patient expressed understanding and agreement with the plan of care. All of her questions and concerns were addressed to the best of my ability. This note is constructed using voice recognition software. While every effort has been made to ensure accuracy, multiple drum sander errors may have been included. Orders: Orders US pelvic and transvaginal Today R10.2 - Pelvic and perineal pain CT NG by PCR Today R10.2 - Pelvic and perineal pain Bacterial Vaginosis Panel Today R10.2 - Pelvic and perineal pain Urine Culture Today R10.2 - Pelvic and perineal pain AMB Urinalysis Dipstick Today R10.2 - Pelvic and perineal pain Coding Level of Care Code Est Pt Level 3 (82253) Diagnoses Pelvic pain R10.2 Dysuria R30.0 Vaginal itching N89.8
--- OUTSIDE RECORDS SUMMARY | 2025-01-13 07:35 | XMS_ITS | Clinical Summary ---
Author Organization 175 [facility] Address [address] [place] [address] Phone Care Team Providers Care Technical Illustrator Name Role Phone Kareen Burrell MD Primary Care Provider [phone] Allergies Active Allergy Reactions Criticality Noted Date [...] Date Diagnosed Date Asthma 10/11/2011 Multiple sclerosis ([facility] V24, [facility] V28) Osteoarthritis 10/11/2011 Overview (04/17/2024): IMO update Obesity, unspecified 10/11/2011 Hypertension 10/11/2011 Esophageal reflux 10/11/2011 Encounters Date Type Department Care Team Description 12/09/2024 8:00 AM EDT - 12/09/2024 11:59 PM EDT Hospital Encounter [facility] [place] 175 [facility] [address] [place] [phone] Multiple sclerosis (CMS/[facility] V24, [facility] V28) (Primary Dx); Vitamin D deficiency Discharge Disposition: Home or Self Care 10/24/2024 4:00 PM EDT Office Visit [facility] [place] 175 [facility] [address] [place] [phone] Alyssa Kauffman MD Urinary symptom or sign [...] 02/24/2025 4:00 PM EDT Office Visit [facility] [place] 175 [facility] [address] [place] [address] Aubree Renee PA 175 [facility] [address] [place] [address] 06/09/2025 8:00 AM EST Appointment [facility] [place] [facility] - [place] [address] [phone] Health Maintenance Due Date Last [...] Patient-Stated? Author LTGs General No Dagoberto Buck, TELECOMMUNICATIONS SALES REPRESENTATIVE Note: Pt will report no falls x2 [...] Routine 12/09/2024 8:25 AM EDT Multiple sclerosis ([facility] V24, [facility] V28) CBC AND DIFFERENTIAL Routine 12/09/2024 8:25 AM EDT Multiple sclerosis ([facility] V24, [facility] V28) CREATININE, SERUM Routine 06/10/2024 8:3 5 AM EST from Last 3 Months or Most Recently Relevant to Health Maintenance Results * (ABNORMAL) CBC auto differential (12/09/2024 8:25 AM EDT) WBC 4.5(L) 4.8 - 10.8 K/[facility] LAB HEMETOLOGY METHOD 12/09/2024 10:35 AM [facility] RBC 4.30 3.80 - 4.80 M/[facility] LAB HEMETOLOGY METHOD 12/09/2024 10:35 AM [facility] LAB Hemoglobin 14.0 11.5 - 16.0 g/dL LAB HEMETOLOGY METHOD 12/09/2024 10:35 AM [facility] LAB Hematocrit 41.5 35.0 - 47.0 % LAB HEMETOLOGY METHOD 12/09/2024 10:35 AM [facility] LAB MCV 97.2 79.0 - 98.0 FL LAB HEMETOLOGY METHOD 12/09/2024 10:35 AM [facility] LAB MCH 32.8(H) 27.0 - 32.0 pcg LAB HEMETOLOGY METHOD 12/09/2024 10:35 AM [facility] MCHC 33.7 32.0 - 37.0 g/dL LAB HEMETOLOGY METHOD 12/09/2024 10:35 AM [facility] LAB RDW 11.9 11.0 - 15.0 % LAB HEMETOLOGY METHOD 12/09/2024 10:35 AM [facility] LAB Platelets 237 130 - 400 K/mcL LAB HEMETOLOGY METHOD 12/09/2024 10:35 AM [facility] MPV 11.3(H) 7.0 - 11.0 FL LAB HEMETOLOGY METHOD 12/09/2024 10:35 AM [facility] LAB NRBC 0.0 <1.0 % LAB HEMETOLOGY METHOD 12/09/2024 10:35 AM [facility] NRBC Absolute 0.00 <0.10 K/mcL LAB HEMETOLOGY METHOD 12/09/2024 10:35 AM [facility] Neutrophils Relative 56.4 % LAB HEMETOLOGY METHOD 12/09/2024 10:35 AM [facility] Lymphocytes Relative 32.1 % LAB HEMETOLOGY METHOD 12/09/2024 10:35 AM [facility] Monocytes Relative 9.2 % LAB HEMETOLOGY METHOD 12/09/2024 10:35 AM [facility] Eosinophils Relative 1.6 % LAB HEMETOLOGY METHOD 12/09/2024 10:35 AM [facility] Basophils Relative 0.7 % LAB HEMETOLOGY METHOD 12/09/2024 10:35 AM [facility] Immature Granulocytes Relative 0.0 % LAB HEMETOLOGY METHOD 12/09/2024 10:35 AM [facility] Neutrophils Absolute 2.53 1.50 - 7.00 K/mcL LAB HEMETOLOGY METHOD 12/09/2024 10:35 AM EDT [facility] Lymphocytes Absolute 1.44 1.00 - 5.00 K/mcL LAB HEMETOLOGY METHOD 12/09/2024 10:35 AM EDT [facility] Monocytes Absolute 0.41 0.20 - 1.00 K/mcL LAB HEMETOLOGY METHOD 12/09/2024 10:35 AM EDT [facility] Eosinophils Absolute 0.07 0.00 - 0.50 K/[facility] LAB HEMETOLOGY METHOD 12/09/2024 10:35 AM EDT [facility] Basophils Absolute 0.03 0.00 - 0.20 K/mcL LAB HEMETOLOGY METHOD 12/09/2024 10:35 AM EDT [facility] Immature Granulocytes Absolute 0.00 0.00 - 0.03 K/[facility] LAB HEMETOLOGY METHOD 12/09/2024 10:35 AM EDT [facility] Blood Venous blood specimen / Unknown Venipuncture / Unknown 12/09/2024 8:25 AM EDT 12/09/2024 8:25 AM EDT Aubree LYNN LAB BLOOD ORDERABLES Final R esult [facility] [address] [place] [address], * Creatinine (06/10/2024 8:35 AM EST) Creatinine 0.68 0.50 - 1.10 mg/dL LAB CHEMISTRY METHOD 06/10/2024 5:25 PM EST [facility] eGFR 102 >=60 mL/min/1. 73m2 LAB CHEMISTRY METHOD 06/10/2024 5:25 PM EST [facility] Comment:Calculation based on the??Chronic Kidney Disease Epidemiology Collaboration (CKD-EPI) equation refit??without adjustment for race. Blood Venous blood specimen / Unknown Venipuncture / Unknown 06/10/2024 8:35 AM EST 06/10/2024 8:36 AM EST us Aubree LYNN LAB BLOOD ORDERABLES Final R esult [facility] ([facility] [address] [place] [address], from Last 3 Months or Most Recently Relevant to Health Maintenance [place] [address] [place] [address] HEALTH PLAN Care Teams Technical Illustrator Relationship Specialty Start Date End Date Kareen Burrell MD 2 [facility] , [address] [facility] Physician Associ D/B/A: [facility] Internal [facility] [place], [place] PCP - General 12/13/19
== END 2025-01-13 08:12 | disposition home or self-care (01) ==
LOC: HO.HWS 07:33
PROVIDERS: PCP Internal Medicine; Visit Provider Advanced Practice Midwife
DX: R10.2 Pelvic and perineal pain (principal); R30.0 Dysuria; N89.8 Other specified noninflammatory disorders of vagina
CPT/HCPCS: 99213

== ENCOUNTER 2025-01-13 07:33 | Outpatient (REF) | payer OTHER, SELFPAY ==
[2025-01-13 17:14] LABS: Bacterial Vaginosis PCR NEGATIVE (Negative); Candida Group PCR NOT DETECTED (Not Detect); Candida glab krusei PCR NOT DETECTED (Not Detect); Trichomonas vaginalis PCR NOT DETECTED (Not Detect)
[2025-01-13 17:47] LABS: CT PCR NOT DETECTED (Not Detect.); NG PCR NOT DETECTED (Not Detect.)
== END 2025-01-13 07:34 | disposition home or self-care (01) ==
LOC: HO.LNP 07:33
PROVIDERS: PCP Internal Medicine; Visit Provider Advanced Practice Midwife
DX: R10.2 Pelvic and perineal pain (principal)
CPT/HCPCS: 81002; 81515; 87086; 87491; 87591; 99212

== ENCOUNTER 2025-01-14 14:58 | Outpatient (REF) | payer OTHER, SELFPAY ==
--- NOTE | ~2025-01-14 | US_ITS ---
EXAMINATION: US PELVIS TRANSABDOMINAL AND TRANSVAGINAL HISTORY: R10.2 - Pelvic and perineal pain COMPARISON: Comparison is made with the prior examination dated 10/11/2021. TECHNIQUE: Transabdominal and endovaginal real-time 2D henderson-scale ultrasound was performed. FINDINGS: Uterus: The uterus is normal in size, measuring 7.4 x 2.1 x 3.9 cm. Myometrium has a normal echotexture. No fibroids are identified. Endometrium: The endometrial stripe measures 2 mm in thickness. There are nabothian cysts in the cervix. Right ovary: The right ovary measures 2.8 x 1.4 x 2.1 cm. The right ovary is normal in size and echotexture. Left ovary: The left ovary measures 2.1 x 1.8 x 2.3 cm. The left ovary is normal in size and echotexture. Pelvic fluid: none. US/US pelvic and transvaginal IMPRESSION: Unremarkable pelvic ultrasound. Electronically signed by: Martin Valera MD 01/14/2025 03:44 PM EDT
--- OUTSIDE RECORDS SUMMARY | 2025-01-14 17:13 | XMS_ITS | Clinical Summary ---
Author Organization 175 [facility] Address 175 [place] [address] Phone Care Team Providers Care Associate Professor Of Chemistry Name Role Phone Kareen Burrell MD Primary Care Provider [phone] Allergies Active Allergy Reactions Criticality Noted Date [...] Date Diagnosed Date Asthma 10/11/2011 Multiple sclerosis ([facility] V24, [facility] V28) Osteoarthritis 10/11/2011 Overview (04/17/2024): IMO update Obesity, unspecified 10/11/2011 Hypertension 10/11/2011 Esophageal reflux 10/11/2011 Encounters Date Type Department Care Team Description 12/09/2024 8:00 AM EDT - 12/09/2024 11:59 PM EDT Hospital Encounter [facility] [place] 175 [facility] [address] [place] [phone] Multiple sclerosis ([facility] V24, [facility] V28) (Primary Dx); Vitamin D deficiency Discharge Disposition: Home or Self Care 10/24/2024 4:00 PM EDT Office Visit [facility] [place] 175 [facility] [address] [place] [phone] Alyssa Kauffman MD Urinary symptom or sign [...] Description 02/24/2025 4:00 PM EDT Office Visit [facility] [place] 175 [facility] [address] [place] [address] Aubree Renee PA 175 [facility] 150 [place] [address] 06/09/2025 8:00 AM EST Appointment [facility] [place] Outpatient Rehabilititation - [place] [address] [phone] Health Maintenance Due Date Last [...] Patient-Stated? Author LTGs General No Dagoberto Buck, MATERIALS ANALYST Note: Pt will report no falls x2 [...] Routine 12/09/2024 8:25 AM EDT Multiple sclerosis ([facility] V24, [facility] V28) CBC AND DIFFERENTIAL Routine 12/09/2024 8:25 AM EDT Multiple sclerosis ([facility] V24, [facility] V28) CREATININE, SERUM Routine 06/10/2024 8:3 5 AM EST from Last 3 Months or Most Recently Relevant to Health Maintenance Results * (ABNORMAL) CBC auto differential (12/09/2024 8:25 AM EDT) WBC 4.5(L) 4.8 - 10.8 K/[facility] LAB HEMETOLOGY METHOD 12/09/2024 10:35 AM [facility] RBC 4.30 3.80 - 4.80 M/[facility] LAB HEMETOLOGY METHOD 12/09/2024 10:35 AM [facility] Hemoglobin 14.0 11.5 - 16.0 g/dL LAB HEMETOLOGY METHOD 12/09/2024 10:35 AM [facility] Hematocrit 41.5 35.0 - 47.0 % LAB HEMETOLOGY METHOD 12/09/2024 10:35 AM [facility] MCV 97.2 79.0 - 98.0 FL LAB HEMETOLOGY METHOD 12/09/2024 10:35 AM [facility] MCH 32.8(H) 27.0 - 32.0 pcg LAB HEMETOLOGY METHOD 12/09/2024 10:35 AM [facility] MCHC 33.7 32.0 - 37.0 g/dL LAB HEMETOLOGY METHOD 12/09/2024 10:35 AM [facility] RDW 11.9 11.0 - 15.0 % LAB HEMETOLOGY METHOD 12/09/2024 10:35 AM [facility] Platelets 237 130 - 400 K/mcL LAB HEMETOLOGY METHOD 12/09/2024 10:35 AM [facility] MPV 11.3(H) 7.0 - 11.0 FL LAB HEMETOLOGY METHOD 12/09/2024 10:35 AM [facility] NRBC 0.0 <1.0 % LAB HEMETOLOGY METHOD 12/09/2024 10:35 AM [facility] NRBC Absolute 0.00 <0.10 K/mcL LAB HEMETOLOGY METHOD 12/09/2024 10:35 AM [facility] Neutrophils Relative 56.4 % LAB HEMETOLOGY METHOD 12/09/2024 10:35 AM [facility] Lymphocytes Relative 32.1 % LAB HEMETOLOGY METHOD 12/09/2024 10:35 AM [facility] Monocytes Relative 9.2 % LAB HEMETOLOGY METHOD 12/09/2024 10:35 AM [facility] Eosinophils Relative 1.6 % LAB HEMETOLOGY METHOD 12/09/2024 10:35 AM [facility] Basophils Relative 0.7 % LAB HEMETOLOGY METHOD 12/09/2024 10:35 AM [facility] Immature Granulocytes Relative 0.0 % LAB HEMETOLOGY METHOD 12/09/2024 10:35 AM [facility] Neutrophils Absolute 2.53 1.50 - 7.00 K/mcL LAB HEMETOLOGY METHOD 12/09/2024 10:35 AM EDT [facility] Lymphocytes Absolute 1.44 1.00 - 5.00 K/mcL LAB HEMETOLOGY METHOD 12/09/2024 10:35 AM EDT [facility] Monocytes Absolute 0.41 0.20 - 1.00 K/mcL LAB HEMETOLOGY METHOD 12/09/2024 10:35 AM EDT [facility] Eosinophils Absolute 0.07 0.00 - 0.50 K/[facility] LAB HEMETOLOGY METHOD 12/09/2024 10:35 AM EDT [facility] Basophils Absolute 0.03 0.00 - 0.20 K/mcL LAB HEMETOLOGY METHOD 12/09/2024 10:35 AM EDT [facility] Immature Granulocytes Absolute 0.00 0.00 - 0.03 K/[facility] LAB HEMETOLOGY METHOD 12/09/2024 10:35 AM EDT [facility] Blood Venous blood specimen / Unknown Venipuncture / Unknown 12/09/2024 8:25 AM EDT 12/09/2024 8:25 AM EDT Aubree LYNN LAB BLOOD ORDERABLES Final R esult [facility] [address] [place] [address], * Creatinine (06/10/2024 8:35 AM EST) Creatinine 0.68 0.50 - 1.10 mg/dL LAB CHEMISTRY METHOD 06/10/2024 5:25 PM EST [facility] eGFR 102 >=60 mL/min/1. 73m2 LAB CHEMISTRY METHOD 06/10/2024 5:25 PM EST [facility] Comment:Calculation based on the??Chronic Kidney Disease Epidemiology Collaboration (CKD-EPI) equation refit??without adjustment for race. Blood Venous blood specimen / Unknown Venipuncture / Unknown 06/10/2024 8:35 AM EST 06/10/2024 8:36 AM EST us Aubree LYNN LAB BLOOD ORDERABLES Final R esult [facility] [address] [place] [address], from Last 3 Months or Most Recently Relevant to Health Maintenance [place] [address] [employer]ALTH PLAN Care Teams Associate Professor Of Chemistry Relationship Specialty Start Date End Date Kareen Burrell MD 2 [facility] , [address] [facility] Physician Associ D/B/A: Juliane Associatisofy In Internal Medicine [place], [place] PCP - General 12/13/19
== END 2025-01-14 14:59 | disposition home or self-care (01) ==
LOC: HO.US 14:58
PROVIDERS: PCP Internal Medicine; Visit Provider Advanced Practice Midwife
DX: R10.2 Pelvic and perineal pain (principal)
CPT/HCPCS: 76830; 76856

== ENCOUNTER → 2025-01-14 14:59 | Outpatient (BNV) | payer OTHER, SELFPAY | PROVIDERS: PCP Internal Medicine; Visit Provider Radiology Diagnostic Radiology | DX: R10.2 Pelvic and perineal pain (principal) | CPT/HCPCS: 76830; 76856 ==

== ENCOUNTER 2025-01-20 12:52 | Outpatient (AMB) | payer OTHER, SELFPAY ==
--- NOTE | 2025-01-20 12:54 | A.OFFVIS_ITS ---
Vital Signs 01/20/25 12:59 BP 124/66 Intake Visit Reasons: ultrasound follow up Bullet Slugs Inspector Required: Yes Bullet Slugs Inspector Language: Blindstitch Hemmer Name: Gemma [id number] Information Interpreted: non-clinical & clinical Mobile Pet Groomer: Mobile Pet Groomer Present Allergies almond Allergy (Severe, Verified 01/20/25 12:58) ANAPHYLAXIS kiwi Allergy (Severe, Verified 01/20/25 12:58) Itching peach [PEACH] Allergy (Severe, Verified 01/20/25 12:58) ANAPHYLAXIS walnut Allergy (Severe, Verified 01/20/25 12:58) ANAPHYLAXIS morphine Allergy (Intermediate, Verified 01/20/25 12:58) ITCHING, hives, swelling,itchiness Is last menstrual period known: Yes HPI Comments Details: Patient is here today for a follow up pelvic ultrasound results. History of an occasional left-sided pelvic pain has resolved since her last visit. [facility] Medical History Allergic rhinitis Neck mass Hemorrhoids Macrocytosis Family history of colon cancer Salivary disorder Encounter for well woman exam with routine gynecological exam Pelvic pain Irritable bowel syndrome with both constipation and diarrhea Irritable bowel syndrome with diarrhea Bilateral tennis elbow Weight loss Numbness and tingling in both hands Hypomagnesemia Right shoulder pain Left knee pain Foot callus Foot pain Chest pain Right foot pain Left foot pain Physical exam Vaginal itching Nausea and vomiting Chronic superficial gastritis Bilateral knee pain Bilateral hand pain Hypernatremia Encounter for medication monitoring Pre-op examination URI (upper respiratory infection) Physical exam Right ankle sprain Right hand pain COVID-19 Urinary frequency BV (bacterial vaginosis) Environmental allergies Fibromyalgia Chronic constipation Moderate recurrent major depression RUQ abdominal pain B12 deficiency Urge urinary incontinence Dyslipidemia Essential hypertension Multiple sclerosis Migraine Surgical History History of carpal tunnel surgery of left wrist History of esophagogastroduodenoscopy (EGD) Hx of colonoscopy Hx of foot surgery History of suburethral sling procedure Hx of tubal ligation History of endometrial ablation Hx of submucous nasal surgery Family History Father History of throat cancer Mother Stroke Multiple sclerosis Maternal Grandmother Multiple sclerosis Pancreatic cancer Paternal Grandfather Pancreatic cancer Lung cancer Social History Household Members: Spouse and Children Housing: Apartment Are you a primary career based intervention coordinator to a significant other at home: No Do you presently have visiting nurse or other home services: Yes Alcohol intake: never Patient Tobacco Use Status: Former Tobacco user Years Smoked: Quit 30 years ago e-Cigarette/Vaping Use: Never Used Second Hand Smoke Exposure: No Substance Use Type: Marijuana service: No Current occupational status: student and disabled Cognitive needs: No Hearing needs: No Vision needs: Yes Female Reproductive History Menstrual Age of Menarche: 11 Review of Systems Const All systems reviewed & are unremarkable except as noted in HPI and below Endo Reports no additional complaints Physical Exam Const General: cooperative, healthy appearing and no acute distress Psych Appearance: well kempt Attitude: cooperative Thought process: Normal thought process present Results Reviewed Results Reviewed: [address] [address] Ultrasound Report Signed Patient: Yola Magana MR#: [id number] : 1965 Acct:[id number] Age/Sex: 59 / F ADM Date: 01/14/25 Loc: HO.US Attending Dr: Dawna Rubio CNM Ordering Physician: Dawna Rubio CNM Date of Service: 01/14/25 Procedure(s): US pelvic and transvaginal Accession Number(s): [id number] cc: Dawna Rubio CNM; Kareen Mark MD~ EXAMINATION: US PELVIS TRANSABDOMINAL AND TRANSVAGINAL HISTORY: R10.2 - Pelvic and perineal pain COMPARISON: Comparison is made with the prior examination dated 10/11/2021. TECHNIQUE: Transabdominal and endovaginal real-time 2D henderson-scale ultrasound was performed. FINDINGS: Uterus: The uterus is normal in size, measuring 7.4 x 2.1 x 3.9 cm. Myometrium has a normal echotexture. No fibroids are identified. Endometrium: The endometrial stripe measures 2 mm in thickness. There are nabothian cysts in the cervix. Right ovary: The right ovary measures 2.8 x 1.4 x 2.1 cm. The right ovary is normal in size and echotexture. Left ovary: The left ovary measures 2.1 x 1.8 x 2.3 cm. The left ovary is normal in size and echotexture. Pelvic fluid: none. US/US pelvic and transvaginal IMPRESSION: Unremarkable pelvic ultrasound. Electronically signed by: Martin Valera MD 01/14/2025 03:44 PM EDT Dictated By: Martin Valera MD Signed By: <Electronically signed by Martin Valera MD in OV> 01/14/25 1544 DD/ 1512 TD/TT: 01/14/25 1523 Wire Twister: Assessment & Plan Assessment & Plan (1) Pelvic pain: Code(s): R10.2 - Pelvic and perineal pain Category: Medical Plan: Pain is resolved, advised to call back if recurs. Other causes can be contributed from GI system, observe any patterns for now. Annual exam is scheduled January of 2026. The patient expressed understanding and agreement with the plan of care. All of her questions and concerns were address ed to the best of my ability. (2) Encounter to discuss test results: Code(s): Z71.2 - Person consulting for explanation of examination or test findings Plan Discussed ultrasound findings-unremarkable. The patient expressed understanding and agreement with the plan of care. All of her questions and concerns were addressed to the best of my ability. This note is constructed using voice recognition software. While every effort has been made to ensure accuracy, graphic arts instructor errors may have been included. Coding Level of Care Code Est Pt Level 3 (46353) Diagnoses Pelvic pain R10.2 Encounter to discuss test results Z71.2
[2025-01-20 12:59] VITALS: BP 124/66
--- OUTSIDE RECORDS SUMMARY | 2025-01-20 14:34 | XMS_ITS | Clinical Summary ---
Author Organization 175 [facility] Address 175 [place] [address] Phone Care Team Providers Care Order Entry Technician Name Role Phone Kareen Burrell MD Primary Care Provider [phone] Allergies Active Allergy Reactions Criticality Noted Date [...] Date Diagnosed Date Asthma 10/11/2011 Multiple sclerosis ([facility] V24, [facility] V28) Osteoarthritis 10/11/2011 Overview (04/17/2024): IMO update Obesity, unspecified 10/11/2011 Hypertension 10/11/2011 Esophageal reflux 10/11/2011 Encounters Date Type Department Care Team Description 12/09/2024 8:00 AM EDT - 12/09/2024 11:59 PM EDT Hospital Encounter [facility] - [place] 175 [facility] [address] [place] [phone] Multiple sclerosis ([facility] V24, [facility] V28) (Primary Dx); Vitamin D deficiency Discharge Disposition: Home or Self Care 10/24/2024 4:00 PM EDT Office Visit [facility] [place] 175 [facility] 150 [place] [phone] Alyssa Kauffman MD Urinary symptom or sign [...] Description 02/24/2025 4:00 PM EDT Office Visit [facility] [place] 175 [facility] 150 [place] [address] Aubree Renee PA 175 [facility] 150 [place] [address] 06/09/2025 8:00 AM EST Appointment [facility] - [place] [address] [phone] Health Maintenance Due Date Last [...] Patient-Stated? Author LTGs General No Dagoberto Buck, EMERGENCY SERVICE RESTORER Note: Pt will report no falls x2 [...] Routine 12/09/2024 8:25 AM EDT Multiple sclerosis ([facility] V24, [facility] V28) CBC AND DIFFERENTIAL Routine 12/09/2024 8:25 AM EDT Multiple sclerosis ([facility] V24, [facility] V28) CREATININE, SERUM Routine 06/10/2024 8:3 5 AM EST from Last 3 Months or Most Recently Relevant to Health Maintenance Results * (ABNORMAL) CBC auto differential (12/09/2024 8:25 AM EDT) WBC 4.5(L) 4.8 - 10.8 K/[facility] LAB HEMETOLOGY METHOD 12/09/2024 10:35 AM [facility] RBC 4.30 3.80 - 4.80 M/[facility] LAB HEMETOLOGY METHOD 12/09/2024 10:35 AM [facility] Hemoglobin 14.0 11.5 - 16.0 g/dL LAB HEMETOLOGY METHOD 12/09/2024 10:35 AM [facility] Hematocrit 41.5 35.0 - 47.0 % LAB HEMETOLOGY METHOD 12/09/2024 10:35 AM [facility] MCV 97.2 79.0 - 98.0 FL LAB HEMETOLOGY METHOD 12/09/2024 10:35 AM [facility] MCH 32.8(H) 27.0 - 32.0 pcg LAB HEMETOLOGY METHOD 12/09/2024 10:35 AM [facility] MCHC 33.7 32.0 - 37.0 g/dL LAB HEMETOLOGY METHOD 12/09/2024 10:35 AM [facility] RDW 11.9 11.0 - 15.0 % LAB HEMETOLOGY METHOD 12/09/2024 10:35 AM [facility] Platelets 237 130 - 400 K/mcL LAB HEMETOLOGY METHOD 12/09/2024 10:35 AM [facility] MPV 11.3(H) 7.0 - 11.0 FL LAB HEMETOLOGY METHOD 12/09/2024 10:35 AM [facility] NRBC 0.0 <1.0 % LAB HEMETOLOGY METHOD 12/09/2024 10:35 AM [facility] NRBC Absolute 0.00 <0.10 K/mcL LAB HEMETOLOGY METHOD 12/09/2024 10:35 AM [facility] Neutrophils Relative 56.4 % LAB HEMETOLOGY METHOD 12/09/2024 10:35 AM [facility] Lymphocytes Relative 32.1 % LAB HEMETOLOGY METHOD 12/09/2024 10:35 AM [facility] Monocytes Relative 9.2 % LAB HEMETOLOGY METHOD 12/09/2024 10:35 AM [facility] Eosinophils Relative 1.6 % LAB HEMETOLOGY METHOD 12/09/2024 10:35 AM [facility] Basophils Relative 0.7 % LAB HEMETOLOGY METHOD 12/09/2024 10:35 AM [facility] Immature Granulocytes Relative 0.0 % LAB HEMETOLOGY METHOD 12/09/2024 10:35 AM [facility] Neutrophils Absolute 2.53 1.50 - 7.00 K/mcL LAB HEMETOLOGY METHOD 12/09/2024 10:35 AM EDT [facility] Lymphocytes Absolute 1.44 1.00 - 5.00 K/mcL LAB HEMETOLOGY METHOD 12/09/2024 10:35 AM EDT [facility] Monocytes Absolute 0.41 0.20 - 1.00 K/mcL LAB HEMETOLOGY METHOD 12/09/2024 10:35 AM EDT [facility] Eosinophils Absolute 0.07 0.00 - 0.50 K/[facility] LAB HEMETOLOGY METHOD 12/09/2024 10:35 AM EDT [facility] Basophils Absolute 0.03 0.00 - 0.20 K/mcL LAB HEMETOLOGY METHOD 12/09/2024 10:35 AM EDT [facility] Immature Granulocytes Absolute 0.00 0.00 - 0.03 K/[facility] LAB HEMETOLOGY METHOD 12/09/2024 10:35 AM EDT [facility] Blood Venous blood specimen / Unknown Venipuncture / Unknown 12/09/2024 8:25 AM EDT 12/09/2024 8:25 AM EDT Aubree LYNN LAB BLOOD ORDERABLES Final R esult [facility] [address] [place] [address], * Creatinine (06/10/2024 8:35 AM EST) Creatinine 0.68 0.50 - 1.10 mg/dL LAB CHEMISTRY METHOD 06/10/2024 5:25 PM EST [facility] eGFR 102 >=60 mL/min/1. 73m2 LAB CHEMISTRY METHOD 06/10/2024 5:25 PM EST [facility] Comment:Calculation based on the??Chronic Kidney Disease Epidemiology Collaboration (CKD-EPI) equation refit??without adjustment for race. Blood Venous blood specimen / Unknown Venipuncture / Unknown 06/10/2024 8:35 AM EST 06/10/2024 8:36 AM EST us Aubree LYNN LAB BLOOD ORDERABLES Final R esult [facility] [address] [place] [address], from Last 3 Months or Most Recently Relevant to Health Maintenance [place] [address] [address] HEALTH PLAN Care Teams Order Entry Technician Relationship Specialty Start Date End Date Kareen Burrell MD 2 [facility] , [address] [facility] Physician Associ D/B/A: Juliane Associatisofy In Internal Medicine [place], [place] PCP - General 12/13/19
== END 2025-01-20 13:08 | disposition home or self-care (01) ==
LOC: HO.HWS 12:52
PROVIDERS: PCP Internal Medicine; Visit Provider Advanced Practice Midwife
DX: R10.2 Pelvic and perineal pain (principal); Z71.2 Person consulting for explanation of examination or test findings
CPT/HCPCS: 99213

== ENCOUNTER → 2025-01-20 12:52 | Outpatient (BNVA) | payer OTHER, SELFPAY | PROVIDERS: PCP Internal Medicine; Visit Provider Advanced Practice Midwife | DX: Z71.2 Person consulting for explanation of examination or test findings (principal); R10.2 Pelvic and perineal pain | CPT/HCPCS: 99212 ==

== ENCOUNTER 2025-01-29 13:16 | Outpatient (REF) | payer OTHER, SELFPAY | END 2025-01-29 13:17 | disposition home or self-care (01) | LOC: HO.US 13:16 | PROVIDERS: PCP Internal Medicine; Visit Provider Advanced Practice Midwife | DX: Z13.89 Encounter for screening for other disorder (principal) ==

== ENCOUNTER 2025-02-27 10:23 | Outpatient (REF) | payer OTHER, SELFPAY ==
--- NOTE | ~2025-02-27 | US_ITS ---
CLINICAL HISTORY: R10.10 - Upper abdominal pain, unspecified US abdomen complete Comparison: None provided Findings: The visualized pancreas is normal. The aorta and inferior vena cava are normal caliber. The appearance of the liver suggests fatty infiltration. There is no intrahepatic bile duct dilatation. The common duct is 3.0 mm in diameter. The gallbladder is normal. There is no sonographic Carrizales sign. The main portal vein is antegrade. The right kidney is 10.0 cm in length. The left kidney is 10.2 cm in length. The spleen is normal. No ascites. IMPRESSION: 1. Hepatic steatosis. This document has been electronically signed by: Salvador Cleveland MD on 02/28/2025 10:06:37
--- OUTSIDE RECORDS SUMMARY | 2025-02-27 10:36 | XMS_ITS | Clinical Summary ---
Author Organization [employer] Address [address] [place] [address] Care Team Providers Care Lath Tier Name Role Phone Kareen Mark MD Primary [...] mouth. 0 Active ergocalciferol (VITAMIN D2) capsule 84761 units Take 1 capsule (50,000 Units total) [...] 77 02/19/2024 2:17 PM EDT Temperature 36.1 C (96.9 F) 02/19/2024 2:17 PM EDT Respiratory Rate 18 12/20/2023 9:40 AM EDT [...] Cancer Screening (Mammogram) 2017 Influenza Vaccine (#1) 2025 05/06/2014 DTap / Tdap / Td (3 [...] age to complete this topic Care Teams Lath Tier Relationship Specialty Start Date End Date Kareen Mrak MD 2 [facility] , [address] [facility] Physician Associ D/B/A: Juliane May In Internal Medicine [place] [address] PCP - General Internal Medicine 12/13/19
--- OUTSIDE RECORDS SUMMARY | 2025-02-27 10:36 | XMS_ITS | Clinical Summary ---
Author Organization [facility] Address [address] [place] [address] Phone Care Team Providers Care Data Coordinator Name Role Phone Kareen Burrell MD Primary Care Provider [phone] Allergies Active Allergy Reactions Criticality Noted Date [...] Date Diagnosed Date Asthma 10/11/2011 Multiple sclerosis ([facility] V24, CMS/[facility] V28) Osteoarthritis 10/11/2011 Overview (04/17/2024): IMO update Obesity, unspecified 10/11/2011 Hypertension 10/11/2011 Esophageal reflux 10/11/2011 Encounters Date Type Department Care Team Description 02/24/2025 4:00 PM EDT Office Visit [facility] [place] - [address] [place] [phone] Aubree Renee PA 12/09/2024 8:00 AM EDT - 12/09/2024 11:59 PM EDT Hospital Encounter [facility] Outpatient Rehabilititation - [address] [place] [phone] Multiple sclerosis (CMS/HCC V24, CMS/[facility] V28) (Primary Dx); Vitamin D deficiency Discharge Disposition: Home or Self Care from [...] Sign Reading Time Taken Comments Blood Pressure 105/67 02/24/2025 3:51 PM EDT Pulse 82 02/24/2025 3:51 PM EDT Temperature 36 C (96.8 F) 12/09/2024 1:11 PM EDT Respiratory Rate 19 12/09/2024 1:11 PM EDT Oxygen Saturation 96% 12/09/2024 1:11 PM EDT Inhaled Oxygen Concentration - - Weight 69.9 kg (154 lb) 02/24/2025 3:51 PM EDT Height 160 cm (5' 3 ) 02/24/2025 3:51 PM EDT Body Mass Index 27.28 02/24/2025 3:51 PM EDT Plan of Treatment Upcoming Encounters Date Type Department Care Team (Late st Contact Info) Description 06/09/2025 8:00 AM EST Appointment [facility] Out[facility] - [place] [address] [phone] 06/09/2025 8:00 AM EST Office Visit [facility] - [place] 175 [facility] [address] [place] [phone] Alyssa Kauffman MD 175 [facility] [address] [place] [phone] Health Maintenance Due Date Last Done Comments Breast Cancer Screening 1967 Cervical Cancer Screening: Pap Smear 1988 Pneumococcal Vaccine: 50+ Years (2 of 2 - PCV) 07/05/2019 07/05/2018, 01/19/2014, 11/11/2010 Cholesterol Screening (Lipid Panel) 07/15/2022 Colorectal Cancer Screening: Colonoscopy 07/15/2022 HIV Screening 07/15/2022 Hepatitis C Screening 07/15/2022 Social Influencers of Health Screening 07/15/2022 COVID-19 Vaccine (1 - season) 2024 Depression Screening 08/06/2024 Influenza Vaccine (#1) 2025 05/06/2014, 2011 Hypertension/CHF/CAD Annual BMP Blood Test [...] Routine 12/09/2024 8:25 AM EDT Multiple sclerosis (CMS/HCC V24, CMS/HCC V28) CBC AND DIFFERENTIAL Routine 12/09/2024 8:25 AM EDT Multiple sclerosis (CMS/HCC V24, CMS/HCC V28) CREATININE, SERUM Routine 06/10/2024 8:3 5 AM EST from Last 3 Months or Most Recently Relevant to Health Maintenance Results * (ABNORMAL) CBC auto differential (12/09/2024 8:25 AM EDT) WBC 4.5(L) 4.8 - 10.8 K/mcL LAB HEMETOLOGY METHOD 12/09/2024 10:35 AM [facility] RBC 4.30 3.80 - 4.80 M/mcL LAB HEMETOLOGY METHOD 12/09/2024 10:35 AM [facility] Hemoglobin 14.0 11.5 - 16.0 g/dL LAB HEMETOLOGY METHOD 12/09/2024 10:35 AM [facility] Hematocrit 41.5 35.0 - 47.0 % LAB HEMETOLOGY METHOD 12/09/2024 10:35 AM [facility] MCV 97.2 79.0 - 98.0 FL LAB HEMETOLOGY METHOD 12/09/2024 10:35 AM [facility] MCH 32.8(H) 27.0 - 32.0 pcg LAB HEMETOLOGY METHOD 12/09/2024 10:35 AM [facility] MCHC 33.7 32.0 - 37.0 g/dL LAB HEMETOLOGY METHOD 12/09/2024 10:35 AM [facility] RDW 11.9 11.0 - 15.0 % LAB HEMETOLOGY METHOD 12/09/2024 10:35 AM [facility] Platelets 237 130 - 400 K/mcL LAB HEMETOLOGY METHOD 12/09/2024 10:35 AM [facility] MPV 11.3(H) 7.0 - 11.0 FL LAB HEMETOLOGY METHOD 12/09/2024 10:35 AM [facility] NRBC 0.0 <1.0 % LAB HEMETOLOGY METHOD 12/09/2024 10:35 AM [facility] NRBC Absolute 0.00 <0.10 K/mcL LAB HEMETOLOGY METHOD 12/09/2024 10:35 AM [facility] Neutrophils Relative 56.4 % LAB HEMETOLOGY METHOD 12/09/2024 10:35 AM [facility] Lymphocytes Relative 32.1 % LAB HEMETOLOGY METHOD 12/09/2024 10:35 AM [facility] Monocytes Relative 9.2 % LAB HEMETOLOGY METHOD 12/09/2024 10:35 AM [facility] Eosinophils Relative 1.6 % LAB HEMETOLOGY METHOD 12/09/2024 10:35 AM [facility] Basophils Relative 0.7 % LAB HEMETOLOGY METHOD 12/09/2024 10:35 AM [facility] Immature Granulocytes Relative 0.0 % LAB HEMETOLOGY METHOD 12/09/2024 10:35 AM [facility] Neutrophils Absolute 2.53 1.50 - 7.00 K/mcL LAB HEMETOLOGY METHOD 12/09/2024 10:35 AM [facility] Lymphocytes Absolute 1.44 1.00 - 5.00 K/mcL LAB HEMETOLOGY METHOD 12/09/2024 10:35 AM EDT [facility] Monocytes Absolute 0.41 0.20 - 1.00 K/mcL LAB HEMETOLOGY METHOD 12/09/2024 10:35 AM EDT [facility] Eosinophils Absolute 0.07 0.00 - 0.50 K/mcL LAB HEMETOLOGY METHOD 12/09/2024 10:35 AM EDT [facility] Basophils Absolute 0.03 0.00 - 0.20 K/[facility] LAB HEMETOLOGY METHOD 12/09/2024 10:35 AM EDT [facility] Immature Granulocytes Absolute 0.00 0.00 - 0.03 K/mcL LAB HEMETOLOGY METHOD 12/09/2024 10:35 AM [facility] Blood Venous blood specimen / Unknown Venipuncture / Unknown 12/09/2024 8:25 AM EDT 12/09/2024 8:25 AM EDT us Aubree LYNN LAB BLOOD ORDERABLES Final R esult [facility] [address] [place] [address], [place] [phone] * Creatinine (06/10/2024 8:35 AM EST) Creatinine 0.68 0.50 - 1.10 mg/dL LAB CHEMISTRY METHOD 06/10/2024 5:25 PM EST [facility] eGFR 102 >=60 mL/min/1. 73m2 LAB CHEMISTRY METHOD 06/10/2024 5:25 PM EST [facility] Comment:Calculation based on the Chronic Kidney Disease Epidemiology Collaboration (CKD-EPI) equation refit without adjustment for race. Blood Venous blood specimen / Unknown Venipuncture / Unknown 06/10/2024 8:35 AM EST 06/10/2024 8:36 AM EST us Aubree LYNN LAB BLOOD ORDERABLES Final R esult [facility] [address] [place] [address], from Last 3 Months or Most Recently Relevant to Health Maintenance Insurance [facility] [employer] [facility] Care Teams Data Coordinator Relationship Specialty Start Date End Date Kareen Burrell MD [address] [facility] , [address] [facility] [place], [place] PCP - General 12/13/19
--- OUTSIDE RECORDS SUMMARY | 2025-02-27 10:36 | XMS_ITS | Patient Health Record ---
Author Organization [facility] Address [address] [place] [address] Care Team Providers Care Literary Writer Name Role Phone Kareen Mark Primary Care Provider Martin Ortiz Unavailable [phone] Allergies Allergen (clinical drug ingredient) Drug/Non Drug Allergy documented on EMR Reaction Allergy Type Onset Date Status morphine Morphine Sulfate Unknown Drug Allergy Active Reason For Referral No Information Medications Medication SIG (Take, Route, Frequency, Duration) Notes Start Date End Date Status oxyBUTYnin Chloride ER 10 MG TAKE ONE TABLET BY MOUTH DAILY Oral for 30 Active Montelukast Sodium 10 MG TAKE ONE TABLET BY MOUTH DAILY IN THE EVENING Oral for 30 Active Ketotifen Fumarate 0.025 % INSTILL 1 ELIE P IN EACH EYE EVERY 8 TO 12 HOUR. not to exceed 2 DROP IN 24 HOUR Ophthalmic for 30 Active Dexilant 60 MG TAKE ONE CAPSULE BY MOUTH DAILY AT DINNER Oral for 30 Active Baclofen 10 MG TAKE ONE TABLET BY M OUTH AT BEDTIME Oral for 30 Active Advair HFA 115-21 MCG/ACT INHALE 2 PUFF BY MOUTH 2 (two) times a day rinse mouth and throat after use Inhalation for 30 Active MiraLax (colon prep) 8.3 ounce ((238) grams mixed with Gatorade or Crystal Light orally begin at 5:00 p.m. the day before the procedure for 1 day 12/13/2017 Active Amoxicillin-Pot Clavulanate 875-125 MG TAKE ONE TABLET BY MOUTH 2 (two) times a day FOR 14 DAYS Oral for 14 Active Topiramate 100 MG TAKE ONE TABLET BY M OUTH DAILY Oral for 30 Active rOPINIRole HCl 5 MG TAKE ONE TABLET BY M OUTH DAILY AT BEDTIME Oral for 30 Active Chlorthalidone 25 MG TAKE ONE TABLET BY MOUTH EVERY MORNING Oral for 30 Active Metoprolol Succinate ER 25 MG TAKE ONE TABLET BY MOUTH DAILY Oral for 30 Active Dulcolax (colon prep) 5 MG take at 3:00 p.m and 7:00p.m. Orally two tablets twice a day for one day for 1 day 12/13/2017 Active Ibuprofen 800 MG TAKE ONE TABLET BY M OUTH 3 (THREE) TIMES A DAY Oral for 30 Active Copaxone 40 MG/ML INJECT THE CONTENT O F 1 syringe SUBCUTANEOUSLY 3 X EACH WEEK Subcutaneous for 30 Active traMADol HCl 50 MG (Schedule IV Drug) T DOMO ONE TABLET BY MOUTH EVERY 6 HOURS NEEDED Oral for 30 Active Lidocaine 5 % APPLY 1 PATCH TOPICA LLY DAILY. remove patch after 12 hours External for 30 Active traZODone HCl 50 MG TAKE 1 TO 2 TABLETS BY MOUTH DAILY AT BEDTIME Oral for 30 Active Citalopram Hydrobromide 40 MG TAKE ONE TABLET BY MOUTH DAILY Oral for 30 Active Gabapentin 300 MG TAKE ONE CAPSULE (30 0mg) BY MOUTH 3 (THREE) TIMES A DAY Oral for 30 Active Glycopyrrolate 1 MG TAKE ONE TABLET BY M OUTH 2 (two) times a day Oral for 30 Active Lisinopril 20 MG TAKE ONE TABLET BY M OUTH DAILY Oral for 30 Active ProAir HFA 108 (90 Base) MCG/ACT INHALE 2 PUFF BY MOUTH EVERY 4 TO 6 HOURS NEEDED Inhalation for 17 Active Cetirizine HCl 10 MG TAKE ONE TABLET BY MOUTH AT BEDTIME NEEDED FOR ITCH Oral for 30 Active Triamcinolone Acetonide 55 MCG/ACT SPRAY TWICE IN EACH NOSTRIL DAILY TO 2 (two) times a day Nasal for 30 Active Social History Tobacco Use: Social History Observation Description Date Details (start date - stop date) Never Smoker NA - NA Tobacco Use/Smoking Question Answer Notes Patient is a nonsmoker Alcohol Screen Question Answer Notes Did you have a drink containing alcohol in the p ast year? No Points 0 Interpretation Negative Section Notes: Nonsmoker; no sig alcohol Problems Problem Type SNOMED Code ICD Code Onset Dates Problem Status W/U Status Risk Notes Problem 388179097 Encounter for screening for malignant neoplasm of colon (Z12.11) Active confirmed Problem 063357130 Gastroesophageal reflux disease without esophagitis (K21.9) Active confirmed Problem 994079784316922 Pre-procedural examination (Z01.818) Active confirmed Plan Of Treatment Pending Test Test Name Order Date GI BIOPSY 12/26/2017 Future Test Test Name Order Date COLONOSCOPY 12/12/2017 Insurance Providers Payer Name Payer Address Payer Phone Subscriber Number Group Number Insured Name Patient Relationship to Insured Coverage Start Date Coverage End Date MEDICAID OF [employer] [address] [place] [phone] [id number] KINA SALAZAR Self - patient is the insured Medical (General) History Medical History History ICD Code Denies NM,DM,CVA,renal disease Asthma Hypertension Multiple sclerosis GERD--EGD 01/2011WNL except for small HH and gastritis--neg. Hpylori Surgical History Surgery Date(Month/Year) Leg surgery due to broken left leg- 2012 Nose surgery Left carpal tunnel
--- OUTSIDE RECORDS SUMMARY | 2025-02-27 10:36 | XMS_ITS | Clinical Summary ---
Author Organization [facility] Address [address] [place] [address] [address] [place] [address] Care Team Providers Care Comparison Shopper Name Role Phone Unavailable Primary Care Provider Unavailabl e Allergies Active Allergy Reactions Criticality Noted Date Comments [employer] 08/02/2010 Other Reaction(s): almond, afghan walnut, cashe Apple Juice 09/03/2020 Bee Pollen [...] 3 Active ergocalciferol (Vitamin D2) 1.25 MG (38007 UT) capsule Take 50,000 Units by mouth [...] Osteoarthritis 10/11/2011 Overview (07/07/2024): IMO update Immunizations Immunization Administration Dates Next Due HepB-CpG 01/30/2023,12/26/2022 Influenza, [...] Panel 1967 SDOH Screening 1967 Sigmoidoscopy 1967 Disability Screening 1967 Alcohol/Substance Use Screening 1979 Hepatitis C Screening 1985 Pap Smear 1988 Cervical Cancer Screening 1997 HPV/Cotest 1997 Mammogram 2007 Pneumococcal Vaccine: 50+ Years (2 of 2 - PCV) 07/05/2019 07/05/2018, 01/19/2014, 11/11/2010 Dental Oral Exam 03/04/2024 09/03/2023, 12/2018, 08/15/2017, Additional history exists Dental Prophylaxis 04/01/2024 10/01/2023, 0 03/20/2018, 03/03/2016, Additional history exists COVID-19 Vaccine ( - season) 2024 Dental X-Ray: Bitewings 09/15/2024 09/14/19 24, 11/12/2020, 02/07/2019, Additional history exists Influenza Vaccine (#1) 2025 05/06/2014, 2011 Tobacco Screening 07/07/2025 07/07/2024 DTaP/Tdap/Td Vaccines (3 [...] Most Recently Relevant to Health Maintenance Insurance [facility] STANDARD DENTAL-[facility] MEDICAID STAND ADULT
== END 2025-02-27 10:24 | disposition home or self-care (01) ==
LOC: HO.US 10:23
PROVIDERS: PCP Internal Medicine; Visit Provider Nurse Practitioner
DX: R10.10 Upper abdominal pain, unspecified (principal)
CPT/HCPCS: 76700

== ENCOUNTER → 2025-02-27 10:24 | Outpatient (BNV) | payer OTHER, SELFPAY | PROVIDERS: PCP Internal Medicine; Visit Provider Specialist | DX: K76.0 Fatty (change of) liver, not elsewhere classified (principal) | CPT/HCPCS: 76700 ==

== ENCOUNTER 2025-03-04 12:35 | Outpatient (AMB) | payer OTHER, SELFPAY ==
[2025-03-04 12:37] VITALS: BP 134/76; PULSE 80; O2SAT 100; BMI 25.2
--- NOTE | 2025-03-04 12:37 | A.OFFVIS_ITS ---
Vital Signs 3 03/04/25 12:37 Height 5 ft 2 in Weight 138 lb BMI 25.2 BP 134/76 Blood Pressure Location Rt brachial Position Sitting Pulse 80 Pulse Source Pulse Oximeter Pulse Oximetry (%) 100 Oxygen Delivery Method Room Air Intake Visit Reasons: f/u abdominal pain gerd Intake Note: Est pt for mgmt of GERD w/ associated abd pain. CC: Pt denies any changes since last visit or new sx. Encyclopedia Research Worker Required: Yes Encyclopedia Research Worker Services: Encyclopedia Research Worker Present Encyclopedia Research Worker Name: Carina [id number] Information Interpreted: clinical only Accompanied by: Self / Same As Patient Allergies almond Allergy (Severe, Verified 03/04/25 12:37) ANAPHYLAXIS kiwi Allergy (Severe, Verified 03/04/25 12:37) Itching peach (PEACH) Allergy (Severe, Verified 03/04/25 12:37) ANAPHYLAXIS walnut Allergy (Severe, Verified 03/04/25 12:37) ANAPHYLAXIS morphine Allergy (Intermediate, Verified 03/04/25 12:37) ITCHING, hives, swelling,itchiness HPI HPI f/u abdominal pain gerd: Details: Assessment & Plan (1) Upper abdominal pain: Code(s): R10.10 - Upper abdominal pain, unspecified Category: Medical (2) GERD with esophagitis: Comment: HISTORY of esophageal erosions healed on 02/2020 EGD Code(s): K21.00 - Gastro-esophageal reflux disease with esophagitis, without bleeding Category: Medical Qualifiers: Esophagitis bleeding: without hemorrhage Qualified Code(s): K21.00 - Gastro-esophageal reflux disease with esophagitis, without bleeding (3) Irritable bowel syndrome with both constipation and diarrhea: Code(s): K58.2 - Mixed irritable bowel syndrome Category: Medical (4) Delayed gastric emptying: Code(s): K30 - Functional dyspepsia Category: Medical (5) Multiple sclerosis: Code(s): G35 - Multiple sclerosis Category: Medical Plan Faroese #[id number] She did receive the metoclopramide and she is using it 4 times a day as instructed. She also continues her MiraLax, Dexilant, bisacodyl and magnesium. She was doing well for a while, but recently she is having worse GERD and pain in the upper abdomen. The pain starts immediately upon eating, is worse with the usual GERD triggers, and will stop after about 15 minutes. She denies any new or medication changes, no illness, no diet changes. It is better with Dexilant, and is always worse at night with a lot of acid and burning. Will start famotidine qac supper, get HP stool and barium swallow to investigate. ROV 6 weeks. Orders: Orders US abdomen complete 01/09/25 R10.10 - Upper abdominal pain, unspecified H pylori Ag Stool 01/09/25 K21.00 - Gastro-esophageal reflux disease with esophagitis, without bleeding FL barium swallow with air 01/09/25 K21.00 - Gastro-esophageal reflux disease with esophagitis, without bleeding Medications: New famotidine (Pepcid) 40 mg PO .qac supper 30 tabs 12RF Refilled dicyclomine 10 mg PO QID PRN 120 caps 3RF for cramps K58.2 - Mixed irritable bowel syndrome bisacodyl 10 mg (2 x 5 mg) PO BEDTIME 60 tabs 6RF K59.00 - Constipation, unspecified dexlansoprazole (Dexilant) 60 mg PO DAILY 30 caps 6RF K21.00 - Gastro- esophageal reflux disease with esophagitis, without bleeding metoclopramide HCl (Reglan) 5 mg PO QIDACHS 120 tabs 6RF LABS H pylori stool not obtained US ABD 02/28/2025 Findings: The visualized pancreas is normal. The aorta and inferior vena cava are normal caliber. The appearance of the liver suggests fatty infiltration. There is no intrahepatic bile duct dilatation. The common duct is 3.0 mm in diameter. The gallbladder is normal. There is no sonographic Carrizales sign. The main portal vein is antegrade. The right kidney is 10.0 cm in length. The left kidney is 10.2 cm in length. The spleen is normal. No ascites. IMPRESSION: 1. Hepatic steatosis. BARIUM SWALLOW 05/04/2025 TODAYS VISIT Faroese #[id number] Her current medical regimen consists of Dexilant, famotidine at night, Reglan 5 mg 4 times a day, MiraLax and bisacodyl along with magnesium supplement. She says that adding the famotidine helped a little. She also feels that the Reglan helped a little. We discussed potentially changing her away from Dexilant (perhaps 2 AcipHex) but she feels she wants to stay with this medication for now. We review the ultrasound it does not seem to show any reason to suspect that the gallbladder is part of the presenting pathology. She has itching on the under side of her neck midline. She also has a lymph node that is palpable right over the voice box. She says that she has had the lymph node for about a year but the rash in the itching is of more recent onset. I do see 2 areas of excoriation that look like they could be insect bites. I am going to give her a hydrocortisone cream for this. Return office visit after the barium swallow [facility] Medical History Allergic rhinitis Neck mass Hemorrhoids Macrocytosis Family history of colon cancer Salivary disorder Encounter for well woman exam with routine gynecological exam Pelvic pain Irritable bowel syndrome with both constipation and diarrhea Irritable bowel syndrome with diarrhea Bilateral tennis elbow Weight loss Numbness and tingling in both hands Hypomagnesemia Right shoulder pain Left knee pain Foot callus Foot pain Chest pain Right foot pain Left foot pain Physical exam Vaginal itching Nausea and vomiting Chronic superficial gastritis Bilateral knee pain Bilateral hand pain Hypernatremia Encounter for medication monitoring Pre-op examination URI (upper respiratory infection) Physical exam Right ankle sprain Right hand pain COVID-19 Urinary frequency BV (bacterial vaginosis) Environmental allergies Fibromyalgia Chronic constipation Moderate recurrent major depression RUQ abdominal pain B12 deficiency Urge urinary incontinence Dyslipidemia Essential hypertension Multiple sclerosis Migraine Surgical History History of carpal tunnel surgery of left wrist History of esophagogastroduodenoscopy (EGD) Hx of colonoscopy Hx of foot surgery History of suburethral sling procedure Hx of tubal ligation History of endometrial ablation Hx of submucous nasal surgery Family History Father History of throat cancer Mother Stroke Multiple sclerosis Maternal Grandmother Multiple sclerosis Pancreatic cancer Paternal Grandfather Pancreatic cancer Lung cancer Social History Household Members: Spouse and Children Housing: Apartment Are you a primary rn homecare to a significant other at home: No Do you presently have visiting nurse or other home services: Yes Alcohol intake: never Patient Tobacco Use Status: Former Tobacco user Years Smoked: Quit 30 years ago e-Cigarette/Vaping Use: Never Used Second Hand Smoke Exposure: No Substance Use Type: Marijuana service: No Current occupational status: student and disabled Cognitive needs: No Hearing needs: No Vision needs: Yes Female Reproductive History Menstrual Age of Menarche: 11 Review of Systems Const Denies fatigue, Denies fever(s), Denies night sweats, Denies poor appetite and Reports weight loss ENT Reports Normal hearing present, Denies dental pain, Denies dysphagia, Denies hearing loss, Denies mouth pain, Denies odynophagia, Denies throat swelling, Denies tongue swelling and Reports other (Dentition adequate) Card Reports no additional complaints Resp Reports no additional complaints GI Details: Reports abdominal pain, Denies melena, Reports bloating, Denies hematochezia, Reports constipation, Denies GI cramping, Denies dysphagia, Denies excessive flatus, Reports early satiety, Reports heartburn, Denies diarrhea, Denies nausea, Denies odynophagia, Denies vomiting and Denies hematemesis Skin/Breast Reports pruritus, Denies lesions, Reports rash and Denies jaundice Neuro Reports Normal hearing present and Denies Abnormal speech present Endo Denies fatigue Ton/Lymph Reports lymphadenopathy Aller/Immun Denies throat swelling and Denies tongue swelling Physical Exam Const General: cooperative, no acute distress, well developed and well groomed Nutritional Appearance: well nourished Orientation/consciousness: oriented to person, oriented to place and oriented to time Limitations: language barrier HEENT Head: Yes normocephalic and Yes atraumatic Eyes General: appearance normal, both eyes and all related structures Pupils: Equal, round and reactive pupils present Neck Neck: Yes normal visual inspection and Yes no lymphadenopathy Thyroid: Thyroid normal Lymphatic: lymphedema Neck images: 2 1. Punctate area of irritation 2. Punctate area of irritation 3. Mobile nonpainful lymph node Resp Effort & Inspection: normal respiratory effort and able to speak in complete sentences Auscultation: clear to auscultation bilaterally Cardio Rate: regular rate Rhythm: regular rhythm Heart sounds: Normal, physiologic split S2 sound present Peripheral pulses: radial pulses present and posterior tibial pulses present GI Inspection: No distended and No Abdominal panniculus present Palpation (GI): Soft to palpation, nontender, no guarding, not rigid and No hepatosplenomegaly present Percussion: Yes normal to percussion Auscultation: normal bowel sounds Rectal Exam - Female: deferred Skin General skin exam: no rashes or lesions noted, turgor normal, skin not dry, no jaundice, No spider nevi and no striae Rashes: no rashes Nails: normal Neuro General: oriented to person, oriented to place and oriented to time Cranial nerves: Yes Equal, round and reactive pupils present and Yes Normal hearing present Speech: No Abnormal speech present Extrem General: Yes normal to inspection, No clubbing, No cyanosis and No edema Psych Appearance: grossly normal and well kempt Mental Status: mental status grossly normal Speech and movement: Normal speech and movement present Affect: Anxious affect present Attitude: cooperative Thought process: Circumstantial thought process present and not confabulating Thought content: Normal thought content present Insight: Limited insight present (Psych) Judgement: Limited judgement present (Psych) Assessment & Plan Assessment & Plan (1) GERD with esophagitis: Comment: HISTORY of esophageal erosions healed on 02/2020 EGD Code(s): K21.00 - Gastro-esophageal reflux disease with esophagitis, without bleeding Category: Medical Qualifiers: Esophagitis bleeding: without hemorrhage Qualified Code(s): K21.00 - Gastro-esophageal reflux disease with esophagitis, without bleeding (2) Irritable bowel syndrome with both constipation and diarrhea: Code(s): K58.2 - Mixed irritable bowel syndrome Category: Medical (3) Upper abdominal pain: Code(s): R10.10 - Upper abdominal pain, unspecified Category: Medical (4) Delayed gastric emptying: Code(s): K30 - Functional dyspepsia Category: Medical (5) Rash of neck: Code(s): R21 - Rash and other nonspecific skin eruption Category: Medical Plan Faroese #[id number] Her current medical regimen consists of Dexilant, famotidine at night, Reglan 5 mg 4 times a day, MiraLax and bisacodyl along with magnesium supplement. She says that adding the famotidine helped a little. She also feels that the Reglan helped a little. We discussed potentially changing her away from Dexilant (perhaps 2 AcipHex) but she feels she wants to stay with this medication for now. We review the ultrasound it does not seem to show any reason to suspect that the gallbladder is part of the presenting pathology. She has itching on the under side of her neck midline. She also has a lymph node that is palpable right over the voice box. She says that she has had the lymph node for about a year but the rash in the itching is of more recent onset. I do see 2 areas of excoriation that look like they could be insect bites. I am going to give her a hydrocortisone cream for this. Return office visit after the barium swallow Medications: New 2 hydrocortisone 1% (Anti-Itch (hydrocortisone)) 1 appl topical BID-QID PRN 28.4 grams 0RF skin irritation R21 - Rash and other nonspecific skin eruption Coding Level of Care Code Est Pt Level 3 (70666) Diagnoses Gastroesophageal reflux disease with esophagitis without hemorrhage K21.00 Esophagitis bleeding: without hemorrhage Irritable bowel syndrome with both constipation and diarrhea K58.2 Upper abdominal pain R10.10 Delayed gastric emptying K30 Rash of neck R21
--- OUTSIDE RECORDS SUMMARY | 2025-03-04 13:11 | XMS_ITS | Clinical Summary ---
Author Organization [employer] [facility] Address [address] [place] [address] Care Team Providers Care Apple Peeler Operator Name Role Phone Kareen Mark MD Primary [...] mouth. 0 Active ergocalciferol (VITAMIN D2) capsule 87183 units Take 1 capsule (50,000 Units total) [...] age to complete this topic Care Teams Apple Peeler Operator Relationship Specialty Start Date End Date Kareen Mark MD [address] [facility] , [address] [facility] D/B/A: [facility] [place] [id number] PCP - General Internal Medicine 12/13/19
--- OUTSIDE RECORDS SUMMARY | 2025-03-04 13:11 | XMS_ITS | Clinical Summary ---
Author Organization [employer] Address [address] [place] [address] 7 [place] [address] Care Team Providers Care Senior Director Creative Services Name Role Phone Unavailable Primary Care Provider Unavailabl e Allergies Active Allergy Reactions Criticality Noted Date Comments [place] Oil 08/02/2010 Other Reaction(s): almond, montserratian walnut, cashe Apple Juice 09/03/2020 Bee Pollen [...] 3 Active ergocalciferol (Vitamin D2) 1.25 MG (03396 UT) capsule Take 50,000 Units by mouth [...] Most Recently Relevant to Health Maintenance Insurance [facility] STANDARD DENTAL-[facility] MEDICAID STAND ADULT
--- OUTSIDE RECORDS SUMMARY | 2025-03-04 13:11 | XMS_ITS | Patient Health Record ---
Author Organization [facility] Address [address] [place] [address] Care Team Providers Care Circulation Supervisor Name Role Phone Kareen Mark Primary Care Provider Martin Ortiz Unavailable [phone] Allergies Allergen (clinical drug ingredient) Drug/Non Drug [...] Problem Status W/U Status Risk Notes Problem [id number] Encounter for screening for malignant neoplasm of colon (Z12.11) Active confirmed Problem [id number] Gastroesophageal reflux disease without esophagitis (K21.9) Active confirmed Problem [id number] Pre-procedural examination (Z01.818) Active confirmed Plan Of Treatment Pending Test Test Name Order Date GI BIOPSY 12/26/2017 Future Test Test Name Order Date COLONOSCOPY 12/12/2017 Insurance Providers Payer Name Payer Address Payer Phone Subscriber Number Group Number Insured Name Patient Relationship to Insured Coverage Start Date Coverage End Date [employer] [address] [place] [id number] KINA SALAZAR Self - patient is the insured Medical (General) History Medical History History ICD Code Denies WA,DM,CVA,renal disease Asthma Hypertension Multiple sclerosis GERD--EGD 01/2011WNL except for small HH and gastritis--neg. Hpylori Surgical History Surgery Date(Month/Year) Leg surgery due to broken left leg- 2012 Nose surgery Left carpal tunnel
--- OUTSIDE RECORDS SUMMARY | 2025-03-04 13:11 | XMS_ITS ---
Author Name [facility] Organization Unknown History of Medication Use Medication Directions Dispensed Refills Start Date End Date Status diphenhydrAMINE (BENADRYL) injection 50 mg 50 mg, Intravenous, Once, On Judi 12/20/23 at 0845, For 1 doseGive 30 minutes prior to ocrelizumab. IV push over 2-3 minutes. See PO diphenhydramine order. Please give PO or IV. Common Side Effects: Drowsiness, stomach upset, confusion, dry mouth. Administer undiluted. Maximum rate 25 mg/min. 4 12/20/19 24 completed Copaxone 40 MG/ML SOSY injection Inject 1 mL (40 mg total) under the skin 3 (three) times a week. 3 02/19/20 24 active ALBUTEROL SULFATE HFA IN Inhale into the lungs. active traZODone (DESYREL) 100 MG tablet by Does not apply route. active Allergies Allergen Reaction Severity Comment Documented Date Source Statu s POLLEN EXTRACT ITCHING 09/03/2020 [facility] activ e APPLE JUICE [facility] SUÁREZ [facility] KIWI [facility] MORPHINE [facility] PLANT DERIVED ENZYMES [facility] Problems Problem Status Onset Date Problem Type Date of Resoluti on Source Multiple sclerosis active 2023-11-26 ProblemAct [facility] Asthma active 2021 ProblemAct [facility]
--- OUTSIDE RECORDS SUMMARY | 2025-03-04 13:11 | XMS_ITS | Clinical Summary ---
Author Organization [address] [facility] Address [address] [place] [address] Phone Care Team Providers Care Administrative Coordinator Name Role Phone Kareen Burrell MD Primary Care Provider [phone] Allergies Active Allergy Reactions Criticality Noted Date [...] a day if needed for itching. Active cyclobenzaprine (FLEXERIL) 10 mg tablet 1 p.o. daily as needed for spasm 30 each 1 02/27/2025 Active Active Problems Problem Noted Date Diagnosed Date Asthma 10/11/2011 Multiple sclerosis (CMS/[facility] V24, CMS/[facility] V28) Osteoarthritis 10/11/2011 Overview (04/17/2024): IMO update Obesity, unspecified 10/11/2011 Hypertension 10/11/2011 Esophageal reflux 10/11/2011 Encounters Date Type Department Care Team Description 02/24/2025 4:00 PM EDT Office Visit [facility] - [address] [place] [address] Aubree Renee PA Foot pain, right (Primary Dx); Multiple sclerosis (CMS/HCC V24, CMS/[facility] V28); Gait abnormality 12/09/2024 8:00 AM EDT - 12/09/2024 11:59 PM EDT Hospital Encounter [facility] - [address] [place] [phone] Multiple sclerosis ([facility]/HCC V24, CMS/[facility] V28) (Primary Dx); Vitamin D deficiency Discharge Disposition: Home or Self Care from Last 3 Months Surgical History Surgery Date Site/Laterality Comments LEG SURGERY Left PROCEDURE:LEG SURGERY BLADDER SURGERY PROCEDURE:BLADDER SURGERY Medical History Medical History Date Comments MS (multiple sclerosis) ([facility] /[facility] V24, CMS/HCC V28) DX:MS (multiple sclerosis) ( [facility]) Hypertension DX:Hypertension Arthritis DX:Arthritis Gastritis DX:Gastritis Family [...] Info) Description 06/09/2025 8:00 AM EST Appointment [facility] - [address] [phone] 06/09/2025 8:00 AM EST Office Visit [facility] [address] [phone] Alyssa Kauffman MD [address] [facility] [address] [place] [address] Health Maintenance Due Date Last Done Comments Breast Cancer Screening 1967 Cervical Cancer Screening: Pap Smear 1988 Pneumococcal Vaccine: 50+ Years (2 of 2 - PCV) 07/05/2019 07/05/2018, 01/19/2014, 11/11/2010 Cholesterol Screening (Lipid Panel) 07/15/2022 Colorectal Cancer Screening: Colonoscopy 07/15/2022 HIV Screening 07/15/2022 Hepatitis C Screening 07/15/2022 Social Influencers of Health Screening 07/15/2022 COVID-19 Vaccine ( season) 2024 Depression Screening 08/06/2024 Influenza Vaccine [...] Patient-Stated? Author LTGs General No Dagoberto Buck, LIBERTAD Note: Pt will report no falls x2 [...] Routine 12/09/2024 8:25 AM EDT Multiple sclerosis ([facility]/HCC V24, CMS/HCC V28) CREATININE, SERUM Routine 06/10/2024 8:3 5 AM EST from Last 3 Months or Most Recently Relevant to Health Maintenance Results * (ABNORMAL) CBC auto differential (12/09/2024 8:25 AM EDT) WBC 4.5(L) 4.8 - 10.8 K/mcL LAB HEMETOLOGY METHOD 12/09/2024 10:35 AM [facility] RBC 4.30 3.80 - 4.80 M/mcL LAB HEMETOLOGY METHOD 12/09/2024 10:35 AM [facility] Hemoglobin 14.0 11.5 - 16.0 g/dL LAB HEMETOLOGY METHOD 12/09/2024 10:35 AM [facility] Hematocrit 41.5 35.0 - 47.0 % LAB HEMETOLOGY METHOD 12/09/2024 10:35 AM [facility] MCV 97.2 79.0 - 98.0 FL LAB HEMETOLOGY METHOD 12/09/2024 10:35 AM [facility] MCH 32.8(H) 27.0 - 32.0 pcg LAB HEMETOLOGY METHOD 12/09/2024 10:35 AM [facility] MCHC 33.7 32.0 - 37.0 g/dL LAB HEMETOLOGY METHOD 12/09/2024 10:35 AM [facility] RDW 11.9 11.0 - 15.0 % LAB HEMETOLOGY METHOD 12/09/2024 10:35 AM [facility] Platelets 237 130 - 400 K/mcL LAB HEMETOLOGY METHOD 12/09/2024 10:35 AM [facility] MPV 11.3(H) 7.0 - 11.0 FL LAB HEMETOLOGY METHOD 12/09/2024 10:35 AM [facility] NRBC 0.0 <1.0 % LAB HEMETOLOGY METHOD 12/09/2024 10:35 AM [facility] NRBC Absolute 0.00 <0.10 K/mcL LAB HEMETOLOGY METHOD 12/09/2024 10:35 AM [facility] Neutrophils Relative 56.4 % LAB HEMETOLOGY METHOD 12/09/2024 10:35 AM [facility] Lymphocytes Relative 32.1 % LAB HEMETOLOGY METHOD 12/09/2024 10:35 AM [facility] Monocytes Relative 9.2 % LAB HEMETOLOGY METHOD 12/09/2024 10:35 AM [facility] Eosinophils Relative 1.6 % LAB HEMETOLOGY METHOD 12/09/2024 10:35 AM [facility] Basophils Relative 0.7 % LAB HEMETOLOGY METHOD 12/09/2024 10:35 AM [facility] Immature Granulocytes Relative 0.0 % LAB HEMETOLOGY METHOD 12/09/2024 10:35 AM [facility] Neutrophils Absolute 2.53 1.50 - 7.00 K/mcL LAB HEMETOLOGY METHOD 12/09/2024 10:35 AM EDT [facility] Lymphocytes Absolute 1.44 1.00 - 5.00 K/mcL LAB HEMETOLOGY METHOD 12/09/2024 10:35 AM EDT [facility] Monocytes Absolute 0.41 0.20 - 1.00 K/mcL LAB HEMETOLOGY METHOD 12/09/2024 10:35 AM EDT [facility] Eosinophils Absolute 0.07 0.00 - 0.50 K/[facility] LAB HEMETOLOGY METHOD 12/09/2024 10:35 AM EDT [facility] Basophils Absolute 0.03 0.00 - 0.20 K/[facility] LAB HEMETOLOGY METHOD 12/09/2024 10:35 AM EDT [facility] Immature Granulocytes Absolute 0.00 0.00 - 0.03 K/mcL LAB HEMETOLOGY METHOD 12/09/2024 10:35 AM EDT [facility] Blood Venous blood specimen / Unknown Venipuncture / Unknown 12/09/2024 8:25 AM EDT 12/09/2024 8:25 AM EDT Aubree LYNN LAB BLOOD ORDERABLES Final R esult [facility] [address] [place] [address], * Creatinine (06/10/2024 8:35 AM EST) Creatinine 0.68 0.50 - 1.10 mg/dL LAB CHEMISTRY METHOD 06/10/2024 5:25 PM EST [facility] eGFR 102 >=60 mL/min/1. 73m2 LAB CHEMISTRY METHOD 06/10/2024 5:25 PM EST [facility] Comment:Calculation based on the Chronic Kidney Disease Epidemiology Collaboration (CKD-EPI) equation refit without adjustment for race. Blood Venous blood specimen / Unknown Venipuncture / Unknown 06/10/2024 8:35 AM EST 06/10/2024 8:36 AM EST us Aubree LYNN LAB BLOOD ORDERABLES Final R esult [facility] [address] [place] [address], from Last 3 Months or Most Recently Relevant to Health Maintenance Insurance [facility] [employer] Care Teams Administrative Coordinator Relationship Specialty Start Date End Date Kareen Burrell MD [address] [place] [address] , [facility] [address] [facility] Phys[facility] Associ D/B/A: [facility] [place], [place] PCP - General 12/13/19
== END 2025-03-04 13:08 | disposition home or self-care (01) ==
LOC: HO.HGI 12:36
PROVIDERS: PCP Internal Medicine; Visit Provider Nurse Practitioner
DX: K21.00 Gastro-esophageal reflux disease with esophagitis, without bleeding (principal); K58.2 Mixed irritable bowel syndrome; R10.10 Upper abdominal pain, unspecified; K30 Functional dyspepsia; R21 Rash and other nonspecific skin eruption
CPT/HCPCS: 99213

== ENCOUNTER → 2025-03-04 12:35 | Outpatient (BNVA) | payer OTHER, SELFPAY | PROVIDERS: PCP Internal Medicine; Visit Provider Nurse Practitioner | DX: K21.00 Gastro-esophageal reflux disease with esophagitis, without bleeding (principal); R10.10 Upper abdominal pain, unspecified; K58.2 Mixed irritable bowel syndrome; K30 Functional dyspepsia; G35 Multiple sclerosis | CPT/HCPCS: 99212 ==

== ENCOUNTER 2025-03-12 14:39 | Outpatient (REF) | payer OTHER, SELFPAY ==
--- OUTSIDE RECORDS SUMMARY | 2025-03-13 16:55 | XMS_ITS | Clinical Summary ---
Author Organization [employer] Address [address] [place] [address] 7 [place] [address] Care Team Providers Care Airfreight Loading Supervisor Name Role Phone Unavailable Primary Care Provider Unavailabl e Allergies Active Allergy Reactions Criticality Noted Date Comments [place] Oil 08/02/2010 Other Reaction(s): almond, sinhala walnut, cashe Apple Juice 09/03/2020 Bee Pollen [...] 3 Active ergocalciferol (Vitamin D2) 1.25 MG (68633 UT) capsule Take 50,000 Units by mouth [...] Most Recently Relevant to Health Maintenance Insurance [facility] STANDARD DENTAL-[facility] MEDICAID STAND ADULT
--- OUTSIDE RECORDS SUMMARY | 2025-03-13 16:55 | XMS_ITS | Clinical Summary ---
Author Organization [address] [facility] Address [address] [place] [address] Phone Care Team Providers Care Rat Farmer Name Role Phone Kareen Burrell MD Primary Care Provider [phone] Allergies Active Allergy Reactions Criticality Noted Date [...] Diagnosed Date Asthma 10/11/2011 Multiple sclerosis ([facility] V24, CMS/[facility] V28) Osteoarthritis 10/11/2011 Overview (04/17/2024): IMO update Obesity, unspecified 10/11/2011 Hypertension 10/11/2011 Esophageal reflux 10/11/2011 Encounters Date Type Department Care Team Description 02/24/2025 4:00 PM EDT Office Visit [facility] [address] [place] [address] Aubree Renee PA Foot pain, right (Primary Dx); Multiple sclerosis (CMS/HCC V24, CMS/[facility] V28); Gait abnormality from Last 3 Months Surgical History Surgery Date Site/Laterality Comments LEG SURGERY Left PROCEDURE:LEG SURGERY BLADDER SURGERY PROCEDURE:BLADDER SURGERY Medical History Medical History Date Comments MS (multiple sclerosis) (CMS /[facility] V24, CMS/HCC V28) DX:MS (multiple sclerosis) ( [facility]) Hypertension DX:Hypertension Arthritis DX:Arthritis Gastritis DX:Gastritis Family [...] Care Team (Late st Contact Info) Description 04/14/2025 3:00 PM EDT Evaluation [facility] [place] 175 [facility] [address] [place] [phone] Neena Black, KYLEE 06/09/2025 8:00 AM EST Appointment [facility] [place] 175 [facility] 150 [place] [phone] 06/09/2025 8:00 AM EST Office Visit [facility] [place] 175 [facility] 150 [place] [phone] Alyssa Kauffman MD 175 [facility] 150 [place] [phone] Health Maintenance Due Date Last Done Comments Breast Cancer Screening 1967 Cervical Cancer Screening: Pap Smear 1988 Pneumococcal Vaccine: 50+ Years (2 of 2 - PCV) 07/05/2019 07/05/2018, 01/19/2014, 11/11/2010 Cholesterol Screening (Lipid Panel) 07/15/2022 Colorectal Cancer Screening: Colonoscopy 07/15/2022 HIV Screening 07/15/2022 Hepatitis C Screening 07/15/2022 Social Influencers of Health Screening 07/15/2022 COVID-19 Vaccine (1 - 2023- season) 2024 Depression Screening 08/06/2024 Influenza Vaccine [...] Patient-Stated? Author LTGs General No Dagoberto Buck, PERINATAL TECHNICIAN Note: Pt will report no falls x2 weeks - Not Met 2. Pt will ambulate with single-point cane and right knee and hip extension to 0 degrees in mid-stance for improved limb stability with ambulation - Met 3. Pt will be independent with HEP - Met <enter goal here> General Yes Martin Hurtado, PT Procedures Procedure Name Priority Date/Time Associated Diagnosis Comments CREATININE, SERUM Routine 06/10/2024 8:3 5 AM EST from Last 3 Months or Most Recently Relevant to Health Maintenance Results * Creatinine (06/10/2024 8:35 AM EST) Creatinine 0.68 0.50 - 1.10 mg/dL LAB CHEMISTRY METHOD 06/10/2024 5:25 PM EST [facility] eGFR 102 >=60 mL/min/1. 73m2 LAB CHEMISTRY METHOD 06/10/2024 5:25 PM EST [facility] Comment:Calculation based on the Chronic Kidney Disease Epidemiology Collaboration (CKD-EPI) equation refit without adjustment for race. Blood Venous blood specimen / Unknown Venipuncture / Unknown 06/10/2024 8:35 AM EST 06/10/2024 8:36 AM EST Aubree LYNN LAB BLOOD ORDERABLES Final R esult [facility] [address] [place] [address], from Last 3 Months or Most Recently Relevant to Health Maintenance Insurance [place] [address] HEALTH PLAN Care Teams Rat Farmer Relationship Specialty Start Date End Date Kareen Burrell MD 2 [facility] , [address] Physician Associ D/B/A: [facility] [place] PCP - General 12/13/19
--- OUTSIDE RECORDS SUMMARY | 2025-03-13 16:56 | XMS_ITS | Clinical Summary ---
Author Organization [employer] [facility] Address [address] [place] [address] Care Team Providers Care Technology Sales Specialist Name Role Phone Kareen Mark MD Primary [...] mouth. 0 Active ergocalciferol (VITAMIN D2) capsule 58377 units Take 1 capsule (50,000 Units total) [...] age to complete this topic Care Teams Technology Sales Specialist Relationship Specialty Start Date End Date Kareen Mark MD 2 [facility] , [address] [facility] Physician Associ D/B/A: [facility] May In Internal Medicine [place] [id number] PCP - General Internal Medicine 12/13/19
--- OUTSIDE RECORDS SUMMARY | 2025-03-13 16:56 | XMS_ITS | Patient Health Record ---
Author Organization [facility] Address [address] [place] [address] Care Team Providers Care Buckle Coverer Name Role Phone Kareen Mark Primary Care Provider Martin Ortiz Unavailable [phone] Allergies Allergen (clinical drug ingredient) Drug/Non Drug [...] Problem Status W/U Status Risk Notes Problem [id number] Encounter for screening for malignant neoplasm of colon (Z12.11) Active confirmed Problem 120081833 Gastroesophageal reflux disease without esophagitis (K21.9) Active confirmed Problem [id number] Pre-procedural examination (Z01.818) Active confirmed Plan Of Treatment Pending Test Test Name Order Date GI BIOPSY 12/26/2017 Future Test Test Name Order Date COLONOSCOPY 12/12/2017 Insurance Providers Payer Name Payer Address Payer Phone Subscriber Number Group Number Insured Name Patient Relationship to Insured Coverage Start Date Coverage End Date MEDICAID OF [employer] [address] [place] [id number] KINA SALAZAR Self - patient is the insured Medical (General) History Medical History History ICD Code Denies [place],DM,CVA,renal disease Asthma Hypertension Multiple sclerosis GERD--EGD 01/2011WNL except for small HH and gastritis--neg. Hpylori Surgical History Surgery Date(Month/Year) Leg surgery due to broken left leg- 2012 Nose surgery Left carpal tunnel
== END 2025-03-12 14:40 | disposition home or self-care (01) ==
LOC: HO.LNP 14:39
PROVIDERS: Visit Provider Nurse Practitioner
DX: K21.00 Gastro-esophageal reflux disease with esophagitis, without bleeding (principal)
CPT/HCPCS: 87338

== ENCOUNTER 2025-03-23 15:49 | Outpatient (AMB) | payer OTHER, SELFPAY ==
[2025-03-23 15:51] VITALS: BP 120/70; PULSE 84; RESP 18; O2SAT 96; BMI 25.5
--- NOTE | 2025-03-23 15:51 | A.OFFPC_ITS ---
Vital Signs 03/23/25 15:51 Height 5 ft 2 in Weight 139 lb 6 oz BMI 25.5 BP 120/70 Blood Pressure Location Lt brachial Position Sitting Respiration 18 Pulse 84 Pulse Source Pulse Oximeter Temp Source Temporal Artery Scan Pulse Oximetry (%) 96 Oxygen Delivery Method Room Air Intake Visit Reasons: Lump/bump one throat Java Scala Developer Required: Yes Java Scala Developer Language: Mainspring Torque Tester Name: felix Accompanied by: Self / Same As Patient Allergies almond Allergy (Severe, Verified 03/23/25 16:24) ANAPHYLAXIS kiwi Allergy (Severe, Verified 03/23/25 16:24) Itching peach (PEACH) Allergy (Severe, Verified 03/23/25 16:24) ANAPHYLAXIS walnut Allergy (Severe, Verified 03/23/25 16:24) ANAPHYLAXIS morphine Allergy (Intermediate, Verified 03/23/25 16:24) ITCHING, hives, swelling,itchiness Tobacco use date assessed: 03/23/25 Dental Screening Dental Screen Date: 03/23/25 Did you have a dental visit in the last 12 months?: Yes Did you have a dental problem in the last 6 months where you did not have access to dental care?: No Was dental information given to patient?: Patient has dentist HPI Lump/bump one throat HPI Details The patient is a 59 year female presenting with complaints of a lump in her throat. Patient had complained about similar sensation last year and an ultrasound of the neck was ordered that did not yield a lump/mass. The patient is feeling lump sensation over the thyroid region. She denies any thyroid disease or family history of thyroid disease. She denies sore throat, but reports hoarseness in her voice at times Her voice is clear in office. No clear lump felt on lump felt on assessment Right, small submandibular lymph node felt. Denies shortness of breath [facility] Medical History Allergic rhinitis Neck mass Hemorrhoids Macrocytosis Family history of colon cancer Salivary disorder Encounter for well woman exam with routine gynecological exam Pelvic pain Irritable bowel syndrome with both constipation and diarrhea Irritable bowel syndrome with diarrhea Bilateral tennis elbow Weight loss Numbness and tingling in both hands Hypomagnesemia Right shoulder pain Left knee pain Foot callus Foot pain Chest pain Right foot pain Left foot pain Physical exam Vaginal itching Nausea and vomiting Chronic superficial gastritis Bilateral knee pain Bilateral hand pain Hypernatremia Encounter for medication monitoring Pre-op examination URI (upper respiratory infection) Physical exam Right ankle sprain Right hand pain COVID-19 Urinary frequency BV (bacterial vaginosis) Environmental allergies Fibromyalgia Chronic constipation Moderate recurrent major depression RUQ abdominal pain B12 deficiency Urge urinary incontinence Dyslipidemia Essential hypertension Multiple sclerosis Migraine Surgical History History of carpal tunnel surgery of left wrist History of esophagogastroduodenoscopy (EGD) Hx of colonoscopy Hx of foot surgery History of suburethral sling procedure Hx of tubal ligation History of endometrial ablation Hx of submucous nasal surgery Family History Father History of throat cancer Mother Stroke Multiple sclerosis Maternal Grandmother Multiple sclerosis Pancreatic cancer Paternal Grandfather Pancreatic cancer Lung cancer Social History Household Members: Spouse and Children Housing: Apartment Are you a primary intensive care ambulance paramedic to a significant other at home: No Do you presently have visiting nurse or other home services: Yes Alcohol intake: never Patient Tobacco Use Status: Former Tobacco user Years Smoked: Quit 30 years ago e-Cigarette/Vaping Use: Never Used Second Hand Smoke Exposure: No Substance Use Type: Marijuana service: No Current occupational status: student and disabled Cognitive needs: No Hearing needs: No Vision needs: Yes Female Reproductive History Menstrual Age of Menarche: 11 Questionnaire PHQ-9 Over the last 2 weeks, how often have you been bothered by any of the following problems? 1. Little interest or pleasure in doing things: more than half the days 2. Feeling down, depressed, or hopeless: nearly every day 3. Trouble falling or staying asleep, or sleeping too much: nearly every day 4. Feeling tired or having little energy: nearly every day 5. Poor appetite or overeating: nearly every day 6. Feeling bad about yourself - or that you are a failure or have let yourself or your family down: not at all 7. Trouble concentrating on things, such as reading the newspaper or watching television: nearly every day 8. Moving or speaking so slowly that other people could have noticed. Or the opposite - being so fidgety or restless that you have been moving around a lot more than usual: nearly every day 9. Thoughts that you would be better off or of hurting yourself in some way: not at all Total score: 20 Depression Screening Interpretation: Positive Depression Screening Follow-up: Existing condition, In treatment and Community Mental Health Worker F/U Depression Screening Done: Yes 76052 - PHQ-9 Billing: Yes Source: Developed by Drs. Martin Rivera, Brigida Milligan, Matty Nielsen and colleagues, with an educational kathrine from [employer]. Thrive Questionnaire Date Thrive assessed: 03/23/25 I am a: Patient What is your living situation today?: I have a steady place to live Within the past 12 months, did the food you bought not last and you didn't have the money to get more?: Never true Within the past 12 months, did you worry whether your food would run out before you got money to buy more?: Never true Do you have trouble paying for medicines?: No Do you have trouble getting transportation to medical appointments?: No Do you have trouble paying your heating and electricity bill?: No Do you have trouble taking care of your child, family member or friend?: No Do you have trouble with day-to-day activities such as bathing, preparing meals, shopping, managing finances, etc.?: No Are you currently unemployed and looking for a job?: No Are you interested in more education?: No Please select the resources that you would like help with: None THRIVE Score: 0 AUDIT C Alcohol Use Questionnaire (AUDIT-C) 1. How often do you have a drink containing alcohol?: Never Total Score: 0 ROLY-7 AMB Questionnaire ROLY-7 Date ROLY - 7 assessed: 03/23/25 Feeling nervous, anxious, or on edge: 3 = Nearly every day Not being able to stop or control worryin = Several days Worrying too much about different things: 2 = More than half the days Trouble relaxin = More than half the days Being so restless that it is hard to sit still: 2 = More than half the days Becoming easily annoyed or irritable: 2 = More than half the days Feeling afraid as if something awful might happen: 2 = More than half the days Total ROLY-7 score (0-4 normal; 5-9 mild; 10-14 moderate; 15-21 severe): 14 Source: Developed by Drs. Martin Rivera, Brigida Milligan, Matty Nielsen and colleagues, with an educational kathrine from [employer]. ROLY-7 Assessment Billing ROLY-7 Assessment Tool: ROLY-7 Assessment 86655 Review of Systems Const Denies body aches, Denies chills, Denies fever(s), Denies headache(s) and Denies poor appetite Eyes Reports no additional complaints ENT Denies dysphagia, Denies dizziness, Denies headache(s), Reports hoarseness, Reports neck mass (touch over the thyroid) and Denies odynophagia Card Denies chest pain, Denies syncope, Denies edema, Denies irregular heart rhythm, Denies lightheadedness and Denies dyspnea Resp Denies cough and Denies dyspnea GI Denies abdominal pain, Denies constipation, Denies dysphagia, Denies diarrhea, Denies nausea, Denies odynophagia and Denies vomiting Reports no additional complaints Musc Reports no additional complaints and Denies abnormal gait Skin/Breast Reports system reviewed and no additional complaints, except as documented Neuro Denies abnormal gait, Denies dizziness, Denies syncope and Denies headache(s) Psych Reports no additional complaints Physical exam (Primary Care) Vital Signs: Last Vital Signs Pulse 84 03/23/25 15:51 Resp 18 03/23/25 15:51 BP 120/70 03/23/25 15:51 Pulse Ox 96 03/23/25 15:51 Oxygen Delivery Method Room Air 03/23/25 15:51 BMI result Body Mass Index 25.5 Tobacco/Smoking Status: Tobacco use Status Tobacco use date assessed 03/23/25 03/23/25 15:53 Patient Tobacco Use Status Former Tobacco user 03/23/25 15:53 e-Cigarette/Vaping Use Never Used 03/23/25 15:53 PHQ-9: PHQ-9 Score PHQ-9: Total score 20 03/23/25 16:20 Depression Screening Interpretation: Positive Depression Screening Follow-up: Existing condition, In treatment and Community Mental Health Worker F/U Thrive Assessment: Date of Thrive Assessment Date Thrive assessed 03/23/25 03/23/25 15:53 Const General: cooperative, healthy appearing, comfortable and no acute distress Orientation/consciousness: patient oriented x3 HENMT Head: Yes normocephalic Ears: hearing grossly normal bilaterally General nose exam: Normal external nose present Eyes General: appearance normal, both eyes and all related structures Conjunctivae: conjunctivae normal Neck Neck: Yes full ROM, Yes lymphadenopathy and Yes submandibular swelling (small lymph node) Resp Effort & Inspection: normal respiratory effort Auscultation: clear to auscultation bilaterally, no crackles, no rales, no rhonchi and no wheezes Cardio Rate: regular rate Rhythm: regular rhythm Skin General skin exam: no rashes or lesions noted Neuro General: patient oriented x3 Gait exam (Neuro): Normal gait present Extrem General: Yes normal to inspection, Yes full ROM and No edema Psych Affect: normal affect Attitude: cooperative Insight: Good insight present (Psych) Judgement: Good judgement present (Psych) Coding Level of Care Code Est Pt Level 3 (59810) Diagnoses Thyroid nodule E04.1 Additional Codes ROLY-7 Assessment Billing - ROLY-7 Assessment Tool: ROLY-7 Assessment 95904 ([id number]) PHQ-9 - 73128 - PHQ-9 Billing: Yes ([id number]) Time Spent (min) 34 Assessment & Plan Assessment & Plan (1) Thyroid nodule: Code(s): E04.1 - Nontoxic single thyroid nodule Category: Medical Plan: Thyroid ultrasound ordered to evaluate thyroid mass sensation Orders: Orders US thyroid Today E04.1 - Nontoxic single thyroid nodule
--- OUTSIDE RECORDS SUMMARY | 2025-03-23 16:11 | XMS_ITS | Clinical Summary ---
Author Organization [facility] Address [address] [place] [address] Care Team Providers Care Carburizer Name Role Phone Kareen Mark MD Primary [...] mouth. 0 Active ergocalciferol (VITAMIN D2) capsule 49289 units Take 1 capsule (50,000 Units total) [...] age to complete this topic Care Teams Carburizer Relationship Specialty Start Date End Date Kareen Mark MD 2 [facility] , [address] [facility] Physician Associ D/B/A: Juliane May In Internal Medicine [place] [id number] PCP - General Internal Medicine 12/13/19
--- OUTSIDE RECORDS SUMMARY | 2025-03-23 16:11 | XMS_ITS | Clinical Summary ---
Author Organization 175 [facility] Address [address] [place] [address] Phone Care Team Providers Care Multi Purpose Machine Operator Name Role Phone Kareen Burrell MD Primary Care Provider [phone] Allergies Active Allergy Reactions Criticality Noted Date [...] Date Diagnosed Date Asthma 10/11/2011 Multiple sclerosis ([facility] V24, CMS/[facility] V28) Osteoarthritis 10/11/2011 Overview (04/17/2024): IMO update Obesity, unspecified 10/11/2011 Hypertension 10/11/2011 Esophageal reflux 10/11/2011 Encounters Date Type Department Care Team Description 02/24/2025 4:00 PM EDT Office Visit [facility] [address] [place] [address] Aubree Renee PA Foot pain, right (Primary Dx); Multiple sclerosis (CMS/HCC V24, CMS/[facility] V28); Gait abnormality from Last 3 Months Surgical History Surgery Date Site/Laterality Comments LEG SURGERY Left PROCEDURE:LEG SURGERY BLADDER SURGERY PROCEDURE:BLADDER SURGERY Medical History Medical History Date Comments MS (multiple sclerosis) (CMS /[facility] V24, CMS/HCC V28) DX:MS (multiple sclerosis) ( [facility]) Hypertension DX:Hypertension Arthritis DX:Arthritis Gastritis DX:Gastritis [...] Info) Description 04/14/2025 3:00 PM EDT Evaluation [facility] [place] 175 [facility] [address] [place] [phone] Neena Black, KYLEE 06/09/2025 8:00 AM EST Appointment [facility] [place] 175 [facility] [address] [place] [phone] 06/09/2025 8:00 AM EST Office Visit [facility] [place] 175 [facility] 150 [place] [phone] Alyssa Kauffman MD 175 [facility] 150 [place] [phone] Health Maintenance Due Date Last Done Comments [...] Patient-Stated? Author LTGs General No Dagoberto Buck, FAGOTING MACHINE OPERATOR Note: Pt will report no falls x2 [...] esult [facility] [address] [place] [address], from Last 3 Months or Most Recently Relevant to Health Maintenance [place] [address] [place] [address] HEALTH PLAN Care Teams Multi Purpose Machine Operator Relationship Specialty Start Date End Date Kareen Burrell MD 2 [facility] , [address] Physician Associ D/B/A: Juliane May In Internal Medicine [place] PCP - General 12/13/19
--- OUTSIDE RECORDS SUMMARY | 2025-03-23 16:11 | XMS_ITS | Clinical Summary ---
Author Organization [employer] Address [address] [place] [address] 7 [place] [address] Care Team Providers Care Drawing Instructor Name Role Phone Unavailable Primary Care Provider Unavailabl e Allergies Active Allergy Reactions Criticality Noted Date Comments [place] Oil 08/02/2010 Other Reaction(s): almond, kinyarwanda walnut, cashe Apple Juice 09/03/2020 Bee Pollen [...] 3 Active ergocalciferol (Vitamin D2) 1.25 MG (61137 UT) capsule Take 50,000 Units by mouth [...] Most Recently Relevant to Health Maintenance Insurance [facility] STANDARD DENTAL-[facility] MEDICAID STAND ADULT
--- OUTSIDE RECORDS SUMMARY | 2025-03-23 16:11 | XMS_ITS | Patient Health Record ---
Author Organization [facility] Address [address] [place] [address] Care Team Providers Care Underlay Stitcher Name Role Phone Kareen Mark Primary Care Provider Martin Ortiz Unavailable [phone] Allergies Allergen (clinical drug ingredient) Drug/Non Drug [...] Problem Status W/U Status Risk Notes Problem 380507235 Encounter for screening for malignant neoplasm of colon (Z12.11) Active confirmed Problem 653918051 Gastroesophageal reflux disease without esophagitis (K21.9) Active confirmed Problem [id number] Pre-procedural examination (Z01.818) Active confirmed Plan Of Treatment Pending Test Test Name Order Date GI BIOPSY 12/26/2017 Future Test Test Name Order Date COLONOSCOPY 12/12/2017 Insurance Providers Payer Name Payer Address Payer Phone Subscriber Number Group Number Insured Name Patient Relationship to Insured Coverage Start Date Coverage End Date MEDICAID OF [employer] [address] [place] [id number] KINA SALAZAR Self - patient is the insured Medical (General) History Medical History History ICD Code Denies [place],DM,CVA,renal disease Asthma Hypertension Multiple sclerosis GERD--EGD 01/2011WNL except for small HH and gastritis--neg. Hpylori Surgical History Surgery Date(Month/Year) Leg surgery due to broken left leg- 2012 Nose surgery Left carpal tunnel
== END 2025-03-23 16:39 | disposition home or self-care (01) ==
LOC: HO.HMCH 15:50
PROVIDERS: PCP Internal Medicine
DX: E04.1 Nontoxic single thyroid nodule (principal)

== ENCOUNTER → 2025-03-23 15:49 | Outpatient (BNVA) | payer OTHER, SELFPAY | PROVIDERS: PCP Internal Medicine | DX: E04.1 Nontoxic single thyroid nodule (principal) | CPT/HCPCS: 96127; 99212 ==

== ENCOUNTER 2025-05-04 09:07 | Outpatient (REF) | payer OTHER, SELFPAY ==
--- OUTSIDE RECORDS SUMMARY | 2024-05-08 16:26 | XMS_ITS | Encounter Summary ---
Author Organization [facility] Address [address] [place] [address] Care Team Providers Care Transportation Maintenance Worker Name Role Phone Kareen Burrell MD Primary Care Provider [phone] Encounter Details Date Type Department Care Team (Late st Contact Info) Description 05/08/2024 4:26 PM EDT Hospital Encounter TH HISTORIC ENCOUNTERS [facility]ASTERN CONVERSION ONLY Aubree Renee PA [address] [address] Social History Tobacco Use Types Packs/Day Years [...] Care Team (Late st Contact Info) Description 05/06/2025 3:30 PM EDT Treatment [facility] [address] [phone] Thai Rodriguez, UNDERGROUND PRODUCTION FOREPERSON 05/11/2025 3:30 PM EDT Treatment [facility] [address] [phone] Thai Rodriguez, UNDERGROUND PRODUCTION FOREPERSON 05/13/2025 3:30 PM EDT Treatment [facility] [address] [phone] Thai Rodriguez UNDERGROUND PRODUCTION FOREPERSON 05/18/2025 3:30 PM EDT Treatment [facility] [address] [phone] Thai Rodriguez, UNDERGROUND PRODUCTION FOREPERSON 05/20/2025 3:30 PM EDT Treatment [facility] [address] [phone] Thai Rodriguez, UNDERGROUND PRODUCTION FOREPERSON 05/25/2025 4:30 PM EDT Treatment [facility] [address] [phone] Neena Black, PT 06/09/2025 8:00 AM EST Appointment [facility] Outpatient Rehabilititation - [address] [phone] 06/09/2025 8:00 AM EST Office Visit [facility] [place] [address] [phone] Alyssa Kauffman MD 175 [place] [address] documented as of this encounter Goals Goal Patient Goal Type Associated Problems Recent Progress Patient-Stated? Author PT LTG - 6 visits General No Neena Black, PT Note: Patient will report no falls in 2 weeks Patient is able to achieve normal midtarsal joint mobility Slight gastroc flexibility restriction bilaterally Patient is independent and compliant with HEP documented as of this encounter Visit Diagnoses Not on filedocumented in this encounter Care Teams Transportation Maintenance Worker Relationship Specialty Start Date End Date Kareen Burrell MD [address] [place] [address] Physician Associ D/B/A: [facility] [place] PCP - General 12/13/19 documented as of this encounter
--- NOTE | ~2025-05-04 | FL_ITS ---
EXAMINATION: XR FLUOROSCOPY BARIUM SWALLOW CLINICAL INFORMATION: Globus sensation with dysphasia and reflux-type symptoms. Nausea. COMPARISON: 02/05/2023. TECHNIQUE: Fluoroscopic air contrast barium swallow examination was performed utilizing standard techniques with thin and thick barium and effervescent granules. Numerous spot images were obtained. Several fluoroscopic image hold cine sequences were also obtained. FINDINGS: BARIUM SWALLOW: Lateral cine images of the oropharynx and hypopharynx demonstrate normal swallow mechanism with normal epiglottic inversion and soft palate elevation. No laryngeal penetration, glottic or subglottic aspiration identified. No nasopharyngeal reflux present. Hypopharyngeal structures appear normal without evidence of mass or diverticulum. There was no significant cricopharyngeal achalasia. Dual and single contrast images of the esophagus demonstrate normal caliber, contour, and mucosal pattern. No evidence of stricture, mass, or ulcerations identified. Esophageal peristalsis was essentially normal. No evidence of hiatus hernia identified. No significant gastroesophageal reflux was seen during the course of the 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 Dual contrast and single contrast images of the stomach demonstrated normal contour and mucosal pattern without evidence of abscess or gross ulceration. Gastric rugal folds appear normal. Contrast freely passed into the gastric antrum and duodenal bulb without delay. FLUOROSCOPY TIME: 2 minutes, 17 seconds Number of Spot Images:11 Number of cines obtained: 5 DOSE AREA PRODUCT: 2078 uGy-m2 (microgray-meter squared) FL/FL barium swallow with air IMPRESSION: 1. Essentially normal barium swallow 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 Electronically signed by: Rm Díaz MD 05/04/2025 10:37 AM EDT
--- OUTSIDE RECORDS SUMMARY | 2025-05-04 09:45 | XMS_ITS | Clinical Summary ---
Author Organization [employer] Address [address] [place] [address] 7 [place] [address] Care Team Providers Care Pipeline Systems Operator Name Role Phone Unavailable Primary Care Provider Unavailabl e Allergies Active Allergy Reactions Criticality Noted Date Comments [place] Oil 08/02/2010 Other Reaction(s): almond, tur[place] ca[place] islander walnut, cashe Apple Juice 09/03/2020 Bee Pollen [...] 3 Active ergocalciferol (Vitamin D2) 1.25 MG (60799 UT) capsule Take 50,000 Units by mouth [...] 10/01/2023, 0 03/20/2018, 03/03/2016, Additional history exists Dental X-Ray: Bitewings 09/15/2024 09/14/19 24, 11/12/2020, 02/07/2019, Additional history exists COVID-19 Vaccine ( - season) 2025 Influenza Vaccine (#1) 2025 05/06/2014, 2011 Tobacco [...] Most Recently Relevant to Health Maintenance Insurance [facility] STANDARD DENTAL-[facility] MEDICAID STAND ADULT
--- OUTSIDE RECORDS SUMMARY | 2025-05-04 09:45 | XMS_ITS | Clinical Summary ---
Author Organization 175 [facility] Address [address] [place] [address] Phone Care Team Providers Care Building Maintenance Repairer Name Role Phone Kareen Burrell MD Primary Care Provider [phone] Allergies Active Allergy Reactions Criticality Noted Date [...] Encounters Date Type Department Care Team Description 04/14/2025 3:00 PM EDT Evaluation [facility] 175 [facility] [address] [place] [address] Neena Black PT Multiple sclerosis (CMS/HCC V24, CMS/HCC V28); Gait abnormality 02/24/2025 4:00 PM EDT Office Visit [facility] [place] 175 [facility] [address] [place] [phone] Aubree Renee, PA Foot pain, right (Primary Dx); Multiple sclerosis (CMS/HCC V24, CMS/HCC V28); Gait abnormality from Last 3 Months Surgical History Surgery Date Site/Laterality Comments LEG SURGERY Left PROCEDURE:LEG SURGERY BLADDER SURGERY PROCEDURE:BLADDER SURGERY Medical History Medical History Date Comments MS (multiple sclerosis) DX:MS (m ultiple sclerosis) ([facility]) Hypertension DX:Hypertension Arthritis DX:Arthritis Gastritis DX:Gastritis Family [...] Info) Description 05/06/2025 3:30 PM EDT Treatment [facility] [address] [address] Thai Rodriguez, MANAGER BOOK 05/11/2025 3:30 PM EDT Treatment [facility] [address] [address] Thai Rodriguez, MANAGER BOOK 05/13/2025 3:30 PM EDT Treatment [facility] [address] [address] Thai Rodriguez, MANAGER BOOK 05/18/2025 3:30 PM EDT Treatment [address] [address] Thai Rodriguez, MANAGER BOOK 05/20/2025 3:30 PM EDT Treatment [address] [address] Thai Rodriguez, MANAGER BOOK 05/25/2025 4:30 PM EDT Treatment [address] [address] Neena Black, PT 06/09/2025 8:00 AM EST Appointment [facility] [address] [phone] 06/09/2025 8:00 AM EST [facility] [address] [address] Alyssa Kauffman MD 175 [place] [address] Health Maintenance Due Date Last Done Comments Breast Cancer Screening 1965 Colorectal Cancer Screening: Colonoscopy 1965 Cervical Cancer Screening: Pap Smear 1988 Pneumococcal Vaccine: 50+ Years (2 of 2 - PCV) 07/05/2019 07/05/2018, 01/19/2014, 11/11/2010 Cholesterol Screening (Lipid Panel) 07/15/2022 HIV Screening 07/15/2022 Hepatitis C Screening 07/15/2022 Social Influencers of Health Screening 07/15/2022 Depression Screening 08/06/2024 COVID-19 Vaccine ( season) 2025 Influenza Vaccine (#1) 2025 05/06/2014, 2011 Hypertension/CHF/CAD Annual BMP Blood Test 06/10/2025 06/10/2024 DTaP,Tdap,and Td Vaccines (5 - Td or Tdap) 11/17/2026 11/17/2016, 11/06/2010, 07/22/2003, Additional history exists RSV Immunization Adult Patients (1 - 1-dose 75+ series) 2042 Hepatitis [...] LTG - 6 visits General No Neena Black PT Note: Patient will report no falls in 2 weeks Patient is able to achieve normal midtarsal joint mobility Slight gastroc flexibility restriction bilaterally Patient is independent and compliant with HEP Procedures Procedure Name Priority Date/Time Associated Diagnosis Comments CREATININE, SERUM Routine 06/10/2024 8:3 5 AM EST from Last 3 Months or Most Recently Relevant to Health Maintenance Results * Creatinine (06/10/2024 8:35 AM EST) Creatinine 0.68 0.50 - 1.10 mg/dL LAB CHEMISTRY METHOD 06/10/2024 5:25 PM EST [facility] eGFR 102 >=60 mL/min/1. 73m2 LAB CHEMISTRY METHOD 06/10/2024 5:25 PM EST [facility] Comment:Calculation based on the Chronic Kidney Disease Epidemiology Collaboration (CKD-EPI) equation refit without adjustment for race. Blood Venous blood specimen / Unknown Venipuncture / Unknown 06/10/2024 8:35 AM EST 06/10/2024 8:36 AM EST Aubree LYNN LAB BLOOD ORDERABLES Final R esult [facility] ([facility] [address] [place] [address], from Last 3 Months or Most Recently Relevant to Health Maintenance Insurance [facility] [employer] Care Teams Building Maintenance Repairer Relationship Specialty Start Date End Date Kareen Burrell MD [address] [place] [address] , [address] [facility] Associ D/B/A: [facility] [place], [place] PCP - General 12/13/19
--- OUTSIDE RECORDS SUMMARY | 2025-05-04 09:46 | XMS_ITS | Patient Health Record ---
Author Organization [facility] Address [address] [place] [address] Care Team Providers Care Construction Materials Tester Name Role Phone Kareen Mark Primary Care Provider Martin Ortiz Unavailable [phone] Allergies Allergen (clinical drug ingredient) Drug/Non Drug [...] Problem Status W/U Status Risk Notes Problem 609799663 Encounter for screening for malignant neoplasm of colon (Z12.11) Active confirmed Problem [id number] Gastroesophageal reflux disease without esophagitis (K21.9) Active confirmed Problem [id number] Pre-procedural examination (Z01.818) Active confirmed Plan Of Treatment Pending Test Test Name Order Date GI BIOPSY 12/26/2017 Future Test Test Name Order Date COLONOSCOPY 12/12/2017 Insurance Providers Payer Name Payer Address Payer Phone Subscriber Number Group Number Insured Name Patient Relationship to Insured Coverage Start Date Coverage End Date MEDICAID OF [employer] [address] [place] [phone] [id number] KINA SALAZAR Self - patient is the insured Medical (General) History Medical History History ICD Code Denies [place],DM,CVA,renal disease Asthma Hypertension Multiple sclerosis GERD--EGD 01/2011WNL except for small HH and gastritis--neg. Hpylori Surgical History Surgery Date(Month/Year) Leg surgery due to broken left leg- 2012 Nose surgery Left carpal tunnel
--- OUTSIDE RECORDS SUMMARY | 2025-05-04 09:46 | XMS_ITS | Clinical Summary ---
Author Organization [facility] Address [address] [place] [address] Care Team Providers Care Medical Assistant Internal Medicine Name Role Phone Kareen Mark MD Primary [...] mouth. 0 Active ergocalciferol (VITAMIN D2) capsule 86578 units Take 1 capsule (50,000 Units total) [...] age to complete this topic Care Teams Medical Assistant Internal Medicine Relationship Specialty Start Date End Date Kareen Mark MD 2 [facility] , [address] [facility] Physician Associ D/B/A: [facility] [place] [address] PCP - General Internal Medicine 12/13/19
== END 2025-05-04 09:08 | disposition home or self-care (01) ==
LOC: HO.XRAY 09:07
PROVIDERS: PCP Internal Medicine; Visit Provider Nurse Practitioner
DX: K21.00 Gastro-esophageal reflux disease with esophagitis, without bleeding (principal)
CPT/HCPCS: 74221

== ENCOUNTER → 2025-05-04 09:09 | Outpatient (BNV) | payer OTHER, SELFPAY | PROVIDERS: PCP Internal Medicine; Visit Provider Radiology Diagnostic Radiology | DX: K21.9 Gastro-esophageal reflux disease without esophagitis (principal); R13.10 Dysphagia, unspecified | CPT/HCPCS: 74221 ==

== ENCOUNTER 2025-05-19 13:15 | Outpatient (REF) | payer OTHER, SELFPAY ==
--- OUTSIDE RECORDS SUMMARY | 2024-05-08 16:26 | XMS_ITS | Encounter Summary ---
Author Organization [facility] Address [address] [place] [address] Care Team Providers Care Extrusion Process Operator Name Role Phone Kareen Burrell MD Primary Care Provider [phone] Encounter Details Date Type Department Care Team (Late st Contact Info) Description 05/08/2024 4:26 PM EDT Hospital Encounter TH HISTORIC ENCOUNTERS EASTERN CONVERSION ONLY Aubree Renee PA [address] [facility] [address] [place] [address] Social History Tobacco Use Types Packs/Day Years Used Date Smoking Tobacco: Never Smokeless Tobacco: Never Comments Unknown Sex and Gender Information Value Date Recorded Sex Assigned at Not on file Legal Sex Female 12:43 PM EST Gender Identity Not on file Sexual Orientation Not on file documented as of this encounter Plan of Treatment Upcoming Encounters Date Type Department Care Team (Late st Contact Info) Description 05/20/2025 3:30 PM EDT Treatment [facility] [address] [phone] Thai Rodriguez PTA 05/25/2025 4:30 PM EDT Treatment [facility] [address] [phone] Neena Black, KYLEE 06/09/2025 8:00 AM EST Appointment [facility] Out[facility] Re[facility] [address] [facility] [address] [place] [address] 06/09/2025 8:00 AM EST Office Visit [facility] [place] 175 [facility] [address] [place] [address] Alyssa Kauffman MD 175 [place] [address] documented as of this encounter Visit Diagnoses Not on filedocumented in this encounter Care Teams Extrusion Process Operator Relationship Specialty Start Date End Date Kareen Burrell MD [address] [facility] [address] [facility] D/B/A: [facility] [place] PCP - General 12/13/19 documented as of this encounter
--- NOTE | ~2025-05-19 | US_ITS ---
EXAMINATION: US THYROID HISTORY: E04.1 - Nontoxic single thyroid nodule TECHNIQUE: Real-time grayscale ultrasound imaging was performed and images were reviewed. COMPARISON: Correlation is made with an ultrasound of the neck dated 06/25/2024. FINDINGS: SIZE: The right thyroid lobe measures 4.7 x 1.2 x 1.6 cm. The left thyroid lobe measures 4.7 x 1.4 x 1.5 cm. The isthmus measures 3 mm. FLOW: Flow to the gland is normal. ECHOGENICITY: The echotexture of the gland is homogeneous. NODULES: A single nodule is noted as described below: Nodule #: 1 Location: Left lower pole measuring 3 x 2 x 2 mm. Shape: Wider than tall (0 points) Margins: Smooth (0 points) Echotexture: Isoechoic (1 point) Composition: Solid (2 points) Calcifications: None (0 points) Total points: 3 TIRADS: TR3: Mildly suspicious. Scans of the upper neck in the midline at the site of the patient's palpable findings demonstrate no sonographic abnormality. US/US thyroid IMPRESSION: No suspicious thyroid nodules are identified. No sonographic abnormality is seen to correspond to the palpable findings in the upper neck in the midline. ACR TI-RADS Guidelines TR1 (0 points): Benign. No follow-up or biopsy required TR2 (2 points): Not Suspicious. No biopsy or follow up indicated TR3 (3 points): Mildly Suspicious. FNA if >= 2.5 cm, Follow if >= 1.5 cm TR4 (4-6 points): Moderately Suspicious. FNA if >= 1.5 cm, Follow if >= 1.0 cm TR5 (>=7 points): Highly Suspicious. FNA if >= 1.0 cm, Follow if >= 0.5 cm Electronically signed by: Martin Valera MD 05/19/2025 02:04 PM EDT
--- OUTSIDE RECORDS SUMMARY | 2025-05-19 10:30 | XMS_ITS | Encounter Summary ---
Author Organization [facility] Address [address] [place] [address] Care Team Providers Care Med Spa Manager Name Role Phone Kareen Burrell MD Primary Care Provider [phone] Reason for Visit * Consultation (Routine) - Authorized Specialty Diagnoses / Procedures Referred By Reggie garcia Referred To Contact Physical Therapy Diagnoses Multiple sclerosis Gait abnormality Aubree Renee PA 175 [facility] [address] [place] [address] Phone: tel: fax: Referral ID Status Reason Start Date Expiration Date Visits Requested Visits Authorized [id number] Authorized Specialty Services Required 02/27/2025 02/27/2026 21 7 Encounter Details Date Type Department Care Team (Late st Contact Info) Description 05/19/2025 10:30 AM EDT Treatment [facility] 175 [facility] [address] [place] [address] Neena Black PT Multiple sclerosis (Primary Dx); Gait abnormality Social History Tobacco Use Types Packs/Day Years Used Date Smoking Tobacco: Never Smokeless Tobacco: Never Comments Unknown Sex and Gender Information Value Date Recorded Sex Assigned at Not on file Legal Sex Female 12:43 PM EST Gender Identity Not on file Sexual Orientation Not on file documented as of this encounter Progress Notes * Neena Black PT - 05/19/2025 10:30 AM EDT [facility] PHYSICAL THERAPY DISCHARGE NOTE Date: 05/19/2025 Visit Number: 2 Patient Name: Yola Mayes : 1965 Age: 60 y.o. Gender: female Diagnosis: ICD-10-CM ICD-9-CM 1. Multiple sclerosis G35.D 340 2. Gait abnormality R26.9 781.2 Date of Onset: 04/14/2010 Referring Provider: Aubree Renee PA Insurance: Payor: [facility] [employer] PLAN / Plan: [facility] MEDICAID / Product Type: *No Product type* / Patient Identified by: Neena Black PT Language: Pt. speaks Hungarian as preferred language, however declines fitness director Medications: Medications Ordered Prior to Encounter[1] Allergies: is allergic to animal dander, apple, bee pollen, hillman, house dust, kiwi, morphine, nut- unspecified, and other. Precautions: MS Fall Risk: Yes and Explain fall Risk Protocol to patient/family SUBJECTIVE Subjective Report: Patient has had no falls and notes foot is feeling much better. Missed appointments because she went to the wrong location. The patient reports overall feeling better though. Current Functional Limitations: Reported by Patient None Chart Reviewed: Yes Pain 0/10 in feet OBJECTIVE Posture: Slight trunk flexed posture Gait: lateral trunk lean to stance leg Extremity Assessments: LE MMT Right Left Hip flexion 4+/5 4+/5 Hip extension 4/5 4/5 Hip abduction 4/5 4/5 Hip adduction 5/5 5/5 Knee flexion 5/5 5/5 Knee extension 4+/5 4+/5 Ankle DF 5/5 5/5 Ankle PF 5/5 5/5 Ankle Inversion 5/5 5/5 Ankle Eversion 5/5 5/5 LE ROM AROM Right AROM Left Ankle DF (0-20) 10 12 Ankle PF (0-40) 45 45 Palpation: Slight tenderness to palpation of R superior aspect of foot with slight visible swelling Slight R gastroc flexibiltiy restriction Special Tests: Joint mobility: normal midtarsal AP joint mobility on R Other Assessments: 5 Time Sit to Stand Test Age Related Norms 60-69: 11.4 sec 70-79: 12.6 sec 80-89: 14.8 sec Pt is 59 y/o and required 20 seconds to complete test. These results indicate that patient is at significant risk for falls. Inability to rise from a chair in less than 13.6 seconds is associated with increased disability and morbidity (Adilene, 2000). 6 min walk test: distance in feet: 1600 ft TREATMENT INTERVENTION: Assessment of LE, gait, and balance DISCHARGE SUMMARY ASSESSMENT: Reporting Period Start Date: 04/14/25; End Date: 05/19/2025 Summary of Program/Progress to Date: The patient has made good progress with independent HEP and has improved gait, ankle ROM, and LE strength. Skilled physical therapy is not necessary at this time due to her improvement in balance andreduced fall risk. She is independent with her HEP and her granddaughter helps to massage her foot when pain increases. Patient Education: Education provided: HEP - standing hip abduction, seated gastroc stretch, sit to stand Education Provided To: Patient utilizing Explanation and Demonstration mode(s) of education Response to Education: Applied Knowledge, Verbal Understanding, and Demonstrated Skills GOALS Goals Addressed This Visit's Progress COMPLETED: PT LTG - 6 visits Patient will report no falls in 2 weeks - MET Patient is able to achieve normal midtarsal joint mobility - MET Slight gastroc flexibility restriction bilaterally - MET Patient is independent and compliant with HEP - MET PLAN POC Development/Review: No Change in the Plan of Care: Participants: Patient Reasons Why Continued Therapy Is Not Recommended: Goals Have Been Achieved and Patient Discharged Recommended Consults: none Equipment Recommended: none; Equipment Provided: none Total Treatment Time: 15 Therapeutic procedures: Therapeutic Exercise Time Entry: 15 Documentation completed by Neena Black PT [1] Current Outpatient Medications on File Prior to Visit Medication Sig Dispense Refill ALBUTEROL INHL Inhale into the lungs. busPIRone (BUSPAR) 5 mg tablet Take 1 tablet (5 mg total) by mouth 2 (two) times a day. cetirizine (ZyrTEC) 10 mg chewable tablet Chew 1 (one) time each day. cholecalciferol (VITAMIN D-3) 25 mcg (1,000 unit) tablet Take 1 tablet (1,000 Units total) by mouth1 (one) time each day. citalopram (CeleXA) 20 mg tablet Take 1 tablet (20 mg total) by mouth 1 (one) time each day. cyclobenzaprine (FLEXERIL) 10 mg tablet 1 p.o. daily as needed for spasm 30 each 1 diphenhydrAMINE (BENADRYL) 12.5 mg/5 mL elixir Take by mouth. diphenhydramine HCl (BENADRYL ORAL) Take by mouth. ergocalciferol (VITAMIN D-2) 1,250 mcg (50,000 unit) capsule Take 1 capsule (50,000 Units total) bymouth every 7 (seven) days. escitalopram (LEXAPRO) 10 mg tablet Take 1 tablet (10 mg total) by mouth 1 (one) time each day. glatiramer acetate (COPAXONE SUBQ) Inject 1 mL (40 mg total) under the skin 3 (three) times a week hydrOXYzine pamoate (VISTARIL) 25 mg capsule Take 1 capsule (25 mg total) by mouth 3 (three) times a day if needed for itching. LORazepam (ATIVAN) 0.5 mg tablet 1-2 po 1 hour prior to MRI. December repeat 1 at time of MRI if needed MAGNESIUM HYDROXIDE ORAL Take by mouth. rOPINIRole (REQUIP) 5 mg tablet Take 1 tablet (5 mg total) by mouth at bedtime. topiramate (TOPAMAX) 25 mg tablet 1 po q hs x 1 week, then increase to 2 po hs traZODone (DESYREL) 100 mg tablet by Does not apply route. No current facility-administered medications on file prior to visit. documented in this encounter Plan of Treatment Upcoming Encounters Date Type Department Care Team (Late st Contact Info) Description 05/20/2025 3:30 PM EDT Treatment [address] [phone] Thai Rodriguez PTA 05/25/2025 4:30 PM EDT Treatment [facility] Outpatient [address] [address] Neena Black, KYLEE 06/09/2025 8:00 AM EST Appointment [facility] Outpatient Rehabilititation - [address] [address] 06/09/2025 8:00 AM EST Office Visit [facility] - [address] [address] Alyssa Kauffman MD [address] [place] [address] documented as of this encounter Visit Diagnoses Diagnosis Multiple sclerosis- Primary Gait abnormality Abnormality of gait documented in this encounter Care Teams Med Spa Manager Relationship Specialty Start Date End Date Kareen Burrell MD 2 [facility] , [address] [facility] Physician Associ D/B/A: [facility] [place], [place] PCP - General 12/13/19 documented as of this encounter
--- OUTSIDE RECORDS SUMMARY | 2025-05-19 16:04 | XMS_ITS | Clinical Summary ---
Author Organization [facility] Address [address] [place] [address] Care Team Providers Care Nodulizer Name Role Phone Kareen Mark MD Primary [...] mouth. 0 Active ergocalciferol (VITAMIN D2) capsule 17225 units Take 1 capsule (50,000 Units total) [...] age to complete this topic Care Teams Nodulizer Relationship Specialty Start Date End Date Kareen Mark MD 2 [facility] , [address] [facility] Physician Associ D/B/A: [facility] [place] [address] PCP - General Internal Medicine 12/13/19
--- OUTSIDE RECORDS SUMMARY | 2025-05-19 16:04 | XMS_ITS | Clinical Summary ---
Author Organization 175 [facility] Address [address] [place] [address] Phone Care Team Providers Care Vp Strategy Name Role Phone Kareen Burrell MD Primary Care Provider [phone] Allergies Active Allergy Reactions Criticality Noted Date [...] Encounters Date Type Department Care Team Description 05/19/2025 10:30 AM EDT Treatment [facility] 175 [facility] [address] [place] [phone] Neena Black PT Multiple sclerosis (Primary Dx); Gait abnormality 05/07/2025 Telephone [facility] [place] Out[facility] Re[facility] 175 [facility] [address] [place] [phone] Aubree Renee PA 04/14/2025 3:00 PM EDT Evaluation [facility] 175 [facility] [address] [place] [phone] JeancarlosmelindatheaNeena, PT Multiple sclerosis (CMS/HCC V24, CMS/HCC V28); Gait abnormality 02/24/2025 4:00 PM EDT Office Visit [facility] 175 [facility] [address] [place] [phone] Aubree Renee, PA Foot pain, right (Primary Dx); Multiple sclerosis (CMS/HCC V24, CMS/HCC V28); Gait abnormality from Last 3 Months Surgical History Surgery Date Site/Laterality Comments LEG SURGERY Left PROCEDURE:LEG SURGERY BLADDER SURGERY PROCEDURE:BLADDER SURGERY Medical History Medical History Date Comments MS (multiple sclerosis) DX:MS (m ultiple sclerosis) ([facility]) Hypertension DX:Hypertension Arthritis DX:Arthritis Gastritis [...] Info) Description 05/20/2025 3:30 PM EDT Treatment [facility] [place] [address] [address] Thai Rodriguez, EXTRACTION SUPERVISOR 05/25/2025 4:30 PM EDT Treatment [facility] [place] [address] [address] Neena Black, PT 06/09/2025 8:00 AM EST Appointment [facility] [place] [address] [address] 06/09/2025 8:00 AM EST Office Visit [facility] [place] [facility] [place] [address] [address] Alyssa Kauffman MD [address] [place] [address] Health Maintenance Due Date Last Done Comments Breast Cancer Screening 1965 Colorectal Cancer Screening: Colonoscopy 1965 Cervical Cancer Screening: Pap Smear 1988 RSV Immunization Adult Patients (1 - Risk 50-74 years 1-dose series) 2017 Pneumococcal Vaccine: 50+ Years (2 of 2 [...] LAB CHEMISTRY METHOD 06/10/2024 5:25 PM EST [facility] eGFR 102 >=60 mL/min/1. 73m2 LAB CHEMISTRY METHOD 06/10/2024 5:25 PM EST [facility] Comment:Calculation based on the Chronic Kidney Disease Epidemiology Collaboration (CKD-EPI) equation refit without adjustment for race. Blood Venous blood specimen / Unknown Venipuncture / Unknown 06/10/2024 8:35 AM EST 06/10/2024 8:36 AM EST Aubree LYNN LAB BLOOD ORDERABLES Final R esult [facility] [address] [place] [address], from Last 3 Months or Most Recently Relevant to Health Maintenance [place] [address] [place] [address] PLAN Care Teams Vp Strategy Relationship Specialty Start Date End Date Kareen Burrell MD [address] [place] [address] , [address] Physician Associ D/B/A: [facility] [place], [place] PCP - General 12/13/19
--- OUTSIDE RECORDS SUMMARY | 2025-05-19 16:04 | XMS_ITS | Clinical Summary ---
Author Organization [employer] Address [address] [place] [address] 7 [place] [address] Care Team Providers Care Catastrophe Claims Supervisor Name Role Phone Unavailable Primary Care Provider Unavailabl e Allergies Active Allergy Reactions Criticality Noted Date Comments [place] Oil 08/02/2010 Other Reaction(s): almond, georgian walnut, cashe Apple Juice 09/03/2020 Bee Pollen [...] 3 Active ergocalciferol (Vitamin D2) 1.25 MG (92553 UT) capsule Take 50,000 Units by mouth [...] Most Recently Relevant to Health Maintenance Insurance [facility] STANDARD DENTAL[facility] MEDICAID STAND ADULT
--- OUTSIDE RECORDS SUMMARY | 2025-05-19 16:04 | XMS_ITS | Patient Health Record ---
Author Organization [facility] Address [address] [place] [address] Care Team Providers Care Trapper Bird Name Role Phone Kareen Mark Primary Care Provider Martin Ortiz Unavailable [phone] Allergies Allergen (clinical drug ingredient) Drug/Non Drug Allergy documented on EMR Reaction Allergy Type Onset Date Status Morphine Sulfate Unknown Drug Allergy Active Reason For Referral No Information Medications Medication SIG (Take, Route, Frequency, Duration) Notes Start Date End Date Status oxyBUTYnin Chloride ER 10 MG TAKE ONE TABLET BY MOUTH DAILY Oral; Duration: 30 Active Montelukast Sodium 10 MG TAKE ONE TABLET BY MOUTH DAILY IN THE EVENING Oral; Duration: 30 Active Ketotifen Fumarate 0.025 % INSTILL 1 ELIE P IN EACH EYE EVERY 8 TO 12 HOUR. not to exceed 2 DROP IN 24 HOUR Ophthalmic; Duration: 30 Active Dexilant 60 MG TAKE ONE CAPSULE BY MOUTH DAILY AT DINNER Oral; Duration: 30 Active Baclofen 10 MG TAKE ONE TABLET BY M OUTH AT BEDTIME Oral; Duration: 30 Active Advair HFA 115-21 MCG/ACT INHALE 2 PUFF BY MOUTH 2 (two) times a day rinse mouth and throat after use Inhalation; Duration: 30 Active MiraLax (colon prep) 8.3 ounce ((238) grams mixed with Gatorade or Crystal Light orally begin at 5:00 p.m. the day before the procedure; Duration: 1 day 12/13/2017 Active Amoxicillin-Pot Clavulanate 875-125 MG TAKE ONE TABLET BY MOUTH 2 (two) times a day FOR 14 DAYS Oral; Duration: 14 Active Topiramate 100 MG TAKE ONE TABLET BY M OUTH DAILY Oral; Duration: 30 Active rOPINIRole HCl 5 MG TAKE ONE TABLET BY M OUTH DAILY AT BEDTIME Oral; Duration: 30 Active Chlorthalidone 25 MG TAKE ONE TABLET BY MOUTH EVERY MORNING Oral; Duration: 30 Active Metoprolol Succinate ER 25 MG TAKE ONE TABLET BY MOUTH DAILY Oral; Duration: 30 Active Dulcolax (colon prep) 5 MG take at 3:00 p.m and 7:00p.m. Orally two tablets twice a day for one day; Duration: 1 day 12/13/2017 Active Ibuprofen 800 MG TAKE ONE TABLET BY M OUTH 3 (THREE) TIMES A DAY Oral; Duration: 30 Active Copaxone 40 MG/ML INJECT THE CONTENT O F 1 syringe SUBCUTANEOUSLY 3 X EACH WEEK Subcutaneous; Duration: 30 Active traMADol HCl 50 MG (Schedule IV Drug) T DOMO ONE TABLET BY MOUTH EVERY 6 HOURS NEEDED Oral; Duration: 30 Active Lidocaine 5 % APPLY 1 PATCH TOPICA LLY DAILY. remove patch after 12 hours External; Duration: 30 Active traZODone HCl 50 MG TAKE 1 TO 2 TABLETS BY MOUTH DAILY AT BEDTIME Oral; Duration: 30 Active Citalopram Hydrobromide 40 MG TAKE ONE TABLET BY MOUTH DAILY Oral; Duration: 30 Active Gabapentin 300 MG TAKE ONE CAPSULE (30 0mg) BY MOUTH 3 (THREE) TIMES A DAY Oral; Duration: 30 Active Glycopyrrolate 1 MG TAKE ONE TABLET BY M OUTH 2 (two) times a day Oral; Duration: 30 Active Lisinopril 20 MG TAKE ONE TABLET BY M OUTH DAILY Oral; Duration: 30 Active ProAir HFA 108 (90 Base) MCG/ACT INHALE 2 PUFF BY MOUTH EVERY 4 TO 6 HOURS NEEDED Inhalation; Duration: 17 Active Cetirizine HCl 10 MG TAKE ONE TABLET BY MOUTH AT BEDTIME NEEDED FOR ITCH Oral; Duration: 30 Active Triamcinolone Acetonide 55 MCG/ACT SPRAY TWICE IN EACH NOSTRIL DAILY TO 2 (two) times a day Nasal; Duration: 30 Active Social History Tobacco Use: Social [...] Problem Status W/U Status Risk Notes Problem Screening for malignant neoplasm of colon (510704535) Encounter for screening for malignant neoplasm of colon (Z12.11) Active confirmed Problem Gastroesophageal reflux disease without esophagitis (541649386) Gastroesophageal reflux disease without esophagitis (K21.9) Active confirmed Problem Pre-procedure evaluation check (392553998) Pre-procedural examination (Z01.818) Active confirmed Plan Of Treatment Pending Test Test Name Order Date GI BIOPSY 12/26/2017 Future Test Test Name Order Date COLONOSCOPY 12/12/2017 Insurance Providers Payer Name Payer Address Payer Phone Subscriber Number Group Number Insured Name Patient Relationship to Insured Coverage Start Date Coverage End Date MEDICAID OF [employer] [address] [place] [phone] [id number] KINA SALAZAR Self - patient is the insured Medical (General) History Medical History History ICD Code Denies DE,DM,CVA,renal disease Asthma Hypertension Multiple sclerosis GERD--EGD 01/2011WNL except for small HH and gastritis--neg. Hpylori Surgical History Surgery Date(Month/Year) Leg surgery due to broken left leg- 2012 Nose surgery Left carpal tunnel
== END 2025-05-19 13:16 | disposition home or self-care (01) ==
LOC: HO.US 13:15
PROVIDERS: PCP Internal Medicine
DX: E04.1 Nontoxic single thyroid nodule (principal)
CPT/HCPCS: 76536

== ENCOUNTER → 2025-05-19 13:23 | Outpatient (BNV) | payer OTHER, SELFPAY | PROVIDERS: PCP Internal Medicine; Visit Provider Radiology Diagnostic Radiology | DX: E04.1 Nontoxic single thyroid nodule (principal) | CPT/HCPCS: 76536 ==

== ENCOUNTER 2025-06-04 12:46 | Outpatient (AMB) | payer OTHER, SELFPAY ==
--- NOTE | 2025-06-04 13:13 | A.OFFVIS_ITS ---
Vital Signs 06/04/25 13:20 Height 5 ft 2 in Weight 136 lb 10.986 oz BMI 25.0 BP 115/70 Blood Pressure Location Lt brachial Position Sitting Pulse 83 Pulse Source Pulse Oximeter Pulse Oximetry (%) 98 Oxygen Delivery Method Room Air Intake Visit Reasons: OA Intake Note: Patient presents for OA follow up. Pharmaceutical Botanist Required: Yes Pharmaceutical Botanist Language: Boner [employer] Services: Pharmaceutical Botanist Present Pharmaceutical Botanist Name: [id number] Information Interpreted: non-clinical & clinical Allergies almond Allergy (Severe, Verified 06/04/25 13:19) ANAPHYLAXIS kiwi Allergy (Severe, Verified 06/04/25 13:19) Itching peach (PEACH) Allergy (Severe, Verified 06/04/25 13:19) ANAPHYLAXIS walnut Allergy (Severe, Verified 06/04/25 13:19) ANAPHYLAXIS morphine Allergy (Intermediate, Verified 06/04/25 13:19) ITCHING, hives, swelling,itchiness HPI Comments Details: Patient is a 60 y.o. female with asthma, GERD, depression, IBS, venous insufficiency, MS, and fibromyalgia here today for f/u Interval History: Patient last seen 06/04/[address] Bennett - Not on DMARDs - She states that she is doing about the same overall. She has been doing physical therapy for her knees. She states that she takes tramadol about once a week at night as needed for joint pains. Today - On Tramadol 50mg tid - Tramadol help a bit with the pain - Today concerned about new bumps in between the 2nd and 3rd digits Rheumatologic History: Fibromyalgia and OA Current Rheumatology Medication(s): Tramadol 50mg tid [facility] Medical History Allergic rhinitis Neck mass Hemorrhoids Macrocytosis Family history of colon cancer Salivary disorder Encounter for well woman exam with routine gynecological exam Pelvic pain Irritable bowel syndrome with both constipation and diarrhea Irritable bowel syndrome with diarrhea Bilateral tennis elbow Weight loss Numbness and tingling in both hands Hypomagnesemia Right shoulder pain Left knee pain Foot callus Foot pain Chest pain Right foot pain Left foot pain Physical exam Vaginal itching Nausea and vomiting Chronic superficial gastritis Bilateral knee pain Bilateral hand pain Hypernatremia Encounter for medication monitoring Pre-op examination URI (upper respiratory infection) Physical exam Right ankle sprain Right hand pain COVID-19 Urinary frequency BV (bacterial vaginosis) Environmental allergies Fibromyalgia Chronic constipation Moderate recurrent major depression RUQ abdominal pain B12 deficiency Urge urinary incontinence Dyslipidemia Essential hypertension Multiple sclerosis Migraine Surgical History History of carpal tunnel surgery of left wrist History of esophagogastroduodenoscopy (EGD) Hx of colonoscopy Hx of foot surgery History of suburethral sling procedure Hx of tubal ligation History of endometrial ablation Hx of submucous nasal surgery Family History Father History of throat cancer Mother Stroke Multiple sclerosis Maternal Grandmother Multiple sclerosis Pancreatic cancer Paternal Grandfather Pancreatic cancer Lung cancer Social History Household Members: Spouse and Children Housing: Apartment Are you a primary career guidance counselor to a significant other at home: No Do you presently have visiting nurse or other home services: Yes Alcohol intake: never Patient Tobacco Use Status: Former Tobacco user Years Smoked: Quit 30 years ago e-Cigarette/Vaping Use: Never Used Second Hand Smoke Exposure: No Substance Use Type: Marijuana service: No Current occupational status: student and disabled Cognitive needs: No Hearing needs: No Vision needs: Yes Female Reproductive History Menstrual Age of Menarche: 11 Review of Systems Narrative Review of Systems Constitutional: Denies fever, chills, weight loss ENT: Denies vision changes, eye pain or eye redness, dental caries, dry mouth GI: Denies nausea, vomiting, diarrhea, abdominal pain, change in BM Pulm: Denies SOB, ALLAN, hemoptysis, wheezing Cards: Denies chest pain, palpitations Skin: Denies Raynaud's, rash, nail changes, photosensitivity, RECEIVING WEIGHER: Denies headaches, weakness, paresthesias, recurrent falls MSK: as per HPI All other systems reviewed and are unremarkable except noted above Physical Exam Exam Exam: Vital signs reviewed Physical Examination CONSTITUITIONAL Patient alert and cooperative. Well appearing and in no apparent painful distress MSK Hands * Right Hand: Able to make a fist. No swelling or tenderness to palpation of the MCPs, PIPs or DIPs. * Left Hand: Able to make a fist. No swelling or tenderness to palpation of the MCPs, PIPs or DIPs. * Firm mass noted at the base of the 3rd digit bilaterally, next to the MCP. They are tender to touch * Positive CMC grind test bilaterally Wrists * Right Wrist: Full ROM to flexion and extension. No swelling or TTP * Left Wrist: Full ROM to flexion and extension. No swelling or TTP Elbows * Right Elbow: Full ROM. No swelling or TTP. No TTP of the medial epicondyle. No TTP of the lateral epicondyle * Left Elbow: Full ROM. No swelling or TTP. No TTP of the medial epicondyle. No TTP of the lateral epicondyle Shoulders * Right shoulder: Full ROM. No swelling noted. No TTP of the AC joint. No TTP of the subacromial bursa. No TTP of the posterior shoulder * Left shoulder: Full ROM. No swelling noted. No TTP of the AC joint. No TTP of the subacromial bursa. No TTP of the posterior shoulder Hip bursa: No tenderness to palpation bilaterally Knees * Right knee: Full ROM. No swelling noted. TTP of the knee joint line. No TTP of pes anserine bursa * Left knee: Full ROM. No swelling noted. TTP of the knee joint line. No TTP of pes anserine bursa. Ankles * Right ankle: Good ankle dorsiflexion and plantar flexion. No swelling. No TTP of the ankle joint * Left ankle: Good ankle dorsiflexion and plantar flexion. No swelling. No TTP of the ankle joint Feet * Right foot: Negative squeeze test * Left foot: Negative squeeze test Tender points? * Tenderness to palpation of the bilateral trapezius, supraspinatus, anterior costochondral junctions, bilateral suboccipital muscle insertions SKIN No rashes Vital Signs: Last Vital Signs Pulse 83 06/04/25 13:20 BP 115/70 06/04/25 13:20 Pulse Ox 98 06/04/25 13:20 Oxygen Delivery Method Room Air 06/04/25 13:20 BMI result Body Mass Index 25.0 Results Reviewed Results Reviewed: Laboratory Tests 11/03/24 14:20 Sodium 143 Potassium 4.0 Chloride 106 Carbon Dioxide 30 H BUN 19 H Creatinine 0.73 AST 19 ALT 21 25-OH Vitamin D Total 34.8 Assessment & Plan Assessment & Plan (1) Fibromyalgia: Code(s): M79.7 - Fibromyalgia Category: Medical Plan: #Fibromyalgia Patient is a 60-year-old female with fibromyalgia complicated by polyarticular osteoarthritis here today for follow up. Currently stable on tramadol and we will continue this. Continued to recommend lifestyle modification and conservative measures such as stretching and exercising Plan - Tramadol 50mg tid - RTC 1 year (2) Bone tumor: Code(s): D49.2 - Neoplasm of unspecified behavior of bone, soft tissue, and skin Plan: #?Bone Tumor Patient with firm and tender nodule at the base of bilateral 3rd digits Unsure what this is We will check x-rays to further evaluate Plan - Hand XRs Plan I spent 30 minutes reviewing the record and labs, taking a history, examining the patient, discussing the treatment plan, ordering diagnostic work up and documenting in the medical record Medications: Refilled tramadol 50 mg PO TID 90 tabs 1RF Coding Level of Care Code Est Pt Level 4 (93901) Diagnoses Fibromyalgia M79.7 Bone tumor D49.2
[2025-06-04 13:20] VITALS: BP 115/70; PULSE 83; O2SAT 98; BMI 25.0
--- OUTSIDE RECORDS SUMMARY | 2025-06-04 15:39 | XMS_ITS | Clinical Summary ---
Author Organization [facility] Address [address] [place] [address] [address] [place] [address] Care Team Providers Care Freight Loading Supervisor Name Role Phone Unavailable Primary Care Provider Unavailabl e Allergies Active Allergy Reactions Criticality Noted Date Comments [place] Oil 08/02/2010 Other Reaction(s): almond, greenlandic walnut, cashe Apple Juice 09/03/2020 Bee Pollen [...] 3 Active ergocalciferol (Vitamin D2) 1.25 MG (11866 UT) capsule Take 50,000 Units by mouth [...] Most Recently Relevant to Health Maintenance Insurance [facility] STANDARD DENTAL-[facility] MEDICAID STAND ADULT
--- OUTSIDE RECORDS SUMMARY | 2025-06-04 15:39 | XMS_ITS | Patient Health Record ---
Author Organization [facility] Address [address] [place] [address] Care Team Providers Care Project Management Advisor Name Role Phone Kareen Mark Primary Care Provider Martin Ortiz Unavailable [phone] Allergies Allergen (clinical drug ingredient) Drug/Non Drug [...] Problem Screening for malignant neoplasm of colon (431251504) Encounter for screening for malignant neoplasm of colon (Z12.11) Active confirmed Problem Gastroesophageal reflux disease without esophagitis (243715897) Gastroesophageal reflux disease without esophagitis (K21.9) Active confirmed Problem Pre-procedure evaluation check (961511655) Pre-procedural examination (Z01.818) Active confirmed Plan Of Treatment Pending Test Test Name Order Date GI BIOPSY 12/26/2017 Future Test Test Name Order Date COLONOSCOPY 12/12/2017 Insurance Providers Payer Name Payer Address Payer Phone Subscriber Number Group Number Insured Name Patient Relationship to Insured Coverage Start Date Coverage End Date MEDICAID OF [employer] [address] [place] [phone] [id number] KINA SALAZAR Self - patient is the insured Medical (General) History Medical History History ICD Code Denies DC,DM,CVA,renal disease Asthma Hypertension Multiple sclerosis GERD--EGD 01/2011WNL except for small HH and gastritis--neg. Hpylori Surgical History Surgery Date(Month/Year) Leg surgery due to broken left leg- 2012 Nose surgery Left carpal tunnel
--- OUTSIDE RECORDS SUMMARY | 2025-06-04 15:39 | XMS_ITS | Clinical Summary ---
Author Organization [facility] Address [address] [place] [address] Care Team Providers Care Director Of Quality Control Name Role Phone Kareen Mark MD Primary [...] mouth. 0 Active ergocalciferol (VITAMIN D2) capsule 29938 units Take 1 capsule (50,000 Units total) [...] age to complete this topic Care Teams Director Of Quality Control Relationship Specialty Start Date End Date Kareen Mark MD [address] [facility] , [address] [facility] D/B/A: [facility] [place] [address] PCP - General Internal Medicine 12/13/19
== END 2025-06-04 13:53 | disposition home or self-care (01) ==
LOC: HO.RHES 12:47
PROVIDERS: PCP Internal Medicine; Visit Provider Student in an Organized Health Care Education/Training Program
DX: M79.7 Fibromyalgia (principal); D49.2 Neoplasm of unspecified behavior of bone, soft tissue, and skin
CPT/HCPCS: 99214

== ENCOUNTER → 2025-06-04 12:46 | Outpatient (BNVA) | payer OTHER, SELFPAY | PROVIDERS: PCP Internal Medicine; Visit Provider Student in an Organized Health Care Education/Training Program | DX: M79.7 Fibromyalgia (principal); D49.2 Neoplasm of unspecified behavior of bone, soft tissue, and skin; Z79.891 Long term (current) use of opiate analgesic | CPT/HCPCS: 99212 ==

== ENCOUNTER 2025-07-06 13:44 | Outpatient (AMB) | payer OTHER, SELFPAY ==
[2025-07-06 14:16] VITALS: BP 128/64; PULSE 84; RESP 18; O2SAT 98; BMI 25.1
--- NOTE | 2025-07-06 14:16 | A.OFFPC_ITS ---
Vital Signs 07/06/25 14:16 Height 5 ft 2 in Weight 137 lb 4 oz BMI 25.1 BP 128/64 Blood Pressure Location Lt brachial Position Sitting Respiration 18 Pulse 84 Pulse Source Pulse Oximeter Temp Source Temporal Artery Scan Pulse Oximetry (%) 98 Oxygen Delivery Method Room Air Intake Visit Reasons: bump on throat Talent Program Manager Required: No Accompanied by: Self / Same As Patient Allergies almond Allergy (Severe, Verified 07/06/25 14:37) ANAPHYLAXIS kiwi Allergy (Severe, Verified 07/06/25 14:37) Itching peach (PEACH) Allergy (Severe, Verified 07/06/25 14:37) ANAPHYLAXIS walnut Allergy (Severe, Verified 07/06/25 14:37) ANAPHYLAXIS morphine Allergy (Intermediate, Verified 07/06/25 14:37) ITCHING, hives, swelling,itchiness Medication List - Last Reconciled 07/06/25 by Kareen Burrell MD acetaminophen ER (Arthritis Pain Relief (acetaminophen) ER) mg PO albuterol sulfate 90 mcg/actuation 2 puffs inhalation Q4H PRN 30 days alcohol swabs (Alcohol Prep Pads) 1 pad topical BID 90 days bisacodyl 10 mg (2 x 5 mg) PO BEDTIME budesonide-formoterol 160-4.5 mcg/actuation (Symbicort) inhalation buspirone 5 mg PO BID cetirizine 10 mg PO DAILY 90 days cholecalciferol (vitamin D3) 25 mcg PO DAILY 90 days citalopram 20 mg PO DAILY clonidine 1 patch transdermal QWEEK cyanocobalamin (vitamin B-12) (Vitamin B-12) 1,000 mcg PO DAILY dexlansoprazole (Dexilant) 60 mg PO DAILY dicyclomine 10 mg PO QID PRN diphenhydramine HCl (Benadryl) 25 mg PO TID PRN epinephrine 0.3 mg (0.3 mL) IM Q10M PRN 2 days famotidine (Pepcid) 40 mg PO .qac supper fluticasone propion-salmeterol 113-14 mcg/actuation 1 inh inhalation BID hydrocortisone 2.5% (Proctosol HC) 1 appl HI BID hydrocortisone 1% (Anti-Itch (hydrocortisone)) 1 appl topical BID-QID PRN hydroxyzine pamoate 25 mg PO BID ibuprofen 600 mg PO Q8H PRN magnesium oxide 400 mg PO BID metoclopramide HCl (Reglan) 5 mg PO QIDACHS miconazole nitrate 2% (Monistat 7) 1 appful vaginal BEDTIME 7 days mometasone 100 mcg/actuation (Asmanex HFA) inhalation omalizumab (Xolair) 150 mg subcut .monthly polyethylene glycol 3350 (Miralax) 17 grams PO DAILY PRN 30 days ropinirole 5 mg PO BEDTIME 90 days sertraline 25 mg PO DAILY 90 days Shower Chair As directed topiramate 100 mg PO BEDTIME 90 days tramadol 50 mg PO TID trazodone 50 mg PO BEDTIME triamcinolone acetonide 1 spray intranasal DAILY PRN Tobacco use date assessed: 07/06/25 Dental Screening Dental Screen Date: 07/06/25 Did you have a dental visit in the last 12 months?: Yes Did you have a dental problem in the last 6 months where you did not have access to dental care?: No Was dental information given to patient?: Patient has dentist HPI HPI Comments History of Present Illness Details The patient is a 60 year old individual presenting for follow-up on a recent thyroid ultrasound and management of chronic conditions. A recent neck ultrasound was performed to evaluate a palpable lump, which was determined to be a normal anatomical structure, likely part of the trachea. The imaging incidentally found a very small, non-palpable nodule on the left side of the thyroid, which was described as mildly suspicious. The patient also has prominent calcifications on both hands, which are sometimes inflamed and painful. The patient is followed by a manager contracting for these symptoms and takes tramadol for pain. The patient's medical history is significant for multiple allergies, including to almond, kiwi, peach, walnut, and morphine. Medications reviewed include Tylenol, an albuterol inhaler, bisacodyl, Symbicort, buspirone, cetirizine, vitamin D, citalopram for depression with anxiety, clonidine patch, vitamin B12, Dexilant, dicyclomine, an EpiPen, Pepcid, ibuprofen cream, metoclopramide, monthly Xolair injections, MiraLAX as needed for constipation, sertraline, ropinirole, Topamax, tramadol, and trazodone. The patient also follows with psychiatry. [facility] Medical History (Updated 07/06/25 @ 15:17 by Kareen Burrell MD) Allergic rhinitis Neck mass Hemorrhoids Macrocytosis Family history of colon cancer Salivary disorder Encounter for well woman exam with routine gynecological exam Pelvic pain Irritable bowel syndrome with both constipation and diarrhea Irritable bowel syndrome with diarrhea Bilateral tennis elbow Weight loss Numbness and tingling in both hands Hypomagnesemia Right shoulder pain Left knee pain Foot callus Foot pain Chest pain Right foot pain Left foot pain Physical exam Vaginal itching Nausea and vomiting Chronic superficial gastritis Bilateral knee pain Bilateral hand pain Hypernatremia Encounter for medication monitoring Pre-op examination URI (upper respiratory infection) Physical exam Right ankle sprain Right hand pain COVID-19 Urinary frequency BV (bacterial vaginosis) Environmental allergies Fibromyalgia Chronic constipation Moderate recurrent major depression RUQ abdominal pain B12 deficiency Urge urinary incontinence Dyslipidemia Essential hypertension Multiple sclerosis Migraine Surgical History History of carpal tunnel surgery of left wrist History of esophagogastroduodenoscopy (EGD) Hx of colonoscopy Hx of foot surgery History of suburethral sling procedure Hx of tubal ligation History of endometrial ablation Hx of submucous nasal surgery Family History Father History of throat cancer Mother Stroke Multiple sclerosis Maternal Grandmother Multiple sclerosis Pancreatic cancer Paternal Grandfather Pancreatic cancer Lung cancer Social History Household Members: Spouse and Children Housing: Apartment Are you a primary transition of care specialist to a significant other at home: No Do you presently have visiting nurse or other home services: Yes Alcohol intake: never Patient Tobacco Use Status: Former Tobacco user Years Smoked: Quit 30 years ago e-Cigarette/Vaping Use: Never Used Second Hand Smoke Exposure: No Substance Use Type: Marijuana service: No Current occupational status: student and disabled Cognitive needs: No Hearing needs: No Vision needs: Yes Female Reproductive History Menstrual Age of Menarche: 11 Questionnaire Thrive Questionnaire Date Thrive assessed: 03/23/25 ROLY-7 AMB Questionnaire ROLY-7 Date ROLY - 7 assessed: 03/23/25 Source: Developed by Drs. Martin Rivera, Brigida Milligan, Matty Nielsen and colleagues, with an educational kathrine from [employer]. Review of Systems Const All systems reviewed & are unremarkable except as noted in HPI and below Card Denies chest pain at rest, Denies chest pain with activity, Denies edema, Denies irregular heart rhythm, Denies claudication, Denies dyspnea, Denies dyspnea on exertion, Denies orthopnea, Denies paroxysmal nocturnal dyspnea and Denies slow heart rate Resp Denies cough, Denies dyspnea and Denies dyspnea on exertion GI Denies abdominal pain, Denies change in bowel habits, Denies excessive flatus, Denies nausea and Denies vomiting Denies urinary incontinence, Denies urinary hesitancy and Denies urinary urgency Musc Denies atrophy, Denies deformity and Denies limited range of motion Physical exam (Primary Care) Vital Signs: Last Vital Signs Pulse 84 07/06/25 14:16 Resp 18 07/06/25 14:16 BP 128/64 07/06/25 14:16 Pulse Ox 98 07/06/25 14:16 Oxygen Delivery Method Room Air 07/06/25 14:16 BMI result Body Mass Index 25.1 Tobacco/Smoking Status: Tobacco use Status Tobacco use date assessed 07/06/25 07/06/25 14:22 Patient Tobacco Use Status Former Tobacco user 07/06/25 14:22 e-Cigarette/Vaping Use Never Used 07/06/25 14:22 Thrive Assessment: Date of Thrive Assessment Date Thrive assessed 03/23/25 07/06/25 14:22 Resp Effort & Inspection: normal respiratory effort Auscultation: clear to auscultation bilaterally Cardio Jugular venous distension: no JVD Rate: regular rate Rhythm: regular rhythm Heart sounds: S1 normal heart sound present and S2 normal heart sound present Extrem Other: hard lump in left and right hand General: Yes full ROM Coding Level of Care Code Complex visit Add On G2211 Diagnoses Thyroid nodule E04.1 Moderate recurrent major depression F33.1 Anxiety F41.9 Mass of left hand R22.32 Mass of right hand R22.31 Time Spent (min) 20 Assessment & Plan Assessment & Plan (1) Thyroid nodule: Code(s): E04.1 - Nontoxic single thyroid nodule Category: Medical (2) Moderate recurrent major depression: Code(s): F33.1 - Major depressive disorder, recurrent, moderate Category: Medical (3) Anxiety: Code(s): F41.9 - Anxiety disorder, unspecified Category: Medical (4) Mass of left hand: Code(s): R22.32 - Localized swelling, mass and lump, left upper limb Category: Medical (5) Mass of right hand: Code(s): R22.31 - Localized swelling, mass and lump, right upper limb Category: Medical Plan Plan 1. Thyroid Nodule A recent neck ultrasound incidentally found a very small, non-palpable, mildly suspicious nodule in the left lobe of the thyroid. The palpable lump the patient perceived was identified as a normal anatomical structure. A referral will be placed to endocrinology for further evaluation and management. Thyroid function tests will be ordered as part of the pre-physical lab work. 2. Arthralgia And Calcifications Of Hands The patient reports hand pain and has visible, prominent calcifications on both hands, for which the patient is followed by a manager contracting. An order for an X- ray of both hands will be placed to further evaluate these calcifications. The patient is advised to continue follow-up with rheumatology for ongoing management. 3. Health Maintenance The patient has a physical examination scheduled for August. Lab orders have been sent, and the patient is instructed to complete the fasting bloodwork prior to the appointment. 4, Depression with anxiety Follow-up with psychiatry. Continue same medications. Orders: Orders IRON PROFILE Today D64.9 - Anemia, unspecified Vitamin D 25-OH Total Today E55.9 - Vitamin D deficiency, unspecified Complete Blood Count Auto Diff Today D64.9 - Anemia, unspecified Thyroglobulin Antibodies Today E04.1 - Nontoxic single thyroid nodule XR hand LT 2V Today R22.32 - Localized swelling, mass and lump, left upper limb Vitamin B12 and Folate Today E53.8 - Deficiency of other specified B group vitamins Lipid Panel Today E78.5 - Hyperlipidemia, unspecified Thyroid Stimulating Hormone Today E04.1 - Nontoxic single thyroid nodule Free T4 (Free Thyroxine) Today E04.1 - Nontoxic single thyroid nodule Thyroid Peroxidase Antibodies Today E04.1 - Nontoxic single thyroid nodule Comprehensive Met. Panel Today K58.2 - Mixed irritable bowel syndrome Referrals Endocrinology Referral E04.1 - Nontoxic single thyroid nodule
--- OUTSIDE RECORDS SUMMARY | 2025-07-06 17:16 | XMS_ITS | Clinical Summary ---
Author Organization [facility] Address [address] [place] [address] Care Team Providers Care Crop Or Livestock Tenant Farmer Name Role Phone Kareen Mark MD Primary [...] mouth. 0 Active ergocalciferol (VITAMIN D2) capsule 24382 units Take 1 capsule (50,000 Units total) [...] age to complete this topic Care Teams Crop Or Livestock Tenant Farmer Relationship Specialty Start Date End Date Kareen Mark MD [address] [facility] , [address] [facility] D/B/A: [facility] Internal [facility] [place]ozo [address] PCP - General Internal Medicine 12/13/19
--- OUTSIDE RECORDS SUMMARY | 2025-07-06 17:16 | XMS_ITS | Clinical Summary ---
Author Organization [employer] Address [address] [place] [address] [address] [place] [address] Care Team Providers Care Document Control Specialist Name Role Phone Unavailable Primary Care Provider Unavailabl e Allergies Active Allergy Reactions Criticality Noted Date Comments Warren Oil 08/02/2010 Other Reaction(s): almond, frisian walnut, cashe Apple Juice 09/03/2020 Bee Pollen [...] 3 Active ergocalciferol (Vitamin D2) 1.25 MG (09989 UT) capsule Take 50,000 Units by mouth [...] Cancer Screening 1997 HPV/Cotest 1997 Mammogram 2007 RSV Patients and Patients Aged 60 years or older (1 - Risk 50-74 years 1-dose series) 2017 Pneumococcal Vaccine: 50+ Years (2 of 2 - PCV) 07/05/2019 07/05/2018, 01/19/2014, 11/11/2010 Dental Oral Exam 03/04/2024 09/03/2023, 12/2018, 08/15/2017, Additional history exists Dental Prophylaxis 04/01/2024 10/01/2023, 0 03/20/2018, 03/03/2016, Additional history exists Dental X-Ray: Bitewings 09/15/2024 09/14/19 24, 11/12/2020, 02/07/2019, Additional history exists COVID-19 Vaccine ( season) 2025 Influenza Vaccine (#1) 2025 05/06/2014, 2011 Tobacco Screening 07/07/2025 07/07/2024 DTaP/Tdap/Td Vaccines (3 - Td or Tdap) 11/17/2026 11/17/2016, 11/06/2010, 07/22/2003, Additional history exists Dental X-Ray: Full Mouth 05/21/2027 05/20/2024, 07/06 Hepatitis B Vaccines Completed 01/30/2023, 12/27/19 23 Zoster Vaccines Completed 02/27/2023, 12/26/2022 HIB Vaccines [...] Most Recently Relevant to Health Maintenance Insurance [facility] STANDARD DENTAL-[facility] MEDICAID STAND ADULT
== END 2025-07-06 14:48 | disposition home or self-care (01) ==
LOC: HO.HMCH 13:45
PROVIDERS: PCP Internal Medicine; Visit Provider Internal Medicine
DX: E04.1 Nontoxic single thyroid nodule (principal); F33.1 Major depressive disorder, recurrent, moderate; F41.9 Anxiety disorder, unspecified; R22.32 Localized swelling, mass and lump, left upper limb; R22.31 Localized swelling, mass and lump, right upper limb

== ENCOUNTER 2025-07-06 13:44 | Outpatient (REF) | payer OTHER, SELFPAY ==
--- NOTE | ~2025-07-06 | XR_ITS ---
Exam: XR HAND 3 VIEWS BILATERAL, bilateral hand x-rays TECHNIQUE: AP, lateral, and oblique views upper extremity, bilateral hands INDICATION: R22.31 - Localized swelling, mass and lump, right upper limb COMPARISON: None available. FINDINGS: RIGHT HAND: There is low bone mineral density. There is minimal narrowing of the distal and proximal interphalangeal joints. There are a few minute marginal osteophytes, for example, the IP joint of thumb and DIP joint second digit. No erosions are identified. LEFT HAND: There is low bone mineral density. There is mild narrowing of distal and proximal interphalangeal joints, most pronounced at the fourth and fifth digits. Minute marginal osteophytes are evident. No erosions are identified. No fractures are seen. XR/XR Hand Bilat min 3v IMPRESSION: Right hand: Osteopenia. Mild osteoarthritis. Left hand: Osteopenia. Mild osteoarthritis. Electronically signed by: Cj Basilio MD 07/06/2025 03:32 PM [facility]
== END 2025-07-06 13:45 | disposition home or self-care (01) ==
LOC: HO.XRAY 13:44
PROVIDERS: PCP Internal Medicine; Visit Provider Internal Medicine
DX: E04.1 Nontoxic single thyroid nodule (principal); F33.1 Major depressive disorder, recurrent, moderate; F41.9 Anxiety disorder, unspecified; R22.32 Localized swelling, mass and lump, left upper limb; R22.31 Localized swelling, mass and lump, right upper limb; K58.2 Mixed irritable bowel syndrome; E78.5 Hyperlipidemia, unspecified
CPT/HCPCS: 73130; 99212

== ENCOUNTER → 2025-07-06 15:01 | Outpatient (BNV) | payer OTHER, SELFPAY | PROVIDERS: PCP Internal Medicine; Visit Provider Radiology Diagnostic Radiology | DX: M19.041 Primary osteoarthritis, right hand (principal); M19.042 Primary osteoarthritis, left hand; M85.841 Other specified disorders of bone density and structure, right hand; M85.842 Other specified disorders of bone density and structure, left hand | CPT/HCPCS: 73130 ==